=== PATIENT | female | born 1950 | race American Indian/Alaskan Native ===

== ENCOUNTER 2016-03-31 18:20 | Emergency (ER) | payer MEDICARE ==
[2016-03-31 19:00] VITALS: BP 115/76
--- NOTE | 2016-03-31 20:21 | Emergency Department Report ---
Chief Complaint: Dyspnea/Respdistress Stated Complaint: CP/VOMITING/WEAKNESS Time Seen by Provider: 03/31/16 20:16 - HPI History of Present Illness: 65-year-old female past medical history of hypertension CHF diabetes she's had stent placement DVT in the left leg. Comes in today for increased shortness of breath 1 week. Her baseline is usually shortness of breath but the last week as gotten worse. She also complains of vomiting times today. As well as chest pressure and abdominal burning. She has had no fevers. His of breath with exertion. - Exam Vital Signs: Vital Signs 03/31/16 18:45 Temperature 98.6 F Pulse Rate 74 Respiratory 26 H Rate Blood Pressure 115/76 O2 Sat by Pulse 100 Oximetry Physical Exam: Is alert and oriented 3 cardiovascular S1-S2 regular rate and rhythm no murmurs appreciated respiratory she is clear to auscultation bilateral abdomen deferred extremities there is no lower leg edema noted MSE screening note: Focused history and physical exam performed. Due to findings the following was ordered: CBC BMP BNP chest x-ray ordered. It should be evaluated in the back by the main MDs ED Disposition for MSE Condition: Stable
[2016-03-31 20:40] LABS: Hematocrit 42.5 % (30.3-42.9); Hemoglobin 14.3 gm/dl (10.1-14.3); Mean Corpuscular HGB Conc 34 % (30-34); Mean Corpuscular Hemoglobin 33 pg (28-32); Mean Corpuscular Volume 97 fl (79-97); Platelet Count 288 K/mm3 (140-440); Red Blood Count 4.38 M/mm3 (3.65-5.03); White Blood Count 9.5 K/mm3 (4.5-11.0)
[2016-03-31 21:02] LABS: Anion Gap 23 mmol/L; BUN/Creatinine Ratio 15.71; Blood Urea Nitrogen 11 mg/dL (7-17); Calcium 9.6 mg/dL (8.4-10.2); Carbon Dioxide 22 mmol/L (22-30); Glucose 113 mg/dL (65-100); Potassium 3.4 mmol/L (3.6-5.0); Sodium 141 mmol/L (137-145)
--- NOTE | 2016-04-01 10:00 | XRay Report ---
CHEST X-RAY, 2 VIEWS: HISTORY: Shortness of breath. FINDINGS: There is mild hyperinflation, correlate for history of smoking. There is minor linear scarring at the right lung base which is unchanged since 04/09/15. Otherwise, the lungs are clear. Heart size and pulmonary vascularity are within normal limits. Mild aortic calcifications. The thoracic cage is grossly intact. IMPRESSION: Mild hyperinflation. No acute cardiopulmonary process.
--- NOTE | 2016-04-02 18:25 | ED Elopement Review ---
ED Pt Elopement review - Results review Lab results: Laboratory Tests 03/31/16 03/31/16 20:30 20:34 WBC 9.5 RBC 4.38 Hgb 14.3 Hct 42.5 MCV 97 MCH 33 H MCHC 34 RDW 15.0 Plt Count 288 Sodium 141 Potassium 3.4 L Chloride 99.0 Carbon Dioxide 22 Anion Gap 23 BUN 11 Creatinine 0.7 Estimated GFR > 60 BUN/Creatinine Ratio 15.71 Glucose 113 H Calcium 9.6 NT-Pro-B Natriuret Pep 470.4 - Call Back decision Pt Call Back Decision: Call pt to return to ED JESS (tachypnea, T-wave inversions (lead 1, aVL) and chest pressure should be further evaluated)
== END 2016-03-31 21:45 | disposition left against medical advice (07) ==
LOC: ED 18:20
DX: R06.02 Shortness of breath (principal); R11.10 Vomiting, unspecified; R07.89 Other chest pain; I10 Essential (primary) hypertension; I50.9 Heart failure, unspecified; E11.9 Type 2 diabetes mellitus without complications; Z53.21 Procedure and treatment not carried out due to patient leaving prior to being seen by health care provider
CPT/HCPCS: 36415; 71020; 80048; 83880; 85027; 93005; 93010

== ENCOUNTER 2016-04-08 17:35 | Emergency (ER) | payer MEDICARE ==
[2016-04-08 19:37] LABS: Basophils % (Auto) 0.7 % (0.0-1.8); Eosinophils % (Auto) 2.9 % (0.0-4.3); Hematocrit 38.2 % (30.3-42.9); Hemoglobin 12.8 gm/dl (10.1-14.3); Mean Corpuscular HGB Conc 33 % (30-34); Mean Corpuscular Hemoglobin 33 pg (28-32); Mean Corpuscular Volume 98 fl (79-97); Platelet Count 336 K/mm3 (140-440); Red Blood Count 3.91 M/mm3 (3.65-5.03); Red Cell Distribution Width 15.6 % (13.2-15.2); White Blood Count 8.4 K/mm3 (4.5-11.0)
[2016-04-08 19:48] LABS: INR 1.03 (0.87-1.13)
[2016-04-08 19:49] LABS: Partial Thromboplastin Time 26.9 Sec. (24.2-36.6)
[2016-04-08 19:58] LABS: Blood Urea Nitrogen 12 mg/dL (7-17); Calcium 9.2 mg/dL (8.4-10.2); Carbon Dioxide 26 mmol/L (22-30); Chloride 103.8 mmol/L (98-107); Glucose 99 mg/dL (65-100); Potassium 4.1 mmol/L (3.6-5.0); Sodium 143 mmol/L (137-145)
[2016-04-08 20:07] LABS: Anion Gap 17 mmol/L
--- NOTE | 2016-04-08 20:44 | Emergency Department Report ---
ED General Adult HPI - General Chief complaint: Recheck/Abnormal Lab/Rx Stated complaint: CALL BACK Time Seen by Provider: 04/08/16 20:25 Source: patient Mode of arrival: Ambulatory Limitations: Physical Limitation - History of Present Illness Initial comments: This is a pleasant 66-year-old female who presents to the ED complaining of recheck due to C to her in the mail from our emergency department. Patient was initially here last she did have ECG done was here for some increased dyspnea some mild chest discomfort as well. She indicates that she did leave prior to complete evaluation due to the length of her stay. She indicates over the course of the weekend she's felt somewhat improved she does sleep with pillows nightly and there is this is unchanged times several years. She does report slightly increased dyspnea over the last couple of weeks ago. In general she states she feels well today at her baseline. She reports compliance with her medications. She denies any significant chest pain. She does again have occasional dyspnea. She does report a history of reflux as well but states this is been relatively well controlled as of late. -: Gradual, week(s) Location: chest Radiation: non-radiation Severity scale (0 -10): 2 Quality: dull Consistency: now resolved Improves with: rest Worsens with: movement Associated Symptoms: shortness of breath Treatments Prior to Arrival: none - Related Data Home Medications Medication Instructions Recorded Confirmed Last Taken Metoprolol [Lopressor TAB] 0 mg PO BID 04/09/15 04/09/15 03/26/15 0 MG Previous Rx's Medication Instructions Recorded Last Taken Type Aspirin EC [Aspirin Enteric Coated 325 mg PO QDAY tablet 10/04/14 03/26/15 Rx TAB] 325 MG Metoprolol [Lopressor TAB] 25 mg PO BID #60 tablet 04/09/15 Unknown Rx AtorvaSTATin [Lipitor] 20 mg PO DAILY #30 tablet 04/10/15 Unknown Rx Cilostazol [Pletal] 50 mg PO BID 30 Days 04/10/15 Unknown Rx Digoxin [Digox] 0.125 mcg PO DAILY 30 Days 04/10/15 Unknown Rx Furosemide [Lasix TAB] 40 mg PO QDAY #30 tablet 04/10/15 Unknown Rx Losartan [Cozaar] 100 mg PO QDAY #30 tablet 04/10/15 Unknown Rx [place]-3 Acid Ethyl Esters [Lovaza] 1 gm PO BID 30 Days 04/10/15 Unknown Rx PARoxetine [Paxil] 20 mg PO DAILY #30 tablet 04/10/15 Unknown Rx Ventolin HFA 2 puff INHALATION Q6H PRN #1 04/10/15 Unknown Rx amLODIPine [Norvasc] 10 mg PO DAILY #30 tablet 04/10/15 Unknown Rx cloNIDine [Catapres] 0.1 mg PO BID 30 Days 04/10/15 Unknown Rx metFORMIN [Glucophage] 500 mg PO BIDWM #60 tablet 04/10/15 Unknown Rx Acetaminophen/Codeine [Tylenol #3] 1 tab PO Q6H PRN #15 tab 05/29/15 Unknown Rx Allergies Allergy/AdvReac Type Severity Reaction Status Date / Time No Known Allergies Allergy Verified 04/08/16 18:42 ED Review of Systems ROS: Stated complaint: CALL BACK Other details as noted in HPI Constitutional: denies: chills, fever Eyes: denies: eye pain, eye discharge, vision change ENT: denies: ear pain, throat pain Respiratory: shortness of breath, other (orthopnea, nocturnal dyspnea). denies : cough, wheezing Cardiovascular: chest pain. denies: palpitations Endocrine: no symptoms reported Gastrointestinal: denies: abdominal pain, nausea, diarrhea Genitourinary: denies: urgency, dysuria, discharge Musculoskeletal: denies: back pain, joint swelling, arthralgia Skin: denies: rash, lesions Neurological: denies: headache, weakness, paresthesias Psychiatric: denies: anxiety, depression Hematological/Lymphatic: denies: easy bleeding, easy bruising ED Past Medical Hx - Past Medical History Hx Hypertension: Yes Hx Congestive Heart Failure: Yes Hx Diabetes: Yes Hx Psychiatric Treatment: Yes (ANXIETY) Additional medical history: HIGH CHOLESTEROL. 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 MILD HEART ENLARGEMENT - Surgical History Additional Surgical History: STENTS IN LEGS, BLOOD CLOTS REMOVED FROM HEAD. TUBAL LIGATION - Social History Smoking Status: Current Every Day Smoker - Medications Home Medications: Home Medications Medication Instructions Recorded Confirmed Last Taken Type Aspirin EC [Aspirin Enteric Coated 325 mg PO QDAY tablet 10/04/14 04/09/15 Rx TAB] 325 MG Metoprolol [Lopressor TAB] 0 mg PO BID 04/09/15 04/09/15 03/26/15 History 0 MG Metoprolol [Lopressor TAB] 25 mg PO BID #60 tablet 04/09/15 Unknown Rx AtorvaSTATin [Lipitor] 20 mg PO DAILY #30 tablet 04/10/15 Unknown Rx Cilostazol [Pletal] 50 mg PO BID 30 Days 04/10/15 Unknown Rx Digoxin [Digox] 0.125 mcg PO DAILY 30 Days 04/10/15 Unknown Rx Furosemide [Lasix TAB] 40 mg PO QDAY #30 tablet 04/10/15 Unknown Rx Losartan [Cozaar] 100 mg PO QDAY #30 tablet 04/10/15 Unknown Rx [place]-3 Acid Ethyl Esters [Lovaza] 1 gm PO BID 30 Days 04/10/15 Unknown Rx PARoxetine [Paxil] 20 mg PO DAILY #30 tablet 04/10/15 Unknown Rx Ventolin HFA 2 puff INHALATION Q6H PRN #1 04/10/15 Unknown Rx amLODIPine [Norvasc] 10 mg PO DAILY #30 tablet 04/10/15 Unknown Rx cloNIDine [Catapres] 0.1 mg PO BID 30 Days 04/10/15 Unknown Rx metFORMIN [Glucophage] 500 mg PO BIDWM #60 tablet 04/10/15 Unknown Rx Acetaminophen/Codeine [Tylenol #3] 1 tab PO Q6H PRN #15 tab 05/29/15 Unknown Rx ED Physical Exam - General Limitations: No Limitations, Physical Limitation General appearance: alert, in no apparent distress - Head Head exam: Present: atraumatic, normocephalic - Eye Eye exam: Present: normal appearance - ENT ENT exam: Present: normal exam, mucous membranes moist - Neck Neck exam: Present: normal inspection, other (no carotid bruit). Absent: lymphadenopathy - Respiratory Respiratory exam: Present: rales (bibasilarly. Good air movement). Absent: respiratory distress, wheezes, stridor - Cardiovascular Cardiovascular Exam: Present: regular rate, normal rhythm, systolic murmur (3/6) . Absent: diastolic murmur, rubs, gallop - GI/Abdominal GI/Abdominal exam: Present: soft, normal bowel sounds - Extremities Exam Extremities exam: Present: normal inspection, other (equal distal pedal pulses bilat. No calf tenderness). Absent: pedal edema - Back Exam Back exam: Present: normal inspection - Neurological Exam Neurological exam: Present: alert, oriented X3 - Psychiatric Psychiatric exam: Present: normal affect, normal mood - Skin Skin exam: Present: warm, dry, intact, normal color. Absent: rash ED Course Vital Signs 04/08/16 18:20 Temperature 98.1 F Pulse Rate 84 Respiratory 16 Rate Blood Pressure 224/101 O2 Sat by Pulse 99 Oximetry - Reevaluation(s) Reevaluation #1: 04/08/16 20:52 Patient is very pleasant here vital signs are noted oxygen saturation is normal heart rate is normal ECG is compared to ECG from 1 week ago. There is very minimal changes noted with this there. There are some nonspecific ST-T changes more prominent today compared to ECG from 1 week ago however still very nonspecific without any reciprocal changes noted whatsoever. I did review the labs today they will are unremarkable in general. BNP is noted to be elevated at 600 her creatinine is normal at 0.8. I did order a digoxin for her physician to follow-up with his well. My impression in general is there is no acute process at play. I feel the patient has some ongoing mild dyspnea due to her chronic congestive heart failure. She appears to be on a good drop medication regimen for this. She indicates compliance with her medications. Her vital signs again are stable at this time. I feel she is appropriate for outpatient management and continue follow-up. I did indicate to her to have a conversation with her primary physician regarding any further cardiac testing that they would recommend. I also indicated to her importance of increasing her Lasix when she having increased dyspnea as this will likely help mobilize increase fluid. She still has very good kidney function so this should be quite effective. No other concerning features at this time I feel that she is safe for home. She has family with her home. ED Medical Decision Making - Lab Data Result diagrams: 04/08/16 19:07 04/08/16 19:07 - EKG Data -: EKG Interpreted by Me EKG shows normal: sinus rhythm, axis (Left), ST-T waves (non-specific st-t changes with unchanged from ecg from 1 week ago) Rate: normal Critical care attestation.: If time is entered above; I have spent that time in minutes in the direct care of this critically ill patient, excluding procedure time. ED Disposition Clinical Impression: Dyspnea due to congestive heart failure Disposition: DISCHARGED TO HOME OR SELFCARE Is pt being admited?: No Does the pt Need Aspirin: No Condition: Stable Additional Instructions: Take an extra lasix tablet (1 in the morning and 1 at night) when you are having increased shortness of breath. Be sure to take an extra potassium tablet when you double up your lasix. You need to be seen by your doctor in the next 5 days to further address your elevated blood pressure. You can also discuss further evaluation of your shortness of breath and chest discomforts. Time of Disposition: 20:43
[2016-04-08 20:59] VITALS: BP 168/86
== END 2016-04-08 22:06 | disposition home or self-care (01) ==
LOC: ED 17:35
DX: R06.00 Dyspnea, unspecified (principal); I50.9 Heart failure, unspecified; I10 Essential (primary) hypertension; E11.9 Type 2 diabetes mellitus without complications; F41.9 Anxiety disorder, unspecified; E78.00 Pure hypercholesterolemia, unspecified; F17.200 Nicotine dependence, unspecified, uncomplicated; Z79.82 Long term (current) use of aspirin
CPT/HCPCS: 36415; 80048; 83880; 84484; 85025; 85610; 85730; 93005; 93010

== ENCOUNTER 2017-10-26 09:12 | Emergency (ER) | payer MEDICARE ==
--- NOTE | 2017-10-26 09:54 | XRay Report ---
CHEST XRAY, 2 VIEWS: History: Shortness of breath. Findings: There is mild diffuse interstitial coarsening. The lungs are hyperexpanded but clear. No infiltrate, pleural fluid or pneumothorax is detected. The cardiac silhouette and pulmonary vasculature are within normal limits for technique. The bony thorax is unremarkable. IMPRESSION: Changes consistent with COPD. No significant change since 03/31/16. No acute cardiopulmonary process.
[2017-10-26 10:36] LABS: Basophils % (Auto) 0.5 % (0.0-1.8); Eosinophils # (Auto) 0.1 K/mm3 (0.0-0.4); Eosinophils % (Auto) 0.6 % (0.0-4.3); Hematocrit 36.9 % (30.3-42.9); Lymphocytes # (Auto) 2.3 K/mm3 (1.2-5.4); Lymphocytes % (Auto) 21.7 % (13.4-35.0); Mean Corpuscular HGB Conc 35 % (30-34); Mean Corpuscular Hemoglobin 33 pg (28-32); Mean Corpuscular Volume 95 fl (79-97); Monocytes # (Auto) 0.8 K/mm3 (0.0-0.8); Monocytes % (Auto) 7.2 % (0.0-7.3); Platelet Count 339 K/mm3 (140-440); Red Blood Count 3.88 M/mm3 (3.65-5.03); Red Cell Distribution Width 13.7 % (13.2-15.2)
[2017-10-26 10:42] LABS: Calcium 10.1 mg/dL (8.4-10.2)
[2017-10-26] MEDS ORDERED: TESSALON PERLES PO ONE (13:52)
[2017-10-26] MEDS ORDERED: TYLENOL #3 PO ONE (13:52)
[2017-10-26] MEDS ORDERED: DELTASONE PO ONE (15:33)
[2017-10-26] MEDS ORDERED: DUONEB *Not for PRN Use IH ONE (15:33)
[2017-10-26] MEDS ORDERED: ZITHROMAX PO ONE (15:33)
[2017-10-26 16:45] VITALS: BP 177/96
--- NOTE | 2017-10-26 17:48 | Emergency Department Report ---
HPI - General Chief Complaint: Dyspnea/Respdistress Time Seen by Provider: 10/26/17 13:49 - HPI HPI: The patient is a 67-year-old female who presents for evaluation of cough. The patient reports that productive cough of yellow in green sputum the past one week, associated with mild generalized aching in quality pain in the chest and back, exacerbated with coughing, relieved at rest. The patient denies fever, dyspnea, syncope, hemoptysis, unilateral leg swelling,recent immobilization, history of DVT or PE, hx of recent cancer. The patient a long-standing daily tobacco use history. ED Past Medical Hx - Past Medical History Previous Medical History?: Yes Hx Hypertension: Yes Hx Congestive Heart Failure: Yes Hx Diabetes: Yes Hx Psychiatric Treatment: Yes (ANXIETY) Additional medical history: HIGH CHOLESTEROL. 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 MILD HEART ENLARGEMENT - Surgical History Past Surgical History?: Yes Additional Surgical History: STENTS IN LEGS, BLOOD CLOTS REMOVED FROM HEAD. TUBAL LIGATION - Social History Smoking Status: Current Every Day Smoker Substance Use Type: None - Medications Home Medications: Home Medications Medication Instructions Recorded Confirmed Last Taken Type Aspirin EC [Aspirin Enteric Coated 325 mg PO QDAY tablet 10/04/14 04/09/15 Rx TAB] 325 MG Metoprolol [Lopressor TAB] 0 mg PO BID 04/09/15 04/09/15 03/26/15 History 0 MG Metoprolol [Lopressor TAB] 25 mg PO BID #60 tablet 04/09/15 Unknown Rx AtorvaSTATin [Lipitor] 20 mg PO DAILY #30 tablet 04/10/15 Unknown Rx Cilostazol [Pletal] 50 mg PO BID 30 Days tablet 04/10/15 Unknown Rx Digoxin [Digox] 0.125 mcg PO DAILY 30 Days tablet 04/10/15 Unknown Rx Furosemide [Lasix TAB] 40 mg PO QDAY #30 tablet 04/10/15 Unknown Rx Losartan [Cozaar] 100 mg PO QDAY #30 tablet 04/10/15 Unknown Rx [place]-3 Acid Ethyl Esters [Lovaza] 1 gm PO BID 30 Days capsule 04/10/15 Unknown Rx PARoxetine [Paxil] 20 mg PO DAILY #30 tablet 04/10/15 Unknown Rx Ventolin HFA 2 puff INHALATION Q6H PRN #1 04/10/15 Unknown Rx amLODIPine [Norvasc] 10 mg PO DAILY #30 tablet 04/10/15 Unknown Rx cloNIDine [Catapres] 0.1 mg PO BID 30 Days tablet 04/10/15 Unknown Rx metFORMIN [Glucophage] 500 mg PO BIDWM #60 tablet 04/10/15 Unknown Rx Acetaminophen/Codeine [Tylenol #3] 1 tab PO Q6H PRN #15 tab 05/29/15 Unknown Rx ALBUTEROL Inhaler [ProAir HFA 2 puff IH QID PRN #1 inhalation 10/26/17 Unknown Rx Inhaler] Azithromycin [Zithromax Z-CHRISTOPHER] 250 mg PO QDAY #6 tablet 10/26/17 Unknown Rx Benzonatate [Tessalon Perles] 100 mg PO Q8HR #20 capsule 10/26/17 Unknown Rx amLODIPine [Norvasc] 5 mg PO DAILY #31 tab 10/26/17 Unknown Rx guaiFENesin [Mucinex] 600 mg PO BID PRN #20 tab.er.12h 10/26/17 Unknown Rx ED Review of Systems ROS: Stated complaint: POSS FLU Other details as noted in HPI Constitutional: denies: fever ENT: denies: throat or neck pain Respiratory reports cough denies: shortness of breath Cardiovascular: denies: chest pain Endocrine: denies unexplained weight loss or gain Gastrointestinal: denies: abdominal pain, nausea Genitourinary: denies: dysuria Musculoskeletal: denies: leg swelling Skin: denies: rash Neurological: denies: headache Hematological/Lymphatic: denies: easy bleeding or easy bruising Psych: denies sadness or hopelessness Physical Exam - Physical Exam Vital Signs: Vital Signs 10/26/17 10/26/17 10/26/17 09:18 15:21 15:48 Temperature 97.6 F 98.8 F Pulse Rate 74 75 Pulse Rate [ Anterior Bilateral Throughout] Respiratory 18 22 22 Rate Respiratory Rate [Anterior Bilateral Throughout] Blood Pressure 197/75 Blood Pressure 199/94 [Left] O2 Sat by Pulse 97 95 95 Oximetry 10/26/17 16:20 Temperature Pulse Rate Pulse Rate [ 74 Anterior Bilateral Throughout] Respiratory Rate Respiratory 18 Rate [Anterior Bilateral Throughout] Blood Pressure Blood Pressure [Left] O2 Sat by Pulse Oximetry Physical Exam: General: well-nourished, well-developed, no acute distress Head: Normocephalic, atraumatic Eyes: normal sclera ENT: Mucous membranes are pale and dry Neck: No neck stiffness, no cervical adenopathy Respiratory: Breath sounds equal bilaterally, no wheezing, rales, or rhonchi Cardio: S1 and S2 present, no murmurs, rubs, gallops, capillary refill is delayed Abdomen: Normoactive bowel sounds, soft abdomen, no rigidity, no guarding or rebound tenderness Chest WALL/Back: + tenderness to palpation of the bilateral chest wall, no redness, bruising, or fluctuance, crepitus to chest wall, no CVA tenderness with percussion Musc: No pitting edema Skin: No rash Neuro: no facial drooping, normal speech Psych: Normal affect ED Course Vital Signs 10/26/17 10/26/17 10/26/17 09:18 15:21 15:48 Temperature 97.6 F 98.8 F Pulse Rate 74 75 Pulse Rate [ Anterior Bilateral Throughout] Respiratory 18 22 22 Rate Respiratory Rate [Anterior Bilateral Throughout] Blood Pressure 197/75 Blood Pressure 199/94 [Left] O2 Sat by Pulse 97 95 95 Oximetry 10/26/17 16:20 Temperature Pulse Rate Pulse Rate [ 74 Anterior Bilateral Throughout] Respiratory Rate Respiratory 18 Rate [Anterior Bilateral Throughout] Blood Pressure Blood Pressure [Left] O2 Sat by Pulse Oximetry ED Medical Decision Making - Lab Data Result diagrams: 10/26/17 09:52 10/26/17 09:52 - Medical Decision Making The patient was seen and examined by myself. The patient is placed on a cardiac exercise specialist and continuous pulse ox. On initial evaluation, the patient was found to be in no distress. Evaluation orders were placed. The patient is given a breathing treatment and steroids for txt of COPD, and by mouth cough and pain medicine as well. Chest x-ray negative for focal consolidation, pleural effusions, pulmonary congestion, pneumothorax, or other acute cardio pulmonary disease process. Lab results are grossly not concerning. The patient was reevaluated and reported that their symptoms were markedly improved. On reexamination the patient is found to have normal respiratory rate and O2 sat on pulse oximetry, with no costal retractions or diminishment of breath sounds on auscultation. The patient is stable for discharge with outpatient follow- up. The patient is given follow-up and return instructions. The patient expressed understanding and agreed with the plan. The patient is discharged in stable condition. Critical care attestation.: If time is entered above; I have spent that time in minutes in the direct care of this critically ill patient, excluding procedure time. ED Disposition Clinical Impression: Acute bronchitis Qualifiers: Bronchitis organism: unspecified organism Qualified Code(s): J20.9 - Acute bronchitis, unspecified Disposition: - TO HOME OR SELFCARE Is pt being admited?: No Does the pt Need Aspirin: No Condition: Stable Instructions: Acute Bronchitis (ED), Viral Syndrome (ED), Upper Respiratory Infection (ED) Referrals: PRIMARY CARE, [Primary Care Provider] - 3-5 Days [facility] [Outside] - 3-5 Days Time of Disposition: 16:31
== END 2017-10-26 16:44 | disposition home or self-care (01) ==
LOC: ED 09:12
DX: J20.9 Acute bronchitis, unspecified (principal); I11.0 Hypertensive heart disease with heart failure; I50.9 Heart failure, unspecified; E11.9 Type 2 diabetes mellitus without complications; F41.9 Anxiety disorder, unspecified; E78.00 Pure hypercholesterolemia, unspecified; F17.200 Nicotine dependence, unspecified, uncomplicated; Z98.51 Tubal ligation status; Z79.82 Long term (current) use of aspirin
CPT/HCPCS: 36415; 71046; 80048; 84484; 85025; 87040; 93005; 93010; 94640; 99284; J7512

== ENCOUNTER 2019-01-08 23:01 | Inpatient (IN) | payer MEDICARE ==
[2019-01-08] MEDS ORDERED: FUROSEMIDE 40 MG/4 ML INJ IV ONE (23:17)
--- NOTE | 2019-01-08 23:22 | Emergency Department Report ---
ED Chest Pain HPI - General Stated Complaint: CHEST PAIN Time Seen by Provider: 01/08/19 23:17 - History of Present Illness Initial Comments: Patient is 68 years old female with history of congestive heart failure, hypertension, diabetes and coronary artery disease with recent stent. Patient presented to the ER via EMS for evaluation of sudden onset of left-sided chest pain, heaviness associated with her shortness of breath. The patient denied any fever, chills or cough. She received aspirin and nitroglycerin by EMS with improvement in the symptoms. MD Complaint: chest pain Onset: during rest Pain Radiation: none Severity: moderate Quality: heaviness - Related Data Home Medications Medication Instructions Recorded Confirmed Last Taken Metoprolol [Lopressor TAB] 0 mg PO BID 04/09/15 04/09/15 03/26/15 0 MG Previous Rx's Medication Instructions Recorded Last Taken Type Aspirin EC 325 mg PO QDAY tablet 10/04/14 03/26/15 Rx 325 MG Metoprolol [Lopressor TAB] 25 mg PO BID #60 tablet 04/09/15 Unknown Rx AtorvaSTATin [Lipitor] 20 mg PO DAILY #30 tablet 04/10/15 Unknown Rx Cilostazol [Pletal] 50 mg PO BID 30 Days tablet 04/10/15 Unknown Rx Digoxin [Digox] 0.125 mcg PO DAILY 30 Days tablet 04/10/15 Unknown Rx Furosemide [Lasix TAB] 40 mg PO QDAY #30 tablet 04/10/15 Unknown Rx Losartan [Cozaar] 100 mg PO QDAY #30 tablet 04/10/15 Unknown Rx Pollok-3 Acid Ethyl Esters [Lovaza] 1 gm PO BID 30 Days capsule 04/10/15 Unknown Rx PARoxetine [Paxil] 20 mg PO DAILY #30 tablet 04/10/15 Unknown Rx Ventolin HFA 2 puff INHALATION Q6H PRN #1 04/10/15 Unknown Rx amLODIPine 10 mg PO DAILY #30 tablet 04/10/15 Unknown Rx cloNIDine [Catapres] 0.1 mg PO BID 30 Days tablet 04/10/15 Unknown Rx metFORMIN [Glucophage] 500 mg PO BIDWM #60 tablet 04/10/15 Unknown Rx Acetaminophen/Codeine [Tylenol #3] 1 tab PO Q6H PRN #15 tab 05/29/15 Unknown Rx ALBUTEROL Inhaler (OR & NICU) 2 puff IH QID PRN #1 inhalation 10/26/17 Unknown Rx [ProAir HFA Inhaler] Azithromycin [Zithromax Z-CHRISTOPHER] 250 mg PO QDAY #6 tablet 10/26/17 Unknown Rx Benzonatate [Tessalon Perles] 100 mg PO Q8HR #20 capsule 10/26/17 Unknown Rx amLODIPine [Norvasc] 5 mg PO DAILY #31 tab 10/26/17 Unknown Rx guaiFENesin [Mucinex] 600 mg PO BID PRN #20 tab.er.12h 10/26/17 Unknown Rx Allergies Allergy/AdvReac Type Severity Reaction Status Date / Time No Known Allergies Allergy Verified 04/08/16 18:42 Heart Score - HEART Score History: Moderately suspicious EKG: Non-specific Age: > 65 Risk factors: > 3 risk factors or hx of atherosclerotic disease Troponin: < normal limit HEART Score: 6 - Critical Actions Critical Actions: 4-6 pts:12-16.6% risk of adverse cardiac event. Should be admitted ED Review of Systems ROS: Stated complaint: CHEST PAIN Other details as noted in HPI Comment: All other systems reviewed and negative Constitutional: denies: chills, fever Respiratory: orthopnea, shortness of breath, SOB with exertion, SOB at rest. denies: cough, wheezing Cardiovascular: chest pain Neurological: denies: headache, weakness ED Past Medical Hx - Past Medical History Hx Hypertension: Yes Hx Congestive Heart Failure: Yes Hx Diabetes: Yes Hx Psychiatric Treatment: Yes (ANXIETY) Additional medical history: HIGH CHOLESTEROL. 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 MILD HEART ENLARGEMENT - Surgical History Additional Surgical History: STENTS IN LEGS, BLOOD CLOTS REMOVED FROM HEAD. TUBAL LIGATION - Social History Smoking Status: Current Every Day Smoker Substance Use Type: None - Medications Home Medications: Home Medications Medication Instructions Recorded Confirmed Last Taken Type Aspirin EC 325 mg PO QDAY tablet 10/04/14 04/09/15 03/26/15 Rx 325 MG Metoprolol [Lopressor TAB] 0 mg PO BID 04/09/15 04/09/15 03/26/15 History 0 MG Metoprolol [Lopressor TAB] 25 mg PO BID #60 tablet 04/09/15 Unknown Rx AtorvaSTATin [Lipitor] 20 mg PO DAILY #30 tablet 04/10/15 Unknown Rx Cilostazol [Pletal] 50 mg PO BID 30 Days tablet 04/10/15 Unknown Rx Digoxin [Digox] 0.125 mcg PO DAILY 30 Days tablet 04/10/15 Unknown Rx Furosemide [Lasix TAB] 40 mg PO QDAY #30 tablet 04/10/15 Unknown Rx Losartan [Cozaar] 100 mg PO QDAY #30 tablet 04/10/15 Unknown Rx Pollok-3 Acid Ethyl Esters [Lovaza] 1 gm PO BID 30 Days capsule 04/10/15 Unknown Rx PARoxetine [Paxil] 20 mg PO DAILY #30 tablet 04/10/15 Unknown Rx Ventolin HFA 2 puff INHALATION Q6H PRN #1 04/10/15 Unknown Rx amLODIPine 10 mg PO DAILY #30 tablet 04/10/15 Unknown Rx cloNIDine [Catapres] 0.1 mg PO BID 30 Days tablet 04/10/15 Unknown Rx metFORMIN [Glucophage] 500 mg PO BIDWM #60 tablet 04/10/15 Unknown Rx Acetaminophen/Codeine [Tylenol #3] 1 tab PO Q6H PRN #15 tab 05/29/15 Unknown Rx ALBUTEROL Inhaler (OR & NICU) 2 puff IH QID PRN #1 inhalation 10/26/17 Unknown Rx [ProAir HFA Inhaler] Azithromycin [Zithromax Z-CHRISTOPHER] 250 mg PO QDAY #6 tablet 10/26/17 Unknown Rx Benzonatate [Tessalon Perles] 100 mg PO Q8HR #20 capsule 10/26/17 Unknown Rx amLODIPine [Norvasc] 5 mg PO DAILY #31 tab 10/26/17 Unknown Rx guaiFENesin [Mucinex] 600 mg PO BID PRN #20 tab.er.12h 10/26/17 Unknown Rx ED Physical Exam - General General appearance: alert, in no apparent distress - Head Head exam: Present: atraumatic, normocephalic, normal inspection - Eye Eye exam: Present: normal appearance - ENT ENT exam: Present: normal exam, normal orophraynx, mucous membranes moist - Neck Neck exam: Present: normal inspection, full ROM. Absent: tenderness, meningism us, lymphadenopathy, thyromegaly - Respiratory Respiratory exam: Present: respiratory distress. Absent: wheezes, rales, rhonchi, accessory muscle use, prolonged expiratory - Cardiovascular Cardiovascular Exam: Present: regular rate, normal rhythm, normal heart sounds - GI/Abdominal GI/Abdominal exam: Present: soft, normal bowel sounds. Absent: distended, tenderness, guarding, rebound, rigid - Extremities Exam Extremities exam: Present: normal inspection, full ROM, normal capillary refill. Absent: pedal edema, calf tenderness - Back Exam Back exam: Present: normal inspection, full ROM. Absent: CVA tenderness (R), CVA tenderness (L) - Neurological Exam Neurological exam: Present: alert, oriented X3, CN II-XII intact - Psychiatric Psychiatric exam: Present: normal mood - Skin Skin exam: Present: warm, intact, normal color ED Course Vital Signs 01/08/19 23:28 Temperature 98.2 F Pulse Rate 73 Respiratory 15 Rate Blood Pressure 197/78 Blood Pressure 197/78 [Left] O2 Sat by Pulse 97 Oximetry ED Medical Decision Making - Lab Data Result diagrams: 01/08/19 23:31 01/08/19 23:31 - EKG Data -: EKG Interpreted by [place] EKG shows normal: sinus rhythm Rate: normal - EKG Data Interpretation: no acute changes - Radiology Data Radiology results: report reviewed - Medical Decision Making Patient is 68 years old female with history of congestive heart failure, hypertension, diabetes and coronary artery disease with recent stent. Patient presented to the ER via EMS for evaluation of sudden onset of left-sided chest pain, heaviness associated with her shortness of breath. The patient denied any fever, chills or cough. She received aspirin and nitroglycerin by EMS with improvement in the symptoms. Patient initial blood pressure was 220/120, improved with nitroglycerin. Patient received Lasix 40 mg. Chest x-ray show pulmonary edema. Troponin is slightly elevated. I discussed the patient with Dr. Brown, he agreed to admit the patient to medical service for further management. Critical Care Time: Yes Critical care time in (mins) excluding proc time.: 30 Critical care attestation.: If time is entered above; I have spent that time in minutes in the direct care of this critically ill patient, excluding procedure time. ED Disposition Clinical Impression: Acute exacerbation of CHF (congestive heart failure), Chest pain Disposition: OP ADMIT IP TO THIS HOSP Is pt being admited?: Yes Condition: Stable Instructions: Chest Pain (ED)
--- NOTE | 2019-01-08 23:49 | XRay Report ---
CHEST 1 VIEW 01/08/2019 11:18 PM INDICATION / CLINICAL INFORMATION: Dyspnea. History of CHF and hypertension. COMPARISON: A 03/27/17 FINDINGS: SUPPORT DEVICES: None. HEART / MEDIASTINUM: Heart is enlarged with slight increase since prior study. LUNGS / PLEURA: Mild interstitial opacities incredibly B lines. No pneumothorax. ADDITIONAL FINDINGS: No significant additional findings. IMPRESSION: 1. Cardiomegaly with mild interstitial edema. Signer Name: Kuldeep Kovacs MD Signed: 01/08/2019 11:45 PM Workstation Name: [id number]
[2019-01-08 23:51] LABS: Basophils # (Auto) 0.1 K/mm3 (0.0-0.1); Basophils % (Auto) 1.4 % (0.0-1.8); Eosinophils # (Auto) 0.1 K/mm3 (0.0-0.4); Eosinophils % (Auto) 1.2 % (0.0-4.3); Hematocrit 26.5 % (30.3-42.9); Hemoglobin 8.4 gm/dl (10.1-14.3); Lymphocytes # (Auto) 1.5 K/mm3 (1.2-5.4); Lymphocytes % (Auto) 28.7 % (13.4-35.0); Mean Corpuscular HGB Conc 32 % (30-34); Mean Corpuscular Volume 85 fl (79-97); Monocytes # (Auto) 0.5 K/mm3 (0.0-0.8); Monocytes % (Auto) 10.3 % (0.0-7.3); Platelet Count 313 K/mm3 (140-440); Red Blood Count 3.11 M/mm3 (3.65-5.03); Red Cell Distribution Width 17.1 % (13.2-15.2)
[2019-01-09 00:03] LABS: INR 1.36 (0.87-1.13)
[2019-01-09 00:13] LABS: Partial Thromboplastin Time 27.8 Sec. (24.2-36.6)
[2019-01-09] MEDS ORDERED: ONDANSETRON 4 MG/2 ML INJ IV ONE (00:14)
[2019-01-09] MEDS ORDERED: ONDANSETRON 4 MG/2 ML INJ ONE (00:15)
[2019-01-09 00:17] LABS: Albumin 4.2 g/dL (3.9-5); Bilirubin,Direct 0.3 mg/dL (0-0.2)
[2019-01-09] MEDS ORDERED: NITROGLYCERIN 0.4 MG TAB SUBL SL PRN (00:51)
[2019-01-09] MEDS ORDERED: MORPHINE 2 MG/1 ML INJ IV PRN (00:51)
[2019-01-09] MEDS ORDERED: FUROSEMIDE 40 MG/4 ML INJ IV ONE (01:30)
[2019-01-09] MEDS ORDERED: hydrALAZINE 20 MG/1 ML INJ IV ONE ×2 (01:30→03:56)
[2019-01-09] MEDS ORDERED: PROMETHAZINE 12.5 MG RECT SUPP PR ONE (01:34)
[2019-01-09 01:50] LABS: Chol/HDL Ratio 2.92 %
[2019-01-09 03:46] LABS: Basophils # (Auto) 0.1 K/mm3 (0.0-0.1); Basophils % (Auto) 0.9 % (0.0-1.8); Eosinophils % (Auto) 0.1 % (0.0-4.3); Hematocrit 26.6 % (30.3-42.9); Hemoglobin 8.9 gm/dl (10.1-14.3); Lymphocytes # (Auto) 1.2 K/mm3 (1.2-5.4); Lymphocytes % (Auto) 17.8 % (13.4-35.0); Mean Corpuscular HGB Conc 34 % (30-34); Mean Corpuscular Volume 84 fl (79-97); Monocytes # (Auto) 0.6 K/mm3 (0.0-0.8); Monocytes % (Auto) 8.5 % (0.0-7.3); Platelet Count 353 K/mm3 (140-440); Red Blood Count 3.17 M/mm3 (3.65-5.03); Red Cell Distribution Width 17.1 % (13.2-15.2)
[2019-01-09] MEDS ORDERED: hydrALAZINE 20 MG/1 ML INJ ONE (03:59)
[2019-01-09] MEDS ORDERED: ACETAMINOPHEN 325 MG TAB PO PRN (04:02)
[2019-01-09] MEDS ORDERED: ONDANSETRON 4 MG/2 ML INJ IV PRN (04:02)
[2019-01-09] MEDS ORDERED: cloNIDine 0.1 MG TAB PO ONE (04:57)
--- NOTE | 2019-01-09 06:33 | History and Physical Report ---
History of Present Illness Date of examination: 01/09/19 Date of admission: 01/09/19 06:07 Chief complaint: Chest pain History of present illness: Patient is a 68-year-old female with known history of coronary artery disease congestive heart failure presented to the emergency room today with sudden onset of chest pain today. Patient denies any nausea vomiting, no fever or chills. However she had some shortness of breath. Is no no relieving or exacerbating factor for chest pain. She has not had a recent cardiac work-up. Upon arrival in the emergency room she had a an elevated blood pressure with systolic in the 200s and diastolic in the low 100. She had sublingual nitroglycerin and aspirin with improvement in her blood pressure. Her work-up was significant for slightly elevated troponin and chest x-ray revealed some pulmonary edema. She was given some IV Lasix with some improvement in the chest pain or shortness of breath. Past History Past Surgical History: Other (Stent placement in the leg and history of bilateral tubal ligation) Social history: smoking (Half a packet of cigarettes daily), alcohol abuse Family history: CAD, diabetes Medications and Allergies Allergies Allergy/AdvReac Type Severity Reaction Status Date / Time No Known Allergies Allergy Verified 04/08/16 18:42 Home Medications Medication Instructions Recorded Confirmed Last Taken Type Digoxin [Digox] 0.125 mcg PO DAILY 30 Days tablet 04/10/15 01/09/19 Unknown Rx PARoxetine [Paxil] 20 mg PO DAILY #30 tablet 04/10/15 01/09/19 Unknown Rx Ventolin HFA 2 puff INHALATION Q6H PRN #1 04/10/15 01/09/19 Unknown Rx cloNIDine [Catapres] 0.1 mg PO BID 30 Days tablet 04/10/15 01/09/19 Unknown Rx metFORMIN [Glucophage] 500 mg PO BIDWM #60 tablet 04/10/15 01/09/19 Unknown Rx Aspirin [Aspirin BABY CHEW TAB] 81 mg PO QDAY 01/09/19 01/09/19 Unknown History AtorvaSTATin [Lipitor] 40 mg PO DAILY 01/09/19 01/09/19 Unknown History Carvedilol [Coreg] 25 mg PO BID 01/09/19 01/09/19 Unknown History Clopidogrel [Plavix] 1 tab PO DAILY 01/09/19 01/09/19 Unknown History Furosemide [Lasix] 20 mg PO QDAY 01/09/19 01/09/19 Unknown History Losartan Potassium 100 mg PO DAILY 01/09/19 01/09/19 Unknown History Sacubitril/Valsartan [Entresto 24 1 each PO TID 01/09/19 01/09/19 Unknown Hist ory - 26 mg] Active Meds: Active Medications Acetaminophen (Tylenol) 650 mg PO Q4H PRN PRN Reason: Pain MILD(1-3)/Fever >100.5/GAMEZ Aspirin (Ecotrin) 325 mg PO QDAY [facility] Morphine Sulfate (Morphine) 2 mg IV Q5MIN PRN PRN Reason: Chest Pain unrelieved by NTG Nitroglycerin (Nitrostat) 0.4 mg SL Q5M PRN PRN Reason: Chest Pain Ondansetron HCl (Zofran) 4 mg IV Q8H PRN PRN Reason: Nausea And Vomiting Sodium Chloride (Sodium Chloride Flush Syringe 10 Ml) 10 ml IV PRN PRN PRN Reason: LINE FLUSH Sodium Chloride (Sodium Chloride Flush Syringe 10 Ml) 10 ml IV BID [facility] Review of Systems Cardiovascular: chest pain Respiratory: shortness of breath Exam - Constitutional Vitals: Temp Pulse Resp BP Pulse Ox 98.2 F 86 17 209/76 99 01/09/19 04:54 01/09/19 05:38 01/09/19 05:00 01/09/19 05:38 01/09/19 05:00 General appearance: Present: no acute distress, well-nourished - EENT Eyes: Present: PERRL, EOM intact ENT: hearing intact, clear oral mucosa, dentition normal - Neck Neck: Present: supple, normal ROM - Respiratory Respiratory effort: normal Respiratory: bilateral: diminished (in the bases) - Cardiovascular Rhythm: regular Heart Sounds: Present: S1 & S2 - Extremities Extremities: no ischemia, No edema Peripheral Pulses: within normal limits - Abdominal General gastrointestinal: Present: soft, non-tender, non-distended - Integumentary Integumentary: Present: clear, warm, dry - Musculoskeletal Musculoskeletal: strength equal bilaterally - Psychiatric Psychiatric: appropriate mood/affect, intact judgment & insight - Neurologic Neurologic: CNII-XII intact, moves all extremities Results - Labs CBC & Chem 7: 01/09/19 03:16 01/09/19 03:16 Labs: Abnormal lab results 01/08/19 01/08/19 01/08/19 Range/Units 23:31 23:31 23:31 RBC 3.11 L (3.65-5.03) M/mm3 Hgb 8.4 L (10.1-14.3) gm/dl Hct 26.5 L (30.3-42.9) % MCH 27 L (28-32) pg RDW 17.1 H (13.2-15.2) % [place] % (Auto) 10.3 H (0.0-7.3) % Seg Neutrophils % (40.0-70.0) % PT 16.6 H (12.2-14.9) Sec. INR 1.36 H (0.87-1.13) Potassium (3.6-5.0) mmol/L Chloride 107.2 H (98-107) mmol/L Carbon Dioxide 19 L (22-30) mmol/L BUN 18 H (7-17) mg/dL Creatinine 1.3 H (0.7-1.2) mg/dL Glucose 164 H (65-100) mg/dL Direct Bilirubin (0-0.2) mg/dL Troponin T 0.051 H (0.00-0.029) ng/mL NT-Pro-B Natriuret Pep (0-900) pg/mL 01/08/19 01/09/19 01/09/19 Range/Units 23:31 03:16 03:16 RBC 3.17 L (3.65-5.03) M/mm3 Hgb 8.9 L (10.1-14.3) gm/dl Hct 26.6 L (30.3-42.9) % MCH (28-32) pg RDW 17.1 H (13.2-15.2) % [place] % (Auto) 8.5 H (0.0-7.3) % Seg Neutrophils % 72.7 H (40.0-70.0) % PT (12.2-14.9) Sec. INR (0.87-1.13) Potassium (3.6-5.0) mmol/L Chloride (98-107) mmol/L Carbon Dioxide (22-30) mmol/L BUN (7-17) mg/dL Creatinine (0.7-1.2) mg/dL Glucose (65-100) mg/dL Direct Bilirubin 0.3 H (0-0.2) mg/dL Troponin T 0.045 H (0.00-0.029) ng/mL NT-Pro-B Natriuret Pep 04202 H (0-900) pg/mL 01/09/19 Range/Units 03:16 RBC (3.65-5.03) M/mm3 Hgb (10.1-14.3) gm/dl Hct (30.3-42.9) % MCH (28-32) pg RDW (13.2-15.2) % [place] % (Auto) (0.0-7.3) % Seg Neutrophils % (40.0-70.0) % PT (12.2-14.9) Sec. INR (0.87-1.13) Potassium 3.4 L (3.6-5.0) mmol/L Chloride 107.9 H (98-107) mmol/L Carbon Dioxide 20 L (22-30) mmol/L BUN 19 H (7-17) mg/dL Creatinine 1.3 H (0.7-1.2) mg/dL Glucose 111 H (65-100) mg/dL Direct Bilirubin (0-0.2) mg/dL Troponin T (0.00-0.029) ng/mL NT-Pro-B Natriuret Pep (0-900) pg/mL Assessment and Plan - Patient Problems (1) Acute exacerbation of CHF (congestive heart failure) Current Visit: Yes Status: Acute Plan to address problem: Patient has been admitted to the telemetry floor. Will monitor daily weights and also monitor input and output. She has been started on IV Lasix. She will be scheduled for an echocardiogram. (2) Chest pain Current Visit: Yes Status: Acute Plan to address problem: Will monitor EKG and also check serial cardiac enzymes. Patient is placed on daily aspirin and sublingual nitroglycerin and IV morphine as needed for chest pain. We will request cardiology input for further evaluation. (3) Accelerated hypertension Current Visit: No Status: Acute Plan to address problem: Blood pressure has since improved since arrival in the emergency room. We will resume routine home medications once will contact and monitor vital signs closely. (4) Tobacco use disorder Current Visit: No Status: Chronic Plan to address problem: She has been counseled on quitting tobacco use. Will offer nicotine patch as needed.
--- NOTE | 2019-01-09 12:02 | Event Note ---
Date: 01/09/19 Patient seen and examined. This is a follow-up from an admission earlier this morning. We will continue the plan as outlined in H&P.
--- NOTE | 2019-01-09 13:11 | Consultation ---
History of Present Illness Consult date: 01/09/19 Requesting physician: MARI ALEXANDER Consult reason: congestive heart failure History of present illness: The patient is a 68-year-old female with a past medical history of "congestive heart failure", "heart attack" in 08/2018 in [place] with no intervention required per pt report, "leaky heart valves", PVD s/p LLE stenting by Dr. Niranjan Moreno, HTN, DM, tobacco use. 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 She presented with c/o intermittent chest pain and SOB for the past 2-3 weeks. She also reports that her BPs have been uncontrolled. SBPs 200s in ED. In ED, she was given IV lasix, SL nitro and ASA and now states she is feeling better. Troponins are noted to be minimally elevated. Past History Past Medical History: acute MN, heart failure, hypertension, PVD Past Surgical History: Other (Stent placement in the leg and history of bilateral tubal ligation) Social history: smoking (Half a packet of cigarettes daily), alcohol abuse Family history: CAD, diabetes Medications and Allergies Allergies Allergy/AdvReac Type Severity Reaction Status Date / Time No Known Allergies Allergy Verified 04/08/16 18:42 Home Medications Medication Instructions Recorded Confirmed Last Taken Type Digoxin [Digox] 0.125 mcg PO DAILY 30 Days tablet 04/10/15 01/09/19 Unknown Rx PARoxetine [Paxil] 20 mg PO DAILY #30 tablet 04/10/15 01/09/19 Unknown Rx Ventolin HFA 2 puff INHALATION Q6H PRN #1 04/10/15 01/09/19 Unknown Rx cloNIDine [Catapres] 0.1 mg PO BID 30 Days tablet 04/10/15 01/09/19 Unknown Rx metFORMIN [Glucophage] 500 mg PO BIDWM #60 tablet 04/10/15 01/09/19 Unknown Rx Aspirin [Aspirin BABY CHEW TAB] 81 mg PO QDAY 01/09/19 01/09/19 Unknown History AtorvaSTATin [Lipitor] 40 mg PO DAILY 01/09/19 01/09/19 Unknown History Carvedilol [Coreg] 25 mg PO BID 01/09/19 01/09/19 Unknown History Clopidogrel [Plavix] 1 tab PO DAILY 01/09/19 01/09/19 Unknown History Furosemide [Lasix] 20 mg PO QDAY 01/09/19 01/09/19 Unknown History Losartan Potassium 100 mg PO DAILY 01/09/19 01/09/19 Unknown History Sacubitril/Valsartan [Entresto 24 1 each PO TID 01/09/19 01/09/19 Unknown History - 26 mg] Active Meds: Active Medications Acetaminophen (Tylenol) 650 mg PO Q4H PRN PRN Reason: Pain MILD(1-3)/Fever >100.5/GAMEZ Aspirin (Ecotrin) 325 mg PO QDAY [facility] Morphine Sulfate (Morphine) 2 mg IV Q5MIN PRN PRN Reason: Chest Pain unrelieved by NTG Nitroglycerin (Nitrostat) 0.4 mg SL Q5M PRN PRN Reason: Chest Pain Ondansetron HCl (Zofran) 4 mg IV Q8H PRN PRN Reason: Nausea And Vomiting Last Admin: 01/09/19 12:04 Dose: 4 mg Documented by: Sodium Chloride (Sodium Chloride Flush Syringe 10 Ml) 10 ml IV PRN PRN PRN Reason: LINE FLUSH Sodium Chloride (Sodium Chloride Flush Syringe 10 Ml) 10 ml IV BID [facility] Last Admin: 01/09/19 10:35 Dose: 10 ml Documented by: Review of Systems Constitutional: no weight loss, no weight gain, no fever, no chills, no sweats Ears, nose, mouth and throat: no ear pain, no nose pain, no sinus pressure, no sinus pain Cardiovascular: chest pain, shortness of breath, dyspnea on exertion, high blood pressure, no orthopnea, no palpitations, no rapid/irregular heart beat, no edema, no syncope, no lightheadedness Respiratory: shortness of breath, dyspnea on exertion, no cough, no congestion, no wheezing, no pain on inspiration Gastrointestinal: no abdominal pain, no nausea, no vomiting, no diarrhea, no constipation, no change in bowel habits Genitourinary Female: no pelvic pain, no flank pain, no dysuria, no urinary frequency, no urgency Musculoskeletal: no neck stiffness, no neck pain, no shooting arm pain, no arm numbness/tingling, no low back pain, no shooting leg pain Integumentary: no rash, no pruritis, no redness, no sores, no wounds Neurological: no head injury, no paralysis, no weakness, no parathesias, no numbness, no tingling, no seizures, no syncope Psychiatric: no anxiety Endocrine: no cold intolerance, no heat intolerance Hematologic/Lymphatic: no easy bruising, no easy bleeding Allergic/Immunologic: no urticaria, no wheezing Physical Examination Vital Signs Temp Pulse Resp BP Pulse Ox 98.3 F 73 15 197/78 97 01/08/19 23:28 01/08/19 23:28 01/08/19 23:28 01/08/19 23:28 01/08/19 23:28 General appearance: no acute distress HEENT: Positive: PERRL, Normocephaly, Mucus Membranes Moist Neck: Positive: neck supple, trachea midline Cardiac: Positive: Reg Rate and Rhythm, S1/S2 Lungs: Positive: Decreased Breath Sounds Neuro: Positive: Grossly Intact Abdomen: Negative: Tender Skin: Negative: Rash Musculoskeletal: No Pain Extremities: Absent: edema Results 01/09/19 03:16 01/09/19 03:16 Cardiac Enzymes 01/08/19 Range/Units 23:31 AST 30 (5-40) units/L Coagulation 01/08/19 Range/Units 23:31 PT 16.6 H (12.2-14.9) Sec. INR 1.36 H (0.87-1.13) APTT 27.8 (24.2-36.6) Sec. Lipids 01/08/19 Range/Units 23:31 Triglycerides 82 (2-149) mg/dL Cholesterol 120 (50-199) mg/dL HDL Cholesterol 41 (40-59) mg/dL Cholesterol/HDL Ratio 2.92 % CBC 01/08/19 01/09/19 Range/Units 23:31 03:16 WBC 5.1 6.9 (4.5-11.0) K/mm3 RBC 3.11 L 3.17 L (3.65-5.03) M/mm3 Hgb 8.4 L 8.9 L (10.1-14.3) gm/dl Hct 26.5 L 26.6 L (30.3-42.9) % Plt Count 313 353 (140-440) K/mm3 Lymph # 1.5 1.2 (1.2-5.4) K/mm3 [place] # 0.5 0.6 (0.0-0.8) K/mm3 Eos # 0.1 0.0 (0.0-0.4) K/mm3 Baso # 0.1 0.1 (0.0-0.1) K/mm3 Comprehensive Metabolic Panel 01/08/19 01/08/19 01/09/19 Range/Units 23:31 23:31 03:16 Sodium 145 145 (137-145) mmol/L Potassium 3.9 3.4 L (3.6-5.0) mmol/L Chloride 107.2 H 107.9 H (98-107) mmol/L Carbon Dioxide 19 L 20 L (22-30) mmol/L BUN 18 H 19 H (7-17) mg/dL Creatinine 1.3 H 1.3 H (0.7-1.2) mg/dL Glucose 164 H 111 H (65-100) mg/dL Calcium 9.0 9.0 (8.4-10.2) mg/dL Direct Bilirubin 0.3 H (0-0.2) mg/dL Indirect Bilirubin 0.5 mg/dL AST 30 (5-40) units/L ALT 20 (7-56) units/L Alkaline Phosphatase 102 (35-129) units/L Total Protein 6.5 (6.3-8.2) g/dL Albumin 4.2 (3.9-5) g/dL - Imaging and Cardiology Echo: pending EKG: report reviewed, image reviewed EKG interpretations - Telemetry EKG Rhythm: Sinus Rhythm - EKG Sinus rhythms and dysrhythmias: sinus rhythm Chamber hypertrophy or enlargement: left ventricular hypertro Assessment and Plan Optimize anti-hypertensive regimen. Continue gentle diuresis. Obtain echo. M inimally elevated troponins appear nonspecific at this time. Plan for lexiscan MPI stress test in AM. NPO after MN. The patient has been seen in conjunction with Dr. Castañeda who agrees with the assessment and plan of care. - Patient Problems (1) Dyspnea Current Visit: Yes Status: Acute (2) Chest pain Current Visit: Yes Status: Acute (3) History of myocardial infarction Current Visit: Yes Status: Suspected (4) Elevated troponin Current Visit: Yes Status: Acute (5) Accelerated hypertension Current Visit: Yes Status: Acute (6) Diabetes mellitus Current Visit: Yes Status: Chronic Qualifiers: Diabetes mellitus type: type 2 (7) PVD (peripheral vascular disease) Current Visit: Yes Status: Suspected (8) Tobacco use disorder Current Visit: Yes Status: Chronic
[2019-01-09] MEDS: carvediloL 25 MG TAB PO SCH (21:56)
[2019-01-10 06:04] LABS: Basophils % (Auto) 0.9 % (0.0-1.8); Eosinophils # (Auto) 0.1 K/mm3 (0.0-0.4); Eosinophils % (Auto) 1.8 % (0.0-4.3); Hematocrit 23.5 % (30.3-42.9); Hemoglobin 7.6 gm/dl (10.1-14.3); Lymphocytes # (Auto) 2.2 K/mm3 (1.2-5.4); Lymphocytes % (Auto) 41.8 % (13.4-35.0); Mean Corpuscular HGB Conc 32 % (30-34); Mean Corpuscular Volume 84 fl (79-97); Monocytes # (Auto) 0.7 K/mm3 (0.0-0.8); Platelet Count 284 K/mm3 (140-440); Red Blood Count 2.81 M/mm3 (3.65-5.03); Red Cell Distribution Width 17.7 % (13.2-15.2)
[2019-01-10 06:17] LABS: Calcium 8.4 mg/dL (8.4-10.2)
[2019-01-10] MEDS ORDERED: REGADENOSON 0.4 MG/5 ML INJ IV ONE ×2 (06:59→07:26)
[2019-01-10] MEDS ORDERED: POTASSIUM CHLORIDE ER 20 MEQ TAB PO ONE (08:24)
[2019-01-10] MEDS ORDERED: ASPIRIN EC 325 MG TAB PO SCH (10:00)
[2019-01-10] MEDS ORDERED: NON-FORMULARY EACH (Losartan Potassium [Losartan Potassium] 100 MG) PO SCH (10:00)
[2019-01-10 10:24] LABS: Iron 17 ug/dL (37-170); Total Iron Binding Capacity 331 mcg/dL (250-450)
--- NOTE | 2019-01-10 10:48 | Progress Note ---
Assessment and Plan Echo reviewed - EF 20-25%, dilated LV, mild to mod LV thickening, mild MR, TR, [place], AR, dilated LA, grade 2 diastolic dysfunction, small hemodynamically insignificant pericardial effusion. S/p lexiscan MPI stress this AM which was negative for ischemia, EF 26%. Optimize antihypertensive regimen. Cardiac defibrillator recommended in setting of CMP and NSVT. Pt is agreeable to LifeVest at this time and will plan to evaluate for AICD candidacy as OP. LifeVest ordered. The patient has been seen in conjunction with Dr. Castañeda who agrees with the assessment and plan of care. - Patient Problems (1) Acute HFrEF (heart failure with reduced ejection fraction) Current Visit: Yes Status: Acute (2) Cardiomyopathy Current Visit: Yes Status: Chronic Plan to address problem: presumably nonischemic (3) Chest pain Current Visit: Yes Status: Resolved (4) History of myocardial infarction Current Visit: Yes Status: Suspected (5) Elevated troponin Current Visit: Yes Status: Acute (6) Accelerated hypertension Current Visit: Yes Status: Acute (7) Diabetes mellitus Current Visit: Yes Status: Chronic Qualifiers: Diabetes mellitus type: type 2 (8) PVD (peripheral vascular disease) Current Visit: Yes Status: Suspected (9) Tobacco use disorder Current Visit: Yes Status: Chronic Subjective Date of service: 01/10/19 Principal diagnosis: hf Interval history: for stress test, feeling better. BPs elevated. in SR on tele with brief run NSVT overnight. Objective Last Vital Signs Temp 98.0 F 01/10/19 08:25 Pulse 76 01/10/19 03:39 Resp 18 01/10/19 08:25 BP 191/66 01/10/19 09:42 Pulse Ox 93 01/10/19 03:39 - Physical Examination General: No Apparent Distress HEENT: Positive: PERRL, Normocephaly, Mucus Membranes Moist Neck: Positive: neck supple, trachea midline Cardiac: Positive: Reg Rate and Rhythm, S1/S2 Lungs: Positive: Decreased Breath Sounds Neuro: Positive: Grossly Intact Abdomen: Negative: Tender Skin: Negative: Rash Musculoskeletal: No Pain Extremities: Absent: edema - Labs and Meds CBC 01/10/19 Range/Units 04:50 WBC 5.2 (4.5-11.0) K/mm3 RBC 2.81 L (3.65-5.03) M/mm3 Hgb 7.6 L (10.1-14.3) gm/dl Hct 23.5 L (30.3-42.9) % Plt Count 284 (140-440) K/mm3 Lymph # 2.2 (1.2-5.4) K/mm3 [place] # 0.7 (0.0-0.8) K/mm3 Eos # 0.1 (0.0-0.4) K/mm3 Baso # 0.0 (0.0-0.1) K/mm3 Comprehensive Metabolic Panel 01/10/19 Range/Units 04:50 Sodium 144 (137-145) mmol/L Potassium 3.0 L (3.6-5.0) mmol/L Chloride 106.4 (98-107) mmol/L Carbon Dioxide 25 (22-30) mmol/L BUN 16 (7-17) mg/dL Creatinine 1.3 H (0.7-1.2) mg/dL Glucose 99 (65-100) mg/dL Calcium 8.4 (8.4-10.2) mg/dL - Imaging and Cardiology EKG: report reviewed, image reviewed Echo: report reviewed - Telemetry EKG Rhythm: Sinus Rhythm - EKG Sinus rhythms and dysrhythmias: sinus rhythm Chamber hypertrophy or enlargement: left ventricular hypertro
[2019-01-10] MEDS: LOSARTAN 50 MG TAB PO SCH (11:19)
[2019-01-10] MEDS: carvediloL 25 MG TAB PO SCH ×2 (11:21→21:16)
[2019-01-10] MEDS: CLOPIDOGREL 75 MG TAB PO SCH (11:22)
[2019-01-10] MEDS: POTASSIUM CHLORIDE ER 20 MEQ TAB PO SCH ×2 (11:22→19:45)
[2019-01-10] MEDS: FUROSEMIDE 20 MG/2 ML INJ IV SCH (11:23)
--- NOTE | 2019-01-10 17:36 | Progress Note ---
Assessment and Plan Assessment and plan: (1) Acute systolic CHF (congestive heart failure) - Continue IV diuresis - Echo was done this morning and showed ejection fraction of 20-25%, patient needed as before discharge, we will start on appropriate CHF medications - Stress test was negative this morning (2) Chest pain - stress test is negative (3) Accelerated hypertension - BP is controlled (4) Tobacco use disorder Current Visit: No Status: Chronic Plan to address problem: She has been counseled on quitting tobacco use. Will offer nicotine patch as needed. Disposition; will discharge after we get lifevest. History Interval history: Patient was seen and evaluated this morning, patient didn't have any complaints. Hospitalist Physical - Physical exam Narrative exam: Not in cardiopulmonary distress. The patient appeared well nourished and normally developed. Vital signs as documented. Head exam is unremarkable. No scleral icterus . Neck is without jugular venous distension, thyromegaly, or carotid bruits. Lungs are clear to auscultation. Cardiac exam reveals regular rate and Rhythm. First and second heart sounds normal. No murmurs, rubs or gallops. Abdominal exam reveals normal bowel sounds, no masses, no organomegaly and no aortic enlargement. Extremities are nonedematous and both femoral and pedal pulses are normal. 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 No focal weakness. - Constitutional Vitals: Temp Pulse Resp BP Pulse Ox 98.0 F 68 18 191/66 93 01/10/19 08:25 01/10/19 11:21 01/10/19 08:25 01/10/19 09:42 01/10/19 03:39 General appearance: Present: no acute distress Results - Labs CBC & Chem 7: 01/10/19 04:50 01/10/19 04:50 Labs: Laboratory Last Values WBC 5.2 K/mm3 (4.5-11.0) 01/10/19 04:50 RBC 2.81 M/mm3 (3.65-5.03) L 01/10/19 04:50 Hgb 7.6 gm/dl (10.1-14.3) L 01/10/19 04:50 Hct 23.5 % (30.3-42.9) L 01/10/19 04:50 MCV 84 fl (79-97) 01/10/19 04:50 MCH 27 pg (28-32) L 01/10/19 04:50 MCHC 32 % (30-34) 01/10/19 04:50 RDW 17.7 % (13.2-15.2) H 01/10/19 04:50 Plt Count 284 K/mm3 (140-440) 01/10/19 04:50 Lymph % (Auto) 41.8 % (13.4-35.0) H 01/10/19 04:50 [place] % (Auto) 13.0 % (0.0-7.3) H 01/10/19 04:50 Eos % (Auto) 1.8 % (0.0-4.3) 01/10/19 04:50 Baso % (Auto) 0.9 % (0.0-1.8) 01/10/19 04:50 Lymph # 2.2 K/mm3 (1.2-5.4) 01/10/19 04:50 [place] # 0.7 K/mm3 (0.0-0.8) 01/10/19 04:50 Eos # 0.1 K/mm3 (0.0-0.4) 01/10/19 04:50 Baso # 0.0 K/mm3 (0.0-0.1) 01/10/19 04:50 Seg Neutrophils % 42.5 % (40.0-70.0) 01/10/19 04:50 Seg Neutrophils # 2.2 K/mm3 (1.8-7.7) 01/10/19 04:50 PT 16.6 Sec. (12.2-14.9) H 01/08/19 23:31 INR 1.36 (0.87-1.13) H 01/08/19 23:31 APTT 27.8 Sec. (24.2-36.6) 01/08/19 23:31 Sodium 144 mmol/L (137-145) 01/10/19 04:50 Potassium 3.0 mmol/L (3.6-5.0) L 01/10/19 04:50 Chloride 106.4 mmol/L (98-107) 01/10/19 04:50 Carbon Dioxide 25 mmol/L (22-30) 01/10/19 04:50 Anion Gap 16 mmol/L 01/10/19 04:50 BUN 16 mg/dL (7-17) 01/10/19 04:50 Creatinine 1.3 mg/dL (0.7-1.2) H 01/10/19 04:50 Estimated GFR 49 ml/min 01/10/19 04:50 BUN/Creatinine Ratio 12 % 01/10/19 04:50 Glucose 99 mg/dL (65-100) 01/10/19 04:50 POC Glucose 103 (70-105) 01/09/19 08:12 Calcium 8.4 mg/dL (8.4-10.2) 01/10/19 04:50 Iron 17 ug/dL (37-170) L 01/10/19 09:32 TIBC 331 mcg/dL (250-450) 01/10/19 09:32 Ferritin 24.4 ng/mL (13.0-400.0) 01/10/19 09:32 Total Bilirubin 0.80 mg/dL (0.1-1.2) 01/08/19 23:31 Direct Bilirubin 0.3 mg/dL (0-0.2) H 01/08/19 23:31 Indirect Bilirubin 0.5 mg/dL 01/08/19 23:31 AST 30 units/L (5-40) 01/08/19 23:31 ALT 20 units/L (7-56) 01/08/19 23:31 Alkaline Phosphatase 102 units/L (35-129) 01/08/19 23:31 Troponin T 0.038 ng/mL (0.00-0.029) H 01/09/19 06:00 NT-Pro-B Natriuret Pep 30297 pg/mL (0-900) H 01/08/19 23:31 Total Protein 6.5 g/dL (6.3-8.2) 01/08/19 23:31 Albumin 4.2 g/dL (3.9-5) 01/08/19 23:31 Albumin/Globulin Ratio 1.8 % 01/08/19 23:31 Triglycerides 82 mg/dL (2-149) 01/08/19 23:31 Cholesterol 120 mg/dL (50-199) 01/08/19 23:31 LDL Cholesterol Direct 70 mg/dL (50-130) 01/08/19 23:31 HDL Cholesterol 41 mg/dL (40-59) 01/08/19 23:31 Cholesterol/HDL Ratio 2.92 % 01/08/19 23:31 Vitamin B12 524.9 pg/mL (211911) 01/10/19 09:32 Active Medications - Current Medications Current Medications: Generic Name Dose Route Start Last Admin Trade Name Freq PRN Reason Stop Dose Admin Acetaminophen 650 mg 01/09/19 04:02 Tylenol PO Q4H PRN Pain MILD(1-3)/Fever >100.5/GAMEZ Atorvastatin Calcium 40 mg 01/10/19 10:00 01/10/19 11:21 Lipitor PO 40 mg DAILY MARVEL Administration Carvedilol 25 mg 01/09/19 22:00 01/10/19 11:21 Coreg PO 25 mg BID MARVEL Administration Clopidogrel Bisulfate 75 mg 01/10/19 10:00 01/10/19 11:22 Plavix PO 75 mg DAILY MARVEL Administration Furosemide 20 mg 01/10/19 10:00 01/10/19 11:23 Lasix IV 20 mg QDAY MARVEL Administration Losartan Potassium 100 mg 01/10/19 10:00 01/10/19 11:19 Cozaar PO 100 mg QDAY MARVEL Administration Morphine Sulfate 2 mg 01/09/19 00:51 Morphine IV Q5MIN PRN Chest Pain unrelieved by NTG Nitroglycerin 0.4 mg 01/09/19 00:51 Nitrostat SL Q5M PRN Chest Pain Ondansetron HCl 4 mg 01/09/19 04:02 01/09/19 12:04 Zofran IV 4 mg Q8H PRN Administration Nausea And Vomiting Sodium Chloride 10 ml 01/09/19 00:51 Sodium Chloride Flush Syringe 10 Ml IV PRN PRN LINE FLUSH Sodium Chloride 10 ml 01/09/19 10:00 01/09/19 21:56 Sodium Chloride Flush Syringe 10 Ml IV 10 ml BID MARVEL Administration Nutrition/Malnutrition Assess - Dietary Evaluation Nutrition/Malnutrition Findings: Nutrition Notes Start: 01/09/19 15:56 Freq: Status: Active Protocol: Document 01/10/19 10:49 MISTY (Rec: 01/10/19 11:21 MISTY [id number]) Co-Sign 01/10/19 10:49 MARÍA Nutrition Notes Initial or Follow up Reassessment Current Diagnosis Diabetes,Hypertension,Heart Failure Other Pertinent Diagnosis smoker; hx MO Current Diet npo Labs/Tests K 3.0 Fe 17 Pertinent Medications plavix lasix Height 5 ft 8 in Weight 53.4 kg [place] Body Weight (kg) 63.63 BMI 17.9 Subjective/Other Information FU diet advancement/PO intake Pt was not present in room d/t stress test. Per tech pt was consuming 100% ONS and diet when N/V syptoms decreased prior to NPO status. Burn Absent Trauma Absent Minimum of two criteria Yes Energy Intake (severe) < or equal to 50% Estimated Energy Requirement > or equal to 5 days Body Fat Depletion Moderate depletion (severe) Muscle Mass Moderate Depletion (severe) #1 Nutrition Diagnosis Inadequate oral intake As Evidenced by Signs and Symptoms pt is NPO Diagnosis Progress(for reassessment Continues documentation) Is patient on ventilator? No Is Patient Ambulatory and/or Out of Bed Yes REE-(Lane-St. Jeor-ambulatory/OOB) [ 1433.250 NUTR.MSJOOB] Kcal/Kg value to use for calculation 35 Approximate Energy Requirements Using 1869 kcal/Kg Calculation Used for Recommendations Kcal/kg Additional Notes PRO: 53-64g (1-1.2 g/kg) FLUID: 1 mL/kcal Nutrition Intervention Change Diet Order: Advance to cardiac diet post procedure/testing Add Supplement/Snack (indicate name/kcal ensure bid /protein ) Provides kCal: 700 Provides Protein (gm) 40 Goal #1 Monitor diet advancement/po intake Goal #2 Reorder ONS after diet advancement Anticipated Discharge Needs: To be determined Follow-Up By: 01/12/19 Additional Comments FU diet advancement/PO intake/ ONS tolerance
[2019-01-10] MEDS ORDERED: POTASSIUM CHLORIDE ER 20 MEQ TAB PO SCH (20:00)
--- NOTE | 2019-01-10 20:09 | Treadmill Report ---
NUCLEAR CARDIAC IMAGING REPORT INDICATION FOR PROCEDURE: Chest pain and shortness of breath. Informed consent was obtained. Vasodilator stress was achieved with the intravenous administration of 0.4 mg of Lexiscan per protocol. Rest and stress nuclear cardiac imaging was performed following the intravenous administration of technetium-99m Myoview per protocol. Gated SPECT imaging demonstrates a dilated diffusely hypokinetic left ventricle with a left ventricular ejection fraction of 26% and end systolic volume of 172 mL. Myocardial perfusion imaging demonstrates no significant cavity change between stress and rest. No significant stress induced reversible perfusion defects are seen. Nuclear cardiac imaging demonstrates severe post-stress left ventricular systolic dysfunction with no significant evidence of myocardial ischemia or necrosis. These findings are suggestive of nonischemic cardiomyopathy. [facility]# [id number] CINDA/SHANTE
[2019-01-11] MEDS ORDERED: hydrALAZINE 20 MG/1 ML INJ IV PRN (04:12)
[2019-01-11 07:10] LABS: Calcium 8.8 mg/dL (8.4-10.2)
[2019-01-11] MEDS: CLOPIDOGREL 75 MG TAB PO SCH (09:26)
[2019-01-11] MEDS: FUROSEMIDE 20 MG/2 ML INJ IV SCH (09:29)
[2019-01-11] MEDS: carvediloL 25 MG TAB PO SCH (09:30)
[2019-01-11] MEDS: LOSARTAN 50 MG TAB PO SCH (09:30)
--- NOTE | 2019-01-11 11:21 | Progress Note ---
Assessment and Plan Currently stable cardiac status. Optimize antihypertensive regimen - initiate norvasc. Cont coreg, losartan, PO lasix. LifeVest is in place. Nothing further to add from cardiac perspective at this time. Will sign off. Follow up in our [place] office with Dr. Castañeda on 01/17/2019 @ 10:45AM. The patient has been seen in conjunction with Dr. Castañeda who agrees with the assessment and plan of care. - Patient Problems (1) Acute HFrEF (heart failure with reduced ejection fraction) Current Visit: Yes Status: Acute (2) Cardiomyopathy Current Visit: Yes Status: Chronic Plan to address problem: presumably nonischemic - lexiscan MPI stress 01/10/2019 negative for ischemia, EF 26%. (3) Chest pain Current Visit: Yes Status: Resolved (4) History of myocardial infarction Current Visit: Yes Status: Suspected (5) Elevated troponin Current Visit: Yes Status: Acute (6) Accelerated hypertension Current Visit: Yes Status: Acute (7) Diabetes mellitus Current Visit: Yes Status: Chronic Qualifiers: Diabetes mellitus type: type 2 (8) PVD (peripheral vascular disease) Current Visit: Yes Status: Suspected (9) Tobacco use disorder Current Visit: Yes Status: Chronic Subjective Date of service: 01/11/19 Principal diagnosis: hf Interval history: for stress test, feeling better. in SR on tele with no acute events overnight. LifeVest in place. Objective Last Vital Signs Temp 98.0 F 01/11/19 03:54 Pulse 62 01/11/19 09:30 Resp 20 01/11/19 04:14 BP 165/51 01/11/19 09:30 Pulse Ox 95 01/11/19 03:54 - Physical Examination General: No Apparent Distress HEENT: Positive: PERRL, Normocephaly, Mucus Membranes Moist Neck: Positive: neck supple, trachea midline Cardiac: Positive: Reg Rate and Rhythm, S1/S2 Lungs: Positive: Decreased Breath Sounds Neuro: Positive: Grossly Intact Abdomen: Negative: Tender Skin: Negative: Rash Musculoskeletal: No Pain Extremities: Absent: edema - Labs and Meds Comprehensive Metabolic Panel 01/11/19 Range/Units 05:33 Sodium 143 (137-145) mmol/L Potassium 3.7 D (3.6-5.0) mmol/L Chloride 106.6 (98-107) mmol/L Carbon Dioxide 22 (22-30) mmol/L BUN 14 (7-17) mg/dL Creatinine 1.2 (0.7-1.2) mg/dL Glucose 97 (65-100) mg/dL Calcium 8.8 (8.4-10.2) mg/dL - Imaging and Cardiology EKG: report reviewed, image reviewed Echo: report reviewed ( EF 20-25%, dilated LV, mild to mod LV thickening, mild MR, TR, [place], [place], dilated LA, grade 2 diastolic dysfunction, small hemodynamically insignificant pericardial effusion. ) - Telemetry EKG Rhythm: Sinus Rhythm - EKG Sinus rhythms and dysrhythmias: sinus rhythm Chamber hypertrophy or enlargement: left ventricular hypertro
[2019-01-11] MEDS ORDERED: PNEUMOCOCCAL 23 Valent 0.5 ML VIAL IM ONE (12:00)
--- NOTE | 2019-01-11 12:55 | Discharge Summary ---
Providers - Providers Date of Admission: 01/09/19 06:07 Date of discharge: 01/11/19 Attending physician: MARK PEREZ MD 01/09/19 Consult to Cardiac Rehabilitation [CONS] Routine Reason For Exam: Phase I 01/09/19 00:52 Consult to Cardiology [CONS] Routine Consulting Provider: SAMUEL STEIN Reason For Exam: chest pain, chf exacerbation [facility] Reason for admission: acute systolic CHF, hypertensive emergency Condition: Stable Pertinent studies: Stress test Echo Hospital course: Patient is admitted for the management of acute systolic CHF, hypertensive emergency. Patient had a stress test which was negative for acute ischemia. Echo was done which shows ejection fraction of 20-25%. Cardiology was consulted and patient was appropriately diuresed and put on appropriate CHF medications. Patient was doing well. Patient was given life vest and was given appointment at [facility] for evaluation of AICD placement and discharged home. HTN was controlled. Disposition: - TO HOME OR SELFCARE Time spent for discharge: 34 minutes - Discharge Diagnoses (1) Accelerated hypertension Status: Acute (2) Acute HFrEF (heart failure with reduced ejection fraction) Status: Acute (3) Cardiomyopathy Status: Chronic (4) Diabetes mellitus Status: Chronic Qualifiers: Diabetes mellitus type: type 2 (5) Malnutrition of moderate degree Status: Chronic Core Measure Documentation - Palliative Care Palliative Care/ Comfort Measures: Not Applicable - Core Measures Any of the following diagnoses?: heart failure - Heart Failure Discharge Requirements HUMAIRA/ARB for LVSD if EF <40%: Yes Beta anisa at discharge: Yes Exam - Physical Exam Narrative exam: Not in cardiopulmonary distress. The patient appeared well nourished and normally developed. Vital signs as documented. Head exam is unremarkable. No scleral icterus . Neck is without jugular venous distension, thyromegaly, or carotid bruits. Lungs are clear to auscultation. Cardiac exam reveals regular rate and Rhythm. First and second heart sounds normal. No murmurs, rubs or gallops. Abdominal exam reveals normal bowel sounds, no masses, no organomegaly and no aortic enlargement. Extremities are nonedematous and both femoral and pedal pulses are normal. 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 No focal weakness. - Constitutional Vitals: Temp Pulse Resp BP Pulse Ox 98.0 F 62 20 165/51 95 01/11/19 03:54 01/11/19 09:30 01/11/19 04:14 01/11/19 09:30 01/11/19 03:54 Plan Activity: no restrictions Weight Bearing Status: Full Weight Bearing Diet: low salt, diabetic Follow up with: JULI COYSHUMWAY MD HARI [Primary Care Provider] - 7 Days YEIMI HODGES MD [Staff Physician] - 01/17/19 Prescriptions: Carvedilol [Coreg] 25 mg PO BID #60 Furosemide [Lasix TAB] 20 mg PO QDAY #30 tablet AtorvaSTATin [Lipitor] 40 mg PO DAILY #60 Clopidogrel [Plavix] 1 tab PO DAILY #30
[2019-01-11 13:34] VITALS: BP 167/58
[2019-01-11] MEDS ORDERED: amLODIPine 5 MG TAB PO SCH (14:00)
[2019-01-12] MEDS ORDERED: FUROSEMIDE 20 MG TAB PO SCH (10:00)
== END 2019-01-11 13:05 | disposition home or self-care (01) | DRG 292 ==
LOC: ED 23:01 → 4A 01-09 06:07
PROVIDERS: ADMIT Internal Medicine Geriatric Medicine; ATTEND Internal Medicine
PROC: 3E0234Z Introduction of Serum, Toxoid and Vaccine into Muscle, Percutaneous Approach (ICD-10-PCS; principal; 2019-01-11)
DX: I11.0 Hypertensive heart disease with heart failure (principal); E44.0 Moderate protein-calorie malnutrition; Z68.1 Body mass index [BMI] 19.9 or less, adult; I42.9 Cardiomyopathy, unspecified; E11.51 Type 2 diabetes mellitus with diabetic peripheral angiopathy without gangrene; F10.10 Alcohol abuse, uncomplicated; F17.210 Nicotine dependence, cigarettes, uncomplicated; F41.9 Anxiety disorder, unspecified; I25.10 Atherosclerotic heart disease of native coronary artery without angina pectoris; I50.23 Acute on chronic systolic (congestive) heart failure; Z23 Encounter for immunization; I25.2 Old myocardial infarction; Z71.6 Tobacco abuse counseling; Z82.49 Family history of ischemic heart disease and other diseases of the circulatory system; Z83.3 Family history of diabetes mellitus; Z79.899 Other long term (current) drug therapy; Z79.82 Long term (current) use of aspirin; Z98.51 Tubal ligation status; Z95.5 Presence of coronary angioplasty implant and graft
CPT/HCPCS: 36415; 71045; 78452; 80048; 80061; 80076; 82607; 82728; 82747; 82962; 83550; 83880; 84484; 85025; 85610; 85730; 90471; 90732; 93005; 93010; 93017; 93306; 96360; G0378; A9270-GY; A9502; G0008; G0009; J0360; J1940; J2405; J2785

== ENCOUNTER 2019-02-05 11:31 | Inpatient (IN) | payer MEDICARE ==
[2019-02-05] MEDS ORDERED: ALBUTEROL 2.5 MG/3 ML NEBU IH ONE (11:41)
[2019-02-05] MEDS ORDERED: methylPREDNISolone Sod Succinate 125 MG/2 ML INJ IV ONE (11:41)
[2019-02-05] MEDS ORDERED: IPRATROPIUM 0.02% NEBU 2.5 ML IH ONE (11:41)
[2019-02-05] MEDS ORDERED: ACETAMINOPHEN 325 MG TAB PO ONE (11:42)
[2019-02-05] MEDS ORDERED: FAMOTIDINE 20 MG/2 ML INJ IV ONE (11:42)
[2019-02-05] MEDS ORDERED: carvediloL 25 MG TAB PO STA (11:43)
[2019-02-05] MEDS ORDERED: cloNIDine 0.1 MG TAB PO STA (11:43)
[2019-02-05] MEDS ORDERED: NITROGLYCERIN 0.4 MG TAB SUBL SL PRN (11:44)
[2019-02-05] MEDS ORDERED: ONDANSETRON 2 MG/2.5 ML ORAL LIQD PO ONE (11:44)
[2019-02-05] MEDS ORDERED: LOSARTAN 50 MG TAB PO STA (11:47)
[2019-02-05] MEDS ORDERED: LOSARTAN 50 MG TAB PO SCH (12:00)
--- NOTE | 2019-02-05 12:07 | XRay Report ---
CHEST 1 VIEW INDICATION: Dyspnea. COMPARISON: 01/08/2019 FINDINGS: Support devices: None. Heart: Stable mild cardiomegaly with right hilar prominence. Lungs/Pleura: No acute air space or interstitial disease. Additional findings: None. IMPRESSION: 1. Largely unchanged exam. Please note that multiple skin leads obscure complete evaluation of the ch est, especially the lung bases. Signer Name: Yeison Owens MD Signed: 02/05/2019 12:03 PM Workstation Name: [id number]
--- NOTE | 2019-02-05 12:42 | Emergency Department Report ---
ED General Adult HPI - General Chief complaint: Dyspnea/Respdistress Stated complaint: MARGO Time Seen by Provider: 02/05/19 11:39 Source: patient, EMS (verbal report received from emergency medical services. EMS records not available at the time of chart dictation.), RN notes reviewed, old records reviewed Mode of arrival: Stretcher Limitations: No Limitations - History of Present Illness Initial comments: This is a 68-year-old female. The patient typically follows with the [facility]. The patient was admitted to this hospital earlier on last January. Admitting diagnosis included hypertensive urgency, and congestive heart failure. She was found to have ejection fraction of 20-25%, recommended outpatient ICD placement, had a life vest provided, also has a history of COPD, hypertension, tobacco use, and heart disease, as well as diabetes Today, the patient is brought to the hospital by emergency medical services with a complaint of shortness of breath. Patient started on CPAP in the field. Upon arrival to the emergency room, CPAP was discontinued. Patient complained of nausea, vomiting, inability to tolerate liquid feeds, chronic shortness of breath and chronic chest pain. She denied abdominal pain. She denied urinary symptoms. There is no complaint of headache, neck pain, and she was unable to describe exacerbating or relieving factors. In the emergency room, patient given albuterol, Atrovent, nausea medicine, and her blood pressure medicine. Patient noted to be tolerating her medications orally in the department without difficulty. No active vomiting noted in the department. Work of breathing not significant in the department. Saturating at 97-100% on room air. During her recent cardiology evaluation, at the time of discharge, no further risk stratification was recommended. Apparently, the patient continues to consume tobacco. -: Gradual, week(s) Location: chest Severity scale (0 -10): 8 Consistency: intermittent Improves with: none Worsens with: none - Related Data Home Medications Medication Instructions Recorded Confirmed Last Taken RX: Aspirin [Aspirin BABY CHEW TAB] 81 mg PO QDAY 01/09/19 01/09/19 Unknown RX: Losartan Potassium 100 mg PO DAILY 01/09/19 01/09/19 Unknown RX: Sacubitril/Valsartan [Entresto 1 each PO TID 01/09/19 01/09/19 Unknown 24 - 26 mg] Previous Rx's Medication Instructions Recorded Last Taken Type RX: Digoxin [Digox] 0.125 mcg PO DAILY 30 Days tablet 04/10/15 Unknown Rx RX: PARoxetine [Paxil] 20 mg PO DAILY #30 tablet 04/10/15 Unknown Rx RX: cloNIDine [Catapres] 0.1 mg PO BID 30 Days tablet 04/10/15 Unknown Rx RX: metFORMIN [Glucophage] 500 mg PO BIDWM #60 tablet 04/10/15 Unknown Rx Ventolin HFA 2 puff INHALATION Q6H PRN #1 04/10/15 Unknown Rx RX: AtorvaSTATin [Lipitor] 40 mg PO DAILY #60 01/11/19 Unknown Rx RX: Clopidogrel [Plavix] 1 tab PO DAILY #30 01/11/19 Unknown Rx RX: Furosemide [Lasix TAB] 20 mg PO QDAY #30 tablet 01/11/19 Unknown Rx RX: carvediloL [Coreg] 25 mg PO BID #60 01/11/19 Unknown Rx Allergies Allergy/AdvReac Type Severity Reaction Status Date / Time No Known Allergies Allergy Verified 04/08/16 18:42 ED Review of Systems ROS: Stated complaint: MARGO Other details as noted in HPI Constitutional: malaise, weakness ENT: congestion Respiratory: shortness of breath Cardiovascular: chest pain Gastrointestinal: nausea, vomiting Genitourinary: denies: dysuria Musculoskeletal: denies: myalgia Skin: denies: lesions Neurological: weakness Hematological/Lymphatic: denies: easy bleeding ED Past Medical Hx - Past Medical History Hx Hypertension: Yes Hx Heart Attack/AMI: Yes Hx Congestive Heart Failure: Yes Hx Diabetes: Yes Hx Psychiatric Treatment: Yes (ANXIETY) Additional medical history: HIGH CHOLESTEROL. 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 MILD HEART ENLARGEMENT - Surgical History Hx Coronary Stent: (STENT PLACEMENT IN LEG) Additional Surgical History: STENTS IN LEGS, BLOOD CLOTS REMOVED FROM HEAD. TUBAL LIGATION - Social History Smoking Status: Current Every Day Smoker - Medications Home Medications: Home Medications Medication Instructions Recorded Confirmed Last Taken Type RX: Digoxin [Digox] 0.125 mcg PO DAILY 30 Days tablet 04/10/15 01/09/19 Unknown Rx RX: PARoxetine [Paxil] 20 mg PO DAILY #30 tablet 04/10/15 01/09/19 Unknown Rx RX: cloNIDine [Catapres] 0.1 mg PO BID 30 Days tablet 04/10/15 01/09/19 Unknown Rx RX: metFORMIN [Glucophage] 500 mg PO BIDWM #60 tablet 04/10/15 01/09/19 Unknown Rx Ventolin HFA 2 puff INHALATION Q6H PRN #1 04/10/15 01/09/19 Unknown Rx RX: Aspirin [Aspirin BABY CHEW TAB] 81 mg PO QDAY 01/09/19 01/09/19 Unknown History RX: Losartan Potassium 100 mg PO DAILY 01/09/19 01/09/19 Unknown History RX: Sacubitril/Valsartan [Entresto 1 each PO TID 01/09/19 01/09/19 Unknown History 24 - 26 mg] RX: AtorvaSTATin [Lipitor] 40 mg PO DAILY #60 01/11/19 Unknown Rx RX: Clopidogrel [Plavix] 1 tab PO DAILY #30 01/11/19 Unknown Rx RX: Furosemide [Lasix TAB] 20 mg PO QDAY #30 tablet 01/11/19 Unknown Rx RX: carvediloL [Coreg] 25 mg PO BID #60 01/11/19 Unknown Rx ED Physical Exam - General Limitations: No Limitations General appearance: alert, anxious - Head Head exam: Present: atraumatic, normocephalic - Eye Eye exam: Present: normal appearance, EOMI. Absent: nystagmus - ENT ENT exam: Present: normal exam, normal orophraynx, mucous membranes moist, normal external ear exam - Neck Neck exam: Present: normal inspection, full ROM. Absent: tenderness, meningismus - Respiratory Respiratory exam: Present: decreased breath sounds. Absent: wheezes, rales, rhonchi, stridor - Cardiovascular Cardiovascular Exam: Present: regular rate, normal rhythm, normal heart sounds, JVD. Absent: bradycardia, tachycardia, irregular rhythm, systolic murmur, diastolic murmur, rubs, gallop - GI/Abdominal GI/Abdominal exam: Present: soft. Absent: distended, tenderness, guarding, rebound, rigid, pulsatile mass - Extremities Exam Extremities exam: Present: normal inspection, full ROM, other (2+ pulses noted in the bilateral upper and lower extremities. Muscular compartments are soft. The pelvis is stable. There is no long bony tenderness.). Absent: pedal edema, calf tenderness - Back Exam Back exam: Present: normal inspection. Absent: tenderness, CVA tenderness (R), CVA tenderness (L), paraspinal tenderness, vertebral tenderness - Neurological Exam Neurological exam: Present: alert, other (there is no facial droop. The tongue is midline. Extraocular movements are intact bilaterally. There is 5/5 strength bilateral upper and lower extremities. Sensation is intact to light touch bilateral upper and lower extremities.) - Psychiatric Psychiatric exam: Present: anxious - Skin Skin exam: Present: warm, dry, intact, normal color. Absent: rash ED Course Vital Signs 02/05/19 02/05/19 02/05/19 11:44 11:45 12:00 Temperature 98.6 F Pulse Rate 76 74 74 Respiratory 16 14 13 Rate Blood Pressure 190/84 190/84 204/87 O2 Sat by Pulse 100 95 95 Oximetry 02/05/19 02/05/19 02/05/19 12:15 12:20 12:21 Temperature Pulse Rate 72 76 73 Respiratory 23 Rate Blood Pressure 204/87 204/87 204/87 O2 Sat by Pulse 94 Oximetry 02/05/19 02/05/19 02/05/19 12:22 12:30 12:45 Temperature Pulse Rate 73 79 71 Respiratory 19 19 Rate Blood Pressure 204/87 225/94 225/94 O2 Sat by Pulse 93 94 Oximetry 02/05/19 02/05/19 12:57 13:00 Temperature Pulse Rate 77 71 Respiratory 27 H Rate Blood Pressure 225/94 209/83 O2 Sat by Pulse 94 Oximetry - Reevaluation(s) Reevaluation #1: 02/05/19 12:43 Differential diagnosis, including not limited to: Hypertensive urgency, medication noncompliance, left stone noncompliance, chronic COPD, chronic congestive heart failure, pneumonia, urinary tract infection, pulmonary embolism, acute coronary syndrome Assessment and plan: 68-year-old female with complaint of painless nausea and vomiting, chronic chest pain, chronic shortness of breath. She is afebrile with reassuring vital signs with the exception of chronic hypertension. The patient is currently not tachycardic or hypoxic. There is no lower eczema T asymmetry. I think pulmonary embolism is unlikely and I find her to be low risk by well's criteria. Nevertheless, given her recent hospitalization articulated complaint, d-dimer sent to risk stratify patient for pulmonary embolism. Her EKG today is abnormal, and unchanged from prior. She is tolerating liquid feeds. She does not complain of abdominal pain. Laboratory studies, urinalysis pending. Advanced age and medical risk factors/vascular risk factors are reviewed and appreciated, however, she was recently seen by cardiology and had a nuclear stress test within the past 6 weeks. Findings were negative for ischemia. X-ray the chest is reviewed and appreciated, repeat x-rays ordered, nursing team to temporarily remove life vest when repeat x-rays obtained. Reevaluation #2: 02/05/19 13:13 Arterial blood gas shows borderline hypoxemic respiratory failure, PaO2 66, CO2 26, bicarbonate 17, suggestive of partially compensated respiratory alkalosis, with metabolic compensation. Reevaluation #3: 02/05/19 13:21 Laboratory studies show renal insufficiency, on chronic, mild. Appears to be at baseline when compared to prior. Elevated troponin chronic, likely type II troponin leak. BNP chronically elevated, at this point in time, patient does not have crackles, rales, or significant lower extremity edema, suspect elevated BNP secondary to her multiple chronic comorbidities. Repeat x-ray unremarkable. Medicine studies pending. The patient will be admitted to the medical service for hypertensive urgency, hypoxemic respiratory failure 02/05/19 14:03 xr chest--> rllm pneumonia Dr Anna to admit ED Medical Decision Making - Lab Data Result diagrams: 02/05/19 12:21 02/05/19 12:21 Vital Signs 02/05/19 02/05/19 02/05/19 11:44 11:45 12:00 Temperature 98.6 F Pulse Rate 76 74 74 Respiratory 16 14 13 Rate Blood Pressure 190/84 190/84 204/87 O2 Sat by Pulse 100 95 95 Oximetry 02/05/19 02/05/19 02/05/19 12:20 12:21 12:22 Temperature Pulse Rate 76 73 73 Respiratory Rate Blood Pressure 204/87 204/87 204/87 O2 Sat by Pulse Oximetry - EKG Data -: EKG Interpreted by [facility] EKG shows normal: sinus rhythm Rate: normal - EKG Data 02/05/19 12:46 The EKG today is unchanged from prior EKG. The EKG shows a sinus rhythm, left axis deviation, borderline left anterior fascicular block, borderline left bundle branch block, QTC within normal limits, KS interval prolonged, the EKG is abnormal, the EKG is not consistent with ST elevation myocardial infarction. - Radiology Data Radiology results: report reviewed, image reviewed Print Report Referring Physician: KANNAN CRUZ Patient Name: DIANA FLANNERY Date of : 1950 Sex: Female Report Date: 2019-02-05 Report Status: Finalized Findings [address] [address] XRay Report Signed Patient: DIANA FLANNERY MR#: [id number] : 1950 Acct:[id number] Age/Sex: 68 / F ADM Date: 02/05/19 Loc: ED Attending Dr: Ordering Physician: KANNAN CRUZ MD Date of Service: 02/05/19 Procedure(s): XR chest 1V ap Accession Number(s): [id number] cc: KANNAN CRUZ MD Fluoro Time In Minutes: CHEST 1 VIEW INDICATION: Dyspnea. COMPARISON: 01/08/2019 FINDINGS: Support devices: None. Heart: Stable mild cardiomegaly with right hilar prominence. Lungs/Pleura: No acute air space or interstitial disease. Additional findings: None. IMPRESSION: 1. Largely unchanged exam. Please note that multiple skin leads obscure complete evaluation of the chest, especially the lung bases. Signer Name: Yeison Owens MD Signed: 02/05/2019 12:03 PM Workstation Name: [id number] Transcribed By: JW Dictated By: Yeison Owens MD Electronically Authenticated By: Yeison Owens MD Signed Date/Time: 02/05/19 1203 DD/ 1202 Print Report Referring Physician: KANNAN CRUZ Patient Name: DIANA FLANNERY Date of : 1950 Sex: Female Report Date: 2019-02-05 Report Status: Finalized Findings [address] [address] XRay Report Signed Patient: DIANA FLANNERY MR#: [id number] : 1950 Acct:[id number] Age/Sex: 68 / F ADM Date: 02/05/19 Loc: ED Attending Dr: Ordering Physician: KANNAN CRUZ MD Date of Service: 02/05/19 Procedure(s): XR chest 1V ap Accession Number(s): [id number] cc: KANNAN CRUZ MD Fluoro Time In Minutes: CHEST 1 VIEW INDICATION: sob repeat for prior technically inadequate study. COMPARISON: Earlier today FINDINGS: Support devices: None. Heart: Stable cardiomegaly and right hilar prominence. Lungs/Pleura: Mild patchy right basilar airspace disease is better seen now that the overlying leads have been removed. Left lung is clear. Additional findings: None. IMPRESSION: 1. Mild patchy right basilar airspace disease. Signer Name: Yeison Owens MD Signed: 02/05/2019 1:22 PM Workstation Name: [id number] Transcribed By: WILLIE Dictated By: Yeison Owens MD Electronically Authenticated By: Yeison Owens MD Signed Date/Time: 02/05/19 1322 Critical care attestation.: If time is entered above; I have spent that time in minutes in the direct care of this critically ill patient, excluding procedure time. ED Disposition Clinical Impression: Acute on chronic respiratory failure with hypoxemia, Hypertensive urgency, malignant, Renal insufficiency Disposition: DC-[id number] OP ADMIT IP TO THIS HOSP Is pt being admited?: Yes Does the pt Need Aspirin: Yes Condition: Serious
[2019-02-05] MEDS ORDERED: hydrALAZINE 20 MG/1 ML INJ IV ONE (12:45)
[2019-02-05 12:46] LABS: Basophils # (Auto) 0.1 K/mm3 (0.0-0.1); Basophils % (Auto) 1.3 % (0.0-1.8); Eosinophils # (Auto) 0.1 K/mm3 (0.0-0.4); Eosinophils % (Auto) 1.2 % (0.0-4.3); Hematocrit 24.2 % (30.3-42.9); Hemoglobin 7.4 gm/dl (10.1-14.3); Lymphocytes # (Auto) 1.3 K/mm3 (1.2-5.4); Lymphocytes % (Auto) 23.3 % (13.4-35.0); Mean Corpuscular HGB Conc 31 % (30-34); Mean Corpuscular Volume 83 fl (79-97); Monocytes # (Auto) 0.5 K/mm3 (0.0-0.8); Monocytes % (Auto) 9.3 % (0.0-7.3); Platelet Count 311 K/mm3 (140-440); Red Blood Count 2.93 M/mm3 (3.65-5.03); Red Cell Distribution Width 18.7 % (13.2-15.2)
[2019-02-05 12:56] LABS: INR 1.24 (0.87-1.13)
[2019-02-05 12:57] LABS: Partial Thromboplastin Time 26.6 Sec. (24.2-36.6)
[2019-02-05] MEDS ORDERED: SODIUM CHLORIDE 0.9% 250ML 250 ML IV ONE ×2 (13:01→14:43)
[2019-02-05 13:13] LABS: Calcium 8.8 mg/dL (8.4-10.2)
[2019-02-05] MEDS ORDERED: ASPIRIN 81 MG TAB CHEW PO ONE (13:23)
--- NOTE | 2019-02-05 13:26 | XRay Report ---
CHEST 1 VIEW INDICATION: sob repeat for prior technically inadequate study. COMPARISON: Earlier today FINDINGS: Support devices: None. Heart: Stable cardiomegaly and right hilar prominence. Lungs/Pleura: Mild patchy right basilar airspace disease is better seen now that the overlying leads have been removed. Left lung is clear. Additional findings: None. IMPRESSION: 1. Mild patchy right basilar airspace disease. Signer Name: Yeison Owens MD Signed: 02/05/2019 1:22 PM Workstation Name: [id number]
[2019-02-05 13:33] LABS: Chol/HDL Ratio 2.67 %
[2019-02-05 13:38] LABS: Bilirubin,Urine NEG (Negative); Blood,Urine NEG (Negative); Color,Urine Yellow (Yellow); Mucus,Urine FEW /HPF
--- NOTE | 2019-02-05 19:36 | History and Physical Report ---
History of Present Illness Chief complaint: Im short of breath History of present illness: 68 YO Female with Systolic CHF(EF 20%), PVD, Nicotine Dependence, CAD, HTN, [place], DM, Anxiety, Severe Malnutrition presents to ED for evaluation. Pt states that she has experienced shortness of breath over the past 3 days with worsening symptoms over the past 1 day. Pt acknowledges generalized edema, dypsnea on exertion, dypsnea at rest, Orthopnea/PND, Decreased exercise tolerance and shortness of breath. EMS notified, and upon arrival the patient was found to be in distress and transported to [facility]. Pt seen and evaluated in ED and found to have Pneumonia complicated by Acute Hypoxemic Respiratory Failure, Acidosis, Acute Kidney Injury, as well as CHF Decompenstaion. Pt admitted to [facility] and placed on telemetry. Prior admission on 01/09/19 reviewed. All medication listed at time of admission has been reconciled. Cardiology consulted in ED. Pt denies fever, chills, CP, palpitations, Trauma, BRBPR, skin rash, syncope, or recent ill contacts. Past History Past Medical History: other (See HPI) Past Surgical History: Other (Stant placement, Tubal ligation) Social history: single, smoking. denies: alcohol abuse, prescription drug abuse Family history: diabetes, hypertension Medications and Allergies Allergies Allergy/AdvReac Type Severity Reaction Status Date / Time No Known Allergies Allergy Verified 04/08/16 18:42 Home Medications Medication Instructions Recorded Confirmed Last Taken Type Digoxin [Digox] 0.125 mcg PO DAILY 30 Days tablet 04/10/15 01/09/19 Unknown Rx cloNIDine [Catapres] 0.1 mg PO BID 30 Days tablet 04/10/15 01/09/19 Unknown Rx metFORMIN [Glucophage] 500 mg PO BIDWM #60 tablet 04/10/15 01/09/19 Unknown Rx Aspirin [Aspirin BABY CHEW TAB] 81 mg PO QDAY 01/09/19 01/09/19 Unknown History Losartan Potassium 100 mg PO DAILY 01/09/19 01/09/19 Unknown History AtorvaSTATin [Lipitor] 40 mg PO DAILY #60 01/11/19 Unknown Rx Clopidogrel [Plavix] 1 tab PO DAILY #30 01/11/19 Unknown Rx Furosemide [Lasix TAB] 20 mg PO QDAY #30 tablet 01/11/19 Unknown Rx carvediloL [Coreg] 25 mg PO BID #60 01/11/19 Unknown Rx Cyproheptadine [Periactin] 4 mg PO TID 02/05/19 02/05/19 02/04/19 History Sacubitril/Valsartan [Entresto 24 1 each PO BID 02/05/19 02/05/19 02/04/19 History - 26 mg] Active Meds: Active Medications Nitroglycerin (Nitrostat) 0.4 mg SL .Q5MIN PRN PRN Reason: Chest Pain Review of Systems Constitutional: no weight loss, no weight gain, no fever, no chills, no sweats Ears, nose, mouth and throat: no ear pain, no ear discharge, no decreased hearing, no nose pain, no nasal discharge Breasts: no change in shape, no swelling, no mass Cardiovascular: orthopnea, edema, shortness of breath, dyspnea on exertion, paroxysmal nocturnal dyspnea, leg edema, decreased exercise tolerance, no palpitations, no syncope Respiratory: no cough, no hemoptysis, no wheezing Gastrointestinal: no nausea, no vomiting, no diarrhea, no constipation, no change in bowel habits Genitourinary Female: no pelvic pain, no flank pain, no menorrhagia, no dysuria, no urinary frequency, no urgency Rectal: no pain, no incontinence, no bleeding Musculoskeletal: no neck stiffness, no neck pain, no shooting arm pain, no arm numbness/tingling, no low back pain, no shooting leg pain Integumentary: no rash, no pruritis, no redness, no sores, no wounds Neurological: no head injury, no transient paralysis, no paralysis, no weakness, no parathesias, no numbness, no tingling, no seizures, no syncope Psychiatric: no anxiety, no memory loss, no change in sleep habits, no sleep disturbances, no insomnia, no hypersomnia, no change in appetite, no change in libido, no suicidal ideation Endocrine: no cold intolerance, no heat intolerance, no polyphagia, no polydipsia, no polyuria, no excessive sweating Hematologic/Lymphatic: no easy bruising, no easy bleeding, no lymphadenopathy, no lymphedema Allergic/Immunologic: no urticaria, no allergic rhinitis, no wheezing, no persistent infections, no anaphylaxis, no angioedema Exam - Constitutional Vitals: Temp Pulse Resp BP Pulse Ox 98.6 F 71 14 173/59 100 02/05/19 11:44 02/05/19 17:00 02/05/19 17:00 02/05/19 17:00 02/05/19 17:00 General appearance: Present: mild distress, cachectic - EENT Eyes: Present: PERRL ENT: hearing intact, clear oral mucosa - Neck Neck: Present: supple, normal ROM - Respiratory Respiratory effort: labored, pursed lips, accessory muscle use, stridor Respiratory: bilateral: diminished, rhonchi - Cardiovascular Heart Sounds: Present: S1 & S2. Absent: rub, click - Extremities Extremities: pulses symmetrical, No edema Peripheral Pulses: within normal limits - Abdominal General gastrointestinal: Present: soft, non-tender, non-distended, normal bowel sounds Female genitourinary: Present: normal - Integumentary Integumentary: Present: clear, warm, dry - Musculoskeletal Musculoskeletal: generalized weakness - Psychiatric Psychiatric: appropriate mood/affect, intact judgment & insight - Neurologic Neurologic: CNII-XII intact, moves all extremities Results - Labs CBC & Chem 7: 02/05/19 12:21 02/05/19 12:21 Labs: Abnormal lab results 02/05/19 02/05/19 02/05/19 Range/Units 12:21 12:21 12:21 RBC 2.93 L (3.65-5.03) M/mm3 Hgb 7.4 L (10.1-14.3) gm/dl Hct 24.2 L (30.3-42.9) % MCH 25 L (28-32) pg RDW 18.7 H (13.2-15.2) % [place] % (Auto) 9.3 H (0.0-7.3) % PT 15.5 H (12.2-14.9) Sec. INR 1.24 H (0.87-1.13) D-Dimer 1416.19 H (0-234) ng/mlDDU POC ABG pCO2 (35-45) POC ABG pO2 (80-105) Chloride 110.6 H (98-107) mmol/L Carbon Dioxide 18 L (22-30) mmol/L Creatinine 1.3 H (0.7-1.2) mg/dL Glucose 137 H (65-100) mg/dL Lactic Acid (0.7-2.0) mmol/L Troponin T 0.068 H (0.00-0.029) ng/mL NT-Pro-B Natriuret Pep (0-900) pg/mL 02/05/19 02/05/19 02/05/19 Range/Units 12:21 13:11 13:57 RBC (3.65-5.03) M/mm3 Hgb (10.1-14.3) gm/dl Hct (30.3-42.9) % MCH (28-32) pg RDW (13.2-15.2) % [place] % (Auto) (0.0-7.3) % PT (12.2-14.9) Sec. INR (0.87-1.13) D-Dimer (0-234) ng/mlDDU POC ABG pCO2 26.2 L (35-45) POC ABG pO2 66 L (80-105) Chloride (98-107) mmol/L Carbon Dioxide (22-30) mmol/L Creatinine (0.7-1.2) mg/dL Glucose (65-100) mg/dL Lactic Acid 3.10 H* (0.7-2.0) mmol/L Troponin T (0.00-0.029) ng/mL NT-Pro-B Natriuret Pep 92464 H (0-900) pg/mL Assessment and Plan - Patient Problems (1) Acute exacerbation of CHF (congestive heart failure) Current Visit: No Status: Acute Qualifiers: Heart failure type: systolic Qualified Code(s): I50.23 - Acute on chronic systolic (congestive) heart failure Plan to address problem: Admit to telemetry: Cardiology consulted, strict I/O, daily weight, BNP, thyroid panel, magnesium level, chest x ray, supplemental oxygen. (2) Acute on chronic respiratory failure with hypoxemia Current Visit: Yes Status: Acute Plan to address problem: Supplemental oxygen, nebulizer therapy, treat pneumonia, pulse oximetry, NIPPV as clinically indicated, ABG (3) Pneumonia Current Visit: Yes Status: Acute Plan to address problem: IV antibiotic therapy, supplemental oxygen, nebulizer therapy, chest x ray, pu lse oximetry, blood cultures, CBC, CMP. (4) Acidosis Current Visit: Yes Status: Acute Plan to address problem: IV Fluid resuscitation therapy, repeat bmp. (5) HTN (hypertension) Current Visit: Yes Status: Acute Qualifiers: Hypertension type: essential hypertension Qualified Code(s): I10 - Essential (primary) hypertension Plan to address problem: Monitor BP q shift, supportive care (6) Severe malnutrition Current Visit: Yes Status: Acute Plan to address problem: Increased protein intake, dietary supplementation (7) Anxiety Current Visit: Yes Status: Acute Plan to address problem: Xanax prn, supportive care. (8) DELISA (acute kidney injury) Current Visit: Yes Status: Acute Plan to address problem: IVF resuscitation therapy, monitor uop q shift, (9) Nicotine dependence Current Visit: Yes Status: Acute Qualifiers: Substance use status: in withdrawal Plan to address problem: smoking cessation, +15min, supportive care. (10) DVT prophylaxis Current Visit: No Status: Acute Plan to address problem: SCD to BLE while in bed, Prophylactic heparin
[2019-02-05] MEDS ORDERED: ACETAMINOPHEN 325 MG TAB PO PRN (19:37)
[2019-02-05] MEDS ORDERED: ALBUTEROL 2.5 MG/3 ML NEBU IH PRN (19:37)
[2019-02-05] MEDS ORDERED: ONDANSETRON 4 MG/2 ML INJ IV PRN (19:37)
[2019-02-05] MEDS ORDERED: ALPRAZolam 0.5 MG TAB PO PRN (19:54)
[2019-02-05] MEDS ORDERED: DEXTROSE 50% IN WATER (25GM) 50 ML SYRINGE IV PRN (19:57)
[2019-02-05] MEDS ORDERED: cefTRIAXone/NS 2 GM/100 ML 2 GM/100 ML BAG IV ONE (20:17)
[2019-02-05] MEDS: cefTRIAXone/NS 2 GM/100 ML 2 GM/100 ML BAG IV SCH (20:23)
[2019-02-05] MEDS: AZITHROMYCIN 500 MG in SODIUM CHLORIDE 0.9% 250ML 250 ML IV SCH (21:51)
[2019-02-05] MEDS: HEPARIN 5,000 UNIT/1 ML VIAL SUB-Q SCH (21:52)
[2019-02-05 22:43] LABS: Free T4 (Free Thyroxine) 1.35 ng/dL (0.76-1.46)
[2019-02-06] MEDS: INSULIN LISPRO 100 UNIT/ML SUB-Q SCH ×4 (02:10→18:45)
[2019-02-06] MEDS: SACUBITRIL/VALSARTAN 24-26 MG TAB PO SCH ×4 (02:10→23:35)
[2019-02-06] MEDS: FUROSEMIDE 20 MG/2 ML INJ IV SCH (05:45)
[2019-02-06 08:19] LABS: Basophils % (Auto) 0.4 % (0.0-1.8); Hematocrit 21.6 % (30.3-42.9); Hemoglobin 6.6 gm/dl (10.1-14.3); Lymphocytes # (Auto) 0.7 K/mm3 (1.2-5.4); Lymphocytes % (Auto) 19.3 % (13.4-35.0); Mean Corpuscular HGB Conc 31 % (30-34); Mean Corpuscular Volume 82 fl (79-97); Monocytes # (Auto) 0.2 K/mm3 (0.0-0.8); Monocytes % (Auto) 6.3 % (0.0-7.3); Platelet Count 249 K/mm3 (140-440); Red Blood Count 2.64 M/mm3 (3.65-5.03); Red Cell Distribution Width 18.1 % (13.2-15.2)
[2019-02-06 08:45] LABS: Albumin 3.7 g/dL (3.9-5); Calcium 8.5 mg/dL (8.4-10.2)
[2019-02-06] MEDS: PARoxetine 20 MG TAB PO SCH (09:42)
[2019-02-06] MEDS: ASPIRIN 81 MG TAB CHEW PO SCH (09:42)
[2019-02-06] MEDS: CLOPIDOGREL 75 MG TAB PO SCH (09:42)
[2019-02-06] MEDS: HEPARIN 5,000 UNIT/1 ML VIAL SUB-Q SCH ×2 (09:43→23:35)
[2019-02-06] MEDS ORDERED: DIGOXIN 0.125 MG TAB PO SCH (10:00)
--- NOTE | 2019-02-06 13:31 | Consultation ---
History of Present Illness Consult date: 02/06/19 Requesting physician: PHYLLIS ZUNIGA Consult reason: congestive heart failure History of present illness: The patient is a 68-year-old female with a past medical history of HFrEF, presumably NICMP, LifeVest in place, "heart attack" in 08/2018 in [place] with no intervention required per pt report, PVD s/p LLE stenting by Dr. Niranjan Moreno, HTN, DM, anemia, ongoing tobacco use. She was seen by our practice for the first time here at [facility] on 01/09/2019, was discharged on 01/11 following eval/management of HFrEF and chest pain, LifeVes was placed at that time. She presented with c/o progressively worsening SOB, orthopnea and PND since . She admits to dietary indiscretion over the holiday. She reports that she has been compliant with her medications. However, she has not yet followed up in our office. She is still smoking but has weaned down the amount. She denies any chest pain, palpitations, n/v, diaphoresis, dizziness or syncope. Echo done 01/2019 showed EF 20-25%, dilated LV, mild to mod LV thickening, mild MR, TR, NC, AR, dilated LA, grade 2 diastolic dysfunction, small hemodynamically insignificant pericardial effusion. Lexiscan MPI stress done 01/10/2019 negative for ischemia, EF 26%. Past History Past Medical History: other (See HPI) Past Surgical History: Other (Stant placement, Tubal ligation) Social history: single, smoking. denies: alcohol abuse, prescription drug abuse Family history: diabetes, hypertension Medications and Allergies Allergies Allergy/AdvReac Type Severity Reaction Status Date / Time No Known Allergies Allergy Verified 04/08/16 18:42 Home Medications Medication Instructions Recorded Confirmed Last Taken Type Digoxin [Digox] 0.125 mcg PO DAILY 30 Days tablet 04/10/15 02/05/19 02/04/19 Rx cloNIDine [Catapres] 0.1 mg PO BID 30 Days tablet 04/10/15 02/05/19 02/04/19 Rx metFORMIN [Glucophage] 500 mg PO BIDWM #60 tablet 04/10/15 02/05/19 02/04/19 Rx Aspirin [Aspirin BABY CHEW TAB] 81 mg PO QDAY 01/09/19 02/05/19 02/04/19 History Losartan Potassium 100 mg PO DAILY 01/09/19 02/05/19 02/04/19 History AtorvaSTATin [Lipitor] 40 mg PO DAILY #60 01/11/19 02/05/19 02/04/19 Rx Clopidogrel [Plavix] 1 tab PO DAILY #30 01/11/19 02/05/19 02/04/19 Rx Furosemide [Lasix TAB] 20 mg PO QDAY #30 tablet 01/11/19 02/05/19 02/04/19 Rx carvediloL [Coreg] 25 mg PO BID #60 01/11/19 02/05/19 02/04/19 Rx Cyproheptadine [Periactin] 4 mg PO TID 02/05/19 02/05/19 02/04/19 History Sacubitril/Valsartan [Entresto 24 1 each PO BID 02/05/19 02/05/19 02/04/19 History - 26 mg] PARoxetine [Paxil] 20 mg PO DAILY 02/06/19 02/06/19 02/04/19 History Active Meds: Active Medications Acetaminophen (Tylenol) 650 mg PO Q4H PRN PRN Reason: Pain MILD(1-3)/Fever >100.5/GAMEZ Albuterol (Proventil) 2.5 mg IH Q4H PRN PRN Reason: Shortness Of Breath Alprazolam (Xanax) 0.5 mg PO Q8H PRN PRN Reason: Anxiety Aspirin (Baby Aspirin) 81 mg PO QDAY [facility] Last Admin: 02/06/19 09:42 Dose: 81 mg Documented by: Atorvastatin Calcium (Lipitor) 40 mg PO QDAY [facility] Last Admin: 02/06/19 09:42 Dose: 40 mg Documented by: Clopidogrel Bisulfate (Plavix) 75 mg PO DAILY [facility] Last Admin: 02/06/19 09:42 Dose: 75 mg Documented by: Dextrose (D50w (25gm) Syringe) 50 ml IV Q30MIN PRN; Protocol PRN Reason: Hypoglycemia Digoxin (Lanoxin) 0.125 mg PO DAILY [facility] Last Admin: 02/06/19 09:44 Dose: 0.125 mg Documented by: Furosemide (Lasix) 20 mg IV 0600,1800 [facility] Last Admin: 02/06/19 05:45 Dose: 20 mg Documented by: Heparin Sodium (Porcine) (Heparin) 5,000 unit SUB-Q Q12HR [facility] Last Admin: 02/06/19 09:43 Dose: 5,000 unit Documented by: Ceftriaxone Sodium (Rocephin/Ns 2 Gm/100 Ml) 2 gm in 100 mls @ 200 mls/hr IV Q24H [facility]; Protocol Last Admin: 02/05/19 20:23 Dose: 200 mls/hr Documented by: Azithromycin 500 mg/ Sodium (Chloride) 250 mls @ 250 mls/hr IV Q24H [facility]; Protocol Last Admin: 02/05/19 21:51 Dose: 250 mls/hr Documented by: Insulin Human Lispro (Humalog) 0 unit SUB-Q Q6HR [facility]; Protocol Last Admin: 02/06/19 05:45 Dose: 1 unit Documented by: Nitroglycerin (Nitrostat) 0.4 mg SL .Q5MIN PRN PRN Reason: Chest Pain Ondansetron HCl (Zofran) 4 mg IV Q8H PRN PRN Reason: Nausea And Vomiting Paroxetine HCl (Paxil) 20 mg PO DAILY [facility] Last Admin: 02/06/19 09:42 Dose: 20 mg Documented by: Sodium Chloride (Sodium Chloride Flush Syringe 10 Ml) 10 ml IV BID [facility] Last Admin: 02/06/19 09:43 Dose: 10 ml Documented by: Sodium Chloride (Sodium Chloride Flush Syringe 10 Ml) 10 ml IV PRN PRN PRN Reason: LINE FLUSH Review of Systems Constitutional: no weight loss, no weight gain, no fever, no chills, no sweats Ears, nose, mouth and throat: no ear pain, no nose pain, no sinus pressure, no sinus pain Cardiovascular: shortness of breath, dyspnea on exertion, paroxysmal nocturnal dyspnea, decreased exercise tolerance, no chest pain, no orthopnea, no palpitations, no rapid/irregular heart beat, no edema, no syncope, no lightheadedness, no high blood pressure, no leg edema Respiratory: shortness of breath, dyspnea on exertion, no cough, no congestion, no wheezing, no pain on inspiration Gastrointestinal: no abdominal pain, no nausea, no vomiting, no diarrhea, no constipation, no change in bowel habits Genitourinary Female: no pelvic pain, no flank pain, no dysuria, no urinary frequency, no urgency Musculoskeletal: no neck stiffness, no neck pain, no shooting arm pain, no arm numbness/tingling, no low back pain, no shooting leg pain Integumentary: no rash, no pruritis, no redness, no sores, no wounds Neurological: no head injury, no paralysis, no weakness, no parathesias, no numbness, no tingling, no seizures, no syncope Psychiatric: no anxiety Endocrine: no cold intolerance, no heat intolerance Hematologic/Lymphatic: no easy bruising, no easy bleeding Allergic/Immunologic: no urticaria, no wheezing Physical Examination Vital Signs Temp Pulse Resp BP Pulse Ox 98.6 F 76 16 190/84 100 02/05/19 11:44 02/05/19 11:44 02/05/19 11:44 02/05/19 11:44 02/05/19 11:44 General appearance: no acute distress HEENT: Positive: PERRL, Normocephaly, Mucus Membranes Moist Neck: Positive: neck supple, trachea midline Cardiac: Positive: Reg Rate and Rhythm, S1/S2 Lungs: Positive: Decreased Breath Sounds Neuro: Positive: Grossly Intact Abdomen: Negative: Tender Skin: Negative: Rash Musculoskeletal: No Pain Extremities: Absent: edema Results 02/06/19 06:40 02/06/19 06:40 Cardiac Enzymes 02/06/19 Range/Units 06:40 AST 15 (5-40) units/L Lipids 02/05/19 Range/Units 12:21 Triglycerides 84 (2-149) mg/dL Cholesterol 131 (50-199) mg/dL HDL Cholesterol 49 (40-59) mg/dL Cholesterol/HDL Ratio 2.67 % CBC 02/06/19 Range/Units 06:40 WBC 3.8 L (4.5-11.0) K/mm3 RBC 2.64 L (3.65-5.03) M/mm3 Hgb 6.6 L (10.1-14.3) gm/dl Hct 21.6 L (30.3-42.9) % Plt Count 249 (140-440) K/mm3 Lymph # 0.7 L (1.2-5.4) K/mm3 [place] # 0.2 (0.0-0.8) K/mm3 Eos # 0.0 (0.0-0.4) K/mm3 Baso # 0.0 (0.0-0.1) K/mm3 Comprehensive Metabolic Panel 02/06/19 Range/Units 06:40 Sodium 146 H (137-145) mmol/L Potassium 3.9 (3.6-5.0) mmol/L Chloride 108.2 H (98-107) mmol/L Carbon Dioxide 19 L (22-30) mmol/L BUN 17 (7-17) mg/dL Creatinine 1.4 H (0.7-1.2) mg/dL Glucose 143 H (65-100) mg/dL Calcium 8.5 (8.4-10.2) mg/dL AST 15 (5-40) units/L ALT 12 (7-56) units/L Alkaline Phosphatase 74 (35-129) units/L Total Protein 5.9 L (6.3-8.2) g/dL Albumin 3.7 L (3.9-5) g/dL - Imaging and Cardiology Echo: report reviewed (01/2019 showed EF 20-25%, dilated LV, mild to mod LV thickening, mild MR, TR, NC, AR, dilated LA, grade 2 diastolic dysfunction, small hemodynamically insignificant pericardial effusion.) EKG: report reviewed, image reviewed EKG interpretations - Telemetry EKG Rhythm: Sinus Rhythm - EKG Sinus rhythms and dysrhythmias: sinus rhythm Chamber hypertrophy or enlargement: left ventricular hypertro Assessment and Plan Optimize antihypertensive regimen - resume home coreg, losartan, norvasc. Cont IV lasix BID. Monitor renal indices. LifeVest is in place. Pt noted to have significant anemia although this appears chronic, she reports h/o anemia. Consider further w/u per primary. The patient has been seen in conjunction with Dr. Celestina Pop who agrees with the assessment and plan of care. - Patient Problems (1) Acute HFrEF (heart failure with reduced ejection fraction) Current Visit: Yes Status: Acute (2) Cardiomyopathy Current Visit: Yes Status: Chronic Plan to address problem: presumably nonischemic - lexiscan MPI stress 01/10/2019 negative for ischemia, EF 26%. (3) History of myocardial infarction Current Visit: Yes Status: Suspected (4) Elevated troponin Current Visit: Yes Status: Acute (5) Accelerated hypertension Current Visit: Yes Status: Acute (6) Diabetes mellitus Current Visit: Yes Status: Chronic Qualifiers: Diabetes mellitus type: type 2 (7) PVD (peripheral vascular disease) Current Visit: Yes Status: Suspected (8) Tobacco use disorder Current Visit: Yes Status: Chronic (9) Anemia Current Visit: Yes Status: Chronic (10) NSVT Current Visit: Yes Status: Chronic
--- NOTE | 2019-02-06 13:54 | Progress Note ---
Assessment and Plan Assessment and plan: Acute HFrEF (heart failure with reduced ejection fraction) Cont IV lasix BID. Monitor renal indices. Cardiomyopathy Cardiology reports as nonischemic - lexiscan MPI stress 01/10/2019 negative for ischemia, EF 26%. LifeVest is in place. Hx myocardial infarction Elevated troponin likely chronically elevated Accelerated hypertension Optimize antihypertensive regimen - resume home coreg, losartan, norvasc. Diabetes mellitus SSRI and accuchecks PVD (peripheral vascular disease) Tobacco use disorder Anemia Transfuse 2 units. Check hemoccult History Interval history: No new issuees overnight Hospitalist Physical - Constitutional Vitals: Temp Pulse Resp BP Pulse Ox 97.8 F 74 18 160/62 99 02/06/19 07:34 02/06/19 09:44 02/06/19 09:10 02/06/19 09:44 02/06/19 09:10 General appearance: Present: no acute distress - EENT Eyes: Present: PERRL, EOM intact ENT: hearing intact, clear oral mucosa, dentition normal - Neck Neck: Present: supple, normal ROM - Respiratory Respiratory effort: normal Respiratory: bilateral: CTA - Cardiovascular Rhythm: regular Heart Sounds: Present: S1 & S2. Absent: gallop, rub - Extremities Extremities: no ischemia, No edema, Full ROM - Abdominal General gastrointestinal: soft, non-tender, non-distended, normal bowel sounds - Integumentary Integumentary: Present: clear, warm, dry - Neurologic Neurologic: CNII-XII intact, moves all extremities Results - Labs CBC & Chem 7: 02/06/19 06:40 02/06/19 06:40 Labs: Laboratory Last Values WBC 3.8 K/mm3 (4.5-11.0) L 02/06/19 06:40 RBC 2.64 M/mm3 (3.65-5.03) L 02/06/19 06:40 Hgb 6.6 gm/dl (10.1-14.3) L 02/06/19 06:40 Hct 21.6 % (30.3-42.9) L 02/06/19 06:40 MCV 82 fl (79-97) 02/06/19 06:40 MCH 25 pg (28-32) L 02/06/19 06:40 MCHC 31 % (30-34) 02/06/19 06:40 RDW 18.1 % (13.2-15.2) H 02/06/19 06:40 Plt Count 249 K/mm3 (140-440) 02/06/19 06:40 Lymph % (Auto) 19.3 % (13.4-35.0) 02/06/19 06:40 [place] % (Auto) 6.3 % (0.0-7.3) 02/06/19 06:40 Eos % (Auto) 0.0 % (0.0-4.3) 02/06/19 06:40 Baso % (Auto) 0.4 % (0.0-1.8) 02/06/19 06:40 Lymph # 0.7 K/mm3 (1.2-5.4) L 02/06/19 06:40 [place] # 0.2 K/mm3 (0.0-0.8) 02/06/19 06:40 Eos # 0.0 K/mm3 (0.0-0.4) 02/06/19 06:40 Baso # 0.0 K/mm3 (0.0-0.1) 02/06/19 06:40 Seg Neutrophils % 74.0 % (40.0-70.0) H 02/06/19 06:40 Seg Neutrophils # 2.8 K/mm3 (1.8-7.7) 02/06/19 06:40 PT 15.5 Sec. (12.2-14.9) H 02/05/19 12:21 INR 1.24 (0.87-1.13) H 02/05/19 12:21 APTT 26.6 Sec. (24.2-36.6) 02/05/19 12:21 D-Dimer 1416.19 ng/mlDDU (0-234) H 02/05/19 12:21 POC ABG pH 7.441 (7.35-7.45) 02/05/19 13:11 POC ABG pCO2 26.2 (35-45) L 02/05/19 13:11 POC ABG pO2 66 (80-105) L 02/05/19 13:11 POC ABG HCO3 17.8 (22-26 mml/L) 02/05/19 13:11 POC ABG Total CO2 19 (23-27mmol/L) 02/05/19 13:11 POC ABG O2 Sat 94 02/05/19 13:11 POC ABG Base Excess -6 ((-2) - (+3)mmol/L) 02/05/19 13:11 FiO2 21 % 02/05/19 13:11 Sodium 146 mmol/L (137-145) H 02/06/19 06:40 Potassium 3.9 mmol/L (3.6-5.0) 02/06/19 06:40 Chloride 108.2 mmol/L (98-107) H 02/06/19 06:40 Carbon Dioxide 19 mmol/L (22-30) L 02/06/19 06:40 Anion Gap 23 mmol/L 02/06/19 06:40 BUN 17 mg/dL (7-17) 02/06/19 06:40 Creatinine 1.4 mg/dL (0.7-1.2) H 02/06/19 06:40 Estimated GFR 45 ml/min 02/06/19 06:40 BUN/Creatinine Ratio 12 % 02/06/19 06:40 Glucose 143 mg/dL (65-100) H 02/06/19 06:40 POC Glucose 145 (70-105) H 02/06/19 12:28 Lactic Acid 1.90 mmol/L (0.7-2.0) 02/05/19 14:54 Calcium 8.5 mg/dL (8.4-10.2) 02/06/19 06:40 Magnesium 1.70 mg/dL (1.7-2.3) 02/05/19 12:21 Total Bilirubin 0.40 mg/dL (0.1-1.2) 02/06/19 06:40 AST 15 units/L (5-40) 02/06/19 06:40 ALT 12 units/L (7-56) 02/06/19 06:40 Alkaline Phosphatase 74 units/L (35-129) 02/06/19 06:40 Total Creatine Kinase 112 units/L (30-135) 02/05/19 12:21 Troponin T 0.068 ng/mL (0.00-0.029) H 02/05/19 12:21 NT-Pro-B Natriuret Pep 45666 pg/mL (0-900) H 02/05/19 12:21 Total Protein 5.9 g/dL (6.3-8.2) L 02/06/19 06:40 Albumin 3.7 g/dL (3.9-5) L 02/06/19 06:40 Albumin/Globulin Ratio 1.7 % 02/06/19 06:40 Triglycerides 84 mg/dL (2-149) 02/05/19 12:21 Cholesterol 131 mg/dL (50-199) 02/05/19 12:21 LDL Cholesterol Direct 80 mg/dL (50-130) 02/05/19 12:21 HDL Cholesterol 49 mg/dL (40-59) 02/05/19 12:21 Cholesterol/HDL Ratio 2.67 % 02/05/19 12:21 TSH 0.153 mlU/mL (0.270-4.200) L 02/05/19 21:26 Free T4 1.35 ng/dL (0.76-1.46) 02/05/19 21:26 Urine Color Yellow (Yellow) 02/05/19 13:23 Urine Turbidity Slightly-cloudy (Clear) 02/05/19 13:23 Urine pH 6.0 (5.0-7.0) 02/05/19 13:23 Ur Specific [place] 1.014 (1.003-1.030) 02/05/19 13:23 Urine Protein 100 mg/dl mg/dL (Negative) 02/05/19 13:23 Urine Glucose (UA) Neg mg/dL (Negative) 02/05/19 13:23 Urine Ketones Neg mg/dL (Negative) 02/05/19 13:23 Urine Blood Neg (Negative) 02/05/19 13:23 Urine Nitrite Neg (Negative) 02/05/19 13:23 Urine Bilirubin Neg (Negative) 02/05/19 13:23 Urine Urobilinogen 2.0 mg/dL (<2.0) 02/05/19 13:23 Ur Leukocyte Esterase Neg (Negative) 02/05/19 13:23 Urine WBC (Auto) 6.0 /HPF (0.0-6.0) 02/05/19 13:23 Urine RBC (Auto) 5.0 /HPF (0.0-6.0) 02/05/19 13:23 U Epithel Cells (Auto) 5.0 /HPF (0-13.0) 02/05/19 13:23 Urine Mucus Few /HPF 02/05/19 13:23 Digoxin 1.6 ng/mL (0.9-2.0) 02/05/19 12:21 Active Medications - Current Medications Current Medications: Generic Name Dose Route Start Last Admin Trade Name Freq PRN Reason Stop Dose Admin Acetaminophen 650 mg 02/05/19 19:37 Tylenol PO Q4H PRN Pain MILD(1-3)/Fever >100.5/GAMEZ Albuterol 2.5 mg 02/05/19 19:37 Proventil IH Q4H PRN Shortness Of Breath Alprazolam 0.5 mg 02/05/19 19:54 Xanax PO Q8H PRN Anxiety Amlodipine Besylate 5 mg 02/06/19 14:00 Amlodipine PO QDAY [facility] Aspirin 81 mg 02/06/19 10:00 02/06/19 09:42 Baby Aspirin PO 81 mg QDAY [facility] Administration Atorvastatin Calcium 40 mg 02/06/19 10:00 02/06/19 09:42 Lipitor PO 40 mg QDAY [facility] Administration Carvedilol 25 mg 02/06/19 22:00 Coreg PO BID [facility] Clopidogrel Bisulfate 75 mg 02/06/19 10:00 02/06/19 09:42 Plavix PO 75 mg DAILY [facility] Administration Dextrose 50 ml 02/05/19 19:57 D50w (25gm) Syringe IV Q30MIN PRN Hypoglycemia Protocol Furosemide 20 mg 02/06/19 06:00 02/06/19 05:45 Lasix IV 20 mg 0600,1800 [facility] Administration Heparin Sodium (Porcine) 5,000 unit 02/05/19 22:00 02/06/19 09:43 Heparin SUB-Q 5,000 unit Q12HR [facility] Administration Ceftriaxone Sodium 2 gm in 100 mls @ 200 mls/hr 02/05/19 20:00 02/05/19 20:23 Rocephin/Ns 2 Gm/100 Ml IV 200 mls/hr Q24H [facility] Administration Protocol Azithromycin 500 mg/ Sodium 250 mls @ 250 mls/hr 02/05/19 20:00 02/05/19 21:51 Chloride IV 250 mls/hr Q24H [facility] Administration Protocol Sodium Chloride 500 mls @ 0 mls/hr 02/06/19 13:46 Nacl 0.9% 500 Ml IV 02/06/19 13:47 ONCE ONE As Directed Insulin Human Lispro 0 unit 02/06/19 00:00 02/06/19 05:45 Humalog SUB-Q 1 unit Q6HR [facility] Administration Protocol Losartan Potassium 100 mg 02/06/19 14:00 Cozaar PO QDAY [facility] Nitroglycerin 0.4 mg 02/05/19 11:44 Nitrostat SL .Q5MIN PRN Chest Pain Ondansetron HCl 4 mg 02/05/19 19:37 Zofran IV Q8H PRN Nausea And Vomiting Paroxetine HCl 20 mg 02/06/19 10:00 02/06/19 09:42 Paxil PO 20 mg DAILY [facility] Administration Sodium Chloride 10 ml 02/05/19 22:00 02/06/19 09:43 Sodium Chloride Flush Syringe 10 Ml IV 10 ml BID [facility] Administration Sodium Chloride 10 ml 02/05/19 19:37 Sodium Chloride Flush Syringe 10 Ml IV PRN PRN LINE FLUSH
[2019-02-06] MEDS: LOSARTAN 50 MG TAB PO SCH (14:10)
[2019-02-06] MEDS ORDERED: SODIUM CHLORIDE 0.9% 500 ML 500 ML IV ONE (14:46)
[2019-02-06] MEDS: amLODIPine 5 MG TAB PO SCH (15:33)
[2019-02-06] MEDS ORDERED: SODIUM CHLORIDE 0.9% 500 ML 500 ML ONE (17:13)
[2019-02-06] MEDS: carvediloL 25 MG TAB PO SCH (23:35)
[2019-02-06] MEDS: cefTRIAXone/NS 2 GM/100 ML 2 GM/100 ML BAG IV SCH (23:36)
[2019-02-06] MEDS: AZITHROMYCIN 500 MG in SODIUM CHLORIDE 0.9% 250ML 250 ML IV SCH (23:36)
[2019-02-07] MEDS: INSULIN LISPRO 100 UNIT/ML SUB-Q SCH ×3 (00:47→12:00)
[2019-02-07] MEDS: FUROSEMIDE 20 MG/2 ML INJ IV SCH ×2 (01:27→05:19)
[2019-02-07 05:39] LABS: Basophils % (Auto) 0.5 % (0.0-1.8); Eosinophils % (Auto) 0.1 % (0.0-4.3); Hematocrit 27.4 % (30.3-42.9); Lymphocytes # (Auto) 2.3 K/mm3 (1.2-5.4); Mean Corpuscular HGB Conc 33 % (30-34); Mean Corpuscular Volume 80 fl (79-97); Monocytes # (Auto) 0.7 K/mm3 (0.0-0.8); Monocytes % (Auto) 6.4 % (0.0-7.3); Platelet Count 248 K/mm3 (140-440); Red Blood Count 3.41 M/mm3 (3.65-5.03); Red Cell Distribution Width 17.1 % (13.2-15.2)
[2019-02-07 05:58] LABS: Calcium 7.8 mg/dL (8.4-10.2)
[2019-02-07] MEDS: HEPARIN 5,000 UNIT/1 ML VIAL SUB-Q SCH (10:33)
[2019-02-07] MEDS: LOSARTAN 50 MG TAB PO SCH (10:33)
[2019-02-07] MEDS: amLODIPine 5 MG TAB PO SCH (10:33)
[2019-02-07] MEDS: carvediloL 25 MG TAB PO SCH (10:34)
[2019-02-07] MEDS: ASPIRIN 81 MG TAB CHEW PO SCH (10:34)
[2019-02-07] MEDS: SACUBITRIL/VALSARTAN 24-26 MG TAB PO SCH (10:34)
[2019-02-07] MEDS: PARoxetine 20 MG TAB PO SCH (10:34)
[2019-02-07] MEDS: CLOPIDOGREL 75 MG TAB PO SCH (10:34)
--- NOTE | 2019-02-07 10:34 | Discharge Summary ---
Providers - Providers Date of Admission: 02/05/19 19:37 Date of discharge: 02/07/19 Attending physician: ADIEL DUVALL 02/05/19 19:58 Consult to Physician [CONS] Routine Comment: Consulting Provider: ZENAIDA BREWER Physician Instructions: Reason For Exam: CHF [facility] Reason for admission: dvt Condition: Serious Hospital course: This is a 26-year-old female presented through the emergency department with complaints of left lower extremity pain. Patient was admitted with diagnosis of DVT. Patient was previously on oral contraceptives and actively smoked. Patient was counseled with cessation for both. Patient was seen by vascular surgery and underwent IVC filter placement. Patient also underwent lysis with thrombectomy. Patient tolerated procedure well and stabilized. The patient received therapeutic anticoagulation with heparin drip and hypercoagulable workup was started. The patient also was found to have sepsis secondary to Klebsiella UTI. Urine cultures revealed Klebsiella sensitive to ceftriaxone. Blood cultures were found to be negative. The patient should have further follow-up with vascular surgery as an outpatient. Vascular surgery Discussed anticoagulation with case management. They Explained concern that patient is without insurance. CM will attempt to get patient Eliquis for 1 month. Vascular surgery told patient to obtain Eliquis through [employer] assistance program as soon as possible and if she is getting close to running out of Eliquis, go to the emergency room at any hospital and do not allow yourself to lapse on anticoagulation. Also, vascular surgery Discussed with patient she will need IVC filter removed by Dr. Armendariz in the next few months. Patient understands. Proper use of medicine discussed with patient. Dedicated discharge time 32 minutes. Disposition: - TO HOME OR SELFCARE Time spent for discharge: 32 - Discharge Diagnoses (1) DVT (deep venous thrombosis) Status: Acute (2) Sepsis Status: Acute (3) UTI due to Klebsiella species Status: Acute (4) UTI (urinary tract infection) Status: Acute (5) DELISA (acute kidney injury) Status: Acute (6) Acute on chronic respiratory failure with hypoxemia Status: Acute (7) HTN (hypertension) Status: Acute Qualifiers: Hypertension type: essential hypertension Qualified Code(s): I10 - Essential (primary) hypertension (8) Hypertensive urgency, malignant Status: Acute (9) Cardiomyopathy Status: Chronic (10) Diabetes mellitus Status: Chronic Qualifiers: Diabetes mellitus type: type 2 (11) PVD (peripheral vascular disease) Status: Suspected Core Measure Documentation - Palliative Care Palliative Care/ Comfort Measures: Not Applicable - Core Measures Any of the following diagnoses?: none Exam - Constitutional Vitals: Temp Pulse Resp BP Pulse Ox 97.4 F L 73 18 206/84 99 02/07/19 07:42 02/07/19 07:42 02/07/19 07:42 02/07/19 07:42 02/07/19 07:42 General appearance: Present: no acute distress, well-nourished - EENT Eyes: Present: PERRL ENT: hearing intact, clear oral mucosa - Neck Neck: Present: supple, normal ROM - Respiratory Respiratory effort: normal Respiratory: bilateral: CTA - Cardiovascular Heart Sounds: Present: S1 & S2. Absent: rub, click - Extremities Extremities: pulses symmetrical, No edema Peripheral Pulses: within normal limits - Abdominal General gastrointestinal: Present: soft, non-tender, non-distended, normal bowel sounds Female genitourinary: Present: normal - Integumentary Integumentary: Present: clear, warm, dry - Musculoskeletal Musculoskeletal: gait normal, strength equal bilaterally - Psychiatric Psychiatric: appropriate mood/affect, intact judgment & insight - Neurologic Neurologic: CNII-XII intact, moves all extremities Plan Activity: advance as tolerated Weight Bearing Status: Weight Bear as Tolerated Diet: regular Follow up with: DORIAN MONDRAGON MD [Primary Care Provider] - 7 Days ALYX MOORE MD [Staff Physician] - 7 Days ALYX ARMENDARIZ MD [Staff Physician] - 7 Days Prescriptions: amLODIPine 5 mg PO QDAY #30 tablet Aspirin [Aspirin BABY CHEW TAB] 81 mg PO QDAY #30 cloNIDine [Catapres] 0.1 mg PO BID 30 Days tablet carvediloL [Coreg] 25 mg PO BID #60 Apixaban [Eliquis] 5 mg PO BID #360 tablet Apixaban [Eliquis] 10 mg PO BID 7 Days #14 tablet Sacubitril/Valsartan [Entresto 24 - 26 mg] 1 each PO BID #60 metFORMIN [Glucophage] 500 mg PO BIDWM #60 tablet Furosemide [Lasix TAB] 20 mg PO QDAY #30 tablet AtorvaSTATin [Lipitor] 40 mg PO DAILY #60 PARoxetine [Paxil] 20 mg PO DAILY #30 Clopidogrel [Plavix] 1 tab PO DAILY #30
--- NOTE | 2019-02-07 11:35 | Progress Note ---
Assessment and Plan Optimize antihypertensive regimen - increase norvasc and initiate hydralazine, cont coreg and losartan. Pt appears to be nearing/at euvolemia. Convert IV lasix to PO lasix 40mg daily. Anemia improved s/p PRBC tx. FOBT pending per primary. LifeVest is in place. Pt states that her LifeVest is too tight. I have contacted [employer] and a healthcare sales representative will come to adjust the size. The patient has been seen in conjunction with Dr. Celestina Pop who agrees with the assessment and plan of care. - Patient Problems (1) Acute HFrEF (heart failure with reduced ejection fraction) Current Visit: Yes Status: Acute (2) Cardiomyopathy Current Visit: Yes Status: Chronic Plan to address problem: presumably nonischemic - lexiscan MPI stress 01/10/2019 negative for ischemia, EF 26%. (3) History of myocardial infarction Current Visit: Yes Status: Suspected (4) Elevated troponin Current Visit: Yes Status: Acute (5) Accelerated hypertension Current Visit: Yes Status: Acute (6) Diabetes mellitus Current Visit: Yes Status: Chronic Qualifiers: Diabetes mellitus type: type 2 (7) PVD (peripheral vascular disease) Current Visit: Yes Status: Suspected (8) Tobacco use disorder Current Visit: Yes Status: Chronic (9) Anemia Current Visit: Yes Status: Chronic (10) NSVT Current Visit: Yes Status: Chronic Subjective Date of service: 02/07/19 Principal diagnosis: HF Interval history: Pt sitting up at bedside, no current cardiac complaints. she states that her LifeVest is too tight. s/p PRBC tx yesterday. Objective Last Vital Signs Temp 97.4 F L 02/07/19 07:42 Pulse 73 02/07/19 10:34 Resp 18 02/07/19 07:42 BP 206/84 02/07/19 10:34 Pulse Ox 99 02/07/19 07:42 - Physical Examination General: No Apparent Distress HEENT: Positive: PERRL, Normocephaly, Mucus Membranes Moist Neck: Positive: neck supple, trachea midline Cardiac: Positive: Reg Rate and Rhythm, S1/S2 Lungs: Positive: Decreased Breath Sounds Neuro: Positive: Grossly Intact Abdomen: Negative: Tender Skin: Negative: Rash Musculoskeletal: No Pain Extremities: Absent: edema - Labs and Meds CBC 02/07/19 Range/Units 04:35 WBC 10.3 (4.5-11.0) K/mm3 RBC 3.41 L (3.65-5.03) M/mm3 Hgb 9.0 L (10.1-14.3) gm/dl Hct 27.4 L (30.3-42.9) % Plt Count 248 (140-440) K/mm3 Lymph # 2.3 (1.2-5.4) K/mm3 [place] # 0.7 (0.0-0.8) K/mm3 Eos # 0.0 (0.0-0.4) K/mm3 Baso # 0.0 (0.0-0.1) K/mm3 Comprehensive Metabolic Panel 02/07/19 Range/Units 04:35 Sodium 142 (137-145) mmol/L Potassium 3.4 L (3.6-5.0) mmol/L Chloride 111.0 H (98-107) mmol/L Carbon Dioxide 19 L (22-30) mmol/L BUN 19 H (7-17) mg/dL Creatinine 1.2 (0.7-1.2) mg/dL Glucose 97 (65-100) mg/dL Calcium 7.8 L (8.4-10.2) mg/dL - Imaging and Cardiology EKG: report reviewed, image reviewed Echo: report reviewed (01/2019 showed EF 20-25%, dilated LV, mild to mod LV thickening, mild MR, TR, ND, AR, dilated LA, grade 2 diastolic dysfunction, small hemodynamically insignificant pericardial effusion.) - EKG Sinus rhythms and dysrhythmias: sinus rhythm Chamber hypertrophy or enlargement: left ventricular hypertro
[2019-02-07] MEDS ORDERED: amLODIPine 5 MG TAB PO SCH (12:42)
[2019-02-07] MEDS ORDERED: POTASSIUM CHLORIDE ER 20 MEQ TAB PO ONE (13:50)
[2019-02-07] MEDS ORDERED: hydrALAZINE 25 MG TAB PO SCH (14:00)
[2019-02-07 14:37] VITALS: BP 193/87
--- NOTE | 2019-02-07 15:23 | Progress Note ---
Assessment and Plan Assessment and plan: Acute HFrEF (heart failure with reduced ejection fraction) Cont IV lasix BID. Monitor renal indices. Cardiomyopathy Cardiology reports as nonischemic - lexiscan MPI stress 01/10/2019 negative for ischemia, EF 26%. LifeVest is in place. Hx myocardial infarction Elevated troponin likely chronically elevated Accelerated hypertension Optimize antihypertensive regimen - Cont. coreg, losartan, and norvasc increased. Also, hydralazine started Diabetes mellitus SSRI and accuchecks PVD (peripheral vascular disease) Tobacco use disorder Anemia Transfuse 2 units. Check hemoccult - Patient Problems (1) DVT (deep venous thrombosis) Current Visit: Yes Status: Acute (2) Sepsis Current Visit: Yes Status: Acute (3) UTI due to Klebsiella species Current Visit: Yes Status: Acute (4) UTI (urinary tract infection) Current Visit: Yes Status: Acute (5) DELISA (acute kidney injury) Current Visit: Yes Status: Acute (6) Acute on chronic respiratory failure with hypoxemia Current Visit: Yes Status: Acute (7) HTN (hypertension) Current Visit: Yes Status: Acute Qualifiers: Hypertension type: essential hypertension Qualified Code(s): I10 - Essential (primary) hypertension (8) Hypertensive urgency, malignant Current Visit: Yes Status: Acute (9) Cardiomyopathy Current Visit: No Status: Chronic (10) Diabetes mellitus Current Visit: No Status: Chronic Qualifiers: Diabetes mellitus type: type 2 (11) PVD (peripheral vascular disease) Current Visit: No Status: Suspected History Interval history: No new issuees overnight Hospitalist Physical - Constitutional Vitals: Temp Pulse Resp BP Pulse Ox 98.1 F 71 18 193/87 97 02/07/19 11:30 02/07/19 11:30 02/07/19 11:30 02/07/19 11:30 02/07/19 11:30 General appearance: Present: no acute distress, well-nourished - EENT Eyes: Present: PERRL, EOM intact ENT: hearing intact, clear oral mucosa, dentition normal - Neck Neck: Present: supple, normal ROM - Respiratory Respiratory effort: normal Respiratory: bilateral: CTA - Cardiovascular Rhythm: regular Heart Sounds: Present: S1 & S2. Absent: gallop, rub - Extremities Extremities: no ischemia, No edema, Full ROM - Abdominal General gastrointestinal: soft, non-tender, non-distended, normal bowel sounds - Integumentary Integumentary: Present: clear, warm, dry - Neurologic Neurologic: CNII-XII intact, moves all extremities Results - Labs CBC & Chem 7: 02/07/19 04:35 02/07/19 04:35 Labs: Laboratory Last Values WBC 10.3 K/mm3 (4.5-11.0) 02/07/19 04:35 RBC 3.41 M/mm3 (3.65-5.03) L 02/07/19 04:35 Hgb 9.0 gm/dl (10.1-14.3) L 02/07/19 04:35 Hct 27.4 % (30.3-42.9) L 02/07/19 04:35 MCV 80 fl (79-97) 02/07/19 04:35 MCH 26 pg (28-32) L 02/07/19 04:35 MCHC 33 % (30-34) 02/07/19 04:35 RDW 17.1 % (13.2-15.2) H 02/07/19 04:35 Plt Count 248 K/mm3 (140-440) 02/07/19 04:35 Lymph % (Auto) 22.0 % (13.4-35.0) 02/07/19 04:35 [place] % (Auto) 6.4 % (0.0-7.3) 02/07/19 04:35 Eos % (Auto) 0.1 % (0.0-4.3) 02/07/19 04:35 Baso % (Auto) 0.5 % (0.0-1.8) 02/07/19 04:35 Lymph # 2.3 K/mm3 (1.2-5.4) 02/07/19 04:35 [place] # 0.7 K/mm3 (0.0-0.8) 02/07/19 04:35 Eos # 0.0 K/mm3 (0.0-0.4) 02/07/19 04:35 Baso # 0.0 K/mm3 (0.0-0.1) 02/07/19 04:35 Seg Neutrophils % 71.0 % (40.0-70.0) H 02/07/19 04:35 Seg Neutrophils # 7.3 K/mm3 (1.8-7.7) 02/07/19 04:35 PT 15.5 Sec. (12.2-14.9) H 02/05/19 12:21 INR 1.24 (0.87-1.13) H 02/05/19 12:21 APTT 26.6 Sec. (24.2-36.6) 02/05/19 12:21 D-Dimer 1416.19 ng/mlDDU (0-234) H 02/05/19 12:21 POC ABG pH 7.441 (7.35-7.45) 02/05/19 13:11 POC ABG pCO2 26.2 (35-45) L 02/05/19 13:11 POC ABG pO2 66 (80-105) L 02/05/19 13:11 POC ABG HCO3 17.8 (22-26 mml/L) 02/05/19 13:11 POC ABG Total CO2 19 (23-27mmol/L) 02/05/19 13:11 POC ABG O2 Sat 94 02/05/19 13:11 POC ABG Base Excess -6 ((-2) - (+3)mmol/L) 02/05/19 13:11 FiO2 21 % 02/05/19 13:11 Sodium 142 mmol/L (137-145) 02/07/19 04:35 Potassium 3.4 mmol/L (3.6-5.0) L 02/07/19 04:35 Chloride 111.0 mmol/L (98-107) H 02/07/19 04:35 Carbon Dioxide 19 mmol/L (22-30) L 02/07/19 04:35 Anion Gap 15 mmol/L 02/07/19 04:35 BUN 19 mg/dL (7-17) H 02/07/19 04:35 Creatinine 1.2 mg/dL (0.7-1.2) 02/07/19 04:35 Estimated GFR 54 ml/min 02/07/19 04:35 BUN/Creatinine Ratio 16 % 02/07/19 04:35 Glucose 97 mg/dL (65-100) 02/07/19 04:35 POC Glucose 124 (70-105) H 02/07/19 11:45 Lactic Acid 1.90 mmol/L (0.7-2.0) 02/05/19 14:54 Calcium 7.8 mg/dL (8.4-10.2) L 02/07/19 04:35 Magnesium 1.70 mg/dL (1.7-2.3) 02/05/19 12:21 Total Bilirubin 0.40 mg/dL (0.1-1.2) 02/06/19 06:40 AST 15 units/L (5-40) 02/06/19 06:40 ALT 12 units/L (7-56) 02/06/19 06:40 Alkaline Phosphatase 74 units/L (35-129) 02/06/19 06:40 Total Creatine Kinase 112 units/L (30-135) 02/05/19 12:21 Troponin T 0.068 ng/mL (0.00-0.029) H 02/05/19 12:21 NT-Pro-B Natriuret Pep 72324 pg/mL (0-900) H 02/05/19 12:21 Total Protein 5.9 g/dL (6.3-8.2) L 02/06/19 06:40 Albumin 3.7 g/dL (3.9-5) L 02/06/19 06:40 Albumin/Globulin Ratio 1.7 % 02/06/19 06:40 Triglycerides 84 mg/dL (2-149) 02/05/19 12:21 Cholesterol 131 mg/dL (50-199) 02/05/19 12:21 LDL Cholesterol Direct 80 mg/dL (50-130) 02/05/19 12:21 HDL Cholesterol 49 mg/dL (40-59) 02/05/19 12:21 Cholesterol/HDL Ratio 2.67 % 02/05/19 12:21 TSH 0.153 mlU/mL (0.270-4.200) L 02/05/19 21:26 Free T4 1.35 ng/dL (0.76-1.46) 02/05/19 21:26 Urine Color Yellow (Yellow) 02/05/19 13:23 Urine Turbidity Slightly-cloudy (Clear) 02/05/19 13:23 Urine pH 6.0 (5.0-7.0) 02/05/19 13:23 Ur Specific [place] 1.014 (1.003-1.030) 02/05/19 13:23 Urine Protein 100 mg/dl mg/dL (Negative) 02/05/19 13:23 Urine Glucose (UA) Neg mg/dL (Negative) 02/05/19 13:23 Urine Ketones Neg mg/dL (Negative) 02/05/19 13:23 Urine Blood Neg (Negative) 02/05/19 13:23 Urine Nitrite Neg (Negative) 02/05/19 13:23 Urine Bilirubin Neg (Negative) 02/05/19 13:23 Urine Urobilinogen 2.0 mg/dL (<2.0) 02/05/19 13:23 Ur Leukocyte Esterase Neg (Negative) 02/05/19 13:23 Urine WBC (Auto) 6.0 /HPF (0.0-6.0) 02/05/19 13:23 Urine RBC (Auto) 5.0 /HPF (0.0-6.0) 02/05/19 13:23 U Epithel Cells (Auto) 5.0 /HPF (0-13.0) 02/05/19 13:23 Urine Mucus Few /HPF 02/05/19 13:23 Digoxin 1.6 ng/mL (0.9-2.0) 02/05/19 12:21 Blood Type B POSITIVE 02/06/19 14:17 Antibody Screen Negative 02/06/19 14:17 Crossmatch See Detail 02/06/19 14:17 Active Medications - Current Medications Current Medications: Generic Name Dose Route Start Last Admin Trade Name Freq PRN Reason Stop Dose Admin Acetaminophen 650 mg 02/05/19 19:37 02/07/19 10:42 Tylenol PO 650 mg Q4H PRN Administration Pain MILD(1-3)/Fever >100.5/GAMEZ Albuterol 2.5 mg 02/05/19 19:37 Proventil IH Q4H PRN Shortness Of Breath Alprazolam 0.5 mg 02/05/19 19:54 Xanax PO Q8H PRN Anxiety Amlodipine Besylate 10 mg 02/07/19 12:42 Amlodipine PO QDAY [facility] Aspirin 81 mg 02/06/19 10:00 02/07/19 10:34 Baby Aspirin PO 81 mg QDAY [facility]EL Administration Atorvastatin Calcium 40 mg 02/06/19 10:00 02/07/19 10:34 Lipitor PO 40 mg QDAY MARVEL Administration Carvedilol 25 mg 02/06/19 22:00 02/07/19 10:34 Coreg PO 25 mg BID MARVEL Administration Clopidogrel Bisulfate 75 mg 02/06/19 10:00 02/07/19 10:34 Plavix PO 75 mg DAILY [facility] Administration Dextrose 50 ml 02/05/19 19:57 D50w (25gm) Syringe IV Q30MIN PRN Hypoglycemia Protocol Furosemide 40 mg 02/08/19 10:00 Lasix PO QDAY [facility] Heparin Sodium (Porcine) 5,000 unit 02/05/19 22:00 02/07/19 10:33 Heparin SUB-Q 5,000 unit Q12HR [facility]EL Administration Hydralazine HCl 50 mg 02/07/19 14:00 02/07/19 14:40 Apresoline PO 50 mg Q8HR [facility]EL Administration Ceftriaxone Sodium 2 gm in 100 mls @ 200 mls/hr 02/05/19 20:00 02/06/19 23:36 Rocephin/Ns 2 Gm/100 Ml IV 200 mls/hr Q24H [facility] Administration Protocol Azithromycin 500 mg/ Sodium 250 mls @ 250 mls/hr 02/05/19 20:00 02/06/19 23:36 Chloride IV 250 mls/hr Q24H [facility] Administration Protocol Insulin Human Lispro 0 unit 02/06/19 00:00 02/07/19 12:00 Humalog SUB-Q Not Given Q6HR [facility] Protocol Losartan Potassium 100 mg 02/06/19 14:00 02/07/19 10:33 Cozaar PO 100 mg QDAY MARVEL Administration Nitroglycerin 0.4 mg 02/05/19 11:44 Nitrostat SL .Q5MIN PRN Chest Pain Ondansetron HCl 4 mg 02/05/19 19:37 Zofran IV Q8H PRN Nausea And Vomiting Paroxetine HCl 20 mg 02/06/19 10:00 02/07/19 10:34 Paxil PO 20 mg DAILY [facility]EL Administration Sodium Chloride 10 ml 02/05/19 22:00 02/07/19 10:35 Sodium Chloride Flush Syringe 10 Ml IV 10 ml BID [facility]EL Administration Sodium Chloride 10 ml 02/05/19 19:37 Sodium Chloride Flush Syringe 10 Ml IV PRN PRN LINE FLUSH
[2019-02-07] MEDS ORDERED: cloNIDine 0.1 MG TAB PO SCH (22:00)
[2019-02-08] MEDS ORDERED: FUROSEMIDE 40 MG TAB PO SCH (10:00)
== END 2019-02-07 17:16 | disposition home or self-care (01) | DRG 871 ==
LOC: ED 11:31 → 2B-ACE 19:37 → 4A 20:16
PROVIDERS: ADMIT Internal Medicine; ATTEND Hospitalist
PROC: 4A033R1 Measurement of Arterial Saturation, Peripheral, Percutaneous Approach (ICD-10-PCS; 2019-02-05)
PROC: 30233N1 Transfusion of Nonautologous Red Blood Cells into Peripheral Vein, Percutaneous Approach (ICD-10-PCS; principal; 2019-02-06)
DX: A41.59 Other Gram-negative sepsis (principal); I50.23 Acute on chronic systolic (congestive) heart failure; J18.9 Pneumonia, unspecified organism; E43 Unspecified severe protein-calorie malnutrition; J96.21 Acute and chronic respiratory failure with hypoxia; Z68.1 Body mass index [BMI] 19.9 or less, adult; N17.9 Acute kidney failure, unspecified; I42.9 Cardiomyopathy, unspecified; N39.0 Urinary tract infection, site not specified; I82.409 Acute embolism and thrombosis of unspecified deep veins of unspecified lower extremity; F17.203 Nicotine dependence unspecified, with withdrawal; I47.1 Supraventricular tachycardia; J44.0 Chronic obstructive pulmonary disease with (acute) lower respiratory infection; I11.0 Hypertensive heart disease with heart failure; E11.51 Type 2 diabetes mellitus with diabetic peripheral angiopathy without gangrene; I16.0 Hypertensive urgency; D64.9 Anemia, unspecified; B96.1 Klebsiella pneumoniae [K. pneumoniae] as the cause of diseases classified elsewhere; I25.10 Atherosclerotic heart disease of native coronary artery without angina pectoris; F41.9 Anxiety disorder, unspecified; Z95.820 Peripheral vascular angioplasty status with implants and grafts; Z82.49 Family history of ischemic heart disease and other diseases of the circulatory system; Z83.3 Family history of diabetes mellitus; Z98.51 Tubal ligation status; Z79.899 Other long term (current) drug therapy; Z79.82 Long term (current) use of aspirin; I25.2 Old myocardial infarction; Z71.6 Tobacco abuse counseling; Z95.5 Presence of coronary angioplasty implant and graft
CPT/HCPCS: 36415; 36430; 71045; 80048; 80053; 80061; 80162; 81001; 82140; 82550; 82803; 82962; 83735; 83880; 84439; 84443; 84484; 85025; 85379; 85610; 85730; 86850; 86900; 86901; 86920; 87040; 93005; 93010; 94760; 99406; G0378; A9270-GY; J0360; J0456; J0696; J1644; J1815; J1940; J1956; J2930; J7040; J7050; P9016; Q0162

== ENCOUNTER 2019-04-21 21:52 | Inpatient (IN) | payer MEDICARE ==
[2019-04-21] MEDS ORDERED: ASPIRIN 325 MG TAB PO ONE (23:05)
[2019-04-21 23:31] LABS: Mean Corpuscular HGB Conc 32 % (30-34); Platelet Count 392 K/mm3 (140-440); Red Blood Count 1.59 M/mm3 (3.65-5.03)
--- NOTE | 2019-04-21 23:32 | XRay Report ---
CHEST 2 VIEWS INDICATION / CLINICAL INFORMATION: Chest Pain. COMPARISON: 02/05/2019 FINDINGS: SUPPORT DEVICES: None. HEART / MEDIASTINUM: Cardiac silhouette size is normal. This represents significant decrease in size of the cardiac silhouette is compared with the most recent chest radiograph of 02/05/2019. LUNGS / PLEURA: No significant pulmonary or pleural abnormality. No pneumothorax. ADDITIONAL FINDINGS: No significant additional findings. IMPRESSION: 1. No acute findings. 2. Compared with the prior chest radiograph, cardiac silhouette size has now returned to normal. Signer Name: Anya Villegas MD Signed: 04/21/2019 11:27 PM Workstation Name: [id number]
[2019-04-21 23:35] LABS: Mean Corpuscular Volume 113 fl (79-97); Red Cell Distribution Width 25.4 % (13.2-15.2)
[2019-04-21 23:36] LABS: Hemoglobin 5.8 gm/dl (10.1-14.3)
[2019-04-22] MEDS ORDERED: SODIUM CHLORIDE 0.9% 500 ML 500 ML IV ONE (00:23)
[2019-04-22 00:31] LABS: Band Neutrophils # (Manual) 0.1 K/mm3; Basophils % (Manual) 0 % (0.0-1.8); Total Cells Counted 100
--- NOTE | 2019-04-22 00:33 | Emergency Department Report ---
HPI - General Chief Complaint: Weakness Time Seen by Provider: 04/22/19 00:11 - HPI HPI: Room 5 The patient is a 69-year-old female present with a chief complaint of symptomatic anemia. The patient states she has had dyspnea on exertion and fatigue for the past 3 to 4 days. The patient states she had a routine follow- up appointment with her director of student affairs today and had labs performed. The patient received a call from her director of student affairs at 21:30 advising her to come to the emergency department because her hemoglobin was very low. Patient admits to dark stools but states it began last month when she began taking iron supplements ED Past Medical Hx - Past Medical History Previous Medical History?: Yes Hx Hypertension: Yes Hx Heart Attack/AMI: Yes Hx Congestive Heart Failure: Yes Hx Diabetes: Yes Hx Psychiatric Treatment: Yes (ANXIETY) Additional medical history: HIGH CHOLESTEROL. 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 MILD HEART ENLARGEMENT - Surgical History Past Surgical History?: Yes Hx Coronary Stent: (STENT PLACEMENT IN LEG) Additional Surgical History: STENTS IN LEGS, BLOOD CLOTS REMOVED FROM HEAD. TUBAL LIGATION - Family History Family history: no significant - Social History Smoking Status: Former Smoker (None since January 2019) Substance Use Type: None - Medications Home Medications: Home Medications Medication Instructions Recorded Confirmed Last Taken Type Digoxin [Digox] 0.125 mcg PO DAILY 30 Days tablet 04/10/15 02/05/19 02/04/19 Rx Losartan Potassium 100 mg PO DAILY 01/09/19 02/05/19 02/04/19 History Cyproheptadine [Periactin] 4 mg PO TID 02/05/19 02/05/19 02/04/19 History Apixaban [Eliquis] 5 mg PO BID #360 tablet 02/07/19 Unknown Rx Apixaban [Eliquis] 10 mg PO BID 7 Days #14 tablet 02/07/19 Unknown Rx Aspirin [Aspirin BABY CHEW TAB] 81 mg PO QDAY #30 02/07/19 Unknown Rx AtorvaSTATin [Lipitor] 40 mg PO DAILY #60 02/07/19 Unknown Rx Clopidogrel [Plavix] 1 tab PO DAILY #30 02/07/19 Unknown Rx Furosemide [Lasix TAB] 20 mg PO QDAY #30 tablet 02/07/19 Unknown Rx Losartan [Cozaar] 100 mg PO QDAY tablet 02/07/19 Unknown Rx PARoxetine [Paxil] 20 mg PO DAILY tablet 02/07/19 Unknown Rx PARoxetine [Paxil] 20 mg PO DAILY #30 02/07/19 Unknown Rx Sacubitril/Valsartan [Entresto 24 1 each PO BID #60 02/07/19 Unknown Rx - 26 mg] Sacubitril/Valsartan [Entresto 24 1 each PO TID tablet 02/07/19 Unknown Rx - 26 mg] amLODIPine 5 mg PO QDAY #30 tablet 02/07/19 Unknown Rx carvediloL [Coreg] 25 mg PO BID tablet 02/07/19 Unknown Rx carvediloL [Coreg] 25 mg PO BID #60 02/07/19 Unknown Rx cloNIDine [Catapres] 0.1 mg PO BID 30 Days tablet 02/07/19 Unknown Rx metFORMIN [Glucophage] 500 mg PO BIDWM #60 tablet 02/07/19 Unknown Rx ED Review of Systems ROS: Stated complaint: CONGESTIVE HEART FAULIRE/LOW HEART RATE Other details as noted in HPI Constitutional: malaise Eyes: denies: eye pain ENT: denies: throat pain Respiratory: shortness of breath, SOB with exertion Cardiovascular: denies: chest pain Endocrine: no symptoms reported Gastrointestinal: abdominal pain, melena (?, Black stool with iron supplements) Musculoskeletal: denies: back pain Neurological: headache Physical Exam - Physical Exam Vital Signs: Vital Signs 04/21/19 22:25 Temperature 98.2 F Pulse Rate 95 H Respiratory 16 Rate Blood Pressure 184/63 O2 Sat by Pulse 100 Oximetry Physical Exam: GEN: WD WN [] lying on stretcher in NAD HEENT: NCAT, EOMI NECK: trachea midline PULM: CTA bilat. No resp distress noted CV: rrr no m/r/g ABD: s/nd trace left lower quadrant discomfort to palpation. No rebound or guarding SKIN: no diaphoresis NEURO: GCS 15 MUSCULOSKELETAL: No evidence of acute injury RECTAL: Guaiac positive dark stool ED Course Vital Signs 04/21/19 22:25 Temperature 98.2 F Pulse Rate 95 H Respiratory 16 Rate Blood Pressure 184/63 O2 Sat by Pulse 100 Oximetry - Consultations Consultation #1: 04/22/19 00:47 GI paged 04/22/19 00:[address] Hall ED Medical Decision Making - Lab Data Result diagrams: 04/21/19 23:07 04/21/19 23:07 Laboratory Tests 04/21/19 04/21/19 23:07 23:07 WBC 6.3 RBC 1.59 L Hgb 5.8 L* Hct 18.0 L* MCV 113 H MCH 37 H MCHC 32 RDW 25.4 H Plt Count 392 Sodium 146 H Potassium 5.3 H Chloride 109.1 H Carbon Dioxide 22 Anion Gap 20 BUN 28 H Creatinine 1.6 H Estimated GFR 38 BUN/Creatinine Ratio 18 Glucose 102 H Calcium 9.0 Troponin T 0.011 - EKG Data -: EKG Interpreted by Me EKG shows normal: sinus rhythm Rate: normal - EKG Data When compared to previous EKG there are: previous EKG unavailable Interpretation: nonspecific ST-T wave nyla (T wave inversions in leads 2, aVF, V4, V5, V6) - Radiology Data Radiology results: report reviewed (Chest x-ray), image reviewed (Chest x-ray) interpreted by me: Chest x-ray-no focal infiltrates, no pneumothorax Findings [address] [address] XRay Report Signed Patient: DIANA FLANNERY MR#: [id number] : 1950 Acct:[id number] Age/Sex: 69 / F ADM Date: 04/21/19 Loc: ED Attending Dr: Ordering Physician: ROB GONZÁLES MD Date of Service: 04/21/19 Procedure(s): XR chest routine 2V Accession Number(s): [id number] cc: ED MD ELIECER Fluoro Time In Minutes: CHEST 2 VIEWS INDICATION / CLINICAL INFORMATION: Chest Pain. COMPARISON: 02/06/20 19 FINDINGS: SUPPORT DEVICES: None. HEART / MEDIASTINUM: Cardiac silhouette size is normal. This represents significant decrease in size of the cardiac silhouette is compared with the most recent chest radiograph of 02/05/2019. LUNGS / PLEURA: No significant pulmonary or pleural abnormality. No pneumothorax. ADDITIONAL FINDINGS: No significant additional findings. IMPRESSION: 1. No acute findings. 2. Compared with the prior chest radiograph, cardiac silhouette size has now returned to normal. Signer Name: Anya Villegas MD Signed: 04/21/2019 11:27 PM Workstation Name: [id number] Transcribed By: Dictated By: Anya Villegas MD Electronically Authenticated By: Anya Villegas MD Signed Date/Time: 04/21/192326 DD/ 25 TD/TT: - Differential Diagnosis Symptomatic anemia, GI bleed Critical care attestation.: If time is entered above; I have spent that time in minutes in the direct care of this critically ill patient, excluding procedure time. ED Disposition Clinical Impression: Symptomatic anemia, GI bleed Disposition: OP ADMIT IP TO THIS HOSP Is pt being admited?: Yes Does the pt Need Aspirin: No Condition: Fair [facility] - 3-5 Days Time of Disposition: 00:51 (Hospitalist paged (Dr. Leslie))
[2019-04-22 00:34] LABS: Anisocytosis 2+; Macrocytosis 1+
[2019-04-22] MEDS ORDERED: PANTOPRAZOLE 40 MG INJ IV ONE (00:50)
[2019-04-22 00:53] LABS: Platelet Estimate Consistent w Auto
[2019-04-22 01:12] LABS: INR 1.19 (0.87-1.13)
[2019-04-22 01:13] LABS: Partial Thromboplastin Time 28.2 Sec. (24.2-36.6)
[2019-04-22] MEDS ORDERED: ONDANSETRON 4 MG/2 ML INJ IV PRN (01:48)
[2019-04-22] MEDS ORDERED: ACETAMINOPHEN 325 MG TAB PO PRN (01:48)
[2019-04-22] MEDS ORDERED: INSULIN LISPRO 100 UNIT/ML SUB-Q ONE (01:52)
[2019-04-22] MEDS ORDERED: hydrALAZINE 20 MG/1 ML INJ IV PRN ×3 (01:56→10:00)
[2019-04-22] MEDS ORDERED: SODIUM CHLORIDE 0.9% 1000 ML 1,000 ML IV SCH (02:00)
--- NOTE | 2019-04-22 02:42 | History and Physical Report ---
History of Present Illness Date of examination: 04/22/19 Chief complaint: Generalized weakness dizziness and shortness of breath for 2 days History of present illness: Zulema Kellogg is a 69-year-old female presents to the ED with a chief complaint of symptomatic anemia. The patient states she has had dyspnea on exertion and fatigue for the past 2 to 3 days. The patient states she had a routine follow-up appointment with her rural carrier associate Dr. Rodriguez today and had labs performed. The patient received a call from her rural carrier associate at 21:30 advising her to go to the emergency department because her hemoglobin was very low. Patient admits to dark stools but states it began last month when she began taking iron supplements. Patient is being admitted for symptomatic anemia Past History Past Medical History: anemia, CAD, diabetes, heart failure, hypertension, PVD Social history: no significant social history Family history: diabetes, hypertension Medications and Allergies Allergies Allergy/AdvReac Type Severity Reaction Status Date / Time No Known Allergies Allergy Verified 04/08/16 18:42 Home Medications Medication Instructions Recorded Confirmed Last Taken Type Digoxin [Digox] 0.125 mcg PO DAILY 30 Days tablet 04/10/15 02/05/19 02/04/19 Rx Losartan Potassium 100 mg PO DAILY 01/09/19 02/05/19 02/04/19 History Cyproheptadine [Periactin] 4 mg PO TID 02/05/19 02/05/19 02/04/19 History Apixaban [Eliquis] 5 mg PO BID #360 tablet 02/07/19 Unknown Rx Apixaban [Eliquis] 10 mg PO BID 7 Days #14 tablet 02/07/19 Unknown Rx Aspirin [Aspirin BABY CHEW TAB] 81 mg PO QDAY #30 02/07/19 Unknown Rx AtorvaSTATin [Lipitor] 40 mg PO DAILY #60 02/07/19 Unknown Rx Clopidogrel [Plavix] 1 tab PO DAILY #30 02/07/19 Unknown Rx Furosemide [Lasix TAB] 20 mg PO QDAY #30 tablet 02/07/19 Unknown Rx Losartan [Cozaar] 100 mg PO QDAY tablet 02/07/19 Unknown Rx PARoxetine [Paxil] 20 mg PO DAILY tablet 02/07/19 Unknown Rx PARoxetine [Paxil] 20 mg PO DAILY #30 02/07/19 Unknown Rx Sacubitril/Valsartan [Entresto 24 1 each PO BID #60 02/07/19 Unknown Rx - 26 mg] Sacubitril/Valsartan [Entresto 24 1 each PO TID tablet 02/07/19 Unknown Rx - 26 mg] amLODIPine 5 mg PO QDAY #30 tablet 02/07/19 Unknown Rx carvediloL [Coreg] 25 mg PO BID tablet 02/07/19 Unknown Rx carvediloL [Coreg] 25 mg PO BID #60 02/07/19 Unknown Rx cloNIDine [Catapres] 0.1 mg PO BID 30 Days tablet 02/07/19 Unknown Rx metFORMIN [Glucophage] 500 mg PO BIDWM #60 tablet 02/07/19 Unknown Rx Active Meds: Active Medications Acetaminophen (Tylenol) 650 mg PO Q4H PRN PRN Reason: Pain MILD(1-3)/Fever >100.5/GAMEZ Amlodipine Besylate (Amlodipine) 5 mg PO QDAY [facility] Atorvastatin Calcium (Lipitor) 40 mg PO DAILY [facility] Carvedilol (Coreg) 25 mg PO BID [facility] Digoxin (Lanoxin) 0.0001 mg PO DAILY [facility] Hydralazine HCl (Apresoline) 10 mg IV Q6H PRN PRN Reason: Hypertension Sodium Chloride (Nacl 0.9% 1000 Ml) 1,000 mls @ 42 mls/hr IV DIRECT [facility] Ondansetron HCl (Zofran) 4 mg IV Q8H PRN PRN Reason: Nausea And Vomiting Pantoprazole Sodium (Protonix) 40 mg IV DAILY [facility] Sodium Chloride (Sodium Chloride Flush Syringe 10 Ml) 10 ml IV BID [facility] Sodium Chloride (Sodium Chloride Flush Syringe 10 Ml) 10 ml IV PRN PRN PRN Reason: LINE FLUSH Review of Systems Constitutional: fatigue, weakness, no weight loss, no fever, no chills Ears, nose, mouth and throat: no nasal congestion, no sore throat Breasts: deferred Cardiovascular: lightheadedness, shortness of breath (With exertion), high blood pressure, no chest pain, no orthopnea, no syncope Respiratory: shortness of breath, no cough, no wheezing Gastrointestinal: melena, no abdominal pain, no nausea, no vomiting, no diarrhea Exam - Constitutional Vitals: Temp Pulse Resp BP Pulse Ox 98.2 F 95 H 16 201/77 99 04/21/19 22:25 04/21/19 22:25 04/21/19 22:25 04/22/19 02:06 04/22/19 02:06 General appearance: Present: no acute distress, well-nourished - EENT Eyes: Present: PERRL, EOM intact ENT: hearing intact, clear oral mucosa, no thrush - Neck Neck: Present: supple, normal ROM. Absent: masses or JVD - Respiratory Respiratory effort: normal Respiratory: bilateral: CTA - Cardiovascular Rhythm: regular Heart Sounds: Present: S1 & S2 - Extremities Extremities: No edema - Abdominal General gastrointestinal: Present: soft, non-tender. Absent: hepatomegaly, splenomegaly Female genitourinary: Present: deferred - Rectal Rectal Exam: deferred - Integumentary Integumentary: Present: clear - Musculoskeletal Musculoskeletal: strength equal bilaterally - Psychiatric Psychiatric: appropriate mood/affect - Neurologic Neurologic: CNII-XII intact, no focal deficits Results - Labs CBC & Chem 7: 04/21/19 23:07 04/21/19 23:07 Labs: Abnormal lab results 04/21/19 04/21/19 04/22/19 Range/Units 23:07 23:07 00:41 RBC 1.59 L (3.65-5.03) M/mm3 Hgb 5.8 L* (10.1-14.3) gm/dl Hct 18.0 L* (30.3-42.9) % MCV 113 H (79-97) fl MCH 37 H (28-32) pg RDW 25.4 H (13.2-15.2) % Monocytes % (Manual) 11.0 H (0.0-7.3) % PT 15.3 H (12.2-14.9) Sec. INR 1.19 H (0.87-1.13) Sodium 146 H (137-145) mmol/L Potassium 5.3 H (3.6-5.0) mmol/L Chloride 109.1 H (98-107) mmol/L BUN 28 H (7-17) mg/dL Creatinine 1.6 H (0.7-1.2) mg/dL Glucose 102 H (65-100) mg/dL POC Glucose (70-105) 04/22/19 Range/Units 02:22 RBC (3.65-5.03) M/mm3 Hgb (10.1-14.3) gm/dl Hct (30.3-42.9) % MCV (79-97) fl MCH (28-32) pg RDW (13.2-15.2) % Monocytes % (Manual) (0.0-7.3) % PT (12.2-14.9) Sec. INR (0.87-1.13) Sodium (137-145) mmol/L Potassium (3.6-5.0) mmol/L Chloride (98-107) mmol/L BUN (7-17) mg/dL Creatinine (0.7-1.2) mg/dL Glucose (65-100) mg/dL POC Glucose 110 H (70-105) Assessment and Plan - Patient Problems (1) Symptomatic anemia Current Visit: Yes Status: Acute Plan to address problem: Rule out upper versus lower GI bleed Keep patient n.p.o. IV Protonix Patient has been typed and crossmatched for 2 units of PRBC transfusion GI consulted (2) History of ischemic cardiomyopathy Current Visit: Yes Status: Chronic Plan to address problem: Patient denies any chest pain at this time Troponin in the normal range Cardiology consult Hold aspirin and Plavix secondary to severe anemia and guaiac positive stools Continue beta-anisa (3) Macrocytic anemia Current Visit: Yes Status: Chronic Plan to address problem: Check B12 and folate levels Monitor H&H (4) GI bleed Current Visit: Yes Status: Acute Qualifiers: GI bleed type/associated pathology: melena Qualified Code(s): K92.1 - Melena Plan to address problem: GI consulted Keep patient n.p.o. for possible EGD in a.m. IV Protonix (5) DELISA (acute kidney injury) Current Visit: No Status: Acute Plan to address problem: No baseline lab results available Monitor renal function Avoid nephrotoxins Consider consulting nephrology and renal ultrasound ultrasound if renal function is not improving (6) Accelerated hypertension Current Visit: No Status: Acute Plan to address problem: IV hydralazine as needed for now Continue beta-anisa and amlodipine (7) Diabetes mellitus Current Visit: No Status: Chronic Qualifiers: Diabetes mellitus type: type 2 Diabetes mellitus mcc insulin use: without mcc use Plan to address problem: Initiate insulin sliding scale coverage for now (8) PVD (peripheral vascular disease) Current Visit: No Status: Suspected Plan to address problem: Hold clopidogrel and aspirin for now secondary to anemia and melena
[2019-04-22] MEDS ORDERED: hydrALAZINE 20 MG/1 ML INJ ONE (03:51)
[2019-04-22] MEDS ORDERED: hydrALAZINE 20 MG/1 ML INJ IV ONE (08:58)
--- NOTE | 2019-04-22 11:00 | Event Note ---
Date: 04/22/19 Cardiology note dictated 1. Coronary artery disease status post bypass surgery, status post PTCA. 2. Uncontrolled hypertension 3. Severe anemia secondary to gastrointestinal bleeding. Patient received 1 unit of blood and evaluation is in progress. 4.. Diabetes 5.. Hyperlipidemia 6.. Congestive heart failure 7. Peripheral vascular disease Currently cardiac status is satisfactory except for presence of uncontrolled hypertension. Patient will be monitored and followed closely with you. Thank you for me to participate in the care of this pleasant lady. Dr. NENO Pop
[2019-04-22] MEDS: DIGOXIN 0.125 MG TAB PO SCH (11:35)
[2019-04-22] MEDS: amLODIPine 5 MG TAB PO SCH (11:36)
[2019-04-22] MEDS: carvediloL 25 MG TAB PO SCH ×2 (11:36→21:36)
[2019-04-22] MEDS: PANTOPRAZOLE 40 MG INJ IV SCH (11:36)
--- NOTE | 2019-04-22 12:03 | Progress Note ---
Assessment and Plan Assessment and plan: Acute GI bleeding acute blood loss anemia//2 units PRBC transfusion GI evaluated, scheduled EGD for tomorrow Closely monitor if EGD is negative and patient is stable May be discharged home tomorrow .follow-up with outpatient --Acute GI bleed Current Visit: Yes Status: Acute Plan to address problem: With severe anemia requiring blood transfusion GI evaluated IV fluids, IV Protonix, EGD tomorrow --Acute blood loss anemia -- Symptomatic anemia Current Visit: Yes Status: Acute Plan to address problem: Secondary to GI bleeding, GI evaluation, IV Protonix Received 2 units of PRBC, hemoglobin 5.8 -7.9 monitor H&H and additional PRBC if needed --Hypertensive urgency; blood pressures more than 180 systolic Optimize antihypertensives, PRN medications --DVT; on Eliquis at home Eliquis held due to severe GI bleeding and anemia --DELISA (acute kidney injury) Current Visit: No Status: Acute . Plan to address problem: Vasomotor nephropathy, avoid nephrotoxins Resolved --History of ischemic cardiomyopathy EF 20 -25% Current Visit: Yes Status: Chronic Plan to address problem: Patient denies any chest pain at this time Troponin in the normal range, Cardiology consult Hold aspirin and Plavix, severe anemia, guaiac+ stools Continue beta-anisa --Macrocytic anemia Current Visit: Yes Status: Chronic Plan to address problem: Check B12 and folate levels, Monitor H&H --Type II diabetes mellitus Current Visit: No Status: Chronic Plan to address problem: Initiate insulin sliding scale coverage ADA diet when able to eat --PVD (peripheral vascular disease) Current Visit: No Status: Suspected Plan to address problem: Hold clopidogrel, aspirin ,severe anemia and GI bleed --DVT prophylaxis SCDs, no pharmacologic anticoagulation In view of severe anemia and GI bleeding. --CODE STATUS Full CODE STATUS Monitor closely and adjust the management as needed Follow GI evaluation and recommendations Advanced/extended care 35 minutes Plan of care reviewed with the patient and her nurse History Interval history: 69-year-old female patient was admitted with symptomatic anemia with worsening shortness of breath dyspnea on exertion and severe fatigue of 2 to 3 days duration, hemoglobin 5.8/hematocrit 18 Stool for occult blood is positive Patient received 2 units of PRBC Patient seen and examined at bedside this morning Complains of generalized weakness and lightheadedness Alert and awake, mild distress Vital signs noted Hospitalist Physical - Constitutional Vitals: Temp Pulse Resp BP Pulse Ox 98 F 100 H 20 182/70 99 04/22/19 11:29 04/22/19 11:29 04/22/19 11:29 04/22/19 11:29 04/22/19 11:29 General appearance: Present: mild distress, well-nourished - EENT Eyes: Present: PERRL, EOM intact - Neck Neck: Present: supple, normal ROM - Respiratory Respiratory effort: normal Respiratory: bilateral: diminished, negative: rales, rhonchi, wheezing - Cardiovascular Rhythm: regular Heart Sounds: Present: S1 & S2 - Extremities Extremities: no ischemia, No edema - Abdominal General gastrointestinal: soft, non-tender, non-distended, normal bowel sounds - Integumentary Integumentary: Present: clear, warm - Psychiatric Psychiatric: appropriate mood/affect, other (Anxious) - Neurologic Neurologic: moves all extremities Results - Labs CBC & Chem 7: 04/23/19 06:08 04/23/19 06:08 Labs: Laboratory Last Values WBC 6.3 K/mm3 (4.5-11.0) 04/21/19 23:07 RBC 1.59 M/mm3 (3.65-5.03) L 04/21/19 23:07 Hgb 5.8 gm/dl (10.1-14.3) L* 04/21/19 23:07 Hct 18.0 % (30.3-42.9) L* 04/21/19 23:07 MCV 113 fl (79-97) H 04/21/19 23:07 MCH 37 pg (28-32) H 04/21/19 23:07 MCHC 32 % (30-34) 04/21/19 23:07 RDW 25.4 % (13.2-15.2) H 04/21/19 23:07 Plt Count 392 K/mm3 (140-440) 04/21/19 23:07 Add Manual Diff Complete 04/21/19 23:07 Total Counted 100 04/21/19 23:07 Seg Neuts % (Manual) 55.0 % (40.0-70.0) 04/21/19 23:07 Band Neutrophils % 1.0 % 04/21/19 23:07 Lymphocytes % (Manual) 32.0 % (13.4-35.0) 04/21/19 23:07 Reactive Lymphs % (Man) 0 % 04/21/19 23:07 Monocytes % (Manual) 11.0 % (0.0-7.3) H 04/21/19 23:07 Eosinophils % (Manual) 1.0 % (0.0-4.3) 04/21/19 23:07 Basophils % (Manual) 0 % (0.0-1.8) 04/21/19 23:07 Metamyelocytes % 0 % 04/21/19 23:07 Myelocytes % 0 % 04/21/19 23:07 Promyelocytes % 0 % 04/21/19 23:07 Blast Cells % 0 % 04/21/19 23:07 Nucleated RBC % Not Reportable 04/21/19 23:07 Seg Neutrophils # Man 3.5 K/mm3 (1.8-7.7) 04/21/19 23:07 Band Neutrophils # 0.1 K/mm3 04/21/19 23:07 Lymphocytes # (Manual) 2.0 K/mm3 (1.2-5.4) 04/21/19 23:07 Abs React Lymphs (Man) 0.0 K/mm3 04/21/19 23:07 Monocytes # (Manual) 0.7 K/mm3 (0.0-0.8) 04/21/19 23:07 Eosinophils # (Manual) 0.1 K/mm3 (0.0-0.4) 04/21/19 23:07 Basophils # (Manual) 0.0 K/mm3 (0.0-0.1) 04/21/19 23:07 Metamyelocytes # 0.0 K/mm3 04/21/19 23:07 Myelocytes # 0.0 K/mm3 04/21/19 23:07 Promyelocytes # 0.0 K/mm3 04/21/19 23:07 Blast Cells # 0.0 K/mm3 04/21/19 23:07 WBC Morphology Not Reportable 04/21/19 23:07 Hypersegmented Neuts Not Reportable 04/21/19 23:07 Hyposegmented Neuts Not Reportable 04/21/19 23:07 Hypogranular Neuts Not Reportable 04/21/19 23:07 Smudge Cells Not Reportable 04/21/19 23:07 Toxic Granulation Not Reportable 04/21/19 23:07 Toxic Vacuolation Not Reportable 04/21/19 23:07 Dohle Bodies Not Reportable 04/21/19 23:07 Pelger-Huet Anomaly Not Reportable 04/21/19 23:07 Danyell Rods Not Reportable 04/21/19 23:07 Platelet Estimate Consistent w auto 04/21/19 23:07 Clumped Platelets Not Reportable 04/21/19 23:07 Plt Clumps, EDTA Not Reportable 04/21/19 23:07 Large Platelets Not Reportable 04/21/19 23:07 Giant Platelets Not Reportable 04/21/19 23:07 Platelet Satelliting Not Reportable 04/21/19 23:07 Plt Morphology Comment Not Reportable 04/21/19 23:07 RBC Morphology Not Reportable 04/21/19 23:07 Dimorphic RBCs Not Reportable 04/21/19 23:07 Polychromasia Not Reportable 04/21/19 23:07 Hypochromasia Not Reportable 04/21/19 23:07 Poikilocytosis Not Reportable 04/21/19 23:07 Anisocytosis 2+ 04/21/19 23:07 Microcytosis Not Reportable 04/21/19 23:07 Macrocytosis 1+ 04/21/19 23:07 Spherocytes Not Reportable 04/21/19 23:07 Pappenheimer Bodies Not Reportable 04/21/19 23:07 Sickle Cells Not Reportable 04/21/19 23:07 Target Cells Not Reportable 04/21/19 23:07 Tear Drop Cells Not Reportable 04/21/19 23:07 Ovalocytes Not Reportable 04/21/19 23:07 Helmet Cells Not Reportable 04/21/19 23:07 [place] Bodies Not Reportable 04/21/19 23:07 [place] Rings Not Reportable 04/21/19 23:07 [place] Cells Not Reportable 04/21/19 23:07 Bite Cells Not Reportable 04/21/19 23:07 Crenated Cell Not Reportable 04/21/19 23:07 Elliptocytes Not Reportable 04/21/19 23:07 Acanthocytes (Spur) Not Reportable 04/21/19 23:07 Rouleaux Not Reportable 04/21/19 23:07 Hemoglobin C Crystals Not Reportable 04/21/19 23:07 Schistocytes Not Reportable 04/21/19 23:07 Malaria parasites Not Reportable 04/21/19 23:07 Surinder Bodies Not Reportable 04/21/19 23:07 Hem Pathologist Commnt No 04/21/19 23:07 PT 15.3 Sec. (12.2-14.9) H 04/22/19 00:41 INR 1.19 (0.87-1.13) H 04/22/19 00:41 APTT 28.2 Sec. (24.2-36.6) 04/22/19 00:41 Sodium 146 mmol/L (137-145) H 04/21/19 23:07 Potassium 5.3 mmol/L (3.6-5.0) H 04/21/19 23:07 Chloride 109.1 mmol/L (98-107) H 04/21/19 23:07 Carbon Dioxide 22 mmol/L (22-30) 04/21/19 23:07 Anion Gap 20 mmol/L 04/21/19 23:07 BUN 28 mg/dL (7-17) H 04/21/19 23:07 Creatinine 1.6 mg/dL (0.7-1.2) H 04/21/19 23:07 Estimated GFR 38 ml/min 04/21/19 23:07 BUN/Creatinine Ratio 18 % 04/21/19 23:07 Glucose 102 mg/dL (65-100) H 04/21/19 23:07 POC Glucose 107 (70-105) H 04/22/19 06:31 Calcium 9.0 mg/dL (8.4-10.2) 04/21/19 23:07 Troponin T 0.016 ng/mL (0.00-0.029) 04/22/19 05:39 Vitamin B12 449.7 pg/mL (211-911) 04/22/19 02:59 Folate 9.15 ng/mL (7.3-26.0) 04/22/19 02:59 Digoxin 1.1 ng/mL (0.9-2.0) 04/22/19 00:41 Blood Type B POSITIVE 04/22/19 00:44 Antibody Screen Negative 04/22/19 00:44 Crossmatch See Detail 04/22/19 00:44 Active Medications - Current Medications Current Medications: Generic Name Dose Route Start Last Admin Trade Name Freq PRN Reason Stop Dose Admin Acetaminophen 650 mg 04/22/19 01:48 Tylenol PO Q4H PRN Pain MILD(1-3)/Fever >100.5/GAMEZ Amlodipine Besylate 5 mg 04/22/19 10:00 04/22/19 11:36 Amlodipine PO 5 mg QDAY [facility] Administration Atorvastatin Calcium 40 mg 04/22/19 10:00 04/22/19 11:36 Lipitor PO 40 mg DAILY [facility] Administration Carvedilol 25 mg 04/22/19 10:00 04/22/19 11:36 Coreg PO 25 mg BID [facility] Administration Digoxin 0.0001 mg 04/22/19 10:00 04/22/19 11:35 Lanoxin PO 0.0001 mg DAILY [facility] Administration Hydralazine HCl 10 mg 04/22/19 10:00 Apresoline IV Q4H PRN Hypertension Ondansetron HCl 4 mg 04/22/19 01:48 Zofran IV Q8H PRN Nausea And Vomiting Pantoprazole Sodium 40 mg 04/22/19 10:00 04/22/19 11:36 Protonix IV 40 mg DAILY [facility] Administration Sodium Chloride 10 ml 04/22/19 10:00 04/22/19 11:37 Sodium Chloride Flush Syringe 10 Ml IV 10 ml BID [facility] Administration Sodium Chloride 10 ml 04/22/19 01:48 Sodium Chloride Flush Syringe 10 Ml IV PRN PRN LINE FLUSH
--- NOTE | 2019-04-22 13:06 | Consultation ---
CARDIOLOGY EVALUATION AGE: 69 HISTORY OF PRESENT ILLNESS: The patient is a 69-year-old female who has been having difficulty in breathing, general weakness and dizziness. The patient was seen by Dr. Rodriguez yesterday and labs were drawn. During the night, it was found out that her blood counts were markedly abnormal and hence, the patient was directed to the hospital and the patient came to the Emergency Room and the hemoglobin was noted to be 5.8. The patient received 1 unit of blood transfusion already. At present, the patient is comfortable with no significant chest pain or difficulty in breathing. The patient is known to us with a longstanding history of hypertension, diabetes, and hyperlipidemia. The patient was also diagnosed to have congestive heart failure, almost 15-20 years ago. The patient had a LifeVest in the past, but the patient did not want to have a defibrillator, according to the patient. She also had a history of peripheral vascular disease, for which she had a stent placement on the left leg. The patient thinks that she may have had a heart attack before the diagnosis of congestive heart failure about 15-20 years ago. The patient smoked about half pack a day and she has stopped recently. Does not consume significant alcohol. No known drug allergies. SYSTEMS REVIEW: HEAD, EYES, EARS, NOSE, THROAT: No symptoms. ENDOCRINE: Known to have diabetes. GASTROINTESTINAL: The patient has been having black stools, currently admitted with GI bleeding and has severe anemia, evaluation is in progress. GENITOURINARY: No symptoms. CENTRAL NERVOUS SYSTEM: No history of cerebrovascular accident or convulsive disorder. LOCOMOTOR: No symptoms. PHYSICAL EXAMINATION: GENERAL: Adult female, well built, well nourished, in no distress, appears to be comfortable. VITAL SIGNS: Blood pressure 200/71, pulse 98, respirations 18, afebrile. HEAD, EYES, EARS, NOSE AND THROAT: Unremarkable. NECK: Supple. No thyromegaly. Both carotids are palpable and equal. Neck veins are flat. CHEST: Symmetrical. LUNGS: Clear. HEART: S1 and S2 are heard well. Grade 2-3/6 pansystolic murmur is noted at the apex. ABDOMEN: Soft, nontender, no hepatosplenomegaly. EXTREMITIES: No edema or calf tenderness. LABORATORY DATA: Hemoglobin 5.8, hematocrit 18. Sodium 146, potassium 5.3, BUN 28, creatinine 1.6. Troponin x 3 negative. Digoxin level is 1.1. EKG, sinus rhythm, intraventricular conduction delay, nonspecific ST changes. Poor R-wave progression in the precordial leads. IMPRESSION: 1. Gastrointestinal bleeding. 2. Uncontrolled hypertension. 3. Diabetes. 4. Hyperlipidemia. 5. Coronary artery disease, status post aortocoronary bypass surgery and stent placement. 6. Peripheral vascular disease, status post stent placement in the left leg. The patient is seen for cardiac evaluation. Clinically, cardiac status is stable except for the presence of uncontrolled hypertension. Discussed with Dr. Liao and we will be addressing this issue actively. We will review the office records also, but currently cardiac rhythm is stable and cardiac status is satisfactory. The patient will be monitored and followed closely with you. Thank you, Dr. Liao for allowing me to participate in the care of this pleasant lady. JOB# [id number] KB/NTS
[2019-04-22 23:43] LABS: Hematocrit 23.3 % (30.3-42.9); Hemoglobin 7.7 gm/dl (10.1-14.3)
[2019-04-23 06:19] LABS: Hematocrit 23.5 % (30.3-42.9); Hemoglobin 7.9 gm/dl (10.1-14.3); Mean Corpuscular HGB Conc 34 % (30-34); Mean Corpuscular Volume 101 fl (79-97); Platelet Count 299 K/mm3 (140-440); Red Blood Count 2.33 M/mm3 (3.65-5.03)
[2019-04-23 06:20] LABS: Red Cell Distribution Width 25.6 % (13.2-15.2)
[2019-04-23 06:35] LABS: Albumin 3.4 g/dL (3.9-5); Calcium 8.4 mg/dL (8.4-10.2)
--- NOTE | 2019-04-23 08:29 | Consultation ---
REFERRING PHYSICIAN: Lise Liao MD INDICATIONS: 1. Anemia. 2. Gastrointestinal bleed. HISTORY OF PRESENT ILLNESS: The patient is a 69-year-old female, presents with symptomatic anemia. The patient reports in the last 2 to 3 days, she has been having general fatigue and weakness. The patient reports that she had been noted to be anemic recently and was started on iron replacement. She reports with that she has noted black stools over the last couple of days. She reports no bright red hematemesis and denies any lower GI symptoms. The patient subsequently came to the Emergency Room after she was told to do so by mental health therapist and noted to be anemic, admitted and GI consulted. PAST MEDICAL HISTORY: 1. Coronary artery disease. 2. Diabetes. 3. Hypertension. 4. Heart failure. MEDICATIONS: Reviewed and updated in chart. ALLERGIES: No known drug allergies. SOCIAL HISTORY: Denies alcohol, tobacco or drug abuse. FAMILY HISTORY: Negative for colon cancer, IBD, or liver disease. REVIEW OF SYSTEMS: GENERAL: Reports mild weakness. HEENT: No visual complaints or tinnitus. PULMONARY: No shortness of breath. No cough. No chest pain. GASTROINTESTINAL: Reports dark stools. All points of 13-point review of systems otherwise negative. PHYSICAL EXAMINATION: VITAL SIGNS: Temperature of 98.4, pulse 96, respirations 20, blood pressure 157/60 GENERAL: Fairly nourished female in no acute distress. HEENT: Pupils equal, round and reactive. PULMONARY: Clear to auscultation bilaterally. CARDIOVASCULAR: Regular rate and rhythm. Normal S1, S2. ABDOMEN: Positive bowel sounds, soft. SKIN: No obvious rashes. LABORATORY DATA: Pertinent for white count of 6.3, hemoglobin and hematocrit of 5.8 and 18, platelet count of 392. Chem-7, sodium of 143, potassium 5.3, chloride 109, CO2 of 22, BUN and creatinine of 28 and 1.6. Coags within normal limits. ASSESSMENT: A 69-year-old male with past medical history noted above, now with melena and with anemia. Possible upper gastrointestinal bleed. PLAN: 1. Follow hematocrit and transfuse to hemoglobin over 7. 2. PPI IV b.i.d. 3. Soft diet for now. 4. We will plan for EGD over the next 1-2 days. 5. We will follow. JOB# [id number] CINTHIA/SHANTE
[2019-04-23 08:32] LABS: Anisocytosis 2+; Band Neutrophils # (Manual) 0.1 K/mm3; Large Platelets Rare; Macrocytosis 1+; Platelet Estimate Consistent w Auto; Total Cells Counted 100
[2019-04-23] MEDS: PANTOPRAZOLE 40 MG INJ IV SCH (10:55)
[2019-04-23] MEDS: carvediloL 25 MG TAB PO SCH ×2 (10:55→22:37)
[2019-04-23] MEDS: amLODIPine 5 MG TAB PO SCH (10:55)
[2019-04-23] MEDS: DIGOXIN 0.125 MG TAB PO SCH (10:55)
--- NOTE | 2019-04-23 11:51 | Progress Note ---
Assessment and Plan Patient is improving. Hemoglobin and hematocrit are stable. GI work-up is in progress. Cardiac status is satisfactory continue current management. - Patient Problems (1) GI bleed Current Visit: Yes Status: Acute Qualifiers: GI bleed type/associated pathology: melena Qualified Code(s): K92.1 - Melena (2) Symptomatic anemia Current Visit: Yes Status: Acute (3) Accelerated hypertension Current Visit: No Status: Acute (4) Acute HFrEF (heart failure with reduced ejection fraction) Current Visit: No Status: Acute Subjective Date of service: 04/23/19 Interval history: Patient is comfortable and feels better today. Denies chest pain difficulty breathing palpitations or other cardiac symptoms. Objective Vital Signs Temp Pulse Resp BP Pulse Ox 04/23/19 05:11 98.2 F 73 18 182/65 100 04/23/19 00:52 98.5 F 78 18 168/64 99 04/22/19 21:36 79 162/62 04/22/19 21:30 99 04/22/19 20:33 98.4 F 79 18 162/62 98 04/22/19 20:00 76 04/22/19 16:31 98.4 F 85 20 157/64 98 04/22/19 14:47 86 138/57 98 04/22/19 14:05 92 H 143/59 99 04/22/19 13:59 98.4 F 96 H 20 138/62 100 04/22/19 13:30 94 H 100 04/22/19 13:29 98.5 F 91 H 20 143/60 100 04/22/19 12:59 98.2 F 95 H 20 151/62 100 04/22/19 12:44 98.3 F 96 H 20 178/73 100 04/22/19 12:37 182/73 04/22/19 12:07 174/82 - Physical Examination General: Appears Well HEENT: Positive: PERRL Neck: Positive: neck supple Cardiac: Positive: Regular Rhythm, Systolic Murmur (Grade 2/6 to 3/6 pansystolic murmur at the apex.) Lungs: Positive: clear to auscultation Neuro: Positive: Grossly Intact Abdomen: Positive: Soft Extremities: Present: normal - Labs and Meds Cardiac Enzymes 04/23/19 Range/Units 06:08 AST 16 (5-40) units/L CBC 04/22/19 04/23/19 Range/Units 23:05 06:08 WBC 5.1 (4.5-11.0) K/mm3 RBC 2.33 L (3.65-5.03) M/mm3 Hgb 7.7 L 7.9 L (10.1-14.3) gm/dl Hct 23.3 L 23.5 L (30.3-42.9) % Plt Count 299 (140-440) K/mm3 Comprehensive Metabolic Panel 04/23/19 Range/Units 06:08 Sodium 142 (137-145) mmol/L Potassium 4.1 D (3.6-5.0) mmol/L Chloride 109.7 H (98-107) mmol/L Carbon Dioxide 22 (22-30) mmol/L BUN 13 (7-17) mg/dL Creatinine 1.2 (0.7-1.2) mg/dL Glucose 94 (65-100) mg/dL Calcium 8.4 (8.4-10.2) mg/dL AST 16 (5-40) units/L ALT 6 L (7-56) units/L Alkaline Phosphatase 46 (35-129) units/L Total Protein 5.1 L (6.3-8.2) g/dL Albumin 3.4 L (3.9-5) g/dL
--- NOTE | 2019-04-23 12:07 | Progress Note ---
Assessment and Plan Assessment and plan: --Hypertensive urgency; blood pressures more than 180 systolic Optimize antihypertensives, PRN medications -- GI bleed Current Visit: Yes Status: Acute Plan to address problem: With severe anemia requiring blood transfusion GI consulted GI recommend soft diet , IV fluids, IV Protonix Possible EGD next 1 or 2 days per GI -- Symptomatic anemia Current Visit: Yes Status: Acute Plan to address problem: Secondary to GI bleeding, GI evaluation, IV Protonix Received 2 units of PRBC, Monitor H&H and additional PRBC if needed Transfer the patient to ICU if unstable --DVT; on Eliquis at home Eliquis held due to severe GI bleeding and anemia --DELISA (acute kidney injury) Current Visit: No Status: Acute . Plan to address problem: Vasomotor nephropathy Monitor renal function, Avoid nephrotoxins nephrology and renal ultrasound if needed --History of ischemic cardiomyopathy EF 20 -25% Current Visit: Yes Status: Chronic Plan to address problem: Patient denies any chest pain at this time Troponin in the normal range, Cardiology consult Hold aspirin and Plavix, severe anemia, guaiac+ stools Continue beta-anisa --Macrocytic anemia Current Visit: Yes Status: Chronic Plan to address problem: Check B12 and folate levels, Monitor H&H --Type II diabetes mellitus Current Visit: No Status: Chronic Plan to address problem: Initiate insulin sliding scale coverage ADA diet when able to eat --PVD (peripheral vascular disease) Current Visit: No Status: Suspected Plan to address problem: Hold clopidogrel and aspirin for now secondary to anemia and melena. --DVT prophylaxis SCDs, no pharmacologic anticoagulation In view of severe anemia and GI bleeding. --CODE STATUS Full CODE STATUS Monitor closely and adjust the management as needed Follow GI evaluation and recommendations Advanced/extended care 35 minutes Plan of care reviewed with the patient and her nurse History Interval history: Patient seen and examined at the bedside Patient received 2 units of PRBC, Hb improved to 7.9 No new episodes of bleeding,no nausea vomiting abdominal pain GI evaluated the patient scheduled for EGD tomorrow Vital signs reviewed Hospitalist Physical - Constitutional Vitals: Temp Pulse Resp BP Pulse Ox 98.2 F 73 18 182/65 100 04/23/19 05:11 04/23/19 05:11 04/23/19 05:11 04/23/19 05:11 04/23/19 05:11 General appearance: Present: mild distress, well-nourished - EENT Eyes: Present: PERRL, EOM intact. Absent: scleral icterus - Neck Neck: Present: supple, normal ROM - Respiratory Respiratory effort: normal Respiratory: bilateral: diminished, rales, negative: rhonchi, wheezing - Cardiovascular Rhythm: regular Heart Sounds: Present: S1 & S2 - Extremities Extremities: no ischemia, No edema - Abdominal General gastrointestinal: soft, non-tender, non-distended, normal bowel sounds - Integumentary Integumentary: Present: clear, warm - Psychiatric Psychiatric: appropriate mood/affect, cooperative - Neurologic Neurologic: CNII-XII intact, moves all extremities Results - Labs CBC & Chem 7: 04/23/19 06:08 04/23/19 06:08 Labs: Laboratory Last Values WBC 5.1 K/mm3 (4.5-11.0) 04/23/19 06:08 RBC 2.33 M/mm3 (3.65-5.03) L 04/23/19 06:08 Hgb 7.9 gm/dl (10.1-14.3) L 04/23/19 06:08 Hct 23.5 % (30.3-42.9) L 04/23/19 06:08 MCV 101 fl (79-97) H 04/23/19 06:08 MCH 34 pg (28-32) H 04/23/19 06:08 MCHC 34 % (30-34) 04/23/19 06:08 RDW 25.6 % (13.2-15.2) H 04/23/19 06:08 Plt Count 299 K/mm3 (140-440) 04/23/19 06:08 Add Manual Diff Complete 04/23/19 06:08 Total Counted 100 04/23/19 06:08 Seg Neuts % (Manual) 56.0 % (40.0-70.0) 04/23/19 06:08 Band Neutrophils % 2.0 % 04/23/19 06:08 Lymphocytes % (Manual) 35.0 % (13.4-35.0) 04/23/19 06:08 Reactive Lymphs % (Man) 0 % 04/23/19 06:08 Monocytes % (Manual) 5.0 % (0.0-7.3) 04/23/19 06:08 Eosinophils % (Manual) 1.0 % (0.0-4.3) 04/23/19 06:08 Basophils % (Manual) 1.0 % (0.0-1.8) 04/23/19 06:08 Metamyelocytes % 0 % 04/23/19 06:08 Myelocytes % 0 % 04/23/19 06:08 Promyelocytes % 0 % 04/23/19 06:08 Blast Cells % 0 % 04/23/19 06:08 Nucleated RBC % Not Reportable 04/23/19 06:08 Seg Neutrophils # Man 2.9 K/mm3 (1.8-7.7) 04/23/19 06:08 Band Neutrophils # 0.1 K/mm3 04/23/19 06:08 Lymphocytes # (Manual) 1.8 K/mm3 (1.2-5.4) 04/23/19 06:08 Abs React Lymphs (Man) 0.0 K/mm3 04/23/19 06:08 Monocytes # (Manual) 0.3 K/mm3 (0.0-0.8) 04/23/19 06:08 Eosinophils # (Manual) 0.1 K/mm3 (0.0-0.4) 04/23/19 06:08 Basophils # (Manual) 0.1 K/mm3 (0.0-0.1) 04/23/19 06:08 Metamyelocytes # 0.0 K/mm3 04/23/19 06:08 Myelocytes # 0.0 K/mm3 04/23/19 06:08 Promyelocytes # 0.0 K/mm3 04/23/19 06:08 Blast Cells # 0.0 K/mm3 04/23/19 06:08 WBC Morphology Not Reportable 04/23/19 06:08 Hypersegmented Neuts Not Reportable 04/23/19 06:08 Hyposegmented Neuts Not Reportable 04/23/19 06:08 Hypogranular Neuts Not Reportable 04/23/19 06:08 Smudge Cells Not Reportable 04/23/19 06:08 Toxic Granulation Not Reportable 04/23/19 06:08 Toxic Vacuolation Not Reportable 04/23/19 06:08 Dohle Bodies Not Reportable 04/23/19 06:08 Pelger-Huet Anomaly Not Reportable 04/23/19 06:08 Danyell Rods Not Reportable 04/23/19 06:08 Platelet Estimate Consistent w auto 04/23/19 06:08 Clumped Platelets Not Reportable 04/23/19 06:08 Plt Clumps, EDTA Not Reportable 04/23/19 06:08 Large Platelets Rare 04/23/19 06:08 Giant Platelets Not Reportable 04/23/19 06:08 Platelet Satelliting Not Reportable 04/23/19 06:08 Plt Morphology Comment Not Reportable 04/23/19 06:08 RBC Morphology Not Reportable 04/23/19 06:08 Dimorphic RBCs Not Reportable 04/23/19 06:08 Polychromasia Not Reportable 04/23/19 06:08 Hypochromasia Not Reportable 04/23/19 06:08 Poikilocytosis Not Reportable 04/23/19 06:08 Anisocytosis 2+ 04/23/19 06:08 Microcytosis Not Reportable 04/23/19 06:08 Macrocytosis 1+ 04/23/19 06:08 Spherocytes Not Reportable 04/23/19 06:08 Pappenheimer Bodies Not Reportable 04/23/19 06:08 Sickle Cells Not Reportable 04/23/19 06:08 Target Cells Not Reportable 04/23/19 06:08 Tear Drop Cells Not Reportable 04/23/19 06:08 Ovalocytes Not Reportable 04/23/19 06:08 Helmet Cells Not Reportable 04/23/19 06:08 [place]izu-[place] Bodies Not Reportable 04/23/19 06:08 [place] Rings Not Reportable 04/23/19 06:08 Kimberly Cells Not Reportable 04/23/19 06:08 Bite Cells Not Reportable 04/23/19 06:08 Crenated Cell Not Reportable 04/23/19 06:08 Elliptocytes Not Reportable 04/23/19 06:08 Acanthocytes (Spur) Not Reportable 04/23/19 06:08 Rouleaux Not Reportable 04/23/19 06:08 Hemoglobin C Crystals Not Reportable 04/23/19 06:08 Schistocytes Not Reportable 04/23/19 06:08 Malaria parasites Not Reportable 04/23/19 06:08 Surinder Bodies Not Reportable 04/23/19 06:08 Hem Pathologist Commnt No 04/23/19 06:08 PT 15.3 Sec. (12.2-14.9) H 04/22/19 00:41 INR 1.19 (0.87-1.13) H 04/22/19 00:41 APTT 28.2 Sec. (24.2-36.6) 04/22/19 00:41 Sodium 142 mmol/L (137-145) 04/23/19 06:08 Potassium 4.1 mmol/L (3.6-5.0) D 04/23/19 06:08 Chloride 109.7 mmol/L (98-107) H 04/23/19 06:08 Carbon Dioxide 22 mmol/L (22-30) 04/23/19 06:08 Anion Gap 14 mmol/L 04/23/19 06:08 BUN 13 mg/dL (7-17) 04/23/19 06:08 Creatinine 1.2 mg/dL (0.7-1.2) 04/23/19 06:08 Estimated GFR 54 ml/min 04/23/19 06:08 BUN/Creatinine Ratio 11 % 04/23/19 06:08 Glucose 94 mg/dL (65-100) 04/23/19 06:08 POC Glucose 93 (70-105) 04/23/19 11:45 Calcium 8.4 mg/dL (8.4-10.2) 04/23/19 06:08 Total Bilirubin 0.70 mg/dL (0.1-1.2) 04/23/19 06:08 AST 16 units/L (5-40) 04/23/19 06:08 ALT 6 units/L (7-56) L 04/23/19 06:08 Alkaline Phosphatase 46 units/L (35-129) 04/23/19 06:08 Troponin T 0.016 ng/mL (0.00-0.029) 04/22/19 05:39 Total Protein 5.1 g/dL (6.3-8.2) L 04/23/19 06:08 Albumin 3.4 g/dL (3.9-5) L 04/23/19 06:08 Albumin/Globulin Ratio 2.0 % 04/23/19 06:08 Vitamin B12 449.7 pg/mL (211-911) 04/22/19 02:59 Folate 9.15 ng/mL (7.3-26.0) 04/22/19 02:59 Digoxin 1.1 ng/mL (0.9-2.0) 04/22/19 00:41 Blood Type B POSITIVE 04/22/19 00:44 Antibody Screen Negative 04/22/19 00:44 Crossmatch See Detail 04/22/19 00:44 Active Medications - Current Medications Current Medications: Generic Name Dose Route Start Last Admin Trade Name Freq PRN Reason Stop Dose Admin Acetaminophen 650 mg 04/22/19 01:48 Tylenol PO Q4H PRN Pain MILD(1-3)/Fever >100.5/GAMEZ Amlodipine Besylate 5 mg 04/22/19 10:00 04/23/19 10:55 Amlodipine PO 5 mg QDAY MARVEL Administration Atorvastatin Calcium 40 mg 04/22/19 10:00 04/23/19 10:55 Lipitor PO 40 mg DAILY MARVEL Administration Carvedilol 25 mg 04/22/19 10:00 04/23/19 10:55 Coreg PO 25 mg BID MARVEL Administration Clonidine HCl 0.2 mg 04/23/19 22:00 Catapres PO BID MARVEL Clonidine HCl 0.2 mg 04/23/19 12:53 Catapres PO 04/23/19 12:54 ONCE ONE Digoxin 0.0001 mg 04/22/19 10:00 04/23/19 10:55 Lanoxin PO 0.0001 mg DAILY MARVEL Administration Ferrous Sulfate 325 mg 04/23/19 22:00 Feosol PO BID MARVEL Furosemide 20 mg 04/24/19 10:00 Lasix PO QDAY MARVEL Hydralazine HCl 10 mg 04/22/19 10:00 Apresoline IV Q4H PRN Hypertension Ondansetron HCl 4 mg 04/22/19 01:48 Zofran IV Q8H PRN Nausea And Vomiting Pantoprazole Sodium 40 mg 04/22/19 10:00 04/23/19 10:55 Protonix IV 40 mg DAILY MARVEL Administration Paroxetine HCl 20 mg 04/24/19 10:00 Paxil PO DAILY MARVEL Sodium Chloride 10 ml 04/22/19 10:00 04/22/19 21:31 Sodium Chloride Flush Syringe 10 Ml IV 10 ml BID MARVEL Administration Sodium Chloride 10 ml 04/22/19 01:48 Sodium Chloride Flush Syringe 10 Ml IV PRN PRN LINE FLUSH
[2019-04-23] MEDS ORDERED: cloNIDine 0.2 MG TAB PO ONE ×2 (12:53→19:30)
--- NOTE | 2019-04-23 15:42 | Gastroenterology Progress Note ---
Assessment and Plan GI: pt presented w/ melena and signs UGI bleed - h/h stable - PPI bid - EGD in am - will follow Subjective Date of service: 04/23/19 Interval history: - no signs bleeding overnight Objective - Constitutional Vitals: Temp Pulse Resp BP Pulse Ox 98.2 F 73 18 182/65 100 04/23/19 05:11 04/23/19 05:11 04/23/19 05:11 04/23/19 05:11 04/23/19 05:11 General appearance: no acute distress - EENT Eyes: PERRL - Respiratory Respiratory: bilateral: CTA - Cardiovascular Rhythm: regular Heart Sounds: Present: S1 & S2 - Gastrointestinal General gastrointestinal: Present: soft, non-tender, non-distended - Labs CBC & Chem 7: 04/23/19 06:08 04/23/19 06:08 Labs: Laboratory Results - last 24 hr 04/22/19 04/23/19 04/23/19 23:05 00:45 05:54 WBC RBC Hgb 7.7 L Hct 23.3 L MCV MCH MCHC RDW Plt Count Add Manual Diff Total Counted Seg Neuts % (Manual) Band Neutrophils % Lymphocytes % (Manual) Reactive Lymphs % (Man) Monocytes % (Manual) Eosinophils % (Manual) Basophils % (Manual) Metamyelocytes % Myelocytes % Promyelocytes % Blast Cells % Nucleated RBC % Seg Neutrophils # Man Band Neutrophils # Lymphocytes # (Manual) Abs React Lymphs (Man) Monocytes # (Manual) Eosinophils # (Manual) Basophils # (Manual) Metamyelocytes # Myelocytes # Promyelocytes # Blast Cells # WBC Morphology Hypersegmented Neuts Hyposegmented Neuts Hypogranular Neuts Smudge Cells Toxic Granulation Toxic Vacuolation Dohle Bodies Pelger-Huet Anomaly Danyell Rods Platelet Estimate Clumped Platelets Plt Clumps, EDTA Large Platelets Giant Platelets Platelet Satelliting Plt Morphology Comment RBC Morphology Dimorphic RBCs Polychromasia Hypochromasia Poikilocytosis Anisocytosis Microcytosis Macrocytosis Spherocytes Pappenheimer Bodies Sickle Cells Target Cells Tear Drop Cells Ovalocytes Helmet Cells Arvizu-Bliss Bodies [place] Rings Mcfarlan Cells Bite Cells Crenated Cell Elliptocytes Acanthocytes (Spur) Rouleaux Hemoglobin C Crystals Schistocytes Malaria parasites Surinder Bodies Hem Pathologist Commnt Sodium Potassium Chloride Carbon Dioxide Anion Gap BUN Creatinine Estimated GFR BUN/Creatinine Ratio Glucose POC Glucose 132 H 97 Calcium Total Bilirubin AST ALT Alkaline Phosphatase Total Protein Albumin Albumin/Globulin Ratio 04/23/19 04/23/19 04/23/19 06:08 06:08 11:45 WBC 5.1 RBC 2.33 L Hgb 7.9 L Hct 23.5 L MCV 101 H MCH 34 H MCHC 34 RDW 25.6 H Plt Count 299 Add Manual Diff Complete Total Counted 100 Seg Neuts % (Manual) 56.0 Band Neutrophils % 2.0 Lymphocytes % (Manual) 35.0 Reactive Lymphs % (Man) 0 Monocytes % (Manual) 5.0 Eosinophils % (Manual) 1.0 Basophils % (Manual) 1.0 Metamyelocytes % 0 Myelocytes % 0 Promyelocytes % 0 Blast Cells % 0 Nucleated RBC % Not Reportable Seg Neutrophils # Man 2.9 Band Neutrophils # 0.1 Lymphocytes # (Manual) 1.8 Abs React Lymphs (Man) 0.0 Monocytes # (Manual) 0.3 Eosinophils # (Manual) 0.1 Basophils # (Manual) 0.1 Metamyelocytes # 0.0 Myelocytes # 0.0 Promyelocytes # 0.0 Blast Cells # 0.0 WBC Morphology Not Reportable Hypersegmented Neuts Not Reportable Hyposegmented Neuts Not Reportable Hypogranular Neuts Not Reportable Smudge Cells Not Reportable Toxic Granulation Not Reportable Toxic Vacuolation Not Reportable Dohle Bodies Not Reportable Pelger-Huet Anomaly Not Reportable Danyell Rods Not Reportable Platelet Estimate Consistent w auto Clumped Platelets Not Reportable Plt Clumps, EDTA Not Reportable Large Platelets Rare Giant Platelets Not Reportable Platelet Satelliting Not Reportable Plt Morphology Comment Not Reportable RBC Morphology Not Reportable Dimorphic RBCs Not Reportable Polychromasia Not Reportable Hypochromasia Not Reportable Poikilocytosis Not Reportable Anisocytosis 2+ Microcytosis Not Reportable Macrocytosis 1+ Spherocytes Not Reportable Pappenheimer Bodies Not Reportable Sickle Cells Not Reportable Target Cells Not Reportable Tear Drop Cells Not Reportable Ovalocytes Not Reportable Helmet Cells Not Reportable Arvizu-Bliss Bodies Not Reportable [place] Rings Not Reportable Mcfarlan Cells Not Reportable Bite Cells Not Reportable Crenated Cell Not Reportable Elliptocytes Not Reportable Acanthocytes (Spur) Not Reportable Rouleaux Not Reportable Hemoglobin C Crystals Not Reportable Schistocytes Not Reportable Malaria parasites Not Reportable Surinder Bodies Not Reportable Hem Pathologist Commnt No Sodium 142 Potassium 4.1 D Chloride 109.7 H Carbon Dioxide 22 Anion Gap 14 BUN 13 Creatinine 1.2 Estimated GFR 54 BUN/Creatinine Ratio 11 Glucose 94 POC Glucose 93 Calcium 8.4 Total Bilirubin 0.70 AST 16 ALT 6 L Alkaline Phosphatase 46 Total Protein 5.1 L Albumin 3.4 L Albumin/Globulin Ratio 2.0
[2019-04-23] MEDS: cloNIDine 0.2 MG TAB PO SCH (22:37)
[2019-04-23] MEDS: FERROUS SULFATE 325 MG TAB PO SCH (22:37)
[2019-04-24] MEDS: PANTOPRAZOLE 40 MG INJ IV SCH (09:49)
[2019-04-24] MEDS: SODIUM CHLORIDE 0.9% 1000 ML 1,000 ML IV SCH ×2 (09:49→15:26)
--- NOTE | 2019-04-24 12:12 | Progress Note ---
Assessment and Plan Currently stable cardiac status. Cont home coreg, madai benavidez. Pt for endoscopy today. Of note, pt's home medication list includes Eliquis although pt she is not sure why she is on this medication. Her home medication regimen also includes digoxin, which she claims she has been on for several years which was started by her previous specimen collector before she moved to [place]. Digoxin level 1.1 on admission. Of note, pt was given LifeVest on recent hospitalization. However, she returned the LifeVest because it was too tight. Will plan to evaluate for AICD candidacy as OP. The patient has been seen in conjunction with Dr. Castañeda who agrees with the assessment and plan of care. - Patient Problems (1) Anemia Current Visit: Yes Status: Chronic (2) GI bleed Current Visit: Yes Status: Suspected (3) Cardiomyopathy Current Visit: Yes Status: Chronic Plan to address problem: presumably nonischemic - lexiscan MPI stress 01/10/2019 negative for ischemia, EF 26%. (4) History of myocardial infarction Current Visit: Yes Status: Suspected (5) Elevated troponin Current Visit: Yes Status: Acute (6) Hypertension Current Visit: Yes Status: Acute (7) Diabetes mellitus Current Visit: Yes Status: Chronic Qualifiers: Diabetes mellitus type: type 2 (8) PVD (peripheral vascular disease) Current Visit: Yes Status: Suspected (9) Tobacco use disorder Current Visit: Yes Status: Chronic (10) NSVT Current Visit: Yes Status: Chronic Subjective Date of service: 04/24/19 Principal diagnosis: anemia Interval history: pt resting comfortably in bed, no current cardiac complaints. for endoscopy today. in SR on tele HR 60s. family member at bedside. Objective Last Vital Signs Temp 98.1 F 04/24/19 04:46 Pulse 63 04/24/19 04:46 Resp 18 04/24/19 04:46 BP 124/58 04/24/19 04:46 Pulse Ox 100 04/24/19 04:46 - Physical Examination General: Appears Well HEENT: Positive: PERRL Neck: Positive: neck supple Cardiac: Positive: Reg Rate and Rhythm, S1/S2 Lungs: Positive: Decreased Breath Sounds Neuro: Positive: Grossly Intact Abdomen: Positive: Soft Extremities: Present: normal
[2019-04-24 12:41] LABS: Basophils % (Auto) 1.2 % (0.0-1.8); Eosinophils # (Auto) 0.1 K/mm3 (0.0-0.4); Eosinophils % (Auto) 2.8 % (0.0-4.3); Hematocrit 24.1 % (30.3-42.9); Hemoglobin 7.9 gm/dl (10.1-14.3); Lymphocytes # (Auto) 1.4 K/mm3 (1.2-5.4); Lymphocytes % (Auto) 34.7 % (13.4-35.0); Mean Corpuscular HGB Conc 33 % (30-34); Mean Corpuscular Volume 102 fl (79-97); Monocytes # (Auto) 0.4 K/mm3 (0.0-0.8); Monocytes % (Auto) 10.8 % (0.0-7.3); Platelet Count 267 K/mm3 (140-440); Red Blood Count 2.36 M/mm3 (3.65-5.03)
[2019-04-24 12:42] LABS: Red Cell Distribution Width 23.8 % (13.2-15.2)
[2019-04-24 13:00] LABS: Calcium 8.5 mg/dL (8.4-10.2)
[2019-04-24] MEDS ORDERED: propofoL 200 MG/20 ML VIAL IV ONE (15:38)
--- NOTE | 2019-04-24 15:54 | Anesthesia Consultation ---
Anesthesia Consult and Med Hx Date of service: 04/24/19 - Airway Anesthetic Teeth Evaluation: Poor ROM Head & Neck: Adequate Mental/Hyoid Distance: Adequate Mallampati Class: Class III Intubation Access Assessment: Possibly Difficult - Pulmonary Exam CTA: Yes - Cardiac Exam Cardiac Exam: RRR - Pre-Operative Health Status ASA Pre-Surgery Classification: ASA4 Proposed Anesthetic Plan: MAC - Pulmonary Hx Smoking: Yes (quit 01/2019) Hx Asthma: Yes Hx Respiratory Symptoms: No - Cardiovascular System Hx Hypertension: Yes Hx Coronary Artery Disease: No (nonischemic cardiomyopathy EF 20-25%) Hx Percutaneous Transluminal Coronary Angioplasty (PTCA): No Hx Cardia Arrhythmia: No Hx Internal Defibrillator: No (previously d/c'd with life vest but not using; outpatient AICD eval pending) - Central Nervous System CVA: No - Gastrointestinal Hx Gastroesophageal Reflux Disease: No - Endocrine Hx Renal Disease: No Hx Liver Disease: No Hx Non-Insulin Dependent Diabetes: Yes Hx Thyroid Disease: No - Hematic Hx Anemia: Yes (2/2 GI bleed) - Other Systems Hx Obesity: No
--- NOTE | 2019-04-24 15:55 | Anesthesia Day of Surgery ---
Anesthesia Day of Surgery - Day of Surgery Patient Examined: Yes Patient H&P Reviewed: Yes Patient is NPO: Yes Beta Blockers: Yes
[2019-04-24] MEDS ORDERED: LIDOCAINE MPF (2%) 20 MG/1 ML VIAL 5 ML ONE (16:00)
--- NOTE | 2019-04-24 16:26 | Post Operative Note ---
Pre-op diagnosis: gi bleed Post-op diagnosis: same Findings: EGD: hiatal hernia - mild gastritis - negative other Procedure: egd Anesthesia: MAC Surgeon: LIZ ESCOBAR Estimated blood loss: none Pathology: list Specimen disposition: to lab Condition: stable Disposition: floor
[2019-04-24] MEDS: FUROSEMIDE 20 MG TAB PO SCH (17:11)
[2019-04-24] MEDS: FERROUS SULFATE 325 MG TAB PO SCH ×2 (17:11→21:15)
[2019-04-24] MEDS: PARoxetine 20 MG TAB PO SCH (17:44)
[2019-04-24] MEDS: DIGOXIN 0.125 MG TAB PO SCH (17:44)
[2019-04-24] MEDS: carvediloL 25 MG TAB PO SCH ×2 (17:46→21:15)
[2019-04-24] MEDS: cloNIDine 0.2 MG TAB PO SCH ×2 (17:47→21:15)
--- NOTE | 2019-04-24 17:53 | Operative Report ---
PROCEDURE: EGD. INDICATIONS: 1. Anemia. 2. Gastrointestinal bleed. MEDICATIONS: Propofol per DIRECTOR APPAREL. COMPLICATIONS: None. DESCRIPTION OF PROCEDURE: The patient brought to the procedure suite. The patient had the procedure discussed with her at length. All risks, complications, and benefits discussed after which the patient signed for the procedure performed. The patient was placed in left lateral decubitus position. Mouth block was placed in the patient's oral cavity. After adequate sedation medication as above, endoscope placed in the mouth and brought to level of the second portion of duodenum. Retroflexion view performed in the stomach. The patient's vital signs remained stable throughout the procedure. FINDINGS: There was noted to be a small to medium hiatal hernia at GE junction at 37 cm from the gums. Esophagus otherwise appeared to be normal. Mild scattered gastritis noted in the distal one-third of the stomach without bleeding stigmata. The stomach otherwise appeared to be normal. The duodenum appeared to be normal. Retroflexion view performed in the stomach showed no other pathology other than noted above. The patient tolerated the procedure well. No complications during the procedure. IMPRESSION: 1. Hiatal hernia. 2. Mild gastritis. 3. Otherwise, benign esophagogastroduodenoscopy. RECOMMENDATIONS: 1. Follow hematocrit and transfuse as needed. 2. Clear liquid diet, n.p.o. after midnight. 3. Plan colonoscopy in a.m. JOB# [id number] CAB/NTS
[2019-04-24] MEDS ORDERED: POLYETHYLENE GLYCOL/ELECT SOLN 4000 ML PO ONE (18:00)
--- NOTE | 2019-04-24 19:03 | Post Anesthesia Evaluation ---
- Post Anesthesia Evaluation Patient Participated: Yes Airway Patent: Yes Stable Respiratory Function: Yes Nausea/Vomiting: No Temp > 96.8F: Yes Pain Manageable: Yes Adequeate Hydration: Yes Anesthesia Complications: No
--- NOTE | 2019-04-24 20:51 | Progress Note ---
Assessment and Plan Assessment and plan: -- GI bleed; no new episodes Current Visit: Yes Status: Acute Plan to address problem: With severe anemia requiring blood transfusion GI following Status post EGD; Hiatal hernia, mild gastritis Colonoscopy tomorrow -- Severe anemia due to GI bleed Current Visit: Yes Status: Acute Plan to address problem: requiring blood transfusion GI consulted GI following IV Protonix Status post EGD -- Symptomatic anemia. Current Visit: Yes Status: Acute Plan to address problem: Secondary to GI bleeding, Received 2 units of PRBC, Monitor H&H and additional PRBC if needed --Hypertensive urgency; blood pressures more than 180 systolic Optimize antihypertensives, PRN medications --DVT; on Eliquis at home Eliquis held due to severe GI bleeding and anemia --DELISA (acute kidney injury) Current Visit: No Status: Acute . Plan to address problem: Vasomotor nephropathy Monitor renal function, Avoid nephrotoxins nephrology and renal ultrasound if needed --History of ischemic cardiomyopathy EF 20 -25% Current Visit: Yes Status: Chronic Plan to address problem: Patient denies any chest pain at this time Troponin in the normal range, Cardiology consult Hold aspirin and Plavix, severe anemia, guaiac+ stools Continue beta-anisa --Macrocytic anemia Current Visit: Yes Status: Chronic Plan to address problem: Check B12 and folate levels, Monitor H&H --Type II diabetes mellitus Current Visit: No Status: Chronic Plan to address problem: Initiate insulin sliding scale coverage ADA diet when able to eat --PVD (peripheral vascular disease) Current Visit: No Status: Suspected Plan to address problem: Hold clopidogrel and aspirin for now secondary to anemia and melena. --DVT prophylaxis SCDs, no pharmacologic anticoagulation In view of severe anemia and GI bleeding. --CODE STATUS Full CODE STATUS Monitor closely and adjust the management as needed Follow GI evaluation and recommendations Disposition; colonoscopy tomorrow Follow clinically if stable may be discharged home in 1 to 2 days History Interval history: Patient seen and examined medical records reviewed Scheduled for EGD today Patient is n.p.o. status no new complaints Hospitalist Physical - Constitutional Vitals: Temp Pulse Resp BP Pulse Ox 98.2 F 100 H 18 167/59 99 04/24/19 16:39 04/24/19 17:46 04/24/19 16:54 04/24/19 17:46 04/24/19 16:54 General appearance: Present: mild distress, well-nourished - EENT Eyes: Present: PERRL, EOM intact - Neck Neck: Present: supple, normal ROM - Respiratory Respiratory: bilateral: diminished, negative: rales, rhonchi, wheezing - Cardiovascular Rhythm: regular Heart Sounds: Present: S1 & S2 - Extremities Extremities: no ischemia, No edema - Abdominal General gastrointestinal: soft, non-tender, non-distended, normal bowel sounds - Integumentary Integumentary: Present: clear, warm - Psychiatric Psychiatric: appropriate mood/affect, cooperative - Neurologic Neurologic: CNII-XII intact, moves all extremities Results - Labs CBC & Chem 7: 04/24/19 12:05 04/24/19 12:05 Labs: Laboratory Last Values WBC 4.1 K/mm3 (4.5-11.0) L 04/24/19 12:05 RBC 2.36 M/mm3 (3.65-5.03) L 04/24/19 12:05 Hgb 7.9 gm/dl (10.1-14.3) L 04/24/19 12:05 Hct 24.1 % (30.3-42.9) L 04/24/19 12:05 MCV 102 fl (79-97) H 04/24/19 12:05 MCH 34 pg (28-32) H 04/24/19 12:05 MCHC 33 % (30-34) 04/24/19 12:05 RDW 23.8 % (13.2-15.2) H 04/24/19 12:05 Plt Count 267 K/mm3 (140-440) 04/24/19 12:05 Lymph % (Auto) 34.7 % (13.4-35.0) 04/24/19 12:05 [place] % (Auto) 10.8 % (0.0-7.3) H 04/24/19 12:05 Eos % (Auto) 2.8 % (0.0-4.3) 04/24/19 12:05 Baso % (Auto) 1.2 % (0.0-1.8) 04/24/19 12:05 Lymph # 1.4 K/mm3 (1.2-5.4) 04/24/19 12:05 [place] # 0.4 K/mm3 (0.0-0.8) 04/24/19 12:05 Eos # 0.1 K/mm3 (0.0-0.4) 04/24/19 12:05 Baso # 0.0 K/mm3 (0.0-0.1) 04/24/19 12:05 Add Manual Diff Complete 04/23/19 06:08 Total Counted 100 04/23/19 06:08 Seg Neutrophils % 50.5 % (40.0-70.0) 04/24/19 12:05 Seg Neuts % (Manual) 56.0 % (40.0-70.0) 04/23/19 06:08 Band Neutrophils % 2.0 % 04/23/19 06:08 Lymphocytes % (Manual) 35.0 % (13.4-35.0) 04/23/19 06:08 Reactive Lymphs % (Man) 0 % 04/23/19 06:08 Monocytes % (Manual) 5.0 % (0.0-7.3) 04/23/19 06:08 Eosinophils % (Manual) 1.0 % (0.0-4.3) 04/23/19 06:08 Basophils % (Manual) 1.0 % (0.0-1.8) 04/23/19 06:08 Metamyelocytes % 0 % 04/23/19 06:08 Myelocytes % 0 % 04/23/19 06:08 Promyelocytes % 0 % 04/23/19 06:08 Blast Cells % 0 % 04/23/19 06:08 Nucleated RBC % Not Reportable 04/23/19 06:08 Seg Neutrophils # 2.1 K/mm3 (1.8-7.7) 04/24/19 12:05 Seg Neutrophils # Man 2.9 K/mm3 (1.8-7.7) 04/23/19 06:08 Band Neutrophils # 0.1 K/mm3 04/23/19 06:08 Lymphocytes # (Manual) 1.8 K/mm3 (1.2-5.4) 04/23/19 06:08 Abs React Lymphs (Man) 0.0 K/mm3 04/23/19 06:08 Monocytes # (Manual) 0.3 K/mm3 (0.0-0.8) 04/23/19 06:08 Eosinophils # (Manual) 0.1 K/mm3 (0.0-0.4) 04/23/19 06:08 Basophils # (Manual) 0.1 K/mm3 (0.0-0.1) 04/23/19 06:08 Metamyelocytes # 0.0 K/mm3 04/23/19 06:08 Myelocytes # 0.0 K/mm3 04/23/19 06:08 Promyelocytes # 0.0 K/mm3 04/23/19 06:08 Blast Cells # 0.0 K/mm3 04/23/19 06:08 WBC Morphology Not Reportable 04/23/19 06:08 Hypersegmented Neuts Not Reportable 04/23/19 06:08 Hyposegmented Neuts Not Reportable 04/23/19 06:08 Hypogranular Neuts Not Reportable 04/23/19 06:08 Smudge Cells Not Reportable 04/23/19 06:08 Toxic Granulation Not Reportable 04/23/19 06:08 Toxic Vacuolation Not Reportable 04/23/19 06:08 Dohle Bodies Not Reportable 04/23/19 06:08 Pelger-Huet Anomaly Not Reportable 04/23/19 06:08 Danyell Rods Not Reportable 04/23/19 06:08 Platelet Estimate Consistent w auto 04/23/19 06:08 Clumped Platelets Not Reportable 04/23/19 06:08 Plt Clumps, EDTA Not Reportable 04/23/19 06:08 Large Platelets Rare 04/23/19 06:08 Giant Platelets Not Reportable 04/23/19 06:08 Platelet Satelliting Not Reportable 04/23/19 06:08 Plt Morphology Comment Not Reportable 04/23/19 06:08 RBC Morphology Not Reportable 04/23/19 06:08 Dimorphic RBCs Not Reportable 04/23/19 06:08 Polychromasia Not Reportable 04/23/19 06:08 Hypochromasia Not Reportable 04/23/19 06:08 Poikilocytosis Not Reportable 04/23/19 06:08 Anisocytosis 2+ 04/23/19 06:08 Microcytosis Not Reportable 04/23/19 06:08 Macrocytosis 1+ 04/23/19 06:08 Spherocytes Not Reportable 04/23/19 06:08 Pappenheimer Bodies Not Reportable 04/23/19 06:08 Sickle Cells Not Reportable 04/23/19 06:08 Target Cells Not Reportable 04/23/19 06:08 Tear Drop Cells Not Reportable 04/23/19 06:08 Ovalocytes Not Reportable 04/23/19 06:08 Helmet Cells Not Reportable 04/23/19 06:08 [place] Bodies Not Reportable 04/23/19 06:08 [place] Rings Not Reportable 04/23/19 06:08 Kimberly Cells Not Reportable 04/23/19 06:08 Bite Cells Not Reportable 04/23/19 06:08 Crenated Cell Not Reportable 04/23/19 06:08 Elliptocytes Not Reportable 04/23/19 06:08 Acanthocytes (Spur) Not Reportable 04/23/19 06:08 Rouleaux Not Reportable 04/23/19 06:08 Hemoglobin C Crystals Not Reportable 04/23/19 06:08 Schistocytes Not Reportable 04/23/19 06:08 Malaria parasites Not Reportable 04/23/19 06:08 Surinder Bodies Not Reportable 04/23/19 06:08 Hem Pathologist Commnt No 04/23/19 06:08 PT 15.3 Sec. (12.2-14.9) H 04/22/19 00:41 INR 1.19 (0.87-1.13) H 04/22/19 00:41 APTT 28.2 Sec. (24.2-36.6) 04/22/19 00:41 Sodium 141 mmol/L (137-145) 04/24/19 12:05 Potassium 4.6 mmol/L (3.6-5.0) 04/24/19 12:05 Chloride 108.5 mmol/L (98-107) H 04/24/19 12:05 Carbon Dioxide 20 mmol/L (22-30) L 04/24/19 12:05 Anion Gap 17 mmol/L 04/24/19 12:05 BUN 11 mg/dL (7-17) 04/24/19 12:05 Creatinine 1.1 mg/dL (0.7-1.2) 04/24/19 12:05 Estimated GFR 59 ml/min 04/24/19 12:05 BUN/Creatinine Ratio 10 % 04/24/19 12:05 Glucose 88 mg/dL (65-100) 04/24/19 12:05 POC Glucose 96 (70-105) 04/24/19 12:07 Calcium 8.5 mg/dL (8.4-10.2) 04/24/19 12:05 Total Bilirubin 0.70 mg/dL (0.1-1.2) 04/23/19 06:08 AST 16 units/L (5-40) 04/23/19 06:08 ALT 6 units/L (7-56) L 04/23/19 06:08 Alkaline Phosphatase 46 units/L (35-129) 04/23/19 06:08 Troponin T 0.016 ng/mL (0.00-0.029) 04/22/19 05:39 Total Protein 5.1 g/dL (6.3-8.2) L 04/23/19 06:08 Albumin 3.4 g/dL (3.9-5) L 04/23/19 06:08 Albumin/Globulin Ratio 2.0 % 04/23/19 06:08 Vitamin B12 449.7 pg/mL (211-911) 04/22/19 02:59 Folate 9.15 ng/mL (7.3-26.0) 04/22/19 02:59 Digoxin 1.1 ng/mL (0.9-2.0) 04/22/19 00:41 Blood Type B POSITIVE 04/22/19 00:44 Antibody Screen Negative 04/22/19 00:44 Crossmatch See Detail 04/22/19 00:44 Active Medications - Current Medications Current Medications: Generic Name Dose Route Start Last Admin Trade Name Prince PRN Reason Stop Dose Admin Acetaminophen 650 mg 04/22/19 01:48 Tylenol PO Q4H PRN Pain MILD(1-3)/Fever >100.5/GAMEZ Atorvastatin Calcium 40 mg 04/22/19 10:00 04/24/19 17:12 Lipitor PO Not Given DAILY MARVEL Carvedilol 25 mg 04/22/19 10:00 04/24/19 17:46 Coreg PO 25 mg BID MARVEL Administration Clonidine HCl 0.2 mg 04/23/19 22:00 04/24/19 17:47 Catapres PO Not Given BID MARVEL Ferrous Sulfate 325 mg 04/23/19 22:00 04/24/19 17:11 Feosol PO Not Given BID MARVEL Furosemide 20 mg 02/17/20 10:00 04/24/19 17:11 Lasix PO Not Given QDAY MARVEL Hydralazine HCl 10 mg 04/22/19 10:00 Apresoline IV Q4H PRN Hypertension Sodium Chloride 1,000 mls @ 50 mls/hr 04/24/19 07:45 04/24/19 15:26 Nacl 0.9% 1000 Ml IV 50 mls/hr DIRECT MARVEL Administration Ondansetron HCl 4 mg 04/22/19 01:48 Zofran IV Q8H PRN Nausea And Vomiting Pantoprazole Sodium 40 mg 04/22/19 10:00 04/24/19 09:49 Protonix IV 40 mg DAILY MARVEL Administration Paroxetine HCl 20 mg 04/24/19 10:00 04/24/19 17:44 Paxil PO 20 mg DAILY MARVEL Administration Sodium Chloride 10 ml 04/22/19 10:00 04/24/19 17:11 Sodium Chloride Flush Syringe 10 Ml IV Not Given BID MARVEL Sodium Chloride 10 ml 04/22/19 01:48 Sodium Chloride Flush Syringe 10 Ml IV PRN PRN LINE FLUSH Nutrition/Malnutrition Assess - Dietary Evaluation Nutrition/Malnutrition Findings: Nutrition Notes Start: 04/24/19 10:51 Freq: Status: Active Protocol: Document 04/24/19 10:51 LP (Rec: 04/24/19 10:59 LP [id number]) Nutrition Notes Need for Assessment generated from: Low BMI Initial or Follow up Assessment Current Diagnosis Acute Kidney Injury,Diabetes, Hypertension,Heart Failure Other Pertinent Diagnosis Anemia, GIB Current Diet NPO Labs/Tests Reviewed Pertinent Medications NS at 50ml/hr Lasix Height 5 ft 8 in Weight 51.8 kg Usual Body Weight 54.5 kg [place] Body Weight (kg) 63.63 BMI 17.3 Weight change and time frame 5% in a few weeks Subjective/Other Information Screen for low BMI. Pt states not eating well for a few weeks and states UBW of 120lbs . Pt has significant wt loss in a few weeks and agrees to ONS once diet advanced. Burn Absent Trauma Absent Current % PO Negligible Minimum of two criteria Yes Energy Intake (severe) < or equal to 50% Estimated Energy Requirement > or equal to 5 days Interpretation of Weight Loss (severe) >2% in 1 week Body Fat Depletion Mild depletion (non-severe) Muscle Mass Mild Depletion (non-severe) #1 Nutrition Diagnosis Malnutrition Etiology advanced age and GIB As Evidenced by Signs and Symptoms Pt states wt loss of 5% in a few weeks, poor appetite, muscle and fat wasting observed Is patient on ventilator? No Is Patient Ambulatory and/or Out of Bed Yes REE-(Churchill-St. Jeor-ambulatory/OOB) [ 1405.950 NUTR.[id number]] Kcal/Kg value to use for calculation 32 Approximate Energy Requirements Using 1658 kcal/Kg Calculation Used for Recommendations Kcal/kg Additional Notes Protein needs are 62-78g (1.2- 1.5g/kg) Fluid needs are 1ml/kcal Nutrition Intervention Change Diet Order: Advance diet to cardiac/ consistent once feasible Add Supplement/Snack (indicate name/kcal Chocolate Glucerna BID once /protein ) diet advances Provides kCal: 440 Provides Protein (gm) 20 Goal #1 Advance diet as feasible Anticipated Discharge Needs: Cardiac/consistent CHO with ONS BID Follow-Up By: 04/26/19 Additional Comments Follow for diet advancement/ intakes, add ONS
[2019-04-24] MEDS: SACUBITRIL/VALSARTAN 24-26 MG TAB PO SCH (21:15)
[2019-04-25] MEDS: SODIUM CHLORIDE 0.9% 1000 ML 1,000 ML IV SCH ×2 (08:45→13:59)
[2019-04-25] MEDS: PARoxetine 20 MG TAB PO SCH (11:12)
[2019-04-25] MEDS: FUROSEMIDE 20 MG TAB PO SCH (11:12)
[2019-04-25] MEDS: cloNIDine 0.2 MG TAB PO SCH (11:12)
[2019-04-25] MEDS: FERROUS SULFATE 325 MG TAB PO SCH (11:12)
[2019-04-25] MEDS: carvediloL 25 MG TAB PO SCH (11:13)
[2019-04-25] MEDS: SACUBITRIL/VALSARTAN 24-26 MG TAB PO SCH (11:13)
[2019-04-25] MEDS: PANTOPRAZOLE 40 MG INJ IV SCH (11:14)
--- NOTE | 2019-04-25 12:51 | Progress Note ---
Assessment and Plan Currently stable cardiac status. Cont home coreg, madai benavidez. Pt for endoscopy today. Of note, pt's home medication list includes Eliquis although pt she is not sure why she is on this medication. Her home medication regimen also includes digoxin, which she claims she has been on for several years which was started by her previous learning coordinator before she moved to [place]. Digoxin level 1.1 on admission. Of note, pt was given LifeVest on recent hospitalization. However, she returned the LifeVest because it was too tight. Will plan to evaluate for AICD candidacy as OP. The patient has been seen in conjunction with Dr. Castañeda who agrees with the assessment and plan of care. - Patient Problems (1) Anemia Current Visit: Yes Status: Chronic (2) GI bleed Current Visit: Yes Status: Suspected (3) Cardiomyopathy Current Visit: Yes Status: Chronic Plan to address problem: presumably nonischemic - lexiscan MPI stress 01/10/2019 negative for ischemia, EF 26%. (4) History of myocardial infarction Current Visit: Yes Status: Suspected (5) Elevated troponin Current Visit: Yes Status: Acute (6) Hypertension Current Visit: Yes Status: Acute (7) Diabetes mellitus Current Visit: Yes Status: Chronic Qualifiers: Diabetes mellitus type: type 2 (8) PVD (peripheral vascular disease) Current Visit: Yes Status: Suspected (9) Tobacco use disorder Current Visit: Yes Status: Chronic (10) NSVT Current Visit: Yes Status: Chronic Subjective Date of service: 04/25/19 Principal diagnosis: anemia Interval history: pt resting comfortably in bed, no current cardiac complaints. for endoscopy today. in SR on tele HR 60s. family member at bedside. Objective Last Vital Signs Temp 98.1 F 04/25/19 11:38 Pulse 61 04/25/19 11:38 Resp 16 04/25/19 11:38 BP 176/66 04/25/19 11:38 Pulse Ox 99 04/25/19 11:38 - Physical Examination General: Appears Well HEENT: Positive: PERRL Neck: Positive: neck supple Cardiac: Positive: Reg Rate and Rhythm, S1/S2 Lungs: Positive: Decreased Breath Sounds Neuro: Positive: Grossly Intact Abdomen: Positive: Soft Extremities: Present: normal - Labs and Meds Comprehensive Metabolic Panel 04/24/19 Range/Units 12:05 Sodium 141 (137-145) mmol/L Potassium 4.6 (3.6-5.0) mmol/L Chloride 108.5 H (98-107) mmol/L Carbon Dioxide 20 L (22-30) mmol/L BUN 11 (7-17) mg/dL Creatinine 1.1 (0.7-1.2) mg/dL Glucose 88 (65-100) mg/dL Calcium 8.5 (8.4-10.2) mg/dL
[2019-04-25] MEDS ORDERED: LIDOCAINE MPF (2%) 20 MG/1 ML VIAL 5 ML ONE (14:00)
--- NOTE | 2019-04-25 14:22 | Anesthesia Day of Surgery ---
Anesthesia Day of Surgery - Day of Surgery Patient Examined: Yes Patient H&P Reviewed: Yes Patient is NPO: Yes Beta Blockers: Yes Cardiac Clearance: Yes
--- NOTE | 2019-04-25 14:26 | Anesthesia Consultation ---
Anesthesia Consult and Med Hx Date of service: 04/25/19 - Airway Anesthetic Teeth Evaluation: Poor ROM Head & Neck: Adequate Mental/Hyoid Distance: Adequate Mallampati Class: Class II Intubation Access Assessment: Probably Good - Pre-Operative Health Status ASA Pre-Surgery Classification: ASA4 Proposed Anesthetic Plan: MAC - Pulmonary Hx Smoking: Yes (quit 01/2019) Hx Asthma: Yes Hx Respiratory Symptoms: No SOB: Yes COPD: Yes Home Oxygen Therapy: No Hx Pneumonia: No Hx Sleep Apnea: Yes - Cardiovascular System Hx Hypertension: Yes Hx Coronary Artery Disease: Yes (nonischemic cardiomyopathy EF 20-25%, CHF) Hx Heart Attack/AMI: Yes Hx Angina: No Hx Percutaneous Transluminal Coronary Angioplasty (PTCA): No Hx Cardia Arrhythmia: Yes Hx Pacemaker: No Hx Internal Defibrillator: No (previously d/c'd with life vest but not using; outpatient AICD eval pending) Hx Valvular Heart Disease: Yes (states "she has 2 leaky valves") Hx Heart Murmur: No Hx Peripheral Vascular Disease: Yes - Central Nervous System Hx Neuromuscular Disorder: No Hx Seizures: No CVA: No Hx Back Pain: No Hx Psychiatric Problems: Yes (anexity) - Gastrointestinal Hx Ulcer: No Hx Gastroesophageal Reflux Disease: Yes - Endocrine Hx Renal Disease: No Hx End Stage Renal Disease: No Hx Cirrhosis: No Hx Liver Disease: No Hx Insulin Dependent Diabetes: No Hx Non-Insulin Dependent Diabetes: Yes Hx Thyroid Disease: No Hx Hypothyroidism: No Hx Hyperthyroidism: No - Hematic Hx Anemia: Yes (2/2 GI bleed) Hx Sickle Cell Disease: No - Other Systems Hx Alcohol Use: No Hx Substance Use: No Hx Cancer: No Hx Obesity: No
[2019-04-25] MEDS ORDERED: WATER FOR IRRIG STERILE 250 ML BOTTLE IR ONE (14:37)
[2019-04-25] MEDS ORDERED: fentaNYL 100 MCG/2 ML INJ ONE (15:06)
[2019-04-25] MEDS ORDERED: MIDAZOLAM 2 MG/2 ML INJ ONE (15:06)
--- NOTE | 2019-04-25 15:42 | Post Operative Note ---
Pre-op diagnosis: anemia Post-op diagnosis: same Findings: Colon: poor prep, completed - polyp x 6 (8-14 mm), hot snare polypectomy - hemorrhoids Procedure: colonoscopy Anesthesia: MAC Surgeon: LIZ ESCOBAR Estimated blood loss: none Pathology: list Specimen disposition: to lab Condition: stable Disposition: floor
--- NOTE | 2019-04-25 15:54 | Operative Report ---
PROCEDURE: Colonoscopy with hot snare polypectomy. INDICATIONS: 1. Anemia. 2. Gastrointestinal bleed. MEDICATIONS: Propofol per WEIGHT TRAINER. COMPLICATIONS: None. DESCRIPTION OF PROCEDURE: The patient brought to procedure suite. The patient had the procedure discussed with her at length. All risks, complications, and benefits discussed after which the patient signed for the procedure to be performed. The patient was placed in left lateral decubitus position. Rectal exam performed prior to insertion of the scope. After adequate sedation medication as above, scope was introduced into the rectum and brought to level of cecum. Ileocecal valve, appendiceal orifice, cecal strap were visualized. Colonoscope was then removed and mucosa of colon visualized. Prep quality was poor, but procedure was completed. The patient's vital signs remained stable throughout the procedure. FINDINGS: There were 6 polyps noted during this procedure. They were ranging in size from 8-14 mm. Three were in the ascending colon, one in the descending colon and two in the sigmoid and distal sigmoid area. Hot snare polypectomy technique was applied with removal and retrieval of these polyps and sent to pathology. There are no other mass lesions or polyps noted. No diverticula were noted. Retroflexion view performed in the rectum showed small to medium internal hemorrhoids. The patient tolerated the procedure well. No complications during the procedure. IMPRESSION: 1. Polyp x 6, status post hot snare polypectomy. 2. Internal hemorrhoids. 3. Fair to poor prep, but procedure completed. RECOMMENDATIONS: 1. Follow up biopsy results. 2. Avoid NSAIDs and aspirin for 7 days. 3. Follow hematocrit and transfuse as needed. 4. Advance diet. 5. Okay to discharge from GI standpoint with PillCam as an outpatient. 6. Repeat colonoscopy in 1 year. JOB# [id number] CAB/NTS
[2019-04-25 16:54] VITALS: BP 168/61
--- NOTE | 2019-04-25 17:09 | Discharge Summary ---
Providers - Providers Date of Admission: 04/23/19 07:32 Date of discharge: 04/25/19 Attending physician: STEFFEN ESPOSITO 04/22/19 00:49 Consult to Physician [CONS] Urgent Comment: Consulting Provider: LIZ ESCOBAR Physician Instructions: Reason For Exam: GI bleed 04/22/19 01:47 Consult to Physician [CONS] Routine Comment: Consulting Provider: ZENAIDA BREWER Physician Instructions: Reason For Exam: CAD [facility] Hospital[facility] Condition: Fair Hospital course: Discharge diagnosis: -- GI bleed; With severe anemia requiring blood transfusion Status post EGD; Hiatal hernia, mild gastritis Colonoscopy showed polyp s/p biopsy plan for outpt f/u -- Severe anemia due to GI bleed required blood transfusion GI consulted cont PPI for now with outpt f/u -- Symptomatic anemia. Secondary to GI bleeding, Received 2 units of PRBC, Monitor H&H and additional PRBC if needed --Hypertensive urgency; blood pressures more than 180 systolic Optimize antihypertensives, PRN medications --DVT; on Eliquis at home Eliquis held due to severe GI bleeding and anemia was told to stop by her clinical staff educator as she had the DVT 5-6 years ago --DELISA (acute kidney injury) - Cr 1,6 on admission Vasomotor nephropathy, resolved Monitor renal function, Avoid nephrotoxins nephrology and renal ultrasound if needed --History of ischemic cardiomyopathy EF 20 -25% Current Visit: Yes Status: Chronic Plan to address problem: Patient denies any chest pain at this time Troponin in the normal range, Cardiology consulted Held aspirin and Plavix for severe anemia, guaiac+ stools Continue beta-anisa, resumed aspirin plavix on discharge --Macrocytic anemia Current Visit: Yes Status: Chronic Plan to address problem: normal B12 and folate levels, Monitor H&H --Type II diabetes mellitus Initiate insulin sliding scale coverage ADA diet when able to eat --PVD (peripheral vascular disease) cont clopidogrel and aspirin --DVT prophylaxis SCDs, no pharmacologic anticoagulation In view of severe anemia and GI bleeding. --CODE STATUS Full CODE STATUS Disposition; home with self care Hospitalist Physical General appearance: Present: mild distress, well-nourished - EENT Eyes: Present: PERRL, EOM intact - Neck Neck: Present: supple, normal ROM - Respiratory Respiratory: bilateral: diminished, negative: rales, rhonchi, wheezing - Cardiovascular Rhythm: regular Heart Sounds: Present: S1 & S2 - Extremities Extremities: no ischemia, No edema - Abdominal General gastrointestinal: soft, non-tender, non-distended, normal bowel sounds - Integumentary Integumentary: Present: clear, warm - Psychiatric Psychiatric: appropriate mood/affect, cooperative - Neurologic Neurologic: CNII-XII intact, moves all extremities Disposition: DC-30 STILL A PATIENT Time spent for discharge: 34 minutes Core Measure Documentation - Palliative Care Palliative Care/ Comfort Measures: Not Applicable - Core Measures Any of the following diagnoses?: none Exam - Constitutional Vitals: Temp Pulse Resp BP Pulse Ox 97.6 F 97 H 8 L 168/61 99 04/25/19 15:41 04/25/19 16:54 04/25/19 15:56 04/25/19 16:54 04/25/19 16:54 Plan Activity: advance as tolerated Weight Bearing Status: Weight Bear as Tolerated Diet: low fat, low salt Additional Instructions: Repeat CBC in onbe week Follow up with: DORIAN MONDRAGON MD [Primary Care Provider] - 3-5 Days
== END 2019-04-25 18:12 | disposition home or self-care (01) | DRG 377 ==
LOC: ED 21:52 → 4A 04-22 01:48 → OBSVTOIN 04-23 07:32
PROVIDERS: ADMIT Internal Medicine; ATTEND Internal Medicine
PROC: 30233N1 Transfusion of Nonautologous Red Blood Cells into Peripheral Vein, Percutaneous Approach (ICD-10-PCS; 2019-04-22)
PROC: 0DJ08ZZ Inspection of Upper Intestinal Tract, Via Natural or Artificial Opening Endoscopic (ICD-10-PCS; principal; 2019-04-24)
PROC: 0DBK8ZX Excision of Ascending Colon, Via Natural or Artificial Opening Endoscopic, Diagnostic (ICD-10-PCS; 2019-04-25)
PROC: 0DBN8ZX Excision of Sigmoid Colon, Via Natural or Artificial Opening Endoscopic, Diagnostic (ICD-10-PCS; 2019-04-25)
PROC: 0DBM8ZX Excision of Descending Colon, Via Natural or Artificial Opening Endoscopic, Diagnostic (ICD-10-PCS; 2019-04-25)
DX: K29.71 Gastritis, unspecified, with bleeding (principal); N17.0 Acute kidney failure with tubular necrosis; I50.21 Acute systolic (congestive) heart failure; D62 Acute posthemorrhagic anemia; I47.1 Supraventricular tachycardia; I16.0 Hypertensive urgency; K44.9 Diaphragmatic hernia without obstruction or gangrene; I11.0 Hypertensive heart disease with heart failure; K64.8 Other hemorrhoids; E78.5 Hyperlipidemia, unspecified; I25.10 Atherosclerotic heart disease of native coronary artery without angina pectoris; I25.5 Ischemic cardiomyopathy; E11.51 Type 2 diabetes mellitus with diabetic peripheral angiopathy without gangrene; J44.9 Chronic obstructive pulmonary disease, unspecified; G47.30 Sleep apnea, unspecified; F41.9 Anxiety disorder, unspecified; Z95.820 Peripheral vascular angioplasty status with implants and grafts; Z95.1 Presence of aortocoronary bypass graft; Z95.5 Presence of coronary angioplasty implant and graft; Z87.891 Personal history of nicotine dependence; Z86.718 Personal history of other venous thrombosis and embolism; I25.2 Old myocardial infarction; Z83.3 Family history of diabetes mellitus; Z82.49 Family history of ischemic heart disease and other diseases of the circulatory system; Z79.899 Other long term (current) drug therapy; Z79.82 Long term (current) use of aspirin; Z98.51 Tubal ligation status
CPT/HCPCS: 36415; 71046; 80048; 80053; 80162; 82271; 82607; 82747; 82962; 84484; 85007; 85014; 85018; 85025; 85610; 85730; 86850; 86900; 86901; 86920; 88305; 93005; 93010; 96374; 96375; 96376; 99406; G0378; A9270-GY; C9113; J0360; J2250; J2704; J3010; J7030; J7040; P9016

== ENCOUNTER 2019-05-02 05:36 | Emergency (ER) | payer MEDICARE ==
[2019-05-02] MEDS ORDERED: SODIUM CHLORIDE 0.9% 500 ML 500 ML IV ONE (05:45)
[2019-05-02] MEDS ORDERED: ONDANSETRON 4 MG/2 ML INJ IV ONE (05:45)
[2019-05-02] MEDS ORDERED: PANTOPRAZOLE 40 MG INJ IV ONE (05:46)
--- NOTE | 2019-05-02 05:47 | Event Note ---
Date: 05/02/19 Medical screening note: 69-year-old female, just admitted to this hospital for evaluation of GI bleed, had colonoscopy, upper GI/EGD, diagnosed with polyps, and mild gastritis. Brought to the hospital by EMS with complaints of coffee- ground emesis and brown stool with red blood. Positive nausea and generalized weakness. Patient protecting airway and speaking in full sentences. Check labs, EKG, rectal exam, place patient on marketing executive, treat symptoms Medical records are printed out and attached to her chart from previous visit.
--- NOTE | 2019-05-02 06:19 | XRay Report ---
CHEST 1 VIEW INDICATION: GI Bleed. COMPARISON: 04/21/2019 FINDINGS: Support devices: None. Heart: Mildly enlarged Lungs/Pleura: Lungs are hyperexpanded but clear. No effusion or pneumothorax. IMPRESSION: 1. No acute findings. Signer Name: Denis Oh MD Signed: 05/02/2019 6:15 AM Workstation Name: [email or web address]
[2019-05-02 06:31] LABS: Basophils # (Auto) 0.1 K/mm3 (0.0-0.1); Basophils % (Auto) 0.7 % (0.0-1.8); Eosinophils # (Auto) 0.1 K/mm3 (0.0-0.4); Eosinophils % (Auto) 1.6 % (0.0-4.3); Hematocrit 24.4 % (30.3-42.9); Hemoglobin 7.8 gm/dl (10.1-14.3); Lymphocytes # (Auto) 1.9 K/mm3 (1.2-5.4); Lymphocytes % (Auto) 22.4 % (13.4-35.0); Mean Corpuscular HGB Conc 32 % (30-34); Mean Corpuscular Volume 104 fl (79-97); Monocytes # (Auto) 0.5 K/mm3 (0.0-0.8); Monocytes % (Auto) 5.9 % (0.0-7.3); Platelet Count 343 K/mm3 (140-440); Red Blood Count 2.35 M/mm3 (3.65-5.03); Red Cell Distribution Width 19.6 % (13.2-15.2)
[2019-05-02 06:38] LABS: INR 1.17 (0.87-1.13)
[2019-05-02 06:41] LABS: Calcium 8.6 mg/dL (8.4-10.2)
--- NOTE | 2019-05-02 06:41 | Emergency Department Report ---
HPI - General Chief Complaint: Dyspnea/Respdistress Time Seen by Provider: 05/02/19 06:02 - HPI HPI: 69-year-old -[place]og[place] female presents to the emergency department from home with a complaint of vomiting with some coffee-ground emesis, diarrhea with dark stool, as well as some shortness of breath and chest discomfort that has been going on since last night. The patient was recently admitted to this hospital on 04/22 for about 3 or 4 nights secondary to similar issues. At that time she required a transfusion from a hemoglobin of about 5.8. Her last hemoglobin was 7.9 on 04/24/2019. The patient had endoscopy done by gastroenterology that did not show any source of the bleeding. She also complains of some mild generalized abdominal pain. Patient has a past medical history of asthma, CHF, diabetes, coronary artery disease with previous MN, hypertension, high cholesterol, "leaky valves" and anxiety. She goes to [facility] for her primary care needs. ED Past Medical Hx - Past Medical History Hx Hypertension: Yes Hx Heart Attack/AMI: Yes Hx Congestive Heart Failure: Yes Hx Diabetes: Yes Hx Liver Disease: No Hx Renal Disease: No Hx Sickle Cell Disease: No Hx Seizures: No Hx Psychiatric Treatment: Yes (ANXIETY) Hx Asthma: Yes Hx COPD: Yes Additional medical history: HIGH CHOLESTEROL. 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 MILD HEART ENLARGEMENT - Surgical History Hx Coronary Stent: (STENT PLACEMENT IN LEG) Hx Pacemaker: No Hx Internal Defibrillator: No (previously d/c'd with life vest but not using; outpatient AICD eval pending) Additional Surgical History: STENTS IN LEGS, BLOOD CLOTS REMOVED FROM HEAD. TUBAL LIGATION - Social History Smoking Status: Former Smoker Substance Use Type: None - Medications Home Medications: Home Medications Medication Instructions Recorded Confirmed Last Taken Type Apixaban [Eliquis] 5 mg PO BID 04/22/19 04/22/19 04/21/19 History Aspirin [Aspirin BABY CHEW TAB] 81 mg PO QDAY 04/22/19 04/22/19 04/21/19 History Atorvastatin [Lipitor] 40 mg PO QHS 04/22/19 04/22/19 04/21/19 History Clopidogrel [Plavix] 75 mg PO QDAY 04/22/19 04/22/19 04/21/19 History Digoxin 125 mcg PO DAILY 0204/22/19 04/21/19 History Ferrous Sulfate [Feosol 325 MG tab] 325 mg PO BID 04/22/19 04/22/19 04/21/19 History Furosemide [Lasix TAB] 20 mg PO QDAY 04/22/19 04/22/19 04/21/19 History PARoxetine [Paxil] 20 mg PO DAILY 04/22/19 04/22/19 04/21/19 History carvediloL [Coreg] 25 mg PO BID 04/22/19 04/22/19 04/21/19 History cloNIDine [Catapres] 0.2 mg PO BID 04/22/19 04/22/19 04/21/19 History metFORMIN [Glucophage] 500 mg PO DAILY 04/22/19 04/22/19 04/21/19 History Ondansetron [Zofran Odt] 4 mg PO Q8HR PRN #15 tab.rapdis 05/02/19 Unknown Rx ED Review of Systems ROS: Stated complaint: GI BLEED/EMESIS Other details as noted in HPI Comment: All other systems reviewed and negative Constitutional: denies: chills, fever Eyes: denies: eye pain, vision change ENT: denies: ear pain, throat pain Respiratory: shortness of breath. denies: cough Cardiovascular: chest pain. denies: palpitations Gastrointestinal: abdominal pain, hematemesis, melena Genitourinary: denies: dysuria, discharge Musculoskeletal: denies: back pain, arthralgia Skin: denies: rash, lesions Neurological: denies: headache, weakness Physical Exam - Physical Exam Vital Signs: Vital Signs 05/02/19 05/02/19 05/02/19 05:42 05:45 05:48 Temperature Pulse Rate 57 L 58 L Respiratory 28 H 18 Rate Blood Pressure 97/53 O2 Sat by Pulse 98 94 Oximetry 05/02/19 06:21 Temperature 97.1 F L Pulse Rate Respiratory Rate Blood Pressure O2 Sat by Pulse Oximetry Physical Exam: GENERAL: The patient is well-developed well-nourished. HENT: Normocephalic. Atraumatic. Patient has moist mucous membranes. EYES: Extraocular motions are intact. Pupils equal reactive to light bilaterally. Pale conjunctiva. NECK: Supple. Trachea is midline. CHEST/LUNGS: Clear to auscultation. There is no respiratory distress noted. HEART/CARDIOVASCULAR: Regular. There is no tachycardia. There is no murmur. ABDOMEN: Abdomen is soft. Mild generalized abdominal tenderness to palpation. Patient has normal bowel sounds. There is no abdominal distention. SKIN: Skin is warm and dry. NEURO: The patient is awake, alert, and oriented. The patient is cooperative. The patient has no focal neurologic deficits. Normal speech. MUSCULOSKELETAL: There is no tenderness or deformity. There is no limitation range of motion. There is no evidence of acute injury. RECTAL: No gross blood seen. There is a nonthrombosed appearing external hemorrhoid at the 6 o'clock position. There is a mild amount of positive stool on guaiac testing. ED Course Vital Signs 05/02/19 05/02/19 05/02/19 05:42 05:45 05:48 Temperature Pulse Rate 57 L 58 L Respiratory 28 H 18 Rate Blood Pressure 97/53 O2 Sat by Pulse 98 94 Oximetry 05/02/19 06:21 Temperature 97.1 F L Pulse Rate Respiratory Rate Blood Pressure O2 Sat by Pulse Oximetry - Consultations Consultation #1: 05/02/19 09:[address] Glez, case manager on-call for [facility]. He was made aware of the patient's previous visits, previous labs, and her current ED course including any labs and imaging. He feels that the patient is safe, from a GI standpoint, for outpatient follow-up regarding her GI bleeding. ED Medical Decision Making - Lab Data Result diagrams: 05/02/19 05:56 05/02/19 05:56 - EKG Data -: EKG Interpreted by Me EKG shows normal: sinus rhythm, axis, intervals, QRS complexes (LVH, IVCD), ST-T waves Rate: bradycardia (58 bpm) - EKG Data When compared to previous EKG there are: no significant change Interpretation: unchanged when compared t (04/22/19) - Radiology Data Radiology results: report reviewed, image reviewed interpreted by me: Chest x-ray does not show any acute process. There are no pleural effusions, obvious pneumonia and there is no pneumothorax. Abdominal x-ray shows nonspecific nonobstructive bowel gas - Medical Decision Making This patient presents to the emergency department with the complaint of some hematemesis and diarrhea with melena. There has been none of this since being in the emergency department. A rectal examination was done that showed a nonthrombosed external hemorrhoid and a small amount of positive stool on guaiac testing. Patient's hemoglobin is 7.8 which is consistent with her last hemoglobin checked, about 1 week ago, when the patient was last here. At that time she had endoscopy and colonoscopy that did not show any source of bleeding and she was discharged with instructions for outpatient pill endoscopy. The rest the patient's labs are mostly unremarkable as well including metabolic panel, coags, except for some mild renal insufficiency. Vital signs have been stable throughout her ED course. The patient was reevaluated multiple times over multiple hours and says she is feeling improved. I spoke with [facility] who agrees with the plan for discharge home and outpatient follow-up. The patient is also been instructed to follow-up with a PCP and has been given a referral for nephrology regarding her mild renal insufficiency. She will return to the emergency department, however, with any worsening of her symptoms or with any acute distress. - Differential Diagnosis Hemorrhoid, diverticulosis, malignancy Critical Care Time: No Critical care attestation.: If time is entered above; I have spent that time in minutes in the direct care of this critically ill patient, excluding procedure time. ED Disposition Clinical Impression: Renal insufficiency GI bleed Qualifiers: GI bleed type/associated pathology: unspecified gastrointestinal hemorrhage type Qualified Code(s): K92.2 - Gastrointestinal hemorrhage, unspecified Anemia Qualifiers: Anemia type: unspecified type Qualified Code(s): D64.9 - Anemia, unspecified Disposition: DC-01 TO HOME OR SELFCARE Is pt being admited?: No Condition: Stable Instructions: Rectal Bleeding (ED), Anemia (ED), Impaired Kidney Function (ED) Additional Instructions: Please follow-up with your primary care physician in the next few days. Please return to the emergency department immediately with any worsening of your symptoms or with any acute distress. Please follow-up with Dr. Hall or 1 of the case manager at [facility] in the next few days. I have also given you a referral for a local [employer] architect, Dr. Castañeda, to follow-up regarding your impaired kidney function. Please avoid any NSAIDs such as Aleve, Advil, ibuprofen, naproxen, secondary to your GI bleeding and your kidney function. Prescriptions: Ondansetron [Zofran Odt] 4 mg PO Q8HR PRN #15 tab.rapdis PRN Reason: Nausea Referrals: LIZ HALL MD [Staff Physician] - 2-3 Days [facility] [Outside] - 2-3 Days JONO CASTAÑEDA MD [Staff Physician] - 2-3 Days Time of Disposition: 09:17
--- NOTE | 2019-05-02 07:12 | XRay Report ---
ABDOMEN 3 VIEW(S) INDICATION / CLINICAL INFORMATION: Abd pain. COMPARISON: None available. FINDINGS: TUBES / LINES: None. BOWEL GAS PATTERN: No significant abnormality. FREE AIR / EXTRALUMINAL GAS: None seen. ADDITIONAL FINDINGS: Left iliac stent is noted. IMPRESSION: 1. No significant abnormality. Signer Name: Denis Oh MD Signed: 05/02/2019 7:07 AM Workstation Name: [id number]
[2019-05-02 10:13] VITALS: BP 126/52
== END 2019-05-02 10:12 | disposition home or self-care (01) ==
LOC: ED 05:36
DX: N28.9 Disorder of kidney and ureter, unspecified (principal); K92.2 Gastrointestinal hemorrhage, unspecified; D64.9 Anemia, unspecified; I25.2 Old myocardial infarction; E11.9 Type 2 diabetes mellitus without complications; I11.0 Hypertensive heart disease with heart failure; I50.9 Heart failure, unspecified; F41.9 Anxiety disorder, unspecified; J44.9 Chronic obstructive pulmonary disease, unspecified; E78.00 Pure hypercholesterolemia, unspecified; Z87.891 Personal history of nicotine dependence; Z98.890 Other specified postprocedural states; Z98.51 Tubal ligation status; Z79.82 Long term (current) use of aspirin; Z79.01 Long term (current) use of anticoagulants; Z79.84 Long term (current) use of oral hypoglycemic drugs; Z79.899 Other long term (current) drug therapy
CPT/HCPCS: 36415; 71045; 74019; 80053; 82550; 83735; 84484; 85025; 85610; 86850; 86900; 86901; 93005; 93010; 96374; 96375; 99284; C9113; J2405

== ENCOUNTER 2019-08-31 10:10 | Observation (INO) | payer MEDICARE ==
[2019-08-31 10:54] LABS: Hematocrit 32.2 % (30.3-42.9); Hemoglobin 11.1 gm/dl (10.1-14.3); Mean Corpuscular HGB Conc 35 % (30-34); Mean Corpuscular Volume 92 fl (79-97); Platelet Count 423 K/mm3 (140-440); Red Blood Count 3.51 M/mm3 (3.65-5.03); Red Cell Distribution Width 15.2 % (13.2-15.2)
[2019-08-31 11:12] LABS: INR 1.09 (0.87-1.13)
[2019-08-31 11:16] LABS: Partial Thromboplastin Time 25.1 Sec. (24.2-36.6)
[2019-08-31 11:21] LABS: Alanine Aminotransferase 7 units/L (7-56); Albumin 3.9 g/dL (3.9-5); BUN/Creatinine Ratio 14; Blood Urea Nitrogen 17 mg/dL (7-17); Calcium 9.9 mg/dL (8.4-10.2); Hemolysis Index 0
[2019-08-31] MEDS ORDERED: IPRATROPIUM/ALBUTEROL SULFATE 3 ML AMPUL.NEB IH ONE ×2 (11:24→13:35)
--- NOTE | 2019-08-31 11:28 | Emergency Department Report ---
ED Chest Pain HPI - General Chief Complaint: Chest Pain Stated Complaint: SOB Time Seen by Provider: 08/31/19 10:30 Source: patient, family, old records reviewed (negative stress test 01/10/19) Mode of arrival: Wheelchair Limitations: No Limitations - History of Present Illness Initial Comments: 69-year-old female the past medical history of CHF, non ischemic cardiomyopathy with EF of 20 to 25%, previous history of DVT with recently discontinued Eliquis in April secondary to GI bleed, COPD, asthma, hypertension, anxiety, elevated cholesterol, and PAD presents to the hospital complaining of worsening shortness of breath for last several days. Patient having intermittent substernal burning chest pain with tightness. Shortness of breath with exertion. Dry cough reported without fever. No leg edema. Patient compliant with her medications p atient complains of dark stool. Severity scale (0 -10): 0 - Related Data Home Medications Medication Instructions Recorded Confirmed Last Taken Apixaban [Eliquis] 5 mg PO BID 04/22/19 04/22/19 04/21/19 Aspirin [Aspirin BABY CHEW TAB] 81 mg PO QDAY 04/22/19 04/22/19 04/21/19 Atorvastatin [Lipitor] 40 mg PO QHS 04/22/19 04/22/19 04/21/19 Clopidogrel [Plavix] 75 mg PO QDAY 04/22/19 04/22/19 04/21/19 Digoxin 125 mcg PO DAILY 04/22/19 04/22/19 04/21/19 Ferrous Sulfate [Feosol 325 MG tab] 325 mg PO BID 04/22/19 04/22/19 04/21/19 Furosemide [Lasix TAB] 20 mg PO QDAY 04/22/19 04/22/19 04/21/19 PARoxetine [Paxil] 20 mg PO DAILY 04/22/19 04/22/19 04/21/19 carvediloL [Coreg] 25 mg PO BID 04/22/19 04/22/19 04/21/19 cloNIDine [Catapres] 0.2 mg PO BID 04/22/19 04/22/19 04/21/19 metFORMIN [Glucophage] 500 mg PO DAILY 04/22/19 04/22/19 04/21/19 Previous Rx's Medication Instructions Recorded Last Taken Type Ondansetron [Zofran Odt] 4 mg PO Q8HR PRN #15 tab.rapdis 05/02/19 Unknown Rx Allergies Allergy/AdvReac Type Severity Reaction Status Date / Time No Known Allergies Allergy Verified 04/08/16 18:42 Heart Score - HEART Score History: Slightly suspicious EKG: Non-specific Age: > 65 Risk factors: > 3 risk factors or hx of atherosclerotic disease Troponin: < normal limit HEART Score: 5 ED Review of Systems ROS: Stated complaint: SOB Other details as noted in HPI Comment: All other systems reviewed and negative ED Past Medical Hx - Past Medical History Previous Medical History?: Yes Hx Hypertension: Yes Hx Heart Attack/AMI: Yes Hx Congestive Heart Failure: Yes Hx Diabetes: Yes Hx Liver Disease: No Hx Renal Disease: No Hx Sickle Cell Disease: No Hx Seizures: No Hx Psychiatric Treatment: Yes (ANXIETY) Hx Asthma: Yes Hx COPD: Yes Additional medical history: HIGH CHOLESTEROL. 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 MILD HEART ENLARGEMENT - Surgical History Past Surgical History?: Yes Hx Coronary Stent: (STENT PLACEMENT IN LEG) Hx Pacemaker: No Hx Internal Defibrillator: No (previously d/c'd with life vest but not using; outpatient AICD eval pending) Additional Surgical History: STENTS IN LEGS, BLOOD CLOTS REMOVED FROM HEAD. TUBAL LIGATION - Social History Smoking Status: Former Smoker Substance Use Type: None - Medications Home Medications: Home Medications Medication Instructions Recorded Confirmed Last Taken Type Apixaban [Eliquis] 5 mg PO BID 04/22/19 04/22/19 04/21/19 History Aspirin [Aspirin BABY CHEW TAB] 81 mg PO QDAY 04/22/19 04/22/19 04/21/19 History Atorvastatin [Lipitor] 40 mg PO QHS 04/22/19 04/22/19 04/21/19 History Clopidogrel [Plavix] 75 mg PO QDAY 04/22/19 04/22/19 04/21/19 History Digoxin 125 mcg PO DAILY 04/22/19 04/22/19 04/21/19 History Ferrous Sulfate [Feosol 325 MG tab] 325 mg PO BID 04/22/19 04/22/19 04/21/19 History Furosemide [Lasix TAB] 20 mg PO QDAY 04/22/19 04/22/19 04/21/19 History PARoxetine [Paxil] 20 mg PO DAILY 04/22/19 04/22/1904/21/20 History carvediloL [Coreg] 25 mg PO BID 04/22/19 04/22/19 04/21/19 History cloNIDine [Catapres] 0.2 mg PO BID 04/22/19 04/22/19 04/21/19 History metFORMIN [Glucophage] 500 mg PO DAILY 04/22/19 04/22/19 04/21/19 History Ondansetron [Zofran Odt] 4 mg PO Q8HR PRN #15 tab.rapdis 05/02/19 Unknown Rx ED Physical Exam - General Limitations: No Limitations - Other Other exam information: General: No acute distress Head: Atraumatic Eyes: normal appearance ENT: Moist mucous membranes Neck: Normal appearance, no midline tenderness Chest: diminished breath sounds bilaterally without wheezes, rales, or crackles. Dyspnea with movement noted CV: Regular rate and rhythm Abdomen: Soft, normal bowel sounds, nontender, nondistended, no rebound or gua rding Back: Normal inspection Extremity: Normal inspection, full range of motion, no leg edema or calf Neuro: Alert O x 3, no facial asymmetry, speech clear, no gross motor sensory deficit Psych: Appropriate behavior Skin: No rash ED Course Vital Signs 08/31/19 08/31/19 08/31/19 10:22 10:59 11:01 Temperature 97.3 F L Pulse Rate 70 60 Pulse Rate [ Bilateral] Respiratory 16 20 20 Rate Respiratory Rate [Bilateral ] Blood Pressure 195/86 Blood Pressure 162/67 [Left] O2 Sat by Pulse 97 99 97 Oximetry 08/31/19 08/31/19 12:02 12:48 Temperature Pulse Rate 73 Pulse Rate [ 66 Bilateral] Respiratory 23 Rate Respiratory 18 Rate [Bilateral ] Blood Pressure Blood Pressure 153/74 [Left] O2 Sat by Pulse 94 Oximetry - Reevaluation(s) Reevaluation #1: 08/31/19 13:40 pt's symptoms improving after 1 darryl neb. . solumedrol and additional duo neb ordered pt c/o burning substernal chest pain. . . maalox, viscous lidocaine, Tylenol ordered YOKO score - Yoko Score Age > 65: (0) No Aspirin use within the Past 7 Days: (1) Yes 3 or more CAD Risk Factors: (1) Yes 2 or more Angina events in past 24 hrs: (1) Yes Known CAD with more than 50% Stenosis: (1) Yes Elevated Cardiac Markers: (0) No ST Deviation Greater than 0.5mm: (0) No YOKO Score: 4 ED Medical Decision Making - Lab Data Result diagrams: 08/31/19 10:40 08/31/19 10:40 Lab Results 08/31/19 08/31/19 08/31/19 Range/Units 10:40 10:40 10:40 WBC 6.8 (4.5-11.0) K/mm3 RBC 3.51 L (3.65-5.03) M/mm3 Hgb 11.1 (10.1-14.3) gm/dl Hct 32.2 (30.3-42.9) % MCV 92 (79-97) fl MCH 32 (28-32) pg MCHC 35 H (30-34) % RDW 15.2 (13.2-15.2) % Plt Count 423 (140-440) K/mm3 [place] % (Auto) Steam Finisher PT 14.2 (12.2-14.9) Sec. INR 1.09 (0.87-1.13) APTT 25.1 (24.2-36.6) Sec. D-Dimer (0-234) ng/mlDDU Sodium 138 (137-145) mmol/L Potassium 5.4 H (3.6-5.0) mmol/L Chloride 99.2 (98-107) mmol/L Carbon Dioxide 25 (22-30) mmol/L Anion Gap 19 mmol/L BUN 17 (7-17) mg/dL Creatinine 1.2 (0.7-1.2) mg/dL Estimated GFR 54 ml/min BUN/Creatinine Ratio 14 % Glucose 115 H (65-100) mg/dL Calcium 9.9 (8.4-10.2) mg/dL Total Bilirubin 0.60 (0.1-1.2) mg/dL AST 17 (5-40) units/L ALT 7 (7-56) units/L Alkaline Phosphatase 119 (35-129) units/L Troponin T < 0.010 (0.00-0.029) ng/mL NT-Pro-B Natriuret Pep 533.0 (0-900) pg/mL Total Protein 7.7 (6.3-8.2) g/dL Albumin 3.9 (3.9-5) g/dL Albumin/Globulin Ratio 1.0 % Blood Type Antibody Screen 08/31/19 08/31/19 Range/Units 10:40 Unknown WBC (4.5-11.0) K/mm3 RBC (3.65-5.03) M/mm3 Hgb (10.1-14.3) gm/dl Hct (30.3-42.9) % MCV (79-97) fl MCH (28-32) pg MCHC (30-34) % RDW (13.2-15.2) % Plt Count (140-440) K/mm3 [place] % (Auto) PT (12.2-14.9) Sec. INR (0.87-1.13) APTT (24.2-36.6) Sec. D-Dimer 1044 H (0-234) ng/mlDDU Sodium (137-145) mmol/L Potassium (3.6-5.0) mmol/L Chloride (98-107) mmol/L Carbon Dioxide (22-30) mmol/L Anion Gap mmol/L BUN (7-17) mg/dL Creatinine (0.7-1.2) mg/dL Estimated GFR ml/min BUN/Creatinine Ratio % Glucose (65-100) mg/dL Calcium (8.4-10.2) mg/dL Total Bilirubin (0.1-1.2) mg/dL AST (5-40) units/L ALT (7-56) units/L Alkaline Phosphatase (35-129) units/L Troponin T (0.00-0.029) ng/mL NT-Pro-B Natriuret Pep (0-900) pg/mL Total Protein (6.3-8.2) g/dL Albumin (3.9-5) g/dL Albumin/Globulin Ratio % Blood Type B POSITIVE Antibody Screen Negative - EKG Data -: EKG Interpreted by Mt EKG shows normal: sinus rhythm, ST-T waves (No STEMI, LVH with re-pole) - EKG Data When compared to previous EKG there are: no significant change - Radiology Data Radiology results: report reviewed CHEST 1 VIEW INDICATION: Chest Pain. COMPARISON: 05/02/2019 FINDINGS: Support devices: None. Heart: Stable. Lungs/Pleura: No acute pulmonary or pleural findings. IMPRESSION: 1. No acute findings. CTA CHEST WITH IV CONTRAST INDICATION / CLINICAL INFORMATION: MAIN. Shortness of breath, elevated d-dimer TECHNIQUE: Axial CT images were obtained through the chest after injection of 100 mL Omnipaque 350 IV contrast. 3 plane MIP and/or 3D reconstructions were produced. All CT scans at this location are performed using CT dose reduction for ALARA by means of automated exposure control. COMPARISON: CTA chest 10/03/2014 FINDINGS: PULMONARY ARTERIES: No pulmonary emboli. THORACIC AORTA: Moderate aortic atherosclerosis. HEART: Moderate cardi omegaly with left ventricular hypertrophy. CORONARY ARTERIES: Small to moderate coronary artery calcification. PLEURA: Trace bilateral effusions. No pneumothorax. LYMPH NODES: No significant adenopathy. LUNGS: A polypoid filling defect in the upper trachea likely reflects mucous/debris. A 5 mm nodule in the right middle lobe is not significantly changed from prior examination in 2014, suggesting a benign etiology. Mild to moderate emphysematous change. No focal pulmonary consolidation. ADDITIONAL FINDINGS: None. UPPER ABDOMEN: Moderate calcified and noncalcified plaque of the visualized upper to mid abdominal aorta. Right renal cyst. There is a partially visualized 3.7 cm hyperattenuating lesion arising from the posterior left lower pole, with average Hounsfield unit approximately 60. SKELETAL STRUCTURES: No significant osseous abnormality. IMPRESSION: 1. No CT evidence for pulmonary embolism. 2. No acute findings. 3. Mild to moderate emphysematous change. 4. Cardiomegaly. 5. A polypoid filling defect in the upper trachea likely reflects mucous/debris. 6. A partially visualized 3.7 cm left hyperattenuating renal lesion is indeterminate and may reflect a hemorrhagic/proteinaceous cyst versus solid renal mass. A renal ultrasound is recommended for further evaluation. 7. Aortic atherosclerosis. - Medical Decision Making Patient shortness of breath improvement with nebulizer treatment. Solu-Medrol also ordered. CT angiogram negative for pulmonary embolism or infiltrate. No findings of CHF. Shortness of breath likely secondary to COPD. Emphysematous changes on CT noted. Symptoms are improving with COPD treatment and additional meds have been ordered for burning complaint of chest pain. Initial troponin negative, EKG unchanged, negative stress test January 2019. Patient be admitted to the hospital for further treatment Critical Care Time: No Critical care attestation.: If time is entered above; I have spent that time in minutes in the direct care of this critically ill patient, excluding procedure time. ED Disposition Clinical Impression: COPD exacerbation, Chest pain Disposition: OP ADMIT IP TO THIS HOSP Is pt being admited?: Yes Condition: Stable Time of Disposition: 13:42 (Dr Anna/hosp)
--- NOTE | 2019-08-31 12:37 | XRay Report ---
CHEST 1 VIEW INDICATION: Chest Pain. COMPARISON: 05/02/2019 FINDINGS: Support devices: None. Heart: Stable. Lungs/Pleura: No acute pulmonary or pleural findings. IMPRESSION: 1. No acute findings. Signer Name: Denis Oh MD Signed: 08/31/2019 12:33 PM Workstation Name: [id number]
--- NOTE | 2019-08-31 13:21 | Cat Scan Report ---
CTA CHEST WITH IV CONTRAST INDICATION / CLINICAL INFORMATION: MAIN. Shortness of breath, elevated d-dimer TECHNIQUE: Axial CT images were obtained through the chest after injection of 100 mL Omnipaque 350 IV contrast. 3 plane MIP and/or 3D reconstructions were produced. All CT scans at this location are performed usin g CT dose reduction for ALARA by means of automated exposure control. COMPARISON: CTA chest 10/03/2014 FINDINGS: PULMONARY ARTERIES: No pulmonary emboli. THORACIC AORTA: Moderate aortic atherosclerosis. HEART: Moderate cardiomegaly with left ventricular hypertrophy. CORONARY ARTERIES: Small to moderate coronary artery calcification. PLEURA: Trace bilateral effusions. No pneumothorax. LYMPH NODES: No significant adenopathy. LUNGS: A polypoid filling defect in the upper trachea likely reflects mucous/debris. A 5 mm nodule in the right middle lobe is not significantly changed from prior examination in 2014, suggesting a scott gn etiology. Mild to moderate emphysematous change. No focal pulmonary consolidation. ADDITIONAL FINDINGS: None. UPPER ABDOMEN: Moderate calcified and noncalcified plaque of the visualized upper to mid abdominal ao rta. Right renal cyst. There is a partially visualized 3.7 cm hyperattenuating lesion arising from th e posterior left lower pole, with average Hounsfield unit approximately 60. SKELETAL STRUCTURES: No significant osseous abnormality. IMPRESSION: 1. No CT evidence for pulmonary embolism. 2. No acute findings. 3. Mild to moderate emphysematous change. 4. Cardiomegaly. 5. A polypoid filling defect in the upper trachea likely reflects mucous/debris. 6. A partially visualized 3.7 cm left hyperattenuating renal lesion is indeterminate and may reflect a hemorrhagic/proteinaceous cyst versus solid renal mass. A renal ultrasound is recommended for [facility] evaluation. 7. Aortic atherosclerosis. Signer Name: Erna German MD Signed: 08/31/2019 1:16 PM Workstation Name: [id number]
[2019-08-31] MEDS ORDERED: methylPREDNISolone Sod Succinate 125 MG/2 ML INJ IV ONE (13:29)
[2019-08-31] MEDS ORDERED: ALUM-MAG HYDROXIDE-SIMETHICONE 200-200-20MG/5ML ORAL LIQD 30 ML PO ONE (13:35)
[2019-08-31] MEDS ORDERED: LIDOCAINE VISCOUS 2% 15 ML ORAL LIQD PO ONE (13:35)
[2019-08-31] MEDS ORDERED: ACETAMINOPHEN 325 MG TAB PO ONE (13:36)
--- NOTE | 2019-08-31 13:44 | History and Physical Report ---
History of Present Illness Chief complaint: I am short of breath History of present illness: 69 YO Female with Systolic CHF(EF 20%), PVD, Nicotine Dependence, CAD S/P Stent Placement, HTN, SD, DM, Anxiety, DVT not currently on therapeutic anticoagulation, severe Malnutrition presents to ED for evaluation. Patient sta collin that she had experienced difficulty breathing over the past 4 days with persistent symptoms over the same timeframe. Patient acknowledges increased productive cough with clear sputum, increased frequency of nebulizer use without relief. Patient transported to [facility] via private vehicle for further evaluation and care of the aforementioned symptoms. Patient seen and evaluated in the emergency department. Lab and imaging studies reviewed. Patient found to have chronic obstructive pulmonary disease with acute exacerbation. Patient placed in observation status and admitted to medical floor. Patient treated with IV steroid therapy and submental oxygen as well as well as supportive care. Patient denies fever, chills, chest pain, palpitation, skin rash, recent ill contacts, unilateral leg swelling, calf pain, prolonged travel/immobility, known exposure to COVID-19. Advanced care planning conducted in ED. Prior admission on 04/23/2019 reviewed. All medication listed at time of admission has been r Past History Past Medical History: acute SD, COPD, diabetes, DVT, hypertension, other (See HPI) Past Surgical History: Other (STENTS IN LEGS, BLOOD CLOTS REMOVED FROM HEAD. TUBAL LIGATION) Social history: single. denies: smoking, alcohol abuse, prescription drug abuse Family history: diabetes, hypertension Medications and Allergies Allergies Allergy/AdvReac Type Severity Reaction Status Date / Time No Known Allergies Allergy Verified 04/08/16 18:42 Home Medications Medication Instructions Recorded Confirmed Last Taken Type Apixaban [Eliquis] 5 mg PO BID 04/22/19 04/22/19 04/21/19 History Aspirin [Aspirin BABY CHEW TAB] 81 mg PO QDAY 04/22/19 04/22/19 04/21/19 History Atorvastatin [Lipitor] 40 mg PO QHS 04/22/19 04/22/19 04/21/19 History Clopidogrel [Plavix] 75 mg PO QDAY 04/22/19 04/22/19 04/21/19 History Digoxin 125 mcg PO DAILY 04/22/19 04/22/19 04/21/19 History Ferrous Sulfate [Feosol 325 MG tab] 325 mg PO BID 04/22/19 04/22/19 04/21/19 History Furosemide [Lasix TAB] 20 mg PO QDAY 04/22/19 04/22/19 04/21/19 History PARoxetine [Paxil] 20 mg PO DAILY 04/22/19 04/22/19 04/21/19 History carvediloL [Coreg] 25 mg PO BID 04/22/19 04/22/19 04/21/19 History cloNIDine [Catapres] 0.2 mg PO BID 04/22/19 04/22/19 04/21/19 History metFORMIN [Glucophage] 500 mg PO DAILY 04/22/19 04/22/19 04/21/19 History Ondansetron [Zofran Odt] 4 mg PO Q8HR PRN #15 tab.rapdis 05/02/19 Unknown Rx Review of Systems Constitutional: no weight loss, no weight gain, no fever, no chills Ears, nose, mouth and throat: no ear pain, no ear discharge, no decreased hearing, no nose pain Breasts: no change in shape, no swelling, no mass Cardiovascular: shortness of breath, no chest pain, no orthopnea, no palpitations Respiratory: cough, cough with sputum, shortness of breath, no hemoptysis Gastrointestinal: no abdominal pain, no nausea, no vomiting, no diarrhea Genitourinary Female: no pelvic pain, no flank pain, no menorrhagia, no dysuria Rectal: no pain, no incontinence, no bleeding Musculoskeletal: no neck stiffness, no neck pain, no shooting arm pain, no low back pain, no shooting leg pain Integumentary: no rash, no pruritis, no redness, no sores, no wounds Neurological: no head injury, no transient paralysis, no weakness, no parathesias, no numbness, no seizures, no syncope Psychiatric: no change in sleep habits, no sleep disturbances, no insomnia, no hypersomnia, no change in libido Endocrine: no cold intolerance, no heat intolerance, no excessive thirst, no polyuria, no nocturia Hematologic/Lymphatic: no easy bruising, no lymphadenopathy Allergic/Immunologic: no urticaria, no allergic rhinitis, no persistent infections, no angioedema Exam - Constitutional Vitals: Temp Pulse Resp BP Pulse Ox 97.3 F L 73 23 153/74 94 08/31/19 10:22 08/31/19 12:48 08/31/19 12:48 08/31/19 12:48 08/31/19 12:48 General appearance: Present: mild distress, cachectic - EENT Eyes: Present: PERRL ENT: hearing intact, clear oral mucosa - Neck Neck: Present: supple, normal ROM - Respiratory Respiratory effort: labored, accessory muscle use, stridor Respiratory: bilateral: diminished, rhonchi - Cardiovascular Heart Sounds: Present: S1 & S2. Absent: rub, click - Extremities Extremities: pulses symmetrical, No edema Peripheral Pulses: within normal limits - Abdominal General gastrointestinal: Present: soft, non-tender, non-distended, normal bowel sounds Female genitourinary: Present: normal - Integumentary Integumentary: Present: clear, warm, dry - Musculoskeletal Musculoskeletal: gait normal, strength equal bilaterally - Psychiatric Psychiatric: appropriate mood/affect, intact judgment & insight - Neurologic Neurologic: CNII-XII intact, moves all extremities HEART Score - HEART Score EKG: Non-specific Age: > 65 Risk factors: > 3 risk factors or hx of atherosclerotic disease Troponin: Troponin T < 0.010 ng/mL (0.00-0.029) 08/31/19 10:40 Troponin: < normal limit Results - Labs CBC & Chem 7: 08/31/19 10:40 08/31/19 10:40 Labs: Abnormal lab results 08/31/19 08/31/19 08/31/19 Range/Units 10:40 10:40 Unknown RBC 3.51 L (3.65-5.03) M/mm3 MCHC 35 H (30-34) % D-Dimer 1044 H (0-234) ng/mlDDU Potassium 5.4 H (3.6-5.0) mmol/L Glucose 115 H (65-100) mg/dL Assessment and Plan - Patient Problems (1) COPD exacerbation Current Visit: Yes Status: Acute Plan to address problem: Supplemental oxygen, pulse oximetry, nebulizer therapy, IV steroid therapy, chest x-ray, supportive care. (2) Hypertension Current Visit: Yes Status: Acute Qualifiers: Hypertension type: essential hypertension Qualified Code(s): I10 - Essential (primary) hypertension Plan to address problem: Monitor blood pressure every shift, continue medical management. (3) Diabetes Current Visit: Yes Status: Acute Plan to address problem: Sliding scale insulin therapy, Accu-Chek, consistent carbohydrate diet, hypoglycemia protocol. (4) Severe malnutrition Current Visit: Yes Status: Acute Plan to address problem: Increase protein intake, dietary supplementation, (5) DVT prophylaxis Current Visit: Yes Status: Acute Plan to address problem: SCD to bilateral lower extremities while in bed, patient is ambulatory. (6) Advance care planning Current Visit: Yes Status: Acute Plan to address problem: Disease education conducted, patient is full code, disease prognosis discussed, patient knowledges understanding and agreement with care plan, +30 minutes.
[2019-08-31] MEDS ORDERED: ACETAMINOPHEN 325 MG TAB PO PRN (13:45)
[2019-08-31] MEDS ORDERED: ONDANSETRON 4 MG/2 ML INJ IV PRN (13:45)
[2019-08-31] MEDS ORDERED: ALBUTEROL 2.5 MG/3 ML NEBU IH PRN (13:45)
[2019-08-31 13:46] LABS: Band Neutrophils # (Manual) 0.1 K/mm3; Basophils % (Manual) 0 % (0.0-1.8); Total Cells Counted 100
[2019-08-31 13:47] LABS: Anisocytosis Few; Platelet Estimate Consistent w Auto
[2019-08-31] MEDS: methylPREDNISolone Sod Succinate 40 MG/1 ML INJ IV SCH (21:04)
[2019-09-01 05:09] LABS: Calcium 9.6 mg/dL (8.4-10.2)
[2019-09-01] MEDS: methylPREDNISolone Sod Succinate 40 MG/1 ML INJ IV SCH ×2 (09:59→21:35)
--- NOTE | 2019-09-01 17:15 | Progress Note ---
Assessment and Plan Day # 2 Improvement present Still wheezing (1) COPD exacerbation Current Visit: Yes Status: Acute Plan to address problem: Supplemental oxygen, pulse oximetry, nebulizer therapy, IV steroid therapy, chest x-ray, supportive care. (2) Hypertension Current Visit: Yes Status: Acute Qualifiers: Hypertension type: essential hypertension Qualified Code(s): I10 - Essential (primary) hypertension Plan to address problem: Monitor blood pressure every shift, continue medical management. (3) Diabetes Current Visit: Yes Status: Acute Plan to address problem: Sliding scale insulin therapy, Accu-Chek, consistent carbohydrate diet, hypoglycemia protocol. (4) Severe malnutrition Current Visit: Yes Status: Acute Plan to address problem: Increase protein intake, dietary supplementation, (5) DVT prophylaxis Current Visit: Yes Status: Acute Plan to address problem: SCD to bilateral lower extremities while in bed, patient is ambulatory. (6) Advance care planning Current Visit: Yes Status: Acute Plan to address problem: Disease education conducted, patient is full code, disease prognosis discussed, patient knowledges understanding and agreement with care plan, +30 minutes. Subjective Date of service: 09/01/19 Principal diagnosis: Copd exacerbation Interval history: 69 YO Female with Systolic CHF(EF 20%), PVD, Nicotine Dependence, CAD S/P Stent Placement, HTN, MO, DM, Anxiety, DVT not currently on therapeutic anti coagulation, severe Malnutrition presents to ED for evaluation. Patient states that she had experienced difficulty breathing over the past 4 days with persistent symptoms over the same timeframe. Patient acknowledges increased productive cough with clear sputum, increased frequency of nebulizer use without relief. Patient transported to [facility] via private vehicle for further evaluation and care of the aforementioned symptoms. Patient seen and evaluated in the emergency department. Lab and imaging studies reviewed. Patient found to have chronic obstructive pulmonary disease with acute exacerbation. Patient placed in observation status and admitted to medical floor. Patient treated with IV steroid therapy and submental oxygen as well as well as supportive care. Patient denies fever, chills, chest pain, palpitation, skin rash, recent ill contacts, unilateral leg swelling, calf pain, prolonged travel/immobility, known exposure to COVID-19. Advanced care planning conducted in ED. Prior admission on 04/23/2019 reviewed. Some improvement Objective - Constitutional Vitals: Vital Signs - 12hr 09/01/19 09/01/19 06:53 11:55 Temperature 97.4 F L 97.4 F L Pulse Rate 67 85 Respiratory 18 17 Rate Blood Pressure 154/62 161/68 O2 Sat by Pulse 93 96 Oximetry General appearance: Present: no acute distress, well-nourished - EENT Eyes: PERRL, EOM intact ENT: hearing intact, clear oral mucosa Ears: bilateral: normal - Neck Neck: supple, normal ROM - Respiratory Respiratory effort: normal Respiratory: bilateral: CTA - Breasts Breasts: normal - Cardiovascular Rhythm: regular Heart Sounds: Present: S1 & S2. Absent: gallop, rub Extremities: pulses intact, No edema, normal color, Full ROM - Gastrointestinal General gastrointestinal: Present: soft, non-tender, non-distended, normal bowel sounds - Genitourinary Female genitourinary: normal - Integumentary Integumentary: clear, warm, dry - Musculoskeletal Musculoskeletal: 1, strength equal bilaterally - Neurologic Neurologic: moves all extremities - Psychiatric Psychiatric: memory intact, appropriate mood/affect, intact judgment & insight - Labs CBC & Chem 7: 09/02/19 05:22 09/02/19 05:22 Labs: Abnormal lab results 09/01/19 Range/Units 04:18 Sodium 136 L (137-145) mmol/L BUN 23 H (7-17) mg/dL Glucose 208 H (65-100) mg/dL HEART Score - HEART Score EKG: Non-specific Age: > 65 Risk factors: > 3 risk factors or hx of atherosclerotic disease Troponin: Troponin T < 0.010 ng/mL (0.00-0.029) 08/31/19 15:35 Troponin: < normal limit
[2019-09-01] MEDS: INSULIN LISPRO 100 UNIT/ML SUB-Q SCH ×2 (17:40→21:40)
[2019-09-02 05:58] LABS: Hematocrit 35.5 % (30.3-42.9); Hemoglobin 11.5 gm/dl (10.1-14.3); Mean Corpuscular HGB Conc 33 % (30-34); Mean Corpuscular Volume 92 fl (79-97); Platelet Count 529 K/mm3 (140-440); Red Blood Count 3.86 M/mm3 (3.65-5.03); Red Cell Distribution Width 14.8 % (13.2-15.2)
[2019-09-02 06:33] LABS: Basophils % (Manual) 0 % (0.0-1.8); Eosinophils % (Manual) 0 % (0.0-4.3); Total Cells Counted 100
[2019-09-02 06:34] LABS: Burr Cells Few; Ovalocytes Few
[2019-09-02 06:35] LABS: Anisocytosis Few; Platelet Estimate Consistent w Auto
[2019-09-02] MEDS: INSULIN LISPRO 100 UNIT/ML SUB-Q SCH ×3 (09:05→17:57)
[2019-09-02] MEDS: methylPREDNISolone Sod Succinate 40 MG/1 ML INJ IV SCH (09:06)
[2019-09-02 17:41] VITALS: BP 138/80
--- NOTE | 2019-09-02 19:24 | Discharge Summary ---
Providers - Providers Date of Admission: 08/31/19 13:45 Date of discharge: 09/02/19 Attending physician: KATINA KIM [facility] Hospitalization Condition: Stable Hospital course: Patient admitted for Copd exacerbation and Resp failure (1) COPD exacerbation with resp failure Current Visit: Yes Status: Acute Plan to address problem: Improved Not tachypneic Discharged on Neb qid and Prednisone dose pack and Levaquin po (2) Hypertension Current Visit: Yes Status: Acute Qualifiers: Hypertension type: essential hypertension Qualified Code(s): I10 - Essential (primary) hypertension Plan to address problem: Monitor blood pressure every shift, continue medical management. (3) Diabetes Current Visit: Yes Status: Acute Plan to address problem: Sliding scale insulin therapy, Accu-Chek, consistent carbohydrate diet, hypoglycemia protocol. (4) Severe malnutrition Current Visit: Yes Status: Acute Plan to address problem: Increase protein intake, dietary supplementation, (5) Advance care planning Current Visit: Yes Status: Acute Plan to address problem: Disease education conducted, patient is full code, disease prognosis discussed, patient knowledges understanding and agreement with care plan, +30 minutes. Disposition: - TO HOME OR SELFCARE - Discharge Diagnoses (1) Respiratory failure with hypoxia Status: Acute Qualifiers: Chronicity: acute on chronic Qualified Code(s): J96.21 - Acute and chronic respiratory failure with hypoxia (2) COPD exacerbation Status: Acute (3) Severe malnutrition Status: Acute Core Measure Documentation - Palliative Care Palliative Care/ Comfort Measures: Not Applicable - Core Measures Any of the following diagnoses?: none Exam - Constitutional Vitals: Temp Pulse Resp BP Pulse Ox 98.2 F 88 18 138/80 91 09/02/19 16:23 09/02/19 16:23 09/02/19 16:23 09/02/19 16:23 09/02/19 16:23 General appearance: Present: no acute distress, well-nourished - EENT Eyes: Present: PERRL ENT: hearing intact, clear oral mucosa - Neck Neck: Present: supple, normal ROM - Respiratory Respiratory effort: normal Respiratory: bilateral: CTA - Cardiovascular Heart rate: 78 Rhythm: regular Heart Sounds: Present: S1 & S2. Absent: rub, click - Extremities Extremities: no ischemia, pulses intact, pulses symmetrical, No edema Peripheral Pulses: within normal limits - Abdominal General gastrointestinal: Present: soft, non-tender, non-distended, normal bowel sounds Female genitourinary: Present: normal - Integumentary Integumentary: Present: clear, warm, dry - Musculoskeletal Musculoskeletal: gait normal, strength equal bilaterally - Psychiatric Psychiatric: appropriate mood/affect, intact judgment & insight - Neurologic Neurologic: CNII-XII intact, moves all extremities - Allied Health Allied health notes reviewed: nursing, case management Plan Activity: no restrictions Diet: regular Follow up with: DORIAN MONDRAGON MD [Primary Care Provider] - 3-5 Days
== END 2019-09-02 20:10 | disposition home or self-care (01) ==
LOC: ED 10:10 → 3B-SURG 13:45 → 3A 09-01 15:25
PROVIDERS: ADMIT Internal Medicine; ATTEND Internal Medicine
DX: J44.0 Chronic obstructive pulmonary disease with (acute) lower respiratory infection (principal); J96.21 Acute and chronic respiratory failure with hypoxia; J44.1 Chronic obstructive pulmonary disease with (acute) exacerbation; I11.0 Hypertensive heart disease with heart failure; I50.20 Unspecified systolic (congestive) heart failure; E43 Unspecified severe protein-calorie malnutrition; E11.51 Type 2 diabetes mellitus with diabetic peripheral angiopathy without gangrene; I25.10 Atherosclerotic heart disease of native coronary artery without angina pectoris; I25.2 Old myocardial infarction; F41.9 Anxiety disorder, unspecified; E78.00 Pure hypercholesterolemia, unspecified; Z87.891 Personal history of nicotine dependence; Z86.718 Personal history of other venous thrombosis and embolism; Z95.5 Presence of coronary angioplasty implant and graft; Z98.51 Tubal ligation status; Z79.82 Long term (current) use of aspirin; Z79.84 Long term (current) use of oral hypoglycemic drugs; Z79.01 Long term (current) use of anticoagulants; Z79.899 Other long term (current) drug therapy
CPT/HCPCS: 36415; 71045; 71275; 80048; 80053; 82271; 82962; 83880; 84484; 85007; 85025; 85379; 85610; 85730; 86850; 86900; 86901; 93005; 94644; 96374; 96375; 96376; 99285; G0378; J2405; J2920; J2930; Q9967; J1815

== ENCOUNTER 2020-09-03 01:56 | Inpatient (IN) | payer MEDICARE ==
[2020-09-03 02:49] LABS: Basophils % (Auto) 0.6 % (0.0-1.8); Eosinophils # (Auto) 0.1 K/mm3 (0.0-0.4); Eosinophils % (Auto) 1.9 % (0.0-4.3); Hematocrit 36.8 % (30.3-42.9); Hemoglobin 12.6 gm/dl (10.1-14.3); Lymphocytes # (Auto) 2.3 K/mm3 (1.2-5.4); Lymphocytes % (Auto) 38.7 % (13.4-35.0); Mean Corpuscular HGB Conc 34 % (30-34); Mean Corpuscular Volume 100 fl (79-97); Monocytes # (Auto) 0.6 K/mm3 (0.0-0.8); Monocytes % (Auto) 9.7 % (0.0-7.3); Platelet Count 278 K/mm3 (140-440); Red Blood Count 3.68 M/mm3 (3.65-5.03); Red Cell Distribution Width 17.4 % (13.2-15.2)
--- NOTE | 2020-09-03 03:04 | XRay Report ---
Chest single view INDICATION: Dyspnea IMPRESSION: Cardiomegaly with patchy airspace disease throughout much of the mid and lower aspect of the right lung. Emphysematous changes noted. Signer Name: Heriberto Kinney MD Signed: 09/03/2020 3:00 AM Workstation Name: [id number]
[2020-09-03 03:13] LABS: Albumin 3.9 g/dL (3.9-5); Calcium 9.1 mg/dL (8.4-10.2)
[2020-09-03] MEDS ORDERED: FUROSEMIDE 40 MG/4 ML INJ IV ONE ×2 (03:30→04:58)
[2020-09-03] MEDS ORDERED: hydrALAZINE 20 MG/1 ML INJ IV ONE ×2 (03:30→04:27)
--- NOTE | 2020-09-03 03:34 | Emergency Department Report ---
ED Shortness of Breath HPI - General Chief Complaint: Dyspnea/Respdistress Stated Complaint: MARGO Time Seen by Provider: 09/03/20 03:29 Source: patient Mode of arrival: Ambulatory Limitations: No Limitations - History of Present Illness Initial Comments: Patient is 70 years old female with history of congestive heart failure, COPD, coronary artery disease, hypertension and diabetes. Patient presented to the ER complaining of shortness of breath for the last few days. Patient stated that she is having significant orthopnea. She stated that she get out of breath even if she walks for a short distance. Patient denied any fever or chills. No nausea or vomiting. MD Complaint: shortness of breath -: days(s) Severity: moderate Known History Of: COPD, congestive heart failure - Related Data Home Medications Medication Instructions Recorded Confirmed Last Taken Apixaban [Eliquis] 5 mg PO BID 04/22/19 08/31/19 08/27/19 Aspirin [Aspirin BABY CHEW TAB] 81 mg PO QDAY 04/22/19 08/31/19 08/29/19 Previous Rx's Medication Instructions Recorded Last Taken Type ALBUTEROL NEB's [Proventil 0.083% 2.5 mg IH Q4HRT PRN #50 nebu 09/02/19 Unknown Rx NEBS] Ferrous Sulfate [Feosol 325 MG tab] 325 mg PO BID #60 09/02/19 Unknown Rx Furosemide [Lasix TAB] 20 mg PO QDAY #30 09/02/19 Unknown Rx Ondansetron [Zofran ODT TAB] 4 mg PO Q8HR PRN #10 tab.rapdis 09/02/19 Unknown Rx PARoxetine [Paxil] 20 mg PO DAILY #30 09/02/19 Unknown Rx metFORMIN [Glucophage] 500 mg PO DAILY #60 09/02/19 Unknown Rx AtorvaSTATin [Lipitor] 40 mg PO QHS #30 tablet 03/28/20 Unknown Rx Clopidogrel [Plavix] 75 mg PO QDAY #30 03/28/20 Unknown Rx Digoxin 125 mcg PO DAILY #30 03/28/20 Unknown Rx Sacubitril/Valsartan [Entresto 1 each PO BID #60 tablet 03/28/20 Unknown Rx 49-51 mg] amLODIPine 10 mg PO QDAY #30 tablet 03/28/20 Unknown Rx carvediloL [Coreg] 25 mg PO BID #60 03/28/20 Unknown Rx cloNIDine [Catapres] 0.2 mg PO BID #60 03/28/20 Unknown Rx hydrALAZINE [Apresoline TAB] 50 mg PO BID #60 tablet 03/28/20 Unknown Rx Allergies Allergy/AdvReac Type Severity Reaction Status Date / Time No Known Allergies Allergy Verified 04/08/16 18:42 ED Review of Systems ROS: Stated complaint: MARGO Other details as noted in HPI Comment: All other systems reviewed and negative Constitutional: denies: chills, fever Respiratory: orthopnea, shortness of breath, SOB with exertion, SOB at rest. denies: cough, wheezing Cardiovascular: chest pain. denies: palpitations Gastrointestinal: denies: abdominal pain, nausea, vomiting, diarrhea, constipation, hematemesis ED Past Medical Hx - Past Medical History Hx Hypertension: Yes Hx Heart Attack/AMI: Yes Hx Congestive Heart Failure: Yes Hx Diabetes: Yes Hx Deep Vein Thrombosis: Yes (stents in legs) Hx Liver Disease: No Hx Renal Disease: No Hx Sickle Cell Disease: No Hx Seizures: No Hx Psychiatric Treatment: Yes (ANXIETY) Hx Asthma: Yes Hx COPD: Yes Hx HIV: No Additional medical history: HIGH CHOLESTEROL. 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 MILD HEART ENLARGEMENT - Surgical History Past Surgical History?: No Hx Coronary Stent: (STENT PLACEMENT IN LEG) Hx Pacemaker: No Hx Internal Defibrillator: (has a life vest but does not use it pending evaluattion for AICD as an outp) Additional Surgical History: STENTS IN LEGS, BLOOD CLOTS REMOVED FROM HEAD. TUBAL LIGATION - Social History Smoking Status: Never Smoker - Medications Home Medications: Home Medications Medication Instructions Recorded Confirmed Last Taken Type Apixaban [Eliquis] 5 mg PO BID 04/22/19 08/31/19 08/27/19 History Aspirin [Aspirin BABY CHEW TAB] 81 mg PO QDAY 04/22/19 08/31/19 08/29/19 History ALBUTEROL NEB's [Proventil 0.083% 2.5 mg IH Q4HRT PRN #50 nebu 09/02/19 Unknown Rx NEBS] Ferrous Sulfate [Feosol 325 MG tab] 325 mg PO BID #60 09/02/19 Unknown Rx Furosemide [Lasix TAB] 20 mg PO QDAY #30 09/02/19 Unknown Rx Ondansetron [Zofran ODT TAB] 4 mg PO Q8HR PRN #10 tab.rapdis 09/02/19 Unknown Rx PARoxetine [Paxil] 20 mg PO DAILY #30 09/02/19 Unknown Rx metFORMIN [Glucophage] 500 mg PO DAILY #60 09/02/19 Unknown Rx AtorvaSTATin [Lipitor] 40 mg PO QHS #30 tablet 03/28/20 Unknown Rx Clopidogrel [Plavix] 75 mg PO QDAY #30 03/28/20 Unknown Rx Digoxin 125 mcg PO DAILY #30 03/28/20 Unknown Rx Sacubitril/Valsartan [Entresto 1 each PO BID #60 tablet 03/28/20 Unknown Rx 49-51 mg] amLODIPine 10 mg PO QDAY #30 tablet 03/28/20 Unknown Rx carvediloL [Coreg] 25 mg PO BID #60 03/28/20 Unknown Rx cloNIDine [Catapres] 0.2 mg PO BID #60 03/28/20 Unknown Rx hydrALAZINE [Apresoline TAB] 50 mg PO BID #60 tablet 03/28/20 Unknown Rx ED Physical Exam - General Limitations: No Limitations General appearance: alert, in distress - Head Head exam: Present: atraumatic, normocephalic, normal inspection - Eye Eye exam: Present: normal appearance - ENT ENT exam: Present: normal exam, normal orophraynx, mucous membranes moist - Neck Neck exam: Present: normal inspection, full ROM. Absent: tenderness, meningismus - Respiratory Respiratory exam: Present: respiratory distress, rales, decreased breath sounds. Absent: wheezes, rhonchi, accessory muscle use, prolonged expiratory - Cardiovascular Cardiovascular Exam: Present: regular rate, normal rhythm, normal heart sounds - GI/Abdominal GI/Abdominal exam: Present: soft, normal bowel sounds. Absent: distended, tenderness, guarding, rebound, rigid, organomegaly, mass, bruit, pulsatile mass, hernia - Extremities Exam Extremities exam: Present: normal inspection, full ROM, normal capillary refill. Absent: pedal edema, calf tenderness - Back Exam Back exam: Present: normal inspection, full ROM. Absent: CVA tenderness (R), CVA tenderness (L) - Neurological Exam Neurological exam: Present: alert, oriented X3, CN II-XII intact - Psychiatric Psychiatric exam: Present: normal mood - Skin Skin exam: Present: warm, intact, normal color ED Course Vital Signs 09/03/20 09/03/20 09/03/20 02:22 03:27 03:30 Temperature 98.4 F Pulse Rate 78 94 H 77 Respiratory 16 16 28 H Rate Blood Pressure 220/90 Blood Pressure 199/76 220/90 [Right] O2 Sat by Pulse 97 92 Oximetry 09/03/20 09/03/20 09/03/20 03:46 03:49 04:00 Temperature Pulse Rate 74 80 70 Respiratory 29 H 29 H Rate Blood Pressure 219/78 219/78 209/72 Blood Pressure [Right] O2 Sat by Pulse 93 94 Oximetry 09/03/20 09/03/20 09/03/20 04:16 04:23 04:30 Temperature 98.6 F Pulse Rate 84 76 Respiratory 18 25 H Rate Blood Pressure 219/78 216/78 Blood Pressure [Right] O2 Sat by Pulse 94 98 Oximetry ED Medical Decision Making - Lab Data Result diagrams: 09/03/20 02:27 09/03/20 02:27 - EKG Data -: EKG Interpreted by Ar EKG shows normal: sinus rhythm - EKG Data Interpretation: no acute changes - Radiology Data Radiology results: report reviewed - Medical Decision Making Patient is 70 years old female with history of congestive heart failure, COPD, coronary artery disease, hypertension and diabetes. Patient presented to the ER complaining of shortness of breath for the last few days. Patient stated that she is having significant orthopnea. She stated that she get out of breath even if she walks for a short distance. Patient denied any fever or chills. No nausea or vomiting. Patient received Lasix and hydralazine. Chest x-ray showed pulmonary edema. Labs reviewed and showed significantly elevated BNP of more than 18,000. I discussed the patient with Dr. Reynolds, he agreed to admit the patient to medical service for further management. Critical care attestation.: If time is entered above; I have spent that time in minutes in the direct care of this critically ill patient, excluding procedure time. ED Disposition Clinical Impression: Acute exacerbation of CHF (congestive heart failure), Respiratory failure with hypoxia Disposition: OP ADMIT IP TO THIS HOSP Is pt being admited?: Yes Condition: Stable
[2020-09-03 05:14] LABS: Partial Thromboplastin Time 31.1 Sec. (24.2-36.6)
[2020-09-03] MEDS ORDERED: ONDANSETRON 4 MG/2 ML INJ IV ONE (05:16)
[2020-09-03] MEDS ORDERED: NITROGLYCERIN 0.4 MG TAB SUBL SL ONE (05:16)
[2020-09-03] MEDS ORDERED: SENNOSIDES 8.6 MG TAB PO PRN (05:24)
[2020-09-03] MEDS ORDERED: NITROGLYCERIN 0.4 MG TAB SUBL SL PRN (05:24)
[2020-09-03] MEDS ORDERED: ACETAMINOPHEN 325 MG TAB PO PRN (05:24)
[2020-09-03] MEDS ORDERED: MAGNESIUM HYDROXIDE (MOM) ORAL LIQD UDC PO PRN (05:24)
[2020-09-03] MEDS ORDERED: ONDANSETRON 4 MG/2 ML INJ IV PRN (05:24)
[2020-09-03] MEDS ORDERED: ALUM-MAG HYDROXIDE-SIMETHICONE 200-200-20MG/5ML ORAL LIQD 30 ML PO PRN (05:24)
[2020-09-03] MEDS ORDERED: METOCLOPRAMIDE 10 MG/2 ML INJ IV PRN (05:24)
--- NOTE | 2020-09-03 05:35 | History and Physical Report ---
History of Present Illness Date of examination: 09/03/20 Date of admission: 09/03/20 Chief complaint: shortness of breath History of present illness: Patient is 70 years old female with history of congestive heart failure, COPD, coronary artery disease, hypertension and diabetes. Patient presented to the ER complaining of shortness of breath for the last few days. Patient stated that she is having significant orthopnea. She stated that she get out of breath even if she walks for a short distance. Patient denied any fever or chills. No nausea or vomiting. ED work-up shows chest x-ray cardiomegaly with patchy airspace disease throughout much of the midline and the lower aspect of the right lung emphysematous changes noted. Lab values WBC 6.0, hemoglobin 12.6, platelets 278, creatinine 1.5, glucose 110, BNP 18,124, total protein 6.2. Patient seen in the ED at bedside. Blood pressure very elevated 212/72, patient is on BiPAP shortness of breath. I reviewed medical record vital signs and blood work report. Behavioral Health Care Manager is consulted for acute CHF. We will consult centrex radio operator for hypoxia and COPD extubation. Past History Past Medical History: CAD, COPD, diabetes, heart failure, hypertension, hyperlipidemia Past Surgical History: No surgical history Social history: no significant social history Family history: no significant family history Medications and Allergies Allergies Allergy/AdvReac Type Severity Reaction Status Date / Time No Known Allergies Allergy Verified 04/08/16 18:42 Home Medications Medication Instructions Recorded Confirmed Last Taken Type Amlodipine Besylate [Norvasc] 5 mg PO QDAY 09/03/20 09/03/20 Unknown History Aspirin 325 mg PO QDAY PRN 09/03/20 09/03/20 Unknown History Clonidine HCl [Kapvay] 0.2 mg PO QHS 09/03/20 09/03/20 Unknown History Digoxin 125 mcg PO QDAY 09/03/20 09/03/20 Unknown History Ferrous Sulfate [Iron 325 MG] 325 mg PO Q12HR 09/03/20 09/03/20 Unknown History Furosemide [Lasix] 20 mg PO QDAY 09/03/20 09/03/20 Unknown History Metformin HCl [metFORMIN] 1,000 mg PO BID 09/03/20 09/03/20 Unknown History PARoxetine HCl [Paxil] 20 mg PO QDAY 09/03/20 09/03/20 Unknown History Sacubitril/Valsartan [Entresto 1 each PO BID 09/03/20 09/03/20 Unknown History 49-51 mg] carvediloL [Coreg] 25 mg PO BID 09/03/20 09/03/20 Unknown History hydrALAZINE [Apresoline] 50 mg PO BID 09/03/20 09/03/20 Unknown History Active Meds: Active Medications Acetaminophen (Acetaminophen 325 Mg Tab) 650 mg PO Q4H PRN PRN Reason: Pain MILD(1-3)/Fever >100.5/GAMEZ Al Hydrox/Mg Hydrox/Simethicone (Alum-Mag Hydroxide-Simethicone [phone]/5ml Oral Liqd 30 Ml) 30 ml PO Q4H PRN PRN Reason: Indigestion Furosemide (Furosemide 40 Mg/4 Ml Inj) 40 mg IV 0600,1800 [place] Magnesium Hydroxide (Magnesium Hydroxide (Mom) Oral Liqd Udc) 30 ml PO Q4H PRN PRN Reason: Constipation Metoclopramide HCl (Metoclopramide 10 Mg/2 Ml Inj) 10 mg IV Q6H PRN PRN Reason: Nausea And Vomiting Nitroglycerin (Nitroglycerin 0.4 Mg Tab Subl) 0.4 mg SL .Q5MIN PRN PRN Reason: Chest Pain Ondansetron HCl (Ondansetron 4 Mg/2 Ml Inj) 4 mg IV Q8H PRN PRN Reason: Nausea And Vomiting Potassium Chloride (Potassium Chloride Er 20 Meq Tab) 20 meq PO QDAY [facility] Senna (Sennosides 8.6 Mg Tab) 8.6 mg PO Q12HR PRN PRN Reason: Constipation Sodium Chloride (Sodium Chloride 0.9% 10 Ml Flush Syringe) 10 ml IV BID [facility] Sodium Chloride (Sodium Chloride 0.9% 10 Ml Flush Syringe) 10 ml IV PRN PRN PRN Reason: LINE FLUSH Review of Systems Constitutional: fatigue, weakness Ears, nose, mouth and throat: no epistaxis, no bleeding gums Cardiovascular: orthopnea, shortness of breath, high blood pressure Respiratory: no wheezing Gastrointestinal: no melena Rectal: no itching, no hemorrhoids Psychiatric: anxiety Hematologic/Lymphatic: no easy bruising, no easy bleeding Allergic/Immunologic: no urticaria Exam - Constitutional Vitals: Temp Pulse Resp BP Pulse Ox 98.6 F 86 33 H 212/72 98 09/03/20 04:23 09/03/20 05:20 09/03/20 05:19 09/03/20 05:20 09/03/20 05:19 General appearance: Present: mild distress, cachectic, other (frail appearing patient on bipap) - EENT Eyes: Present: PERRL ENT: hearing intact, clear oral mucosa - Neck Neck: Present: supple, normal ROM - Respiratory Respiratory effort: normal Respiratory: bilateral: CTA - Cardiovascular Heart Sounds: Present: S1 & S2. Absent: rub, click - Extremities Extremities: pulses symmetrical, No edema Peripheral Pulses: within normal limits - Abdominal General gastrointestinal: Present: soft, non-tender, non-distended, normal bowel sounds Female genitourinary: Present: normal - Integumentary Integumentary: Present: clear, warm, dry - Musculoskeletal Musculoskeletal: gait normal, strength equal bilaterally - Psychiatric Psychiatric: appropriate mood/affect, intact judgment & insight - Neurologic Neurologic: CNII-XII intact, moves all extremities - Allied Health Allied health notes reviewed: nursing Results - Labs CBC & Chem 7: 09/03/20 02:27 09/03/20 02:27 Labs: Abnormal lab results 09/03/20 09/03/20 09/03/20 Range/Units 02:27 02:27 03:42 MCV 100 H (79-97) fl MCH 34 H (28-32) pg RDW 17.4 H (13.2-15.2) % Lymph % (Auto) 38.7 H (13.4-35.0) % [place] % (Auto) 9.7 H (0.0-7.3) % BUN 28 H (7-17) mg/dL Creatinine 1.5 H (0.6-1.2) mg/dL Glucose 110 H (65-100) mg/dL NT-Pro-B Natriuret Pep 90420 H (0-900) pg/mL Total Protein 6.2 L (6.3-8.2) g/dL Assessment and Plan - Patient Problems (1) Acute exacerbation of CHF (congestive heart failure) Current Visit: Yes Status: Acute Qualifiers: Plan to address problem: cardiomegaly with patchy airspace disease throughout much of the midline and the lower aspect of the right lung Cardioprotective measuresaspirin, statin, BB, oxygen supplementation Behavioral Health Care Manager consulted. Sublingual nitro as needed. Echo ordered follow-up with results (2) Respiratory failure with hypoxia Current Visit: Yes Status: Acute Qualifiers: Plan to address problem: Continue BiPAP, serial ABG Bronchodilator and oxygen supplement. In Tube Conversion Technician: Consulted X-ray showed cardiomegaly. Empiric antibiotic with Levaquin. (3) Hypertensive urgency Current Visit: Yes Status: Acute Plan to address problem: Monitor blood pressure Resume home antihypertensive (4) DELISA (acute kidney injury) Current Visit: No Status: Acute Plan to address problem: Monitor kidney function Advised to avoid nephrotoxic drugs including nonsteroidal anti-inflammatory agents (5) Diabetes Current Visit: Yes Status: Acute Plan to address problem: Monitor blood sugar with SSI Check hemoglobin A1c (6) DVT prophylaxis Current Visit: Yes Status: Acute Plan to address problem: Subcutaneous heparin (7) Full code status Current Visit: Yes Status: Acute Plan to address problem: Patient is full code
[2020-09-03] MEDS ORDERED: FUROSEMIDE 40 MG/4 ML INJ IV SCH (06:00)
[2020-09-03] MEDS ORDERED: cloNIDine 0.2 MG TAB PO ONE (06:06)
[2020-09-03] MEDS: hydrALAZINE 20 MG/1 ML INJ IV PRN ×2 (06:27→12:58)
[2020-09-03] MEDS: INSULIN LISPRO 100 UNIT/ML SUB-Q SCH ×3 (07:18→16:43)
[2020-09-03] MEDS: POTASSIUM CHLORIDE ER 20 MEQ TAB PO SCH (09:43)
[2020-09-03] MEDS: HEPARIN 5,000 UNIT/1 ML VIAL SUB-Q SCH ×2 (09:43→21:25)
[2020-09-03] MEDS: FERROUS SULFATE 325 MG TAB PO SCH (09:43)
[2020-09-03] MEDS: ASPIRIN EC 81 MG TAB PO SCH (09:43)
[2020-09-03] MEDS: amLODIPine 5 MG TAB PO SCH (09:43)
--- NOTE | 2020-09-03 11:19 | Electrocardiograph Report ---
[facility] Test Date: 2020-09-03 Test Time: 02:23:41 Pat Name: DIANA FLANNERY Department: Room: A472 1 Gender: F Adult And Pediatric Neurologist: : 1950 Requested By: ROMAN JAQUEZ Order Number: [id number] Reading MD: Inderjit Leonardo Measurements Intervals [place] Rate: 75 P: 74 IN: 192 QRS: -19 QRSD: 115 T: 176 QT: 411 QTc: 458 Interpretive Statements Sinus rhythm LVH with IVCD and secondary repol abnrm nonspecfic st-t No previous ECG available for comparison Electronically Signed On 09-03-2020 11:18:54 EDT by Inderjit Leonardo
[2020-09-03] MEDS ORDERED: SACUBITRIL/VALSARTAN 49-51 MG TAB PO SCH ×2 (12:00→22:00)
[2020-09-03] MEDS: PARoxetine 20 MG TAB PO SCH (12:58)
--- NOTE | 2020-09-03 13:41 | Event Note ---
Date: 09/03/20 Patient seen and examined This Is the second visit after midnight 70-year-old female presented with difficulty breathing Admitted for hypertensive emergency, CHF exacerbation Vitals noted, BP still elevated S1-S2 positive, abdomen benign, diminished breath sounds bilaterally with few crackles and wheezing ED work-up shows chest x-ray cardiomegaly with patchy airspace disease throughout much of the midline and the lower aspect of the right lung emphysematous changes noted. Continue current management and plan as dictated in the H&P Resume home meds, adjust BP medications to keep SBP at least less than 160 Sliding scale insulin, cardiac and consistent carb diet Follow BMP, a.m. labs -It took me about 28 minutes to reevaluate and reasses this patient, discussed with RN/CM, review medical documents, lab results, imaging, medication list and placing order.
--- NOTE | 2020-09-03 14:30 | Consultation ---
History of Present Illness Consult date: 09/03/20 Requesting physician: ANNETTA RANDOLPH Consult reason: congestive heart failure History of present illness: he patient is a 69-year-old female with a past medical history of HFrEF, NICMP, prior LifeVest use (discontinued because it was "too tight), AMI, COPD, PVD s/p LLE stenting, HTN, DM, anemia, ongoing tobacco use. She is followed in our office by Dr. Rodriguez. She presented with c/o progressively worsening SOB for 3 days prior to arrival with exertional dyspnea with 6-10 steps. Patient has completed Covid vaccination series. Patient has reportedly been drinking "lots of water". Cardiology is consulted for acute on chronic heart failure. At time of interview patient is resting comfortably. She does endorse orthopnea and exhibits mild JVD. She describes significant decrease of ADLs at baseline (NYHA III). Breath sounds are decreased bilaterally and mild JVD is noted. Patient denies any weakness, dizziness, chest pain, abdominal pain, N/V/D, recent illness or known exposures. D-dimer and BNP is noted to be elevated at time of admission. Echocardiogram reviewed (03/27/2020): LVEF is 20 to 25%. LV is moderately dilated. LV SF is severely decreased. LV diastolic filling pattern is co nsistent with pseudonormalization. Mild to moderate AR. RVSP 53 mmHg. MPI stress test (2019): Negative for reversible ischemia. Past History Past Medical History: CAD, COPD, diabetes, heart failure, hypertension, hyperlipidemia, other (See HPI) Past Surgical History: No surgical history Social history: no significant social history Family history: no significant family history Medications and Allergies Allergies Allergy/AdvReac Type Severity Reaction Status Date / Time No Known Allergies Allergy Verified 04/08/16 18:42 Home Medications Medication Instructions Recorded Confirmed Last Taken Type Amlodipine Besylate [Norvasc] 5 mg PO QDAY 09/03/20 09/03/20 Unknown History Aspirin 325 mg PO QDAY PRN 09/03/20 09/03/20 Unknown History Clonidine HCl [Kapvay] 0.2 mg PO QHS 09/03/20 09/03/20 Unknown History Digoxin 125 mcg PO QDAY 09/03/20 09/03/20 Unknown History Ferrous Sulfate [Iron 325 MG] 325 mg PO Q12HR 09/03/20 09/03/20 Unknown History Furosemide [Lasix] 20 mg PO QDAY 09/03/20 09/03/20 Unknown History Metformin HCl [metFORMIN] 1,000 mg PO BID 09/03/20 09/03/20 Unknown History PARoxetine HCl [Paxil] 20 mg PO QDAY 09/03/20 09/03/20 Unknown History Sacubitril/Valsartan [Entresto 1 each PO BID 09/03/20 09/03/20 Unknown History 49-51 mg] carvediloL [Coreg] 25 mg PO BID 09/03/20 09/03/20 Unknown History hydrALAZINE [Apresoline] 50 mg PO BID 09/03/20 09/03/20 Unknown History Active Meds: Active Medications Acetaminophen (Acetaminophen 325 Mg Tab) 650 mg PO Q4H PRN PRN Reason: Pain MILD(1-3)/Fever >100.5/GAMEZ Al Hydrox/Mg Hydrox/Simethicone (Alum-Mag Hydroxide-Simethicone [phone]/5ml Oral Liqd 30 Ml) 30 ml PO Q4H PRN PRN Reason: Indigestion Amlodipine Besylate (Amlodipine 5 Mg Tab) 5 mg PO QDAY [facility] Last Admin: 09/03/20 09:43 Dose: 5 mg Documented by: Aspirin (Aspirin Ec 81 Mg Tab) 81 mg PO QDAY [facility] Last Admin: 09/03/20 09:43 Dose: 81 mg Documented by: Atorvastatin Calcium (Atorvastatin 40 Mg Tab) 40 mg PO QHS [facility] Carvedilol (Carvedilol 25 Mg Tab) 25 mg PO BID [facility] Clonidine HCl (Clonidine 0.1 Mg Tab) 0.1 mg PO BID [facility] Digoxin (Digoxin 0.125 Mg Tab) 0.125 mg PO DAILY@1700 [facility] Ferrous Sulfate (Ferrous Sulfate 325 Mg Tab) 325 mg PO QDAY [facility] Last Admin: 09/03/20 09:43 Dose: 325 mg Documented by: Furosemide (Furosemide 40 Mg/4 Ml Inj) 40 mg IV 0600,1800 [facility] Last Admin: 09/03/20 05:59 Dose: Not Given Documented by: Heparin Sodium (Porcine) (Heparin 5,000 Unit/1 Ml Vial) 5,000 unit SUB-Q Q12HR [facility] Last Admin: 09/03/20 09:43 Dose: 5,000 unit Documented by: Hydralazine HCl (Hydralazine 20 Mg/1 Ml Inj) 10 mg IV Q6HR PRN PRN Reason: hypertension Last Admin: 09/03/20 12:58 Dose: 10 mg Documented by: Hydralazine HCl (Hydralazine 25 Mg Tab) 50 mg PO BID [facility] Insulin Human Lispro (Insulin Lispro 100 Unit/Ml) 0 unit SUB-Q AC [facility]; Protocol Last Admin: 09/03/20 11:32 Dose: Not Given Documented by: Levofloxacin (Levofloxacin 750 Mg Tab) 750 mg PO Q48H [facility]; Protocol Stop: 09/10/20 10:01 Magnesium Hydroxide (Magnesium Hydroxide (Mom) Oral Liqd Udc) 30 ml PO Q4H PRN PRN Reason: Constipation Metoclopramide HCl (Metoclopramide 10 Mg/2 Ml Inj) 10 mg IV Q6H PRN PRN Reason: Nausea And Vomiting Nitroglycerin (Nitroglycerin 0.4 Mg Tab Subl) 0.4 mg SL .Q5MIN PRN PRN Reason: Chest Pain Ondansetron HCl (Ondansetron 4 Mg/2 Ml Inj) 4 mg IV Q8H PRN PRN Reason: Nausea And Vomiting Paroxetine HCl (Paroxetine 20 Mg Tab) 20 mg PO DAILY [facility] Last Admin: 09/03/20 12:58 Dose: 20 mg Documented by: Potassium Chloride (Potassium Chloride Er 20 Meq Tab) 20 meq PO QDAY [facility] Last Admin: 09/03/20 09:43 Dose: 20 meq Documented by: Senna (Sennosides 8.6 Mg Tab) 8.6 mg PO Q12HR PRN PRN Reason: Constipation Sodium Chloride (Sodium Chloride 0.9% 10 Ml Flush Syringe) 10 ml IV BID [facility] Last Admin: 09/03/20 09:44 Dose: 10 ml Documented by: Sodium Chloride (Sodium Chloride 0.9% 10 Ml Flush Syringe) 10 ml IV PRN PRN PRN Reason: LINE FLUSH Review of Systems Constitutional: fatigue, no weight loss, no weight gain, no fever, no chills, no sweats, no night sweats Ears, nose, mouth and throat: no ear pain, no ear discharge, no nose pain, no nasal congestion, no nasal discharge Cardiovascular: orthopnea, shortness of breath, dyspnea on exertion, decreased exercise tolerance, no chest pain, no palpitations, no rapid/irregular heart beat, no edema, no syncope, no lightheadedness, no paroxysmal nocturnal dyspnea, no claudication, no phlebitis, no high blood pressure, no leg edema Respiratory: shortness of breath, dyspnea on exertion, no cough, no cough with sputum, no hemoptysis Gastrointestinal: no abdominal pain, no nausea, no vomiting, no diarrhea Genitourinary Female: no flank pain Musculoskeletal: no neck stiffness, no neck pain, no shooting arm pain, no arm numbness/tingling, no low back pain, no shooting leg pain Integumentary: no rash, no pruritis, no redness, no sores, no wounds, no jaundice Neurological: no head injury, no paralysis, no weakness, no parathesias, no numbness, no tingling, no seizures, no syncope Psychiatric: no anxiety Endocrine: no cold intolerance, no heat intolerance Hematologic/Lymphatic: no easy bruising, no easy bleeding Allergic/Immunologic: no urticaria Physical Examination Last Vital Signs Temp 98.3 F 09/03/20 08:24 Pulse 82 09/03/20 12:58 Resp 16 09/03/20 11:44 BP 172/91 09/03/20 12:58 Pulse Ox 100 09/03/20 14:40 General appearance: no acute distress HEENT: Positive: PERRL, Normocephaly, Mucus Membranes Moist Neck: Positive: neck supple, trachea midline Cardiac: Positive: Reg Rate and Rhythm, S1/S2 Lungs: Positive: Decreased Breath Sounds Neuro: Positive: Grossly Intact Abdomen: Positive: Unremarkable, Soft Skin: Negative: Rash, Wound Musculoskeletal: No Pain Extremities: Present: upper extr. pulses, lower extr. pulses. Absent: edema Results 09/04/20 05:53 09/04/20 05:53 Cardiac Enzymes 09/03/20 Range/Units 02:27 AST 23 (5-40) units/L Coagulation 09/03/20 Range/Units 03:42 PT 13.8 (12.2-14.9) Sec. INR 1.00 (0.87-1.13) APTT 31.1 (24.2-36.6) Sec. CBC 09/03/20 Range/Units 02:27 WBC 6.0 (4.5-11.0) K/mm3 RBC 3.68 (3.65-5.03) M/mm3 Hgb 12.6 (10.1-14.3) gm/dl Hct 36.8 (30.3-42.9) % Plt Count 278 (140-440) K/mm3 Lymph # (Auto) 2.3 (1.2-5.4) K/mm3 [place] # (Auto) 0.6 (0.0-0.8) K/mm3 Eos # (Auto) 0.1 (0.0-0.4) K/mm3 Baso # (Auto) 0.0 (0.0-0.1) K/mm3 Comprehensive Metabolic Panel 09/03/20 Range/Units 02:27 Sodium 143 (137-145) mmol/L Potassium 3.7 (3.6-5.0) mmol/L Chloride 105.9 (98-107) mmol/L Carbon Dioxide 22 (22-30) mmol/L BUN 28 H (7-17) mg/dL Creatinine 1.5 H (0.6-1.2) mg/dL Glucose 110 H (65-100) mg/dL Calcium 9.1 (8.4-10.2) mg/dL AST 23 (5-40) units/L ALT 12 (7-56) units/L Alkaline Phosphatase 83 (35-129) units/L Total Protein 6.2 L (6.3-8.2) g/dL Albumin 3.9 (3.9-5) g/dL - Imaging and Cardiology Echo: pending, report reviewed (Echocardiogram reviewed (03/27/2020): LVEF is 20 to 25%. LV is moderately dilated. LV SF is severely decreased. LV diastolic filling pattern is consistent with pseudonormalization. Mild to moderate AR. RVSP 53 mmHg.) EKG: report reviewed, image reviewed EKG interpretations - Telemetry EKG Rhythm: Sinus Rhythm - EKG Sinus rhythms and dysrhythmias: sinus rhythm Assessment and Plan Acute on chronic heart failure reduced ejection fraction in setting of severe nonischemic dilated cardiomyopathy * Echocardiogram reviewed (03/27/2020): LVEF is 20 to 25%. LV is moderately dilated. LV SF is severely decreased. LV diastolic filling pattern is consistent with pseudonormalization. Mild to moderate AR. RVSP 53 mmHg. * Lexiscan (2019): Negative for reversible ischemia * Patient is currently chest pain-free. Troponins are negative x1. Continue to trend CE's. * Patient has been previously prescribed LifeVest for severe cardiomyopathy but was noncompliant stating vest was too tight. * GDMT: ASA 81, atorvastatin 40, Coreg 25. Entresto * Strict I/O's. Optimize volume control: Lasix 40 mg IV daily. Repeat BMP in a.m. * Repeat echo is pending read. Acute respiratory distress in setting of COPD * Pulmonology is following Elevated D-dimer * Management per primary team. Bilateral lower extremity duplex ultrasound is negative for DVT. Hypertensive urgency * Optimize antihypertensive regimen: Initiate clonidine 0.1 mg twice daily, continue Coreg, continue amlodipine. DVT prophylaxis * Heparin SQ Echocardiogram is pending. Continue diuresis. Will follow This patient was seen in conjunction with Dr Leonardo who agrees with assessment and plan of care. - Patient Problems (1) COPD exacerbation Current Visit: Yes Status: Acute (2) Acute on chronic HFrEF (heart failure with reduced ejection fraction) Current Visit: Yes Status: Acute (3) Dilated cardiomyopathy Current Visit: Yes Status: Chronic (4) DVT prophylaxis Current Visit: Yes Status: Acute (5) Diabetes Current Visit: Yes Status: Chronic (6) CAD (coronary artery disease) Current Visit: Yes Status: Chronic (7) History of myocardial infarction Current Visit: Yes Status: Suspected (8) Hypertensive urgency Current Visit: Yes Status: Acute (9) PVD (peripheral vascular disease) Current Visit: No Status: Chronic
[2020-09-03] MEDS ORDERED: ALBUTEROL 2.5 MG/3 ML NEBU IH PRN (14:43)
[2020-09-03] MEDS: DIGOXIN 0.125 MG TAB PO SCH (17:44)
[2020-09-03] MEDS: hydrALAZINE 25 MG TAB PO SCH (21:24)
[2020-09-03] MEDS: carvediloL 25 MG TAB PO SCH (21:25)
[2020-09-03] MEDS: cloNIDine 0.1 MG TAB PO SCH (21:25)
[2020-09-03] MEDS ORDERED: cloNIDine 0.2 MG TAB PO SCH ×2 (22:00)
[2020-09-04 06:29] LABS: Basophils % (Auto) 0.8 % (0.0-1.8); Eosinophils # (Auto) 0.1 K/mm3 (0.0-0.4); Eosinophils % (Auto) 1.6 % (0.0-4.3); Hematocrit 34.8 % (30.3-42.9); Hemoglobin 11.5 gm/dl (10.1-14.3); Mean Corpuscular HGB Conc 33 % (30-34); Mean Corpuscular Volume 100 fl (79-97); Monocytes # (Auto) 0.6 K/mm3 (0.0-0.8); Platelet Count 263 K/mm3 (140-440)
[2020-09-04 06:47] LABS: Albumin 3.5 g/dL (3.9-5); Calcium 8.1 mg/dL (8.4-10.2)
[2020-09-04] MEDS: INSULIN LISPRO 100 UNIT/ML SUB-Q SCH ×3 (07:51→17:25)
[2020-09-04] MEDS: hydrALAZINE 25 MG TAB PO SCH ×2 (09:17→21:41)
[2020-09-04] MEDS: FERROUS SULFATE 325 MG TAB PO SCH (09:17)
[2020-09-04] MEDS: cloNIDine 0.1 MG TAB PO SCH ×2 (09:17→21:41)
[2020-09-04] MEDS: FUROSEMIDE 40 MG/4 ML INJ IV SCH (09:18)
[2020-09-04] MEDS: POTASSIUM CHLORIDE ER 20 MEQ TAB PO SCH (09:18)
[2020-09-04] MEDS: carvediloL 25 MG TAB PO SCH ×2 (09:18→21:40)
[2020-09-04] MEDS: PARoxetine 20 MG TAB PO SCH (09:18)
[2020-09-04] MEDS: HEPARIN 5,000 UNIT/1 ML VIAL SUB-Q SCH ×2 (09:18→21:40)
[2020-09-04] MEDS: ASPIRIN EC 81 MG TAB PO SCH (09:18)
[2020-09-04] MEDS: amLODIPine 5 MG TAB PO SCH (09:18)
[2020-09-04] MEDS ORDERED: NON-FORMULARY EACH (Paroxetine Hcl [Paxil] 30 MG Tablet) PO SCH (10:00)
[2020-09-04] MEDS ORDERED: SACUBITRIL/VALSARTAN 49-51 MG TAB PO SCH (10:00)
[2020-09-04] MEDS ORDERED: levoFLOXacin 750 MG TAB PO SCH (10:00)
--- NOTE | 2020-09-04 10:38 | Progress Note ---
Assessment and Plan Acute on chronic heart failure reduced ejection fraction in setting of severe nonischemic dilated cardiomyopathy * Echocardiogram reviewed (09/03/2020): LVEF is 25 to 30%. LV is mildly dilated. LV SF is moderate to severely decreased. Mild LVH. Hypokinesis in the inferior wall. Mild diastolic dysfunction. RV SF is normal. Moderate AR. Mild MR. RVSP is 49 mmHg. * Lexiscan (2019): Negative for reversible ischemia * Patient is currently chest pain-free. Troponins are negative x2. AMI ruled out. * Patient has been previously prescribed LifeVest for severe cardiomyopathy but was noncompliant stating vest was too uncomfortable. * GDMT: ASA 81, atorvastatin 40, Coreg 25. Entresto * Strict I/O's. Optimize volume control: Lasix 40 mg IV daily. Repeat BMP in a.m. Acute respiratory distress in setting of COPD * Pulmonology is following Hypertensive urgency * Continue current antihypertensive regimen: Amlodipine, Coreg, clonidine, h ydralazine. DVT prophylaxis * Heparin SQ Patient appears to be nearing euvolemia and is in stable cardiac status. Anticipate discharge tomorrow from cardiology standpoint. Will follow This patient was seen in conjunction with Dr Leonardo who agrees with assessment and plan of care. - Patient Problems (1) COPD exacerbation Current Visit: Yes Status: Acute (2) Acute on chronic HFrEF (heart failure with reduced ejection fraction) Current Visit: Yes Status: Acute (3) Dilated cardiomyopathy Current Visit: Yes Status: Chronic (4) DVT prophylaxis Current Visit: Yes Status: Acute (5) Diabetes Current Visit: Yes Status: Chronic (6) CAD (coronary artery disease) Current Visit: Yes Status: Chronic (7) History of myocardial infarction Current Visit: Yes Status: Suspected (8) Hypertensive urgency Current Visit: Yes Status: Acute (9) PVD (peripheral vascular disease) Current Visit: No Status: Chronic Subjective Date of service: 09/04/20 Principal diagnosis: a/c HFrEF Interval history: Patient resting comfortably in bed. She reports no shortness of breath or chest pain overnight Telemetry reviewed: Sinus rhythm 70. Episode of 3 beat V. tach noted overnight Objective Last Vital Signs Temp 98.0 F 09/04/20 07:42 Pulse 65 09/04/20 07:42 Resp 18 09/04/20 07:42 BP 182/57 09/04/20 07:42 Pulse Ox 98 09/04/20 08:59 - Physical Examination General: No Apparent Distress HEENT: Positive: PERRL, Normocephaly, Mucus Membranes Moist Neck: Positive: neck supple, trachea midline Cardiac: Positive: Reg Rate and Rhythm, S1/S2 Lungs: Positive: clear to auscultation (Breath sounds are significantly improved from previous exam) Neuro: Positive: Grossly Intact Abdomen: Positive: Unremarkable, Soft Skin: Negative: Rash, Wound Musculoskeletal: No Pain Extremities: Present: upper extr. pulses, lower extr. pulses, +1 Edema - Labs and Meds Cardiac Enzymes 09/04/20 Range/Units 05:53 AST 14 (5-40) units/L CBC 09/04/20 Range/Units 05:53 WBC 5.7 (4.5-11.0) K/mm3 RBC 3.50 L (3.65-5.03) M/mm3 Hgb 11.5 (10.1-14.3) gm/dl Hct 34.8 (30.3-42.9) % Plt Count 263 (140-440) K/mm3 Lymph # (Auto) 2.0 (1.2-5.4) K/mm3 [place] # (Auto) 0.6 (0.0-0.8) K/mm3 Eos # (Auto) 0.1 (0.0-0.4) K/mm3 Baso # (Auto) 0.0 (0.0-0.1) K/mm3 Comprehensive Metabolic Panel 09/04/20 Range/Units 05:53 Sodium 140 (137-145) mmol/L Potassium 3.5 L (3.6-5.0) mmol/L Chloride 105.1 (98-107) mmol/L Carbon Dioxide 26 (22-30) mmol/L BUN 22 H (7-17) mg/dL Creatinine 1.4 H (0.6-1.2) mg/dL Glucose 105 H (65-100) mg/dL Calcium 8.1 L (8.4-10.2) mg/dL AST 14 (5-40) units/L ALT 10 (7-56) units/L Alkaline Phosphatase 72 (35-129) units/L Total Protein 5.9 L (6.3-8.2) g/dL Albumin 3.5 L (3.9-5) g/dL - Imaging and Cardiology EKG: report reviewed, image reviewed Echo: report reviewed (Echocardiogram reviewed (09/03/2020): LVEF is 25 to 30%. LV is mildly dilated. LV SF is moderate to severely decreased. Mild LVH. Hypokinesis in the inferior wall. Mild diastolic dysfunction. RV SF is normal. Moderate AR. Mild MR. RVSP is 49 mmHg.) - Telemetry EKG Rhythm: Sinus Rhythm - EKG Sinus rhythms and dysrhythmias: sinus rhythm
[2020-09-04] MEDS ORDERED: MAGNESIUM SULFATE 2 GM/50 ML BAG IV ONE (11:00)
[2020-09-04] MEDS: SACUBITRIL/VALSARTAN 49-51 MG TAB PO SCH ×2 (11:51→21:42)
--- NOTE | 2020-09-04 15:43 | Progress Note ---
Assessment and Plan (1) Acute exacerbation of CHF (congestive heart failure) Current Visit: Yes Status: Acute Qualifiers: Plan to address problem: cardiomegaly with patchy airspace disease throughout much of the midline and the lower aspect of the right lung Cardioprotective measuresaspirin, statin, BB, oxygen supplementation Office Machines Sales Representative consulted. Sublingual nitro as needed. Echo ordered follow-up with results (2) Respiratory failure with hypoxia Current Visit: Yes Status: Acute Qualifiers: Plan to address problem: Continue BiPAP, serial ABG Bronchodilator and oxygen supplement. Building Official: Consulted X-ray showed cardiomegaly. Empiric antibiotic with Levaquin. (3) Hypertensive urgency Current Visit: Yes Status: Acute Plan to address problem: Monitor blood pressure Resume home antihypertensive (4) DELISA (acute kidney injury) Current Visit: No Status: Acute Plan to address problem: Monitor kidney function Advised to avoid nephrotoxic drugs including nonsteroidal anti-inflammatory agents (5) Diabetes Current Visit: Yes Status: Acute Plan to address problem: Monitor blood sugar with SSI Check hemoglobin A1c (6) DVT prophylaxis Current Visit: Yes Status: Acute Plan to address problem: Subcutaneous heparin (7) Full code status Current Visit: Yes Status: Acute Plan to address problem: Patient is full code Daily clinical course: 09/04/20: 2D echo showed EF 25 to 30%. Continue diuresis, monitor ins and O's and daily weight. Wean off O2 as tolerated, assess for home O2 requirement. If Clinically stable plan for discharge tomorrow. COVID-19 test is negative. Subjective Date of service: 09/04/20 Principal diagnosis: a/c HFrEF Interval history: Patient seen and examined. Medical records and medication list reviewed. No acute event overnight noted by the RN. Patient c/o difficulty breathing. Patient is tolerating diet. Discussed plan of care at bedside with patient. Objective - Exam Narrative Exam: General appearance: Present: no acute distress - EENT Eyes: PERRL, EOM intact ENT: hearing intact - Neck Neck: supple, normal ROM - Respiratory Respiratory effort: normal Respiratory: bilateral: few crackles - Cardiovascular Rhythm: regular Heart Sounds: Present: S1 & S2 Extremities: No edema - Gastrointestinal General gastrointestinal: Present: soft, non-tender Rectal Exam: deferred - Genitourinary Female genitourinary: deferred - Integumentary Integumentary: clear - Musculoskeletal Musculoskeletal: strength equal bilaterally - Neurologic Neurologic: no focal deficits - Psychiatric Psychiatric: appropriate mood/affect - Constitutional Vitals: Vital Signs - 12hr 09/04/20 09/04/20 09/04/20 05:17 07:42 08:59 Temperature 98.0 F 98.0 F Pulse Rate 69 65 Respiratory 18 18 Rate Blood Pressure 160/58 182/57 O2 Sat by Pulse 100 97 98 Oximetry 09/04/20 09/04/20 09/04/20 10:00 11:51 14:00 Temperature 97.7 F Pulse Rate 64 67 Respiratory 18 18 Rate Blood Pressure 156/54 O2 Sat by Pulse 98 98 Oximetry - Labs CBC & Chem 7: 09/04/20 05:53 09/06/20 04:29 Labs: Abnormal lab results 09/03/20 09/04/20 09/04/20 Range/Units 16:11 05:53 05:53 RBC 3.50 L (3.65-5.03) M/mm3 MCV 100 H (79-97) fl MCH 33 H (28-32) pg RDW 17.0 H (13.2-15.2) % Lymph % (Auto) 36.0 H (13.4-35.0) % [place] % (Auto) 11.0 H (0.0-7.3) % Potassium 3.5 L (3.6-5.0) mmol/L BUN 22 H (7-17) mg/dL Creatinine 1.4 H (0.6-1.2) mg/dL Glucose 105 H (65-100) mg/dL POC Glucose 129 H (70-105) mg/dL Calcium 8.1 L (8.4-10.2) mg/dL Magnesium 1.60 L (1.7-2.3) mg/dL Total Protein 5.9 L (6.3-8.2) g/dL Albumin 3.5 L (3.9-5) g/dL 09/04/20 Range/Units 12:02 RBC (3.65-5.03) M/mm3 MCV (79-97) fl MCH (28-32) pg RDW (13.2-15.2) % Lymph % (Auto) (13.4-35.0) % [place] % (Auto) (0.0-7.3) % Potassium (3.6-5.0) mmol/L BUN (7-17) mg/dL Creatinine (0.6-1.2) mg/dL Glucose (65-100) mg/dL POC Glucose 125 H (70-105) mg/dL Calcium (8.4-10.2) mg/dL Magnesium (1.7-2.3) mg/dL Total Protein (6.3-8.2) g/dL Albumin (3.9-5) g/dL HEART Score - HEART Score Troponin: Troponin T 0.023 ng/mL (0.00-0.029) 09/04/20 05:53
[2020-09-04] MEDS: DIGOXIN 0.125 MG TAB PO SCH (17:26)
[2020-09-05 06:33] LABS: Calcium 8.4 mg/dL (8.4-10.2)
[2020-09-05] MEDS: INSULIN LISPRO 100 UNIT/ML SUB-Q SCH ×3 (07:30→18:51)
[2020-09-05] MEDS ORDERED: amLODIPine 5 MG TAB PO SCH (08:04)
[2020-09-05] MEDS ORDERED: cloNIDine 0.1 MG TAB PO SCH (09:31)
[2020-09-05] MEDS ORDERED: hydrALAZINE 25 MG TAB PO SCH (09:32)
[2020-09-05] MEDS: FUROSEMIDE 40 MG/4 ML INJ IV SCH (12:00)
[2020-09-05] MEDS: cloNIDine 0.2 MG TAB PO SCH ×2 (12:04→22:10)
[2020-09-05] MEDS: ASPIRIN EC 81 MG TAB PO SCH (12:05)
[2020-09-05] MEDS: FERROUS SULFATE 325 MG TAB PO SCH (12:05)
[2020-09-05] MEDS: carvediloL 25 MG TAB PO SCH ×2 (12:05→22:10)
[2020-09-05] MEDS: POTASSIUM CHLORIDE ER 20 MEQ TAB PO SCH (12:06)
[2020-09-05] MEDS: hydrALAZINE 100 MG TAB PO SCH ×2 (12:06→22:10)
[2020-09-05] MEDS: amLODIPine 10 MG TAB PO SCH (12:07)
[2020-09-05] MEDS: PARoxetine 20 MG TAB PO SCH (12:07)
[2020-09-05] MEDS: HEPARIN 5,000 UNIT/1 ML VIAL SUB-Q SCH ×2 (12:08→22:11)
--- NOTE | 2020-09-05 13:16 | Progress Note ---
Assessment and Plan Will continue to optimize antihypertensive regimen. Anticipate discharge later this evening or tomorrow AM when BP is stable. Follow-up with Dr. Rodriguez on 09/24/2020 @ 2pm ([phone]). Will revisit ICD implantation as an outpatient. Pt seen in conjunction with Dr. Leonardo, who agrees with the assessment and plan of care. - Patient Problems (1) Acute on chronic HFrEF (heart failure with reduced ejection fraction) Current Visit: Yes Status: Acute (2) Nonischemic cardiomyopathy Current Visit: Yes Status: Chronic (3) Accelerated hypertension Current Visit: Yes Status: Acute (4) CKD (chronic kidney disease) Current Visit: Yes Status: Chronic (5) HLD (hyperlipidemia) Current Visit: Yes Status: Chronic Qualifiers: Hyperlipidemia type: mixed hyperlipidemia Qualified Code(s): E78.2 - Mixed hyperlipidemia (6) DM2 (diabetes mellitus, type 2) Current Visit: Yes Status: Chronic (7) PVD (peripheral vascular disease) Current Visit: Yes Status: Chronic (8) History of DVT (deep vein thrombosis) Current Visit: Yes Status: Chronic Subjective Date of service: 09/05/20 Principal diagnosis: A/C HFrEF Interval history: Resting comfortably in bed with no complaints. BP elevated this AM. Tele reviewed - SR 60s w/PVCs, 4-bt run of NSVT overnight (pt previously noted to be non-compliant with LifeVest). Objective Last Vital Signs Temp 98.4 F 09/05/20 08:46 Pulse 57 L 09/05/20 14:14 Resp 16 09/05/20 14:14 BP 161/50 09/05/20 14:14 Pulse Ox 96 09/05/20 14:14 - Physical Examination General: No Apparent Distress HEENT: Positive: EOMI, Normocephaly, Mucus Membranes Moist Neck: Positive: neck supple, trachea midline. Negative: JVD/HJR Cardiac: Positive: Reg Rate and Rhythm, S1/S2 Lungs: Positive: clear to auscultation Neuro: Positive: Grossly Intact Abdomen: Positive: Soft. Negative: Tender Skin: Negative: Rash Musculoskeletal: No Pain Extremities: Present: upper extr. pulses, lower extr. pulses, edema (trace BLE) - Labs and Meds Comprehensive Metabolic Panel 09/05/20 Range/Units 05:38 Sodium 143 (137-145) mmol/L Potassium 3.9 (3.6-5.0) mmol/L Chloride 108.3 H (98-107) mmol/L Carbon Dioxide 25 (22-30) mmol/L BUN 20 H (7-17) mg/dL Creatinine 1.3 H (0.6-1.2) mg/dL Glucose 101 H (65-100) mg/dL Calcium 8.4 (8.4-10.2) mg/dL - Imaging and Cardiology EKG: report reviewed, image reviewed Pharmacologic stress test: report reviewed (01/2019 - no evidence of ischemia) Echo: report reviewed (09/03/2020 - EF 25-30%, LV mildly dilated, mild LVH, mild diastolic dysfunction, moderate AR, mild MR, RVSP 49 mmHg) - Telemetry EKG Rhythm: Sinus Rhythm - EKG Sinus rhythms and dysrhythmias: sinus rhythm
[2020-09-05] MEDS: SACUBITRIL/VALSARTAN 49-51 MG TAB PO SCH ×2 (13:58→22:11)
--- NOTE | 2020-09-05 13:58 | Progress Note ---
Subjective Date of service: 09/05/20 Principal diagnosis: a/c HFrEF Interval history: History of present illness Patient is 70 years old female with history of congestive heart failure, COPD, coronary artery disease, hypertension and diabetes. Patient presented to the ER complaining of shortness of breath for the last few days. Patient stated that she is having significant orthopnea. She stated that she get out of breath even if she walks for a short distance. Patient denied any fever or chills. No nausea or vomiting. ED work-up shows chest x-ray cardiomegaly with patchy airspace disease throughout much of the midline and the lower aspect of the right lung emphysematous changes noted. Lab values WBC 6.0, hemoglobin 12.6, platelets 278, creatinine 1.5, glucose 110, BNP 18,124, total protein 6.2. Patient seen in the ED at bedside. Blood pressure very elevated 212/72, patient is on BiPAP shortness of breath. I reviewed medical record vital signs and blood work report. Merchandising Execution Manager is consulted for acute CHF. We will consult cooker sulfate for hypoxia and COPD extubation. Assessment and plan Acute CHF exacerbation cardiomegaly with patchy airspace disease throughout much of the midline and the lower aspect of the right lung Cardioprotective measuresaspirin, statin, BB, oxygen supplementation Cardiology note reviewed Echo results reviewed EF 25 to 30% Continue Lasix IV Monitor electrolytes Possible discharge tomorrow Acute hypoxic respiratory failure Patient is on 3 L via nasal cannula Bronchodilator and oxygen supplement. Safety Equipment Testing Specialist: Consulted/note reviewed X-ray chest reviewed Empiric antibiotic with Levaquin. 6-minute walk on room air in a.m. Hypertensive urgency Poorly controlled Medications adjusted Possible discharge tomorrow if BP is better controlled Acute kidney injury-mild Baseline renal function is not known Monitor kidney function Advised to avoid nephrotoxic drugs including nonsteroidal anti-inflammatory ag ents Hyperglycemia A1c 5.8 Hypomagnesemia Magnesium supplemented DVT prophylaxis Subcutaneous heparin CODE STATUS Patient is full code Daily clinical course: 09/04/20: 2D echo showed EF 25 to 30%. Continue diuresis, monitor ins and O's and daily weight. Wean off O2 as tolerated, assess for home O2 requirement. Clinically stable plan for discharge tomorrow. COVID-19 test is negative. 09/05 patient is alert and oriented, she is on 3 L oxygen via nasal cannula, she o ffers no specific complaints states that breathing is, good now. Denies chest pain or shortness of breath. Cardiology and pulmonary notes reviewed. Lab results reviewed. Possible discharge in a.m. as BP is still poorly controlled. Objective - Constitutional Vitals: Vital Signs - 12hr 09/05/20 09/05/20 09/05/20 04:15 06:00 08:46 Temperature 98.0 F 98.4 F Pulse Rate 61 60 66 Respiratory 18 19 Rate Blood Pressure 178/54 182/57 O2 Sat by Pulse 95 96 Oximetry 09/05/20 09/05/20 09/05/20 09:03 10:00 12:04 Temperature Pulse Rate Respiratory 18 Rate Blood Pressure 185/71 O2 Sat by Pulse 99 98 Oximetry 09/05/20 09/05/20 12:05 12:07 Temperature Pulse Rate 61 Respiratory Rate Blood Pressure 185/71 O2 Sat by Pulse Oximetry General appearance: Present: no acute distress - EENT Eyes: PERRL, EOM intact ENT: hearing intact - Neck Neck: supple, normal ROM - Respiratory Respiratory effort: normal Respiratory: bilateral: CTA - Cardiovascular Rhythm: regular Heart Sounds: Present: S1 & S2 Extremities: No edema - Gastrointestinal General gastrointestinal: Present: soft, non-tender Rectal Exam: deferred - Genitourinary Female genitourinary: deferred - Integumentary Integumentary: clear - Musculoskeletal Musculoskeletal: strength equal bilaterally - Neurologic Neurologic: no focal deficits - Psychiatric Psychiatric: appropriate mood/affect - Labs CBC & Chem 7: 09/04/20 05:53 09/05/20 05:38 Labs: Abnormal lab results 09/05/20 09/05/20 09/05/20 Range/Units 05:38 08:48 11:34 Chloride 108.3 H (98-107) mmol/L BUN 20 H (7-17) mg/dL Creatinine 1.3 H (0.6-1.2) mg/dL Glucose 101 H (65-100) mg/dL POC Glucose 126 H 112 H (70-105) mg/dL HEART Score - HEART Score Troponin: Troponin T 0.023 ng/mL (0.00-0.029) 09/04/20 05:53
[2020-09-05] MEDS ORDERED: SACUBITRIL/VALSARTAN 24-26 MG TAB PO SCH (14:00)
[2020-09-05] MEDS: DIGOXIN 0.125 MG TAB PO SCH (18:50)
[2020-09-06 05:36] LABS: Calcium 8.5 mg/dL (8.4-10.2)
[2020-09-06] MEDS: INSULIN LISPRO 100 UNIT/ML SUB-Q SCH (09:41)
[2020-09-06] MEDS: POTASSIUM CHLORIDE ER 20 MEQ TAB PO SCH (09:43)
[2020-09-06] MEDS: FUROSEMIDE 40 MG/4 ML INJ IV SCH (09:43)
[2020-09-06] MEDS: PARoxetine 20 MG TAB PO SCH (09:43)
[2020-09-06] MEDS: FERROUS SULFATE 325 MG TAB PO SCH (09:43)
[2020-09-06] MEDS: ASPIRIN EC 81 MG TAB PO SCH (09:43)
[2020-09-06] MEDS: cloNIDine 0.2 MG TAB PO SCH (09:44)
[2020-09-06] MEDS: carvediloL 25 MG TAB PO SCH (09:44)
[2020-09-06] MEDS: HEPARIN 5,000 UNIT/1 ML VIAL SUB-Q SCH (09:44)
[2020-09-06] MEDS: amLODIPine 10 MG TAB PO SCH (09:44)
[2020-09-06] MEDS: SACUBITRIL/VALSARTAN 49-51 MG TAB PO SCH (09:44)
[2020-09-06] MEDS: hydrALAZINE 100 MG TAB PO SCH (09:44)
--- NOTE | 2020-09-06 10:01 | Progress Note ---
Assessment and Plan Transition to PO Lasix 40mg daily. BP stable on current regimen. Pt may be discharged from a Cardiology perspective. Follow-up with Dr. Rodriguez on 09/24/2020 @ 2pm ([phone]). Will revisit ICD implantation as an outpatient. Pt seen in conjunction with Dr. Leonardo, who agrees with the assessment and plan of care. - Patient Problems (1) Acute on chronic HFrEF (heart failure with reduced ejection fraction) Current Visit: Yes Status: Acute (2) Nonischemic cardiomyopathy Current Visit: Yes Status: Chronic (3) NSVT (nonsustained ventricular tachycardia) Current Visit: Yes Status: Chronic (4) CKD (chronic kidney disease) Current Visit: Yes Status: Chronic (5) HTN (hypertension) Current Visit: Yes Status: Chronic Qualifiers: Hypertension type: primary hypertension Qualified Code(s): I10 - Essential (primary) hypertension (6) HLD (hyperlipidemia) Current Visit: Yes Status: Chronic Qualifiers: Hyperlipidemia type: mixed hyperlipidemia Qualified Code(s): E78.2 - Mixed hyperlipidemia (7) DM2 (diabetes mellitus, type 2) Current Visit: Yes Status: Chronic (8) PVD (peripheral vascular disease) Current Visit: Yes Status: Chronic (9) Moderate aortic regurgitation Current Visit: Yes Status: Chronic (10) History of DVT (deep vein thrombosis) Current Visit: Yes Status: Chronic Subjective Date of service: 09/06/20 Principal diagnosis: A/C HFrEF Interval history: Resting comfortably in bed with no complaints. States her breathing has significantly improved since arrival. BP much better this AM. Tele reviewed - SR 50-60s w/PVCs, no events overnight. Objective Last Vital Signs Temp 98.2 F 09/06/20 08:38 Pulse 78 09/06/20 09:57 Resp 17 09/06/20 09:57 BP 166/55 09/06/20 09:44 Pulse Ox 100 09/06/20 09:57 - Physical Examination General: No Apparent Distress HEENT: Positive: EOMI, Normocephaly, Mucus Membranes Moist Neck: Positive: neck supple, trachea midline. Negative: JVD/HJR Cardiac: Positive: Reg Rate and Rhythm, S1/S2 Lungs: Positive: clear to auscultation Neuro: Positive: Grossly Intact Abdomen: Positive: Soft. Negative: Tender Skin: Negative: Rash Musculoskeletal: No Pain Extremities: Present: upper extr. pulses, lower extr. pulses. Absent: edema - Labs and Meds Comprehensive Metabolic Panel 09/06/20 Range/Units 04:29 Sodium 140 (137-145) mmol/L Potassium 4.7 D (3.6-5.0) mmol/L Chloride 105.4 (98-107) mmol/L Carbon Dioxide 25 (22-30) mmol/L BUN 23 H (7-17) mg/dL Creatinine 1.3 H (0.6-1.2) mg/dL Glucose 107 H (65-100) mg/dL Calcium 8.5 (8.4-10.2) mg/dL - Imaging and Cardiology EKG: report reviewed, image reviewed Echo: report reviewed (09/03/2020 - EF 25-30%, LV mildly dilated, mild LVH, mild diastolic dysfunction, moderate AR, mild MR, RVSP 49 mmHg) - Telemetry EKG Rhythm: Sinus Rhythm - EKG Sinus rhythms and dysrhythmias: sinus rhythm
--- NOTE | 2020-09-06 11:21 | Discharge Summary ---
Providers - Providers Date of Admission: 09/03/20 05:24 Date of discharge: 09/06/20 Attending physician: KIMBERLY RYAN 09/03/20 05:24 Consult to Physician [CONS] Routine Comment: Consulting Provider: JASE SYLVESTER Physician Instructions: Reason For Exam: chf 09/03/20 07:07 Consult to Physician [CONS] Routine Comment: Consulting Provider: BUDDY BRIGHT Physician Instructions: Reason For Exam: Hypoxia 09/03/20 08:49 Consult to Dietitian/Nutrition [CONS] Routine Physician Instructions: Reason For Exam: Reason for Consult: Pt needs oral supplement 09/03/20 14:45 Physical Therapy Evaluation and Treat [CONS] Routine Comment: please do walk test to assess need for 02 Reason For Exam: PT to eval for weakness Primary care physician: CARDIAC CATH TECH Hospitalization Condition: Stable Hospital course: Patient is 70 years old female with history of congestive heart failure, COPD, coronary artery disease, hypertension and diabetes. Patient presented to the ER complaining of shortness of breath for the last few days. Patient stated that she is having significant orthopnea. She stated that she get out of breath even if she walks for a short distance. Patient denied any fever or chills. No nausea or vomiting. ED work-up shows chest x-ray cardiomegaly with patchy airspace disease throughout much of the midline and the lower aspect of the right lung emphysematous changes noted. Lab values WBC 6.0, hemoglobin 12.6, platelets 278, creatinine 1.5, glucose 110, BNP 18,124, total protein 6.2. Patient seen in the ED at bedside. Blood pressure very elevated 212/72, patient is on BiPAP shortness of breath. I reviewed medical record vital signs and blood work report. Wax Pourer is consulted for acute CHF. We will consult material clerk for hypoxia and COPD extubation. Assessment and plan Acute CHF exacerbation cardiomegaly with patchy airspace disease throughout much of the midline and the lower aspect of the right lung Cardioprotective measuresaspirin, statin, BB, oxygen supplementation Echo results reviewed EF 25 to 30% Continue Lasix Monitor electrolytes Cardiology note reviewed and follow-up with Dr. Brewer on 09/24 Acute hypoxic respiratory failure Improved Room air O2 with 6-minute walk 96% Pl Sql Programmer: Consulted/note reviewed X-ray chest reviewed 6-minute walk on room air-96% on walking for 6 minutes per discussion with RN Nonischemic cardiomyopathy Follow-up with cardiology Hypertensive urgency Improved Medications adjusted Chronic kidney disease stage III Advised to avoid nephrotoxic drugs including nonsteroidal anti-inflammatory agents Hyperglycemia A1c 5.8 Hypomagnesemia Magnesium supplemented CODE STATUS Patient is full code Daily clinical course: 09/04/20: 2D echo showed EF 25 to 30%. Continue diuresis, monitor ins and O's and daily weight. Wean off O2 as tolerated, assess for home O2 requirement. Clinically stable plan for discharge tomorrow. COVID-19 test is negative. 09/05 patient is alert and oriented, she is on 3 L oxygen via nasal cannula, she offers no specific complaints states that breathing is, good now. Denies chest pain or shortness of breath. Cardiology and pulmonary notes reviewed. Lab results reviewed. Possible discharge in a.m. as BP is still poorly controlled. 09/06 patient is alert and oriented and offers no specific complaints. She denies any chest pain or shortness of breath. Cardiology note reviewed. She is medically stable for discharge Disposition: DC-01 TO HOME OR SELFCARE Final Discharge Diagnosis (Prints w/discharge instructions): Acute systolic CHF exacerbation Time spent for discharge: 38 min Core Measure Documentation - Palliative Care Palliative Care/ Comfort Measures: Not Applicable - Core Measures Any of the following diagnoses?: heart failure - Heart Failure Discharge Requirements HUMAIRA/ARB for LVSD if EF <40%: Yes Beta anisa at discharge: Yes Exam - Constitutional Vitals: Temp Pulse Resp BP Pulse Ox 98.2 F 78 17 166/55 100 09/06/20 08:38 09/06/20 09:57 09/06/20 09:57 09/06/20 09:44 09/06/20 09:57 General appearance: Present: no acute distress, well-nourished - EENT Eyes: Present: PERRL, EOM intact ENT: hearing intact, clear oral mucosa - Neck Neck: Present: supple, normal ROM. Absent: masses or JVD - Respiratory Respiratory effort: normal Respiratory: bilateral: CTA, diminished - Cardiovascular Rhythm: regular Heart Sounds: Present: S1 & S2 - Extremities Extremities: No edema - Abdominal General gastrointestinal: Present: soft, non-tender Female genitourinary: Present: deferred - Rectal Rectal Exam: deferred - Integumentary Integumentary: Present: clear - Musculoskeletal Musculoskeletal: strength equal bilaterally - Psychiatric Psychiatric: appropriate mood/affect - Neurologic Neurologic: no focal deficits Plan Activity: advance as tolerated Weight Bearing Status: Weight Bear as Tolerated Diet: regular, low fat, low cholesterol, low salt, diabetic Special Instructions: restrict fluid intake to (1500 ml/day) Follow up with: PRIMARY CARE, [Primary Care Provider] - 3-5 Days ZENAIDA BREWER MD [Staff Physician] - 14 Days Prescriptions: amLODIPine 10 mg PO DAILY #30 tablet hydrALAZINE [Apresoline TAB] 100 mg PO BID #60 tab cloNIDine [Catapres] 0.2 mg PO BID #60 tablet carvediloL [Coreg] 25 mg PO BID #60 Ferrous Sulfate [Feosol 325 MG tab] 325 mg PO QDAY #30 tablet Aspirin EC [Halfprin EC] 81 mg PO QDAY #30 tablet Potassium Chloride [K-Dur] 20 meq PO QDAY #30 tablet Digoxin [Lanoxin] 0.125 mg PO DAILY@1700 #30 tablet Furosemide [Lasix TAB] 40 mg PO QDAY #30 tablet AtorvaSTATin [Lipitor] 40 mg PO QHS #30 tablet PARoxetine [Paxil] 20 mg PO DAILY #30 tablet
[2020-09-06 12:48] VITALS: BP 149/50
[2020-09-07] MEDS ORDERED: FUROSEMIDE 40 MG TAB PO SCH (10:00)
== END 2020-09-06 14:35 | disposition home or self-care (01) | DRG 291 ==
LOC: ED 01:56 → 4A 05:24
PROVIDERS: ADMIT Hospitalist; ATTEND Internal Medicine
PROC: 5A09357 Assistance with Respiratory Ventilation, Less than 24 Consecutive Hours, Continuous Positive Airway Pressure (ICD-10-PCS; principal; 2020-09-03)
DX: I13.0 Hypertensive heart and chronic kidney disease with heart failure and stage 1 through stage 4 chronic kidney disease, or unspecified chronic kidney disease (principal); J96.01 Acute respiratory failure with hypoxia; I50.23 Acute on chronic systolic (congestive) heart failure; N17.9 Acute kidney failure, unspecified; J44.1 Chronic obstructive pulmonary disease with (acute) exacerbation; I47.2 Ventricular tachycardia; I42.0 Dilated cardiomyopathy; I16.0 Hypertensive urgency; E11.65 Type 2 diabetes mellitus with hyperglycemia; I35.1 Nonrheumatic aortic (valve) insufficiency; N18.30 Chronic kidney disease, stage 3 unspecified; E78.5 Hyperlipidemia, unspecified; E11.51 Type 2 diabetes mellitus with diabetic peripheral angiopathy without gangrene; Z20.822 Contact with and (suspected) exposure to COVID-19; E11.22 Type 2 diabetes mellitus with diabetic chronic kidney disease; I25.10 Atherosclerotic heart disease of native coronary artery without angina pectoris; I73.9 Peripheral vascular disease, unspecified; E83.42 Hypomagnesemia; F41.9 Anxiety disorder, unspecified; I25.2 Old myocardial infarction; Z86.718 Personal history of other venous thrombosis and embolism
CPT/HCPCS: 36415; 71045; 80048; 80053; 80162; 82962; 83036; 83735; 83880; 84484; 85025; 85610; 85730; 87641; 93005; 93306; 94640; 94660; 96374; 96375; 96376; G0378; A9270-GY; J0360; J1644; J1940; J1956; J2405; J3475; U0003

== ENCOUNTER 2020-09-25 05:13 | Inpatient (IN) | payer MEDICARE ==
[2020-09-25] MEDS ORDERED: IPRATROPIUM 0.02% NEBU 2.5 ML IH ONE (05:48)
[2020-09-25] MEDS ORDERED: MAGNESIUM SULFATE 2 GM/50 ML BAG IV ONE (05:48)
[2020-09-25] MEDS ORDERED: ALBUTEROL 2.5 MG/3 ML NEBU IH ONE (05:48)
[2020-09-25] MEDS ORDERED: ASPIRIN 325 MG TAB PO ONE (06:17)
--- NOTE | 2020-09-25 06:21 | Emergency Department Report ---
ED Chest Pain HPI - General Chief Complaint: Dyspnea/Respdistress Stated Complaint: diff breathing Time Seen by Provider: 09/25/20 05:54 Source: patient, EMS Mode of arrival: Stretcher Limitations: No Limitations - History of Present Illness Initial Comments: 70-year-old female with complex medical history including hypertension, DM2, CHF (EF of 25-30% on ECHO on 09/03/2020), and COPD brought in by EMS due to shortness of breath and respiratory distress as well as chest pain. The patient states that since last night she has been experiencing recurrent intermittent mid substernal chest pain which is accompanied by shortness of breath. She states t hat the chest pain has been coming and going since last night. She is unable to quantify the duration of the chest pain but says that during periods where she does not have the chest pain she still has mild chest tightness. The pain radiates to her left shoulder and down the left arm. She had a mild dry cough over that period of time. She tried using her nebulizer at home. This did not provide significant relief. According to the EMS report, when they arrived, the patient was hypoxic with an oxygen saturation of 88% on room air which corrected with nonrebreather. The patient is vaccinated against the novel coronavirus. She denies any associated headache, vision change, fever/chills, back pain, increase lower extremity edema, cough productive of mucus, significant abdominal pain, dysuria, nausea/vomiting, focal weakness, sensory changes, or any other complaints. At this time she says she has only mild shortness of breath and some mild residual chest tightness but no pain - Related Data Home Medications Medication Instructions Recorded Confirmed Last Taken Amlodipine Besylate [Norvasc] 5 mg PO QDAY 09/03/20 09/03/20 Unknown Aspirin 325 mg PO QDAY PRN 09/03/20 09/03/20 Unknown Clonidine HCl [Kapvay] 0.2 mg PO QHS 09/03/20 09/03/20 Unknown Digoxin 125 mcg PO QDAY 09/03/20 09/03/20 Unknown PARoxetine HCl [Paxil] 20 mg PO QDAY 09/03/20 09/03/20 Unknown Sacubitril/Valsartan [Entresto 1 each PO BID 09/03/20 09/03/20 Unknown 49-51 mg] Previous Rx's Medication Instructions Recorded Last Taken Type Aspirin EC [Halfprin EC] 81 mg PO QDAY #30 tablet 09/06/20 Unknown Rx AtorvaSTATin [Lipitor] 40 mg PO QHS #30 tablet 09/06/20 Unknown Rx Digoxin [Lanoxin] 0.125 mg PO DAILY@1700 #30 tablet 09/06/20 Unknown Rx Ferrous Sulfate [Feosol 325 MG tab] 325 mg PO QDAY #30 tablet 09/06/20 Unknown Rx Furosemide [Lasix TAB] 40 mg PO QDAY #30 tablet 09/06/20 Unknown Rx PARoxetine [Paxil] 20 mg PO DAILY #30 tablet 09/06/20 Unknown Rx Potassium Chloride [K-Dur] 20 meq PO QDAY #30 tablet 09/06/20 Unknown Rx amLODIPine 10 mg PO DAILY #30 tablet 09/06/20 Unknown Rx carvediloL [Coreg] 25 mg PO BID #60 09/06/20 Unknown Rx cloNIDine [Catapres] 0.2 mg PO BID #60 tablet 09/06/20 Unknown Rx hydrALAZINE [Apresoline TAB] 100 mg PO BID #60 tab 09/06/20 Unknown Rx Allergies Allergy/AdvReac Type Severity Reaction Status Date / Time No Known Allergies Allergy Verified 04/08/16 18:42 Heart Score - HEART Score History: Highly suspicious EKG: Non-specific Age: > 65 Risk factors: > 3 risk factors or hx of atherosclerotic disease Troponin: 1-3x normal limit HEART Score: 8 - EKG Read Time Time EKG Completed: 06:14 EKG Read Time: 06:17 ED Review of Systems ROS: Stated complaint: diff breathing Other details as noted in HPI Constitutional: denies: chills, fever Eyes: denies: eye pain, vision change ENT: denies: ear pain, throat pain Respiratory: cough, shortness of breath Cardiovascular: chest pain. denies: palpitations, edema, syncope Gastrointestinal: denies: abdominal pain, nausea, vomiting Genitourinary: denies: dysuria, frequency Musculoskeletal: denies: back pain, joint swelling Skin: denies: rash Neurological: denies: headache, weakness, numbness ED Past Medical Hx - Past Medical History Previous Medical History?: Yes Hx Hypertension: Yes Hx Heart Attack/AMI: Yes Hx Congestive Heart Failure: Yes Hx Diabetes: Yes Hx Deep Vein Thrombosis: Yes (stents in legs) Hx Liver Disease: No Hx Renal Disease: No Hx Sickle Cell Disease: No Hx Seizures: No Hx Psychiatric Treatment: Yes (ANXIETY) Hx Asthma: Yes Hx COPD: Yes Hx HIV: No Additional medical history: HIGH CHOLESTEROL. 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 MILD HEART ENLARGEMENT - Surgical History Past Surgical History?: Yes Hx Coronary Stent: (STENT PLACEMENT IN LEG) Hx Pacemaker: No Hx Internal Defibrillator: (has a life vest but does not use it pending evaluattion for AICD as an outp) Additional Surgical History: STENTS IN LEGS, BLOOD CLOTS REMOVED FROM HEAD. TUBAL LIGATION - Social History Smoking Status: Former Smoker - Medications Home Medications: Home Medications Medication Instructions Recorded Confirmed Last Taken Type Amlodipine Besylate [Norvasc] 5 mg PO QDAY 09/03/20 09/03/20 Unknown History Aspirin 325 mg PO QDAY PRN 09/03/20 09/03/20 Unknown History Clonidine HCl [Kapvay] 0.2 mg PO QHS 09/03/20 09/03/20 Unknown History Digoxin 125 mcg PO QDAY 09/03/20 09/03/20 Unknown History PARoxetine HCl [Paxil] 20 mg PO QDAY 09/03/20 09/03/20 Unknown History Sacubitril/Valsartan [Entresto 1 each PO BID 09/03/20 09/03/20 Unknown History 49-51 mg] Aspirin EC [Halfprin EC] 81 mg PO QDAY #30 tablet 09/06/20 Unknown Rx AtorvaSTATin [Lipitor] 40 mg PO QHS #30 tablet 09/06/20 Unknown Rx Digoxin [Lanoxin] 0.125 mg PO DAILY@1700 #30 tablet 09/06/20 Unknown Rx Ferrous Sulfate [Feosol 325 MG tab] 325 mg PO QDAY #30 tablet 09/06/20 Unknown Rx Furosemide [Lasix TAB] 40 mg PO QDAY #30 tablet 09/06/20 Unknown Rx PARoxetine [Paxil] 20 mg PO DAILY #30 tablet 09/06/20 Unknown Rx Potassium Chloride [K-Dur] 20 meq PO QDAY #30 tablet 09/06/20 Unknown Rx amLODIPine 10 mg PO DAILY #30 tablet 09/06/20 Unknown Rx carvediloL [Coreg] 25 mg PO BID #60 09/06/20 Unknown Rx cloNIDine [Catapres] 0.2 mg PO BID #60 tablet 09/06/20 Unknown Rx hydrALAZINE [Apresoline TAB] 100 mg PO BID #60 tab 09/06/20 Unknown Rx ED Physical Exam - General Limitations: No Limitations - Other Other exam information: GENERAL: Frail appearing elderly female. No acute distress HEAD: Normocephalic. No obvious signs of trauma. ENT: Dry mucous membranes. Nonrebreather mask in place EYES: Extraocular movements are intact. Pupils are equal round and reactive to light bilaterally NECK: Supple. Full ROM is intact. Trachea is midline. LUNGS: Mildly tachypneic but without respiratory distress or accessory muscle use. Equal chest rise bilaterally. Clear to auscultation bilaterally. CARDIOVASCULAR: Normal rate and rhythm. 3/6 systolic murmur. No rubs. VASCULAR: Cap refill < 2 seconds. Trace edema bilaterally ABDOMEN: Abdomen is soft and nondistended. There is no significant tenderness, guarding or rebound. SKIN: Skin is warm and dry NEURO: Patient is awake, alert, and oriented. 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 No focal deficits. Normal motor and sensory exam throughout. Normal speech. MUSCULOSKELETAL: No obvious deformities. No significant tenderness. Normal ROM throughout. BACK/SPINE: No midline tenderness or step-offs of the C/T/L spine. No co stovertebral angle tenderness. ED Course Vital Signs 09/25/20 09/25/20 09/25/20 05:25 06:12 07:31 Temperature 97.7 F Pulse Rate 71 67 Pulse Rate [ 90 Posterior] Respiratory 16 15 Rate Respiratory 18 Rate [Posterior ] Blood Pressure 176/57 Blood Pressure 174/77 [Left] O2 Sat by Pulse 99 93 Oximetry 09/25/20 09/25/20 09/25/20 08:01 08:06 08:31 Temperature Pulse Rate 69 70 72 Pulse Rate [ Posterior] Respiratory 14 16 Rate Respiratory Rate [Posterior ] Blood Pressure 176/59 176/100 176/57 Blood Pressure [Left] O2 Sat by Pulse 96 93 Oximetry 09/25/20 09/25/20 09/25/20 09:00 09:31 10:01 Temperature Pulse Rate 74 73 69 Pulse Rate [ Posterior] Respiratory 16 18 17 Rate Respiratory Rate [Posterior ] Blood Pressure 176/59 182/64 185/65 Blood Pressure [Left] O2 Sat by Pulse 92 95 95 Oximetry 09/25/20 09/25/20 09/25/20 10:13 10:14 10:31 Temperature Pulse Rate 79 Pulse Rate [ Posterior] Respiratory 16 19 Rate Respiratory Rate [Posterior ] Blood Pressure 196/96 Blood Pressure [Left] O2 Sat by Pulse 95 95 96 Oximetry 09/25/20 09/25/20 09/25/20 11:01 11:11 11:12 Temperature Pulse Rate 74 74 74 Pulse Rate [ Posterior] Respiratory 14 Rate Respiratory Rate [Posterior ] Blood Pressure 211/83 210/84 210/74 Blood Pressure [Left] O2 Sat by Pulse 95 Oximetry 09/25/20 09/25/20 09/25/20 11:13 11:31 11:51 Temperature Pulse Rate 74 81 Pulse Rate [ Posterior] Respiratory 19 Rate Respiratory Rate [Posterior ] Blood Pressure 210/84 203/86 Blood Pressure [Left] O2 Sat by Pulse 95 97 Oximetry 09/25/20 09/25/20 09/25/20 12:00 12:31 13:01 Temperature Pulse Rate 77 71 65 Pulse Rate [ Posterior] Respiratory 23 15 16 Rate Respiratory Rate [Posterior ] Blood Pressure 193/78 186/69 157/52 Blood Pressure [Left] O2 Sat by Pulse 96 96 95 Oximetry 09/25/20 09/25/20 09/25/20 13:31 14:01 14:23 Temperature Pulse Rate 65 68 64 Pulse Rate [ Posterior] Respiratory 14 16 Rate Respiratory Rate [Posterior ] Blood Pressure 157/47 160/53 162/52 Blood Pressure [Left] O2 Sat by Pulse 95 96 Oximetry 09/25/20 09/25/20 09/25/20 14:31 15:01 15:31 Temperature Pulse Rate 71 75 73 Pulse Rate [ Posterior] Respiratory 17 16 16 Rate Respiratory Rate [Posterior ] Blood Pressure 162/56 185/71 175/72 Blood Pressure [Left] O2 Sat by Pulse 96 96 95 Oximetry 09/25/20 09/25/20 09/25/20 16:01 16:30 17:01 Temperature Pulse Rate 76 79 69 Pulse Rate [ Posterior] Respiratory 19 15 15 Rate Respiratory Rate [Posterior ] Blood Pressure 183/68 154/124 164/59 Blood Pressure [Left] O2 Sat by Pulse 96 96 96 Oximetry 09/25/20 17:31 Temperature Pulse Rate 73 Pulse Rate [ Posterior] Respiratory 20 Rate Respiratory Rate [Posterior ] Blood Pressure 142/67 Blood Pressure [Left] O2 Sat by Pulse 96 Oximetry CHIP score - Chip Score Age > 65: (0) No Aspirin use within the Past 7 Days: (1) Yes 3 or more CAD Risk Factors: (1) Yes 2 or more Angina events in past 24 hrs: (1) Yes Known CAD with more than 50% Stenosis: (1) Yes Elevated Cardiac Markers: (0) No ST Deviation Greater than 0.5mm: (0) No CHIP Score: 4 ED Medical Decision Making - Lab Data Result diagrams: 09/25/20 07:03 09/25/20 06:04 Labs 09/25/20 09/25/20 09/25/20 06:04 06:04 06:04 WBC 6.4 RBC 3.82 Hgb 13.0 Hct 38.5 MCV 101 H MCH 34 H MCHC 34 RDW 15.5 H Plt Count 270 Lymph % (Auto) 24.7 Steele % (Auto) 6.6 Eos % (Auto) 1.7 Baso % (Auto) 0.9 Lymph # (Auto) 1.6 Steele # (Auto) 0.4 Eos # (Auto) 0.1 Baso # (Auto) 0.1 Seg Neutrophils % 66.1 Seg Neutrophils # 4.3 PT 14.0 INR 1.03 APTT 30.0 Sodium 140 Potassium 4.4 Chloride 106.3 Carbon Dioxide 21 L Anion Gap 17 BUN 17 Creatinine 1.4 H Estimated GFR 45 BUN/Creatinine Ratio 12 Glucose 113 H Calcium 9.1 Magnesium 2.90 H Total Bilirubin 0.30 AST 18 ALT 12 Alkaline Phosphatase 82 Troponin T NT-Pro-B Natriuret Pep Total Protein 6.5 Albumin 3.9 Albumin/Globulin Ratio 1.5 Triglycerides Cholesterol LDL Cholesterol Direct HDL Cholesterol Cholesterol/HDL Ratio Lipase Digoxin 09/25/20 09/25/20 09/25/20 06:04 06:09 06:43 WBC RBC Hgb Hct MCV MCH MCHC RDW Plt Count Lymph % (Auto) Steele % (Auto) Eos % (Auto) Baso % (Auto) Lymph # (Auto) Steele # (Auto) Eos # (Auto) Baso # (Auto) Seg Neutrophils % Seg Neutrophils # PT INR APTT Sodium Potassium Chloride Carbon Dioxide Anion Gap BUN Creatinine Estimated GFR BUN/Creatinine Ratio Glucose Calcium Magnesium Total Bilirubin AST ALT Alkaline Phosphatase Troponin T 0.071 H NT-Pro-B Natriuret Pep 56907 H Total Protein Albumin Albumin/Globulin Ratio Triglycerides 119 Cholesterol 245 H LDL Cholesterol Direct 180 H HDL Cholesterol 60 H Cholesterol/HDL Ratio 4.08 Lipase 35 Digoxin 0.8 L 09/25/20 09/25/20 07:03 07:03 WBC RBC Hgb 13.2 Hct 39.1 MCV MCH MCHC RDW Plt Count 282 Lymph % (Auto) Steele % (Auto) Eos % (Auto) Baso % (Auto) Lymph # (Auto) Steele # (Auto) Eos # (Auto) Baso # (Auto) Seg Neutrophils % Seg Neutrophils # PT 14.0 INR 1.03 APTT 28.9 Sodium Potassium Chloride Carbon Dioxide Anion Gap BUN Creatinine Estimated GFR BUN/Creatinine Ratio Glucose Calcium Magnesium Total Bilirubin AST ALT Alkaline Phosphatase Troponin T NT-Pro-B Natriuret Pep Total Protein Albumin Albumin/Globulin Ratio Triglycerides Cholesterol LDL Cholesterol Direct HDL Cholesterol Cholesterol/HDL Ratio Lipase Digoxin - EKG Data -: EKG Interpreted by Me - EKG Data When compared to previous EKG there are: no significant change 09/25/20 06:24 Normal sinus rhythm. Normal axis. Intraventricular conduction delay. Otherwise normal intervals. No ectopy. LVH associated changes, no significanrt ST segment abnormalities and unchanged from prior EKG - Radiology Data CHEST 1 VIEW 09/25/2020 5:45 AM INDICATION / CLINICAL INFORMATION: Chest Pain. COMPARISON: 09/03/2020 FINDINGS: Patient is rotated SUPPORT DEVICES: None. HEART / MEDIASTINUM: There is enlargement of the cardiac silhouette. There is some prominence of the right hilum which is likely vascular LUNGS / PLEURA: There is mild worsening in bilateral airspace opacity. No pneumothorax. ADDITIONAL FINDINGS: No significant additional findings. IMPRESSION: 1. Is worsening airspace opacity in the lower lung zones. 2. There is prominence of the right hilum which is likely vascular. Signer Name: Miko Monge MD Signed: 09/25/2020 5:50 AM Workstation Name: [id number] - Medical Decision Making 70-year-old female with complex medical history including COPD and CHF with EF of 25 to 30% based on echo performed on 09/03 presents with intermittent chest pain and shortness of breath since last night. It is intermittent but recurrent. She does have constant chest tightness between episodes of pain. It is radiating down the left arm. She does have a dry cough. She is vaccinated against the novel coronavirus. According to the EMS report, the patient was hypoxic with an oxygen saturation of 88% on room air when they arrived. On initial assessment, the patient is afebrile and with normal vitals with exception of elevated blood pressure. On my assessment, the patient was in no respiratory distress. Lung auscultation reveals clear lung jimenez bilaterally. She has a 2 out of 6 systolic murmur. There is only trace edema bilaterally. The remainder of her exam is grossly within normal limits. The nonrebreather mask was removed after my exam. Given her history of COPD we will give a breathing treatment. Will also give full strength aspirin. We will also perform broad work-up including a full set of labs, EKG, chest x-ray, and if there is no obvious identifiable cause of the patient's hypoxia we will perform CTA of the chest to assess for evidence of pulmonary embolism. Repeat assessment at 6:45 AM, the patient reports feeling much better. Her chest pain has resolved. Her breathing is improved. At 7 AM, labs have resulted and reveal no significant leukocytosis or anemia. Coags are normal. Chemistry reveals elevated creatinine of 1.4 which is at the patient's baseline based on review of prior medical records. BNP is elevated at 22,167. Troponin is elevated at 0.071. Chest x-ray shows worsening pulmonary opacities similar in distribution to her last presentation with CHF exacerbation. Again, she is afebrile and with no leukocytosis to suggest infection. Given elevated troponin and 70-year-old patient with chest pain, will treat for NSTEMI with heparin bolus and heparin drip. We will also ordered Nitropaste to improve the patient's breathing and chest pain as well as to treat her blood pressure. 60 mg of IV Lasix ordered. We will continue to follow closely. On repeat assessment again at 7:30 AM, the patient again says that she feels even better. Vital signs are stable. She has appropriate oxygen saturation on 3 L via nasal cannula. All results were explained and discussed with the patient along with the plan of management including admission. The patient expresses understanding agreement with the plan of care. At 7:30 AM, I spoke with Dr. Ragland, the on-call hospitalist who regarding the case and he accepts the patient for admission and will assume care. He request that I place a cardiology consult from the ER which I have done. The medical secretary receptionist, Silva placed a call to [facility] and they stated that Dr. Leonardo and the PA will come by to discuss the consult. At 8:20 AM, I personally spoke over the phone with Gonzalez, the PA for Dr. Leonardo. He says they will come assess the patient now and give inpatient recommendations. Critical Care Time: Yes Critical care time in (mins) excluding proc time.: 60 Critical care attestation.: If time is entered above; I have spent that time in minutes in the direct care of this critically ill patient, excluding procedure time. Critical care time was spent in the assessment, evaluation, work-up, and management of CHF exacerbation with NSTEMI and hypoxia requiring supplemental oxygen, IV heparin and IV heparin drip, along with frequent reassessm ent/reevaluation and coordination between specialists. ED Disposition Clinical Impression: NSTEMI (non-ST elevated myocardial infarction), CHF exacerbation, Hypoxia Disposition: OP ADMIT IP TO THIS HOSP Is pt being admited?: Yes Condition: Stable
[2020-09-25 06:26] LABS: Basophils # (Auto) 0.1 K/mm3 (0.0-0.1); Basophils % (Auto) 0.9 % (0.0-1.8); Eosinophils # (Auto) 0.1 K/mm3 (0.0-0.4); Eosinophils % (Auto) 1.7 % (0.0-4.3); Hematocrit 38.5 % (30.3-42.9); Lymphocytes # (Auto) 1.6 K/mm3 (1.2-5.4); Lymphocytes % (Auto) 24.7 % (13.4-35.0); Mean Corpuscular HGB Conc 34 % (30-34); Mean Corpuscular Volume 101 fl (79-97); Monocytes # (Auto) 0.4 K/mm3 (0.0-0.8); Monocytes % (Auto) 6.6 % (0.0-7.3); Platelet Count 270 K/mm3 (140-440); Red Blood Count 3.82 M/mm3 (3.65-5.03); Red Cell Distribution Width 15.5 % (13.2-15.2)
[2020-09-25 06:36] LABS: INR 1.03 (0.87-1.13)
[2020-09-25 06:48] LABS: Albumin 3.9 g/dL (3.9-5); Calcium 9.1 mg/dL (8.4-10.2)
--- NOTE | 2020-09-25 06:54 | XRay Report ---
CHEST 1 VIEW 09/25/2020 5:45 AM INDICATION / CLINICAL INFORMATION: Chest Pain. COMPARISON: 09/03/2020 FINDINGS: Patient is rotated SUPPORT DEVICES: None. HEART / MEDIASTINUM: There is enlargement of the cardiac silhouette. There is some prominence of the right hilum which is likely vascular LUNGS / PLEURA: There is mild worsening in bilateral airspace opacity. No pneumothorax. ADDITIONAL FINDINGS: No significant additional findings. IMPRESSION: 1. Is worsening airspace opacity in the lower lung zones. 2. There is prominence of the right hilum which is likely vascular. Signer Name: Miko Monge MD Signed: 09/25/2020 6:50 AM Workstation Name: [id number]
[2020-09-25] MEDS ORDERED: NITROGLYCERIN 2% OINT 1 GM TP ONE (07:00)
[2020-09-25] MEDS ORDERED: HEPARIN 10,000 UNITS/10 ML VIAL IV PRN (07:03)
[2020-09-25] MEDS ORDERED: HEPARIN 10,000 UNITS/10 ML VIAL IV ONE (07:03)
[2020-09-25] MEDS ORDERED: FUROSEMIDE 100 MG/10 ML INJ IV ONE (07:04)
[2020-09-25 07:07] LABS: Chol/HDL Ratio 4.08 %
--- NOTE | 2020-09-25 07:26 | History and Physical Report ---
History of Present Illness Date of examination: 09/25/20 Date of admission: 09/25/20 Chief complaint: chest pain with shortness of breath History of present illness: Patient is a poor historian and report collaborated with the ED doc 70-year-old female with complex medical history including hypertension, DM2, CHF (EF of 25-30% on ECHO on 09/03/2020), prior stent to the leg and COPD as result of prior Tobacco history, brought in by EMS due to shortness of breath and respiratory distress as well as chest pain. The patient states that since last night she has been experiencing recurrent intermittent mid substernal chest pain which is accompanied by shortness of breath. She states that the chest pain has been coming and going since last night. She is unable to quantify the duration of the chest pain but says that during periods where she does not have the chest pain she still has mild chest tightness. The pain radiates to her left shoulder and down the left arm. She had a mild dry cough over that period of time. She tried using her nebulizer at home. This did not provide significant relief. According to the EMS report, when they arrived, the patient was hypoxic with an oxygen saturation of 88% on room air which corrected with nonrebreather. The patient is vaccinated against the novel coronavirus. She denies any associated headache, vision change, fever/chills, back pain, increase lower extremity edema, cough productive of mucus, significant abdominal pain, dysuria, nausea/vomiting, focal weakness, sensory changes, or any other complaints. At this time she says she has only mild shortness of breath and some mild residual chest tightness but no pain She has had multiple hospitalization recently had a recent CTA In the ER she began to have some improvement and was reduced to 3 liters [place] Past History Past Medical History: CAD, COPD, hypertension, hyperlipidemia, other (prior clot in leg, with stent placement) Past Surgical History: Other (stent to leg) Social history: lives with family, full code. denies: smoking (quit years ago), IV drug use Family history: no significant family history Medications and Allergies Allergies Allergy/AdvReac Type Severity Reaction Status Date / Time No Known Allergies Allergy Verified 04/08/16 18:42 Home Medications Medication Instructions Recorded Confirmed Last Taken Type Amlodipine Besylate [Norvasc] 5 mg PO QDAY 09/03/20 09/03/20 Unknown History Aspirin 325 mg PO QDAY PRN 09/03/20 09/03/20 Unknown History Clonidine HCl [Kapvay] 0.2 mg PO QHS 09/03/20 09/03/20 Unknown History Digoxin 125 mcg PO QDAY 09/03/20 09/03/20 Unknown History PARoxetine HCl [Paxil] 20 mg PO QDAY 09/03/20 09/03/20 Unknown History Sacubitril/Valsartan [Entresto 1 each PO BID 09/03/20 09/03/20 Unknown History 49-51 mg] Aspirin EC [Halfprin EC] 81 mg PO QDAY #30 tablet 09/06/20 Unknown Rx AtorvaSTATin [Lipitor] 40 mg PO QHS #30 tablet 09/06/20 Unknown Rx Digoxin [Lanoxin] 0.125 mg PO DAILY@1700 #30 tablet 09/06/20 Unknown Rx Ferrous Sulfate [Feosol 325 MG tab] 325 mg PO QDAY #30 tablet 09/06/20 Unknown Rx Furosemide [Lasix TAB] 40 mg PO QDAY #30 tablet 09/06/20 Unknown Rx PARoxetine [Paxil] 20 mg PO DAILY #30 tablet 09/06/20 Unknown Rx Potassium Chloride [K-Dur] 20 meq PO QDAY #30 tablet 09/06/20 Unknown Rx amLODIPine 10 mg PO DAILY #30 tablet 09/06/20 Unknown Rx carvediloL [Coreg] 25 mg PO BID #60 09/06/20 Unknown Rx cloNIDine [Catapres] 0.2 mg PO BID #60 tablet 09/06/20 Unknown Rx hydrALAZINE [Apresoline TAB] 100 mg PO BID #60 tab 09/06/20 Unknown Rx Active Meds: Active Medications Heparin Sodium (Porcine) (Heparin 10,000 Units/10 Ml Vial) 2,400 unit 40 unit/kg (2400 unit) IV Q6H PRN PRN Reason: Anti-Xa Assay < 0.1 units/ml Heparin Sodium/Sodium Chloride (Heparin/ 0.45% Nacl-25,000 Unit/500 Ml) 25,000 unit in 500 mls @ 18 mls/hr IV TITRATE [facility]; Protocol Review of Systems All systems: negative Constitutional: malaise, lethargy, no fever, no chills, no sweats, no night sweats, no fatigue, no weakness, no chronic headaches, no poor appetite, no daytime sleepiness, no chronic pain Cardiovascular: chest pain, orthopnea, shortness of breath, dyspnea on exertion, no palpitations, no rapid/irregular heart beat, no edema, no syncope, no lightheadedness Respiratory: shortness of breath, dyspnea on exertion, no cough, no cough with sputum, no excessive sputum, no hemoptysis, no congestion, no wheezing, no pleurisy, no pain, no pain on inspiration, no snoring, no sleep apnea Gastrointestinal: no abdominal pain, no nausea, no diarrhea, no constipation, no melena, no hematochezia, no loss of appetite Integumentary: no rash, no redness Neurological: no paralysis, no weakness, no numbness, no seizures, no tremors, no tic, no change in speech Endocrine: no excessive thirst, no polyuria, no excessive sweating, no flushing, no deepening of the voice, no thyroid mass, no low blood sugars Exam - Physical Exam Narrative exam: VITAL SIGNS: Reviewed. GENERAL: The patient appears normally developed, appears lethargic, short of breath short of breath vital signs as documented. HEAD: No signs of head trauma. EYES: Pupils are equal. Extraocular motions intact. EARS: Hearing grossly intact. MOUTH: Oropharynx is normal. NECK: No adenopathy, no JVD. CHEST: Chest with diminished sounds bilaterally with shallow breathing. No wheezes, rales, or rhonchi. CARDIAC: Regular rate and rhythm. S1 and S2, without murmurs, gallops, or rubs. VASCULAR: No Edema. Peripheral pulses normal and equal in all extremities. ABDOMEN: Soft, non tender and non distended. No rebound or guarding, and no masses palpated. Bowel Sounds normal. MUSCULOSKELETAL: Good range of motion of all major joints. Extremities without clubbing, cyanosis or edema. NEUROLOGIC EXAM: Alert and oriented x 3 No focal sensory or strength deficits. Speech normal. Follows commands. PSYCHIATRIC: Mood normal. SKIN: detail exam as documented in skin assessment - Constitutional Vitals: Temp Pulse Resp BP Pulse Ox 97.7 F 90 18 174/77 99 09/25/20 05:25 09/25/20 06:12 09/25/20 06:12 09/25/20 05:25 09/25/20 05:25 HEART Score - HEART Score EKG: Non-specific Age: > 65 Risk factors: > 3 risk factors or hx of atherosclerotic disease Troponin: Troponin T 0.071 ng/mL (0.00-0.029) H 09/25/20 06:04 Troponin: 1-3x normal limit Results - Labs CBC & Chem 7: 09/25/20 06:04 09/25/20 06:04 Labs: Laboratory Last Values WBC 6.4 K/mm3 (4.5-11.0) 09/25/20 06:04 RBC 3.82 M/mm3 (3.65-5.03) 09/25/20 06:04 Hgb 13.0 gm/dl (10.1-14.3) 09/25/20 06:04 Hct 38.5 % (30.3-42.9) 09/25/20 06:04 MCV 101 fl (79-97) H 09/25/20 06:04 MCH 34 pg (28-32) H 09/25/20 06:04 MCHC 34 % (30-34) 09/25/20 06:04 RDW 15.5 % (13.2-15.2) H 09/25/20 06:04 Plt Count 270 K/mm3 (140-440) 09/25/20 06:04 Lymph % (Auto) 24.7 % (13.4-35.0) 09/25/20 06:04 [place] % (Auto) 6.6 % (0.0-7.3) 09/25/20 06:04 Eos % (Auto) 1.7 % (0.0-4.3) 09/25/20 06:04 Baso % (Auto) 0.9 % (0.0-1.8) 09/25/20 06:04 Lymph # (Auto) 1.6 K/mm3 (1.2-5.4) 09/25/20 06:04 [place] # (Auto) 0.4 K/mm3 (0.0-0.8) 09/25/20 06:04 Eos # (Auto) 0.1 K/mm3 (0.0-0.4) 09/25/20 06:04 Baso # (Auto) 0.1 K/mm3 (0.0-0.1) 09/25/20 06:04 Seg Neutrophils % 66.1 % (40.0-70.0) 09/25/20 06:04 Seg Neutrophils # 4.3 K/mm3 (1.8-7.7) 09/25/20 06:04 PT 14.0 Sec. (12.2-14.9) 09/25/20 06:04 INR 1.03 (0.87-1.13) 09/25/20 06:04 APTT 30.0 Sec. (24.2-36.6) 09/25/20 06:04 Sodium 140 mmol/L (137-145) 09/25/20 06:04 Potassium 4.4 mmol/L (3.6-5.0) 09/25/20 06:04 Chloride 106.3 mmol/L (98-107) 09/25/20 06:04 Carbon Dioxide 21 mmol/L (22-30) L 09/25/20 06:04 Anion Gap 17 mmol/L 09/25/20 06:04 BUN 17 mg/dL (7-17) 09/25/20 06:04 Creatinine 1.4 mg/dL (0.6-1.2) H 09/25/20 06:04 Estimated GFR 45 ml/min 09/25/20 06:04 BUN/Creatinine Ratio 12 % 09/25/20 06:04 Glucose 113 mg/dL (65-100) H 09/25/20 06:04 Calcium 9.1 mg/dL (8.4-10.2) 09/25/20 06:04 Magnesium 2.90 mg/dL (1.7-2.3) H 09/25/20 06:04 Total Bilirubin 0.30 mg/dL (0.1-1.2) 09/25/20 06:04 AST 18 units/L (5-40) 09/25/20 06:04 ALT 12 units/L (7-56) 09/25/20 06:04 Alkaline Phosphatase 82 units/L (35-129) 09/25/20 06:04 Troponin T 0.071 ng/mL (0.00-0.029) H 09/25/20 06:04 NT-Pro-B Natriuret Pep 38070 pg/mL (0-900) H 09/25/20 06:09 Total Protein 6.5 g/dL (6.3-8.2) 09/25/20 06:04 Albumin 3.9 g/dL (3.9-5) 09/25/20 06:04 Albumin/Globulin Ratio 1.5 % 09/25/20 06:04 Triglycerides 119 mg/dL (2-149) 09/25/20 06:04 Cholesterol 245 mg/dL (50-199) H 09/25/20 06:04 LDL Cholesterol Direct 180 mg/dL (50-130) H 09/25/20 06:04 HDL Cholesterol 60 mg/dL (40-59) H 09/25/20 06:04 Cholesterol/HDL Ratio 4.08 % 09/25/20 06:04 Lipase 35 units/L (13-60) 09/25/20 06:09 Digoxin 0.8 ng/mL (0.9-2.0) L 09/25/20 06:43 Assessment and Plan Assessment and plan: Patient is a poor historian and report collaborated with the ED doc 70-year-old female with complex medical history including hypertension, DM2, CHF (EF of 25-30% on ECHO on 09/03/2020), prior stent to the leg and COPD as result of prior Tobacco history, brought in by EMS due to shortness of breath and respiratory distress as well as chest pain. The patient states that since last night she has been experiencing recurrent intermittent mid substernal chest pain which is accompanied by shortness of breath. She states that the chest pain has been coming and going since last night. She is unable to quantify the duration of the chest pain but says that during periods where she does not have the chest pain she still has mild chest tightness. The pain radiates to her left shoulder and down the left arm. She had a mild dry cough over that period of time. She tried using her nebulizer at home. This did not provide significant relief. According to the EMS report, when they arrived, the patient was hypoxic with an oxygen saturation of 88% on room air which corrected with nonrebreather. The patient is vaccinated against the novel coronavirus. She denies any associated headache, vision change, fever/chills, back pain, increase lower extremity edema, cough productive of mucus, significant abdominal pain, dysuria, nausea/vomiting, focal weakness, sensory changes, or any other complaints. At this time she says she has only mild shortness of breath and some mild residual chest tightness but no pain She has had multiple hospitalization recently had a recent CTA In the ER she began to have some improvement and was reduced to 3 liters NC Chest x-ray shows patchy airspace disease NSTEMI (non-ST elevated myocardial infarction), CHF exacerbation, Hypoxia Assessment and plan Acute CHF exacerbation Non-ST elevated CA Acute hypoxic respiratory failure Nonischemic cardiomyopathy Acute kidney injury on chronic kidney disease stage IIIlikely secondary to vasomotor nephropathy Hypertensive urgency PAD with history of DVT Plan Admit to Telemetry Continue oxygen and wean as tolerated Patient with recurrent admission will need Home health on discharge with Enrollment in Heart failure program Nebs PRN and will recommend outpatient PFT Pulmonary consult if Respiratory status not improving Start heart failure GDMT Cardiology consult Continue Heparin gtt pending cardiology follow up Is my understanding that the patient has a LifeVest but has not been using it and is awaiting outpatient work-up for AICD placement. Will defer to cardiology Diet education on low-salt diet DVT and GI prophylaxis Plan of care discussed in detail with the patient she verbalized understanding. We will also reach out to family CODE STATUS Patient is full code Advance Directives: Yes Plan of care discussed with patient/family: Yes
[2020-09-25] MEDS ORDERED: ONDANSETRON 4 MG/2 ML INJ IV PRN (09:00)
[2020-09-25] MEDS ORDERED: MORPHINE 2 MG/1 ML INJ IV PRN (09:00)
[2020-09-25] MEDS ORDERED: ALBUTEROL 2.5 MG/3 ML NEBU IH PRN (09:00)
[2020-09-25] MEDS ORDERED: ACETAMINOPHEN 325 MG TAB PO PRN (09:00)
[2020-09-25] MEDS ORDERED: NITROGLYCERIN 0.4 MG TAB SUBL SL PRN (09:00)
[2020-09-25] MEDS ORDERED: NALOXONE 0.4 MG/1 ML INJ IV PRN (09:00)
[2020-09-25] MEDS: HEPARIN/ 0.45% NACL DRIP 25,000 UNIT/500 ML BAG IV SCH (09:03)
[2020-09-25 09:52] LABS: Hematocrit 39.1 % (30.3-42.9); Hemoglobin 13.2 gm/dl (10.1-14.3)
[2020-09-25] MEDS ORDERED: FAMOTIDINE 20 MG TAB PO SCH (10:00)
[2020-09-25] MEDS ORDERED: hydrALAZINE 100 MG TAB PO SCH (10:00)
[2020-09-25] MEDS ORDERED: amLODIPine 10 MG TAB PO SCH (10:00)
[2020-09-25 10:22] LABS: INR 1.03 (0.87-1.13); Partial Thromboplastin Time 28.9 Sec. (24.2-36.6)
[2020-09-25] MEDS ORDERED: hydrALAZINE 20 MG/1 ML INJ IV ONE (11:00)
[2020-09-25] MEDS: carvediloL 25 MG TAB PO SCH ×2 (11:11→22:38)
[2020-09-25] MEDS: cloNIDine 0.2 MG TAB PO SCH ×2 (11:12→22:38)
[2020-09-25] MEDS: FERROUS SULFATE 325 MG TAB PO SCH ×2 (11:12→22:38)
[2020-09-25] MEDS: FAMOTIDINE 10 MG TAB PO SCH ×2 (11:13→22:38)
[2020-09-25] MEDS: SENNOSIDES 8.6 MG TAB PO SCH ×2 (11:14→22:39)
--- NOTE | 2020-09-25 11:21 | Consultation ---
History of Present Illness Consult date: 09/25/20 Requesting physician: CHIQUIS MARTINEZ Consult reason: elevated troponin History of present illness: Patient is a 70-year-old female with a significant medical history of cardiomyopathy (EF 25 to 30%), diabetes, COPD, hypertension, peripheral artery disease, history of tobacco use. She is followed by Dr. Rodriguez with our office. Patient presents to [facility] ER via EMS due to shortness of breath and chest pain x1 day. Chest pain is described as substernal to left-sided and tight with no radiation. No aggravating or relieving factors. Chest pain resolved after albuterol nebulized treatment administered in the field. EMS reports initial SPO2 of 88% which improved with O2 via NRB. Cardiology is consulted for elevated troponins, exacerbation of chronic heart failure. At time of exam patient is complaining of mild shortness of breath with supplemental oxygen. She denies any chest pain, weakness, dizziness, abdominal pain, emesis results the, recent illness or known exposures. Physical exam reveals well compensated heart failure. Patient is near euvolemia with no extremity edema. Breath sounds are slightly diminished with crackles on the left. Past History Past Medical History: CAD, COPD, hypertension, hyperlipidemia, other (prior clot in leg, with stent placement, see HPI) Past Surgical History: Other (stent to leg) Social history: lives with family, full code. denies: smoking (quit years ago), IV drug use Family history: no significant family history Medications and Allergies Allergies Allergy/AdvReac Type Severity Reaction Status Date / Time No Known Allergies Allergy Verified 04/08/16 18:42 Home Medications Medication Instructions Recorded Confirmed Last Taken Type Amlodipine Besylate [Norvasc] 5 mg PO QDAY 09/03/20 09/03/20 Unknown History Aspirin 325 mg PO QDAY PRN 09/03/20 09/03/20 Unknown History Clonidine HCl [Kapvay] 0.2 mg PO QHS 09/03/20 09/03/20 Unknown History Digoxin 125 mcg PO QDAY 09/03/20 09/03/20 Unknown History PARoxetine HCl [Paxil] 20 mg PO QDAY 09/03/20 09/03/20 Unknown History Sacubitril/Valsartan [Entresto 1 each PO BID 09/03/20 09/03/20 Unknown History 49-51 mg] Aspirin EC [Halfprin EC] 81 mg PO QDAY #30 tablet 09/06/20 Unknown Rx AtorvaSTATin [Lipitor] 40 mg PO QHS #30 tablet 09/06/20 Unknown Rx Digoxin [Lanoxin] 0.125 mg PO DAILY@1700 #30 tablet 09/06/20 Unknown Rx Ferrous Sulfate [Feosol 325 MG tab] 325 mg PO QDAY #30 tablet 09/06/20 Unknown Rx Furosemide [Lasix TAB] 40 mg PO QDAY #30 tablet 09/06/20 Unknown Rx PARoxetine [Paxil] 20 mg PO DAILY #30 tablet 09/06/20 Unknown Rx Potassium Chloride [K-Dur] 20 meq PO QDAY #30 tablet 09/06/20 Unknown Rx amLODIPine 10 mg PO DAILY #30 tablet 09/06/20 Unknown Rx carvediloL [Coreg] 25 mg PO BID #60 09/06/20 Unknown Rx cloNIDine [Catapres] 0.2 mg PO BID #60 tablet 09/06/20 Unknown Rx hydrALAZINE [Apresoline TAB] 100 mg PO BID #60 tab 09/06/20 Unknown Rx Active Meds: Active Medications Acetaminophen (Acetaminophen 325 Mg Tab) 650 mg PO Q4H PRN PRN Reason: Pain MILD(1-3)/Fever >100.5/GAMEZ Albuterol (Albuterol 2.5 Mg/3 Ml Nebu) 2.5 mg IH Q4HRT PRN PRN Reason: Shortness Of Breath Amlodipine Besylate (Amlodipine 10 Mg Tab) 10 mg PO QDAY [facility] Aspirin (Aspirin 81 Mg Tab Chew) 81 mg PO QDAY [facility] Atorvastatin Calcium (Atorvastatin 40 Mg Tab) 40 mg PO QHS [facility] Carvedilol (Carvedilol 25 Mg Tab) 25 mg PO BID [facility] Clonidine HCl (Clonidine 0.2 Mg Tab) 0.2 mg PO Q12HR [facility] Digoxin (Digoxin 0.125 Mg Tab) 0.125 mg PO DAILY@1700 [facility] Famotidine (Famotidine 10 Mg Tab) 10 mg PO BID [facility] Ferrous Sulfate (Ferrous Sulfate 325 Mg Tab) 325 mg PO BID [facility] Furosemide (Furosemide 20 Mg/2 Ml Inj) 20 mg IV BID@0600,1800 [facility] Heparin Sodium (Porcine) (Heparin 10,000 Units/10 Ml Vial) 2,400 unit 40 un it/kg (2400 unit) IV Q6H PRN PRN Reason: Anti-Xa Assay < 0.1 units/ml Hydralazine HCl (Hydralazine 100 Mg Tab) 100 mg PO TID [facility] Heparin Sodium/Sodium Chloride (Heparin/ 0.45% Nacl-25,000 Unit/500 Ml) 25,000 unit in 500 mls @ 18 mls/hr IV TITRATE [facility]; Protocol Last Admin: 09/25/20 09:03 Dose: 900 units/hr, 18 mls/hr Documented by: Isosorbide Mononitrate (Isosorbide Mononitrate Er 30 Mg Tab) 30 mg PO QDAY [facility] Morphine Sulfate (Morphine 2 Mg/1 Ml Inj) 2 mg IV Q4H PRN PRN Reason: Pain, Moderate (4-6) Naloxone HCl (Naloxone 0.4 Mg/1 Ml Inj) 0.1 mg IV Q2MIN PRN PRN Reason: Res Rate </= 8 or 02 SAT < 92% Nifedipine (Nifedipine Xl 60 Mg Tab) 60 mg PO QDAY [facility] Nitroglycerin (Nitroglycerin 0.4 Mg Tab Subl) 0.4 mg SL .Q5MIN PRN PRN Reason: Chest Pain Ondansetron HCl (Ondansetron 4 Mg/2 Ml Inj) 4 mg IV Q4H PRN PRN Reason: Nausea And Vomiting Paroxetine HCl (Paroxetine 20 Mg Tab) 20 mg PO QDAY [facility] Senna (Sennosides 8.6 Mg Tab) 8.6 mg PO Q12HR [facility] Sodium Chloride (Sodium Chloride 0.9% 10 Ml Flush Syringe) 10 ml IV BID [facility] Sodium Chloride (Sodium Chloride 0.9% 10 Ml Flush Syringe) 10 ml IV PRN PRN PRN Reason: LINE FLUSH Review of Systems Constitutional: no weight loss, no weight gain, no fever, no chills, no sweats, no night sweats Ears, nose, mouth and throat: no ear pain, no ear discharge, no nasal con gestion, no nasal discharge, no sinus pressure Cardiovascular: chest pain, shortness of breath, high blood pressure, no orthopnea, no palpitations, no rapid/irregular heart beat, no edema, no syncope, no lightheadedness, no dyspnea on exertion, no paroxysmal nocturnal dyspnea, no leg edema, no decreased exercise tolerance Respiratory: no cough, no cough with sputum, no hemoptysis, no shortness of breath, no dyspnea on exertion Gastrointestinal: no abdominal pain, no nausea, no vomiting, no diarrhea Genitourinary Female: no flank pain Musculoskeletal: no neck stiffness, no neck pain, no shooting arm pain, no arm numbness/tingling, no low back pain, no shooting leg pain Integumentary: no rash, no pruritis, no redness, no sores, no wounds Neurological: no head injury, no paralysis, no weakness, no parathesias, no num bness, no tingling, no seizures, no syncope Psychiatric: no anxiety Endocrine: no cold intolerance, no heat intolerance Hematologic/Lymphatic: no easy bruising, no easy bleeding Allergic/Immunologic: no urticaria Physical Examination Last Vital Signs Temp 97.7 F 09/25/20 05:25 Pulse 74 09/25/20 11:13 Resp 16 09/25/20 10:14 BP 210/84 09/25/20 11:13 Pulse Ox 95 09/25/20 10:14 General appearance: no acute distress HEENT: Positive: PERRL, Normocephaly, Mucus Membranes Moist Neck: Positive: neck supple, trachea midline Cardiac: Positive: Reg Rate and Rhythm, S1/S2 Lungs: Positive: Decreased Breath Sounds, Rales (Left side) Neuro: Positive: Grossly Intact Abdomen: Positive: Unremarkable, Soft Skin: Negative: Rash, Wound Musculoskeletal: No Pain Extremities: Present: upper extr. pulses, lower extr. pulses. Absent: edema Results 09/25/20 07:03 09/25/20 06:04 Cardiac Enzymes 09/25/20 Range/Units 06:04 AST 18 (5-40) units/L Coagulation 09/25/20 09/25/20 Range/Units 06:04 07:03 PT 14.0 14.0 (12.2-14.9) Sec. INR 1.03 1.03 (0.87-1.13) APTT 30.0 28.9 (24.2-36.6) Sec. Lipids 09/25/20 Range/Units 06:04 Triglycerides 119 (2-149) mg/dL Cholesterol 245 H (50-199) mg/dL HDL Cholesterol 60 H (40-59) mg/dL Cholesterol/HDL Ratio 4.08 % CBC 09/25/20 09/25/20 Range/Units 06:04 07:03 WBC 6.4 (4.5-11.0) K/mm3 RBC 3.82 (3.65-5.03) M/mm3 Hgb 13.0 13.2 (10.1-14.3) gm/dl Hct 38.5 39.1 (30.3-42.9) % Plt Count 270 282 (140-440) K/mm3 Lymph # (Auto) 1.6 (1.2-5.4) K/mm3 [place] # (Auto) 0.4 (0.0-0.8) K/mm3 Eos # (Auto) 0.1 (0.0-0.4) K/mm3 Baso # (Auto) 0.1 (0.0-0.1) K/mm3 Comprehensive Metabolic Panel 09/25/20 Range/Units 06:04 Sodium 140 (137-145) mmol/L Potassium 4.4 (3.6-5.0) mmol/L Chloride 106.3 (98-107) mmol/L Carbon Dioxide 21 L (22-30) mmol/L BUN 17 (7-17) mg/dL Creatinine 1.4 H (0.6-1.2) mg/dL Glucose 113 H (65-100) mg/dL Calcium 9.1 (8.4-10.2) mg/dL AST 18 (5-40) units/L ALT 12 (7-56) units/L Alkaline Phosphatase 82 (35-129) units/L Total Protein 6.5 (6.3-8.2) g/dL Albumin 3.9 (3.9-5) g/dL - Imaging and Cardiology Echo: pending EKG: report reviewed, image reviewed EKG interpretations - Telemetry EKG Rhythm: Sinus Rhythm - EKG Sinus rhythms and dysrhythmias: sinus rhythm Assessment and Plan NSTEMI suspect type II * Chest pain is currently resolved after albuterol nebulized treatment. Twelve- lead reviewed shows sinus rhythm 64 with no acute ischemic changes. Troponins mildly elevated x2, subacute. We will continue to trend CE's * Currently on heparin gtt. Heart failure reduced ejection fraction in setting of dilated cardiomyopathy * Echocardiogram reviewed 09/03/2020: LVEF is 25 to 30%. LV mildly dilated. LV SF moderately to severely decreased. Mild LVH. Hypokinesis of inferior wall. Mild diastolic dysfunction. RV SF is normal. Moderate AR. Mild MR. * Will plan for ischemic eval once hypertension is controlled. * GDMT: ASA, Atorvastatin, BB HTN * Optimize antihypertensive regimen:Coreg 25 mg twice daily, clonidine 0.2 mg twice daily, hydralazine 100 mg p.o. 3 times daily, Imdur 30 mg daily, nif edipine XL 60 mg daily DELISA in CKD * No HUMAIRA/ARB in setting of DELISA. Avoid nephrotoxic agents DVT prophylaxis * Heparin gtt. We will tentatively plan for ischemic eval on Wednesday once hypertension is co ntrolled. Will follow This patient was seen in conjunction with Dr. Ron Oconnor who agrees with this assessment and plan of care - Patient Problems (1) Heart failure with reduced ejection fraction Current Visit: Yes Status: Chronic (2) CKD (chronic kidney disease) stage 4, GFR 15-29 ml/min Current Visit: Yes Status: Chronic (3) History of tobacco use Current Visit: Yes Status: Chronic (4) Peripheral artery disease Current Visit: Yes Status: Chronic (5) Bronchial asthma Current Visit: Yes Status: Chronic Qualifiers: Asthma complication type: uncomplicated (6) Cardiomyopathy Current Visit: Yes Status: Chronic (7) Diabetes mellitus Current Visit: Yes Status: Chronic Qualifiers: Diabetes mellitus type: type 2 Diabetes mellitus assisted insulin use: without superintendent [employer] use (8) Chest pain Current Visit: Yes Status: Resolved (9) Acute respiratory failure Current Visit: Yes Status: Acute (10) Acute on chronic kidney failure Current Visit: Yes Status: Acute (11) Uncontrolled hypertension Current Visit: Yes Status: Acute (12) NSTEMI (non-ST elevated myocardial infarction) Current Visit: Yes Status: Acute
[2020-09-25] MEDS: PARoxetine 20 MG TAB PO SCH (11:24)
[2020-09-25 12:10] LABS: Bilirubin,Urine NEG (Negative); Blood,Urine NEG (Negative); Color,Urine Straw (Yellow); Mucus,Urine FEW /HPF; Urobilinogen,Urine < 2.0 mg/dL (<2.0)
[2020-09-25 12:12] LABS: RBC,Urine < 1.0 /HPF (0.0-6.0)
[2020-09-25 12:18] LABS: Amphetamine Screen,Urine Negative; Benzodiazepines Screen,Urine Negative; Cannabinoid Screen,Urine Negative; Cocaine Screen,Urine Negative; Methadone Screen,Urine Negative; Opiate Screen,Urine Negative
[2020-09-25] MEDS: NIFEdipine XL 60 MG TAB PO SCH (14:23)
[2020-09-25] MEDS: hydrALAZINE 100 MG TAB PO SCH ×2 (16:11→20:55)
[2020-09-25] MEDS: DIGOXIN 0.125 MG TAB PO SCH (18:33)
[2020-09-25] MEDS: FUROSEMIDE 20 MG/2 ML INJ IV SCH (18:34)
[2020-09-26] MEDS: FUROSEMIDE 20 MG/2 ML INJ IV SCH ×2 (05:27→17:11)
[2020-09-26] MEDS: HEPARIN/ 0.45% NACL DRIP 25,000 UNIT/500 ML BAG IV SCH (05:28)
[2020-09-26 05:36] LABS: Albumin 3.7 g/dL (3.9-5); Calcium 8.5 mg/dL (8.4-10.2)
[2020-09-26 05:41] LABS: Basophils % (Auto) 0.2 % (0.0-1.8); Hematocrit 35.3 % (30.3-42.9); Hemoglobin 11.8 gm/dl (10.1-14.3); Lymphocytes # (Auto) 1.4 K/mm3 (1.2-5.4); Mean Corpuscular HGB Conc 33 % (30-34); Mean Corpuscular Volume 99 fl (79-97); Monocytes # (Auto) 0.7 K/mm3 (0.0-0.8); Monocytes % (Auto) 6.5 % (0.0-7.3); Platelet Count 273 K/mm3 (140-440); Red Blood Count 3.56 M/mm3 (3.65-5.03); Red Cell Distribution Width 15.8 % (13.2-15.2)
[2020-09-26] MEDS: FERROUS SULFATE 325 MG TAB PO SCH ×2 (09:03→21:40)
[2020-09-26] MEDS: NIFEdipine XL 60 MG TAB PO SCH (09:03)
[2020-09-26] MEDS: cloNIDine 0.2 MG TAB PO SCH ×2 (09:03→21:40)
[2020-09-26] MEDS: hydrALAZINE 100 MG TAB PO SCH ×3 (09:03→21:41)
[2020-09-26] MEDS: PARoxetine 20 MG TAB PO SCH (09:03)
[2020-09-26] MEDS: ASPIRIN 81 MG TAB CHEW PO SCH (09:03)
[2020-09-26] MEDS: FAMOTIDINE 10 MG TAB PO SCH ×2 (09:03→21:41)
[2020-09-26] MEDS: SENNOSIDES 8.6 MG TAB PO SCH ×2 (09:04→21:42)
[2020-09-26] MEDS: carvediloL 25 MG TAB PO SCH ×2 (09:04→21:41)
[2020-09-26] MEDS ORDERED: NIFEdipine XL 60 MG TAB PO SCH (09:07)
[2020-09-26] MEDS ORDERED: NIFEdipine XL 90 MG TAB PO SCH (10:00)
[2020-09-26] MEDS ORDERED: NIFEdipine XL 30 MG TAB PO SCH (10:00)
[2020-09-26 10:40] LABS: Basophils % (Auto) 0.3 % (0.0-1.8); Hematocrit 35.8 % (30.3-42.9); Hemoglobin 11.8 gm/dl (10.1-14.3); Lymphocytes # (Auto) 1.6 K/mm3 (1.2-5.4); Lymphocytes % (Auto) 12.4 % (13.4-35.0); Mean Corpuscular HGB Conc 33 % (30-34); Mean Corpuscular Volume 99 fl (79-97); Monocytes # (Auto) 0.9 K/mm3 (0.0-0.8); Platelet Count 306 K/mm3 (140-440); Red Blood Count 3.61 M/mm3 (3.65-5.03); Red Cell Distribution Width 15.9 % (13.2-15.2)
[2020-09-26 10:52] LABS: INR 1.18 (0.87-1.13)
[2020-09-26 10:56] LABS: Calcium 9.2 mg/dL (8.4-10.2)
[2020-09-26] MEDS ORDERED: SODIUM CHLORIDE 0.9% 500 ML 500 ML IV SCH (11:00)
--- NOTE | 2020-09-26 11:24 | Progress Note ---
Assessment and Plan NSTEMI suspect type II * Chest pain is currently resolved after albuterol nebulized treatment. Twelve- lead reviewed shows sinus rhythm 64 with no acute ischemic changes. Troponins mildly elevated x2, subacute. We will continue to trend CE's * Discontinue heparin gtt at 1600 today Heart failure reduced ejection fraction in setting of dilated cardiomyopathy * Echocardiogram reviewed 09/03/2020: LVEF is 25 to 30%. LV mildly dilated. LV SF moderately to severely decreased. Mild LVH. Hypokinesis of inferior wall. Mild diastolic dysfunction. RV SF is normal. Moderate AR. Mild MR. * Scheduled for LHC in the AM. NPO after midnight * GDMT: ASA, Atorvastatin, BB HTN * Optimize antihypertensive regimen:Coreg 25 mg twice daily, clonidine 0.2 mg twice daily, hydralazine 100 mg p.o. 3 times daily, Imdur 30 mg daily, nifedipine XL 60 mg daily DELISA in CKD * No HUMAIRA/ARB in setting of DELISA. Avoid nephrotoxic agents DVT prophylaxis * Heparin gtt. Patient scheduled for LHC in the AM. Patient seen in conjunction with Dr. Leonardo who agrees with this assessment and plan of care. Will continue to follow - Patient Problems (1) Acute exacerbation of CHF (congestive heart failure) Current Visit: Yes Status: Acute Qualifiers: (2) Acute on chronic kidney failure Current Visit: Yes Status: Acute (3) NSTEMI (non-ST elevated myocardial infarction) Current Visit: Yes Status: Acute (4) CKD (chronic kidney disease) stage 4, GFR 15-29 ml/min Current Visit: Yes Status: Chronic (5) Cardiomyopathy Current Visit: Yes Status: Chronic (6) Diabetes mellitus Current Visit: Yes Status: Chronic Qualifiers: Diabetes mellitus type: type 2 Diabetes mellitus university administrator insulin use: without university administrator use (7) HTN (hypertension) Current Visit: Yes Status: Chronic Qualifiers: Hypertension type: primary hypertension Qualified Code(s): I10 - Essential (primary) hypertension (8) History of tobacco use Current Visit: Yes Status: Chronic (9) Peripheral artery disease Current Visit: Yes Status: Chronic (10) Chest pain Current Visit: Yes Status: Resolved Subjective Date of service: 09/26/20 Principal diagnosis: HFrEF, NSTEMI type2 Interval history: Patient resting in bed comfortably Sinus 60s with no events on monitor Objective Last Vital Signs Temp 98.4 F 09/26/20 07:50 Pulse 71 09/26/20 09:04 Resp 16 09/26/20 07:50 BP 166/63 09/26/20 09:04 Pulse Ox 99 09/26/20 10:00 - Physical Examination General: No Apparent Distress HEENT: Positive: PERRL, Normocephaly, Mucus Membranes Moist Neck: Positive: neck supple, trachea midline Cardiac: Positive: Reg Rate and Rhythm Lungs: Positive: Normal Breath Sounds Neuro: Positive: Grossly Intact Abdomen: Positive: Unremarkable, Soft Skin: Negative: Rash, Wound Musculoskeletal: No Pain Extremities: Present: upper extr. pulses, lower extr. pulses. Absent: edema - Labs and Meds Cardiac Enzymes 09/26/20 Range/Units 04:40 AST 14 (5-40) units/L Coagulation 09/26/20 Range/Units 10:20 PT 15.6 H (12.2-14.9) Sec. INR 1.18 H (0.87-1.13) CBC 09/26/20 09/26/20 Range/Units 04:40 10:20 WBC 11.5 H 13.2 H (4.5-11.0) K/mm3 RBC 3.56 L 3.61 L (3.65-5.03) M/mm3 Hgb 11.8 11.8 (10.1-14.3) gm/dl Hct 35.3 35.8 (30.3-42.9) % Plt Count 273 306 (140-440) K/mm3 Lymph # (Auto) 1.4 1.6 (1.2-5.4) K/mm3 [place] # (Auto) 0.7 0.9 H (0.0-0.8) K/mm3 Eos # (Auto) 0.0 0.0 (0.0-0.4) K/mm3 Baso # (Auto) 0.0 0.0 (0.0-0.1) K/mm3 Comprehensive Metabolic Panel 09/26/20 09/26/20 Range/Units 04:40 10:20 Sodium 139 141 (137-145) mmol/L Potassium 3.9 4.1 (3.6-5.0) mmol/L Chloride 104.8 103.3 (98-107) mmol/L Carbon Dioxide 21 L 23 (22-30) mmol/L BUN 19 H 19 H (7-17) mg/dL Creatinine 1.3 H 1.3 H (0.6-1.2) mg/dL Glucose 121 H 135 H (65-100) mg/dL Calcium 8.5 9.2 (8.4-10.2) mg/dL AST 14 (5-40) units/L ALT 11 (7-56) units/L Alkaline Phosphatase 76 (35-129) units/L Total Protein 6.3 (6.3-8.2) g/dL Albumin 3.7 L (3.9-5) g/dL - Imaging and Cardiology EKG: report reviewed, image reviewed - Telemetry EKG Rhythm: Sinus Rhythm - EKG Sinus rhythms and dysrhythmias: sinus rhythm
--- NOTE | 2020-09-26 12:20 | Progress Note ---
Assessment and Plan Assessment and plan: Patient is a poor historian and report collaborated with the ED doc 70-year-old female with complex medical history including hypertension, DM2, CHF (EF of 25-30% on ECHO on 09/03/2020), prior stent to the leg and COPD as result of prior Tobacco history, brought in by EMS due to shortness of breath and r espiratory distress as well as chest pain. The patient states that since last night she has been experiencing recurrent intermittent mid substernal chest pain which is accompanied by shortness of breath. She states that the chest pain has been coming and going since last night. She is unable to quantify the duration of the chest pain but says that during periods where she does not have the chest pain she still has mild chest tightness. The pain radiates to her left shoulder and down the left arm. She had a mild dry cough over that period of time. She tried using her nebulizer at home. This did not provide significant relief. According to the EMS report, when they arrived, the patient was hypoxic with an oxygen saturation of 88% on room air which corrected with nonrebreather. The p atient is vaccinated against the novel coronavirus. She denies any associated headache, vision change, fever/chills, back pain, increase lower extremity edema, cough productive of mucus, significant abdominal pain, dysuria, nausea/vomiting, focal weakness, sensory changes, or any other complaints. At this time she says she has only mild shortness of breath and some mild residual chest tightness but no pain She has had multiple hospitalization recently had a recent CTA In the ER she began to have some improvement and was reduced to 3 liters NC Chest x-ray shows patchy airspace disease NSTEMI (non-ST elevated myocardial infarction), CHF exacerbation, Hypoxia Assessment and plan Acute CHF exacerbation presumed systolic Non-ST elevated SC Acute hypoxic respiratory failure Nonischemic cardiomyopathy Acute kidney injury on chronic kidney disease stage III likely secondary to vasomotor nephropathy Hypertensive urgency Leukocytosis PAD with history of DVT Plan 09/26: Patient remains clinically stable Heparin infusion. Cardiology plans for cardiac cath in a.m. Renal function is improving. Patient with recurrent admission will need Home health on discharge with Enrollment in Heart failure program Wean oxygen as tolerated Nebs PRN and will recommend outpatient PFT Pulmonary consult if Respiratory status not improving cont heart failure GDMT Cardiology consult Is my understanding that the patient has a LifeVest but has not been using it and is awaiting outpatient work-up for AICD placement. Will defer to cardiology Diet education on low-salt diet DVT and GI prophylaxis Plan of care discussed in detail with the patient she verbalized understanding. We will also reach out to family CODE STATUS Patient is full code Rounded on patient with case management team History Interval history: Patient seen and examined sitting up today no further complaints of chest pain. Hospitalist Physical - Physical exam Narrative exam: VITAL SIGNS: Reviewed. GENERAL: The patient appears normally developed, much more awake sitting up vital signs as documented. HEAD: No signs of head trauma. EYES: Pupils are equal. Extraocular motions intact. EARS: Hearing grossly intact. MOUTH: Oropharynx is normal. NECK: No adenopathy, no JVD. CHEST: Chest with diminished sounds bilaterally. No wheezes, rales, or rhonchi . CARDIAC: Regular rate and rhythm. S1 and S2, without murmurs, gallops, or rubs. VASCULAR: No Edema. Peripheral pulses normal and equal in all extremities. ABDOMEN: Soft, non tender and non distended. No rebound or guarding, and no masses palpated. Bowel Sounds normal. MUSCULOSKELETAL: Good range of motion of all major joints. Extremities without clubbing, cyanosis or edema. NEUROLOGIC EXAM: Alert and oriented x 3 No focal sensory or strength deficits. Speech normal. Follows commands. PSYCHIATRIC: Mood normal. SKIN: detail exam as documented in skin assessment - Constitutional Vitals: Temp Pulse Resp BP Pulse Ox 98.4 F 78 16 166/63 97 09/26/20 07:50 09/26/20 11:00 09/26/20 07:50 09/26/20 09:04 09/26/20 11:00 General appearance: Present: no acute distress HEART Score - HEART Score EKG: Non-specific Age: > 65 Risk factors: > 3 risk factors or hx of atherosclerotic disease Troponin: Troponin T 0.039 ng/mL (0.00-0.029) H 09/26/20 04:40 Troponin: 1-3x normal limit Results - Labs CBC & Chem 7: 09/26/20 10:20 09/26/20 10:20 Labs: Laboratory Last Values WBC 13.2 K/mm3 (4.5-11.0) H 09/26/20 10:20 RBC 3.61 M/mm3 (3.65-5.03) L 09/26/20 10:20 Hgb 11.8 gm/dl (10.1-14.3) 09/26/20 10:20 Hct 35.8 % (30.3-42.9) 09/26/20 10:20 MCV 99 fl (79-97) H 09/26/20 10:20 MCH 33 pg (28-32) H 09/26/20 10:20 MCHC 33 % (30-34) 09/26/20 10:20 RDW 15.9 % (13.2-15.2) H 09/26/20 10:20 Plt Count 306 K/mm3 (140-440) 09/26/20 10:20 Lymph % (Auto) 12.4 % (13.4-35.0) L 09/26/20 10:20 [place] % (Auto) 7.0 % (0.0-7.3) 09/26/20 10:20 Eos % (Auto) 0.0 % (0.0-4.3) 09/26/20 10:20 Baso % (Auto) 0.3 % (0.0-1.8) 09/26/20 10:20 Lymph # (Auto) 1.6 K/mm3 (1.2-5.4) 09/26/20 10:20 [place] # (Auto) 0.9 K/mm3 (0.0-0.8) H 09/26/20 10:20 Eos # (Auto) 0.0 K/mm3 (0.0-0.4) 09/26/20 10:20 Baso # (Auto) 0.0 K/mm3 (0.0-0.1) 09/26/20 10:20 Seg Neutrophils % 80.3 % (40.0-70.0) H 09/26/20 10:20 Seg Neutrophils # 10.6 K/mm3 (1.8-7.7) H 09/26/20 10:20 PT 15.6 Sec. (12.2-14.9) H 09/26/20 10:20 INR 1.18 (0.87-1.13) H 09/26/20 10:20 APTT 28.9 Sec. (24.2-36.6) 09/25/20 07:03 Heparin Anti-Xa Level 0.66 U.I./ml (0.3-0.7) 09/26/20 10:20 ABG pH 7.464 (7.320-7.450) H 09/25/20 11:16 POC ABG pCO2 27.3 mmHg (32.0-48.0) L 09/25/20 11:16 POC ABG pO2 72.7 mmHg (83-108) L 09/25/20 11:16 POC ABG HCO3 19.2 09/25/20 11:16 ABG O2 Saturation 95.1 (0-100) 09/25/20 11:16 POC ABG Base Excess -3.2 09/25/20 11:16 ABG Hemoglobin 13.6 (12.0-17.5) 09/25/20 11:16 ABG Oxyhemoglobin 94.0 (94-98) 09/25/20 11:16 ABG Methemoglobin 0.3 (0.0-1.5) 09/25/20 11:16 ABG Sodium 137.7 mmol/L (136.0-145.0) 09/25/20 11:16 ABG Potassium 4.2 mmol/L (3.40-4.50) 09/25/20 11:16 ABG Chloride 108.0 mmol/L (98-107) H 09/25/20 11:16 ABG Glucose 165 mg/dL (65-95) H 09/25/20 11:16 Carboxyhemoglobin 0.9 (0.5-1.5) 09/25/20 11:16 FiO2 % 28.0 09/25/20 11:16 Sodium 141 mmol/L (137-145) 09/26/20 10:20 Potassium 4.1 mmol/L (3.6-5.0) 09/26/20 10:20 Chloride 103.3 mmol/L (98-107) 09/26/20 10:20 Carbon Dioxide 23 mmol/L (22-30) 09/26/20 10:20 Anion Gap 19 mmol/L 09/26/20 10:20 BUN 19 mg/dL (7-17) H 09/26/20 10:20 Creatinine 1.3 mg/dL (0.6-1.2) H 09/26/20 10:20 Estimated GFR 49 ml/min 09/26/20 10:20 BUN/Creatinine Ratio 15 % 09/26/20 10:20 Glucose 135 mg/dL (65-100) H 09/26/20 10:20 POC Glucose 128 mg/dL (70-105) H 09/26/20 11:58 Hemoglobin A1c 5.7 % (4-6) 09/25/20 08:33 Calcium 9.2 mg/dL (8.4-10.2) 09/26/20 10:20 Magnesium 2.90 mg/dL (1.7-2.3) H 09/25/20 06:04 Total Bilirubin 0.50 mg/dL (0.1-1.2) 09/26/20 04:40 AST 14 units/L (5-40) 09/26/20 04:40 ALT 11 units/L (7-56) 09/26/20 04:40 Alkaline Phosphatase 76 units/L (35-129) 09/26/20 04:40 Troponin T 0.039 ng/mL (0.00-0.029) H 09/26/20 04:40 NT-Pro-B Natriuret Pep 96096 pg/mL (0-900) H 09/25/20 06:09 Total Protein 6.3 g/dL (6.3-8.2) 09/26/20 04:40 Albumin 3.7 g/dL (3.9-5) L 09/26/20 04:40 Albumin/Globulin Ratio 1.4 % 09/26/20 04:40 Triglycerides 119 mg/dL (2-149) 09/25/20 06:04 Cholesterol 245 mg/dL (50-199) H 09/25/20 06:04 LDL Cholesterol Direct 180 mg/dL (50-130) H 09/25/20 06:04 HDL Cholesterol 60 mg/dL (40-59) H 09/25/20 06:04 Cholesterol/HDL Ratio 4.08 % 09/25/20 06:04 Lipase 35 units/L (13-60) 09/25/20 06:09 Arterial Blood Glucose 165 mg/dL (65-95) H 09/25/20 11:16 Urine Color Straw (Yellow) 09/25/20 Unknown Urine Turbidity Clear (Clear) 09/25/20 Unknown Urine pH 5.0 (5.0-7.0) 09/25/20 Unknown Ur Specific [place] 1.008 (1.003-1.030) 09/25/20 Unknown Urine Protein 100 mg/dl mg/dL (Negative) 09/25/20 Unknown Urine Glucose (UA) Neg mg/dL (Negative) 09/25/20 Unknown Urine Ketones Neg mg/dL (Negative) 09/25/20 Unknown Urine Blood Neg (Negative) 09/25/20 Unknown Urine Nitrite Neg (Negative) 09/25/20 Unknown Urine Bilirubin Neg (Negative) 09/25/20 Unknown Urine Urobilinogen < 2.0 mg/dL (<2.0) 09/25/20 Unknown Ur Leukocyte Esterase Neg (Negative) 09/25/20 Unknown Urine WBC (Auto) 1.0 /HPF (0.0-6.0) 09/25/20 Unknown Urine RBC (Auto) < 1.0 /HPF (0.0-6.0) 09/25/20 Unknown U Epithel Cells (Auto) 1.0 /HPF (0-13.0) 09/25/20 Unknown Urine Mucus Few /HPF 09/25/20 Unknown Digoxin 0.8 ng/mL (0.9-2.0) L 09/25/20 06:43 Urine Opiates Screen Negative 09/25/20 Unknown Urine Methadone Screen Negative 09/25/20 Unknown Ur Barbiturates Screen Negative 09/25/20 Unknown Ur Phencyclidine Scrn Negative 09/25/20 Unknown Ur Amphetamines Screen Negative 09/25/20 Unknown U Benzodiazepines Scrn Negative 09/25/20 Unknown Urine Cocaine Screen Negative 09/25/20 Unknown U Marijuana (THC) Screen Negative 09/25/20 Unknown Drugs of Abuse Note Disclamer 09/25/20 Unknown Microbiology: Microbiology 09/25/20 06:43 Peripheral/Venous Blood Culture - Preliminary NO GROWTH AFTER 24 HOURS 09/25/20 06:43 Peripheral/Venous Blood Culture - Preliminary NO GROWTH AFTER 24 HOURS Ray/IV: Voiding Method Bedside Commode Active Medications - Current Medications Current Medications: Generic Name Dose Route Start Last Admin Trade Name Freq PRN Reason Stop Dose Admin Acetaminophen 650 mg 09/25/20 09:00 Acetaminophen 325 Mg Tab PO Q4H PRN Pain MILD(1-3)/Fever >100.5/GAMEZ Albuterol 2.5 mg 09/25/20 09:00 Albuterol 2.5 Mg/3 Ml Nebu Q4HRT PRN Shortness Of Breath Aspirin 81 mg 09/26/20 10:00 09/26/20 09:03 Aspirin 81 Mg Tab Chew PO 81 mg QDAY MARVEL Administration Atorvastatin Calcium 40 mg 09/25/20 22:00 09/25/20 22:38 Atorvastatin 40 Mg Tab PO 40 mg QHS MARVEL Administration Carvedilol 25 mg 09/25/20 10:00 09/26/20 09:04 Carvedilol 25 Mg Tab PO 25 mg BID MARVEL Administration Clonidine HCl 0.2 mg 09/25/20 10:00 09/26/20 09:03 Clonidine 0.2 Mg Tab PO 0.2 mg Q12HR MARVEL Administration Digoxin 0.125 mg 09/25/20 17:00 09/25/20 18:33 Digoxin 0.125 Mg Tab PO 0.125 mg DAILY@1700 MARVEL Administration Famotidine 10 mg 09/25/20 10:00 09/26/20 09:03 Famotidine 10 Mg Tab PO 10 mg BID MARVEL Administration Ferrous Sulfate 325 mg 09/25/20 10:00 09/26/20 09:03 Ferrous Sulfate 325 Mg Tab PO 325 mg BID MARVEL Administration Furosemide 20 mg 09/25/20 18:00 09/26/20 05:27 Furosemide 20 Mg/2 Ml Inj IV 20 mg BID@0600,1800 MARVEL Administration Heparin Sodium (Porcine) 2,400 unit 09/25/20 07:03 Heparin 10,000 Units/10 Ml Vial 40 unit/kg (2400 unit) 09/26/20 16:00 IV Q6H PRN Anti-Xa Assay < 0.1 units/ml Hydralazine HCl 100 mg 09/25/20 14:00 09/26/20 09:03 Hydralazine 100 Mg Tab PO 100 mg TID MARVEL Administration Heparin Sodium/Sodium Chloride 25,000 unit in 500 mls @ 18 mls/hr 09/25/20 08:00 09/26/20 11:21 Heparin/ 0.45% Nacl-25,000 Unit/500 Ml IV 09/26/20 18:00 850 units/hr TITRATE MARVEL 17 mls/hr Titration Protocol 900 UNITS/HR Sodium Chloride 500 mls @ 50 mls/hr 09/26/20 11:00 Nacl 0.9% 500 Ml IV 09/26/20 20:59 DIRECT MARVEL Isosorbide Mononitrate 30 mg 09/25/20 12:00 09/26/20 09:03 Isosorbide Mononitrate Er 30 Mg Tab PO 30 mg QDAY MARVEL Administration Morphine Sulfate 2 mg 09/25/20 09:00 Morphine 2 Mg/1 Ml Inj IV Q4H PRN Pain, Moderate (4-6) Naloxone HCl 0.1 mg 09/25/20 09:00 Naloxone 0.4 Mg/1 Ml Inj IV Q2MIN PRN Res Rate </= 8 or 02 SAT < 92% Nifedipine 90 mg 09/27/20 10:00 Nifedipine Xl 90 Mg Tab PO QDAY MARVEL Nitroglycerin 0.4 mg 09/25/20 09:00 Nitroglycerin 0.4 Mg Tab Subl SL .Q5MIN PRN Chest Pain Ondansetron HCl 4 mg 09/25/20 09:00 Ondansetron 4 Mg/2 Ml Inj IV Q4H PRN Nausea And Vomiting Paroxetine HCl 20 mg 09/25/20 10:00 09/26/20 09:03 Paroxetine 20 Mg Tab PO 20 mg QDAY MARVEL Administration Senna 8.6 mg 09/25/20 10:00 09/26/20 09:04 Sennosides 8.6 Mg Tab PO Not Given Q12HR MARVEL Sodium Chloride 10 ml 09/25/20 10:00 09/26/20 09:04 Sodium Chloride 0.9% 10 Ml Flush Syringe IV 10 ml BID MARVEL Administration Sodium Chloride 10 ml 09/25/20 09:00 Sodium Chloride 0.9% 10 Ml Flush Syringe IV PRN PRN LINE FLUSH
--- NOTE | 2020-09-26 12:21 | Electrocardiograph Report ---
[facility] Test Date: 2020-09-25 Test Time: 06:14:40 Pat Name: DIANA FLANNERY Department: Room: A465 Gender: F Buccaro: REGINE : 1950 Requested By: SHANE OLIVER Order Number: [id number] Reading MD: Muna Rob Measurements Intervals [place] Rate: 65 P: 60 MN: 195 QRS: -11 QRSD: 116 T: 212 QT: 449 QTc: 466 Interpretive Statements Sinus rhythm Consider [id number]-[id number] syndrome LVH with secondary repolarization abnormality Abnormal ECG Compared to ECG 09/03/2020 02:23:41 No significant change Electronically Signed On 09-26-2020 12:20:54 EDT by Muna Rob
--- NOTE | 2020-09-26 12:37 | Electrocardiograph Report ---
[facility] Test Date: 2020-09-26 Test Time: 07:33:33 Pat Name: DIANA FLANNERY Department: Room: A465 1 Gender: F [employer] Scientist: VERNA : 1950 Requested By: QUIN BARRERA Order Number: [id number] Reading MD: Muna Rob Measurements Intervals [place] Rate: 64 P: 53 ID: [id number] QRS: -28 QRSD: 119 T: 175 QT: 435 QTc: 449 Interpretive Statements Sinus rhythm LVH with IVCD and secondary repol abnrm Compared to ECG 09/25/2020 06:14:40 No significant change Electronically Signed On 09-26-2020 12:37:41 EDT by Muna Rob
[2020-09-26] MEDS: DIGOXIN 0.125 MG TAB PO SCH (17:10)
[2020-09-27 05:00] LABS: Hematocrit 35.8 % (30.3-42.9); Mean Corpuscular HGB Conc 34 % (30-34); Mean Corpuscular Volume 100 fl (79-97); Platelet Count 264 K/mm3 (140-440); Red Blood Count 3.56 M/mm3 (3.65-5.03); Red Cell Distribution Width 15.9 % (13.2-15.2)
[2020-09-27 05:16] LABS: INR 0.98 (0.87-1.13)
[2020-09-27 05:17] LABS: Partial Thromboplastin Time 26.5 Sec. (24.2-36.6)
[2020-09-27 05:20] LABS: Calcium 9.1 mg/dL (8.4-10.2)
[2020-09-27] MEDS: FUROSEMIDE 20 MG/2 ML INJ IV SCH (07:00)
[2020-09-27] MEDS ORDERED: SODIUM CHLORIDE 0.9% 500 ML 500 ML ONE (07:21)
[2020-09-27] MEDS: ASPIRIN 81 MG TAB CHEW PO SCH ×2 (07:43→10:58)
[2020-09-27] MEDS ORDERED: HEPARIN/NS 5000 UNIT/500ML 1,000 ML IR ONE (08:32)
[2020-09-27] MEDS: fentaNYL 100 MCG/2 ML INJ ONE ×2 (09:12→09:18)
[2020-09-27] MEDS: MIDAZOLAM 2 MG/2 ML INJ ONE ×2 (09:12→09:18)
[2020-09-27] MEDS: NITROGLYCERIN SYRINGE 3 ML ONE ×2 (09:12→09:22)
[2020-09-27] MEDS: LIDOCAINE (2%) 20 MG/1 ML VIAL 20 ML MDV INFILTRATI ONE ×2 (09:13→09:21)
[2020-09-27] MEDS: HEPARIN 10,000 UNITS/10 ML VIAL ONE ×2 (09:14→09:22)
[2020-09-27] MEDS: VERAPAMIL 5 MG/2 ML INJ ONE ×2 (09:15→09:22)
[2020-09-27] MEDS: hydrALAZINE 20 MG/1 ML INJ ONE ×2 (09:27→09:30)
--- NOTE | 2020-09-27 09:53 | Discharge Summary ---
Providers - Providers Date of Admission: 09/25/20 07:28 Attending physician: QUIN BARRERA MD 09/25/20 Consult to Cardiac Rehabilitation [CONS] Routine Reason For Exam: Phase 1 09/25/20 07:27 Consult to Physician [CONS] Routine Comment: Consulting Provider: ZENAIDA BREWER Physician Instructions: Reason For Exam: NSTEMI 09/25/20 18:55 Physical Therapy Evaluation and Treat [CONS] Routine Comment: Weakness Reason For Exam: Eval & Treat Primary care physician: ROLL OPERATOR Hospitalization Reason for admission: Chest pain Condition: Stable Hospital course: Patient is a poor historian and report collaborated with the ED doc 70-year-old female with complex medical history including hypertension, DM2, CHF (EF of 25-30% on ECHO on 09/03/2020), prior stent to the leg and COPD as result of prior Tobacco history, brought in by EMS due to shortness of breath and respiratory distress as well as chest pain. The patient states that since last night she has been experiencing recurrent intermittent mid substernal chest pain which is accompanied by shortness of breath. She states that the chest pain has been coming and going since last night. She is unable to quantify the duration of the chest pain but says that during periods where she does not have the chest pain she still has mild chest tightness. The pain radiates to her left shoulder and down the left arm. She had a mild dry cough over that period of time. She tried using her nebulizer at home. This did not provide significant relief. According to the EMS report, when they arrived, the patient was hypoxic with an oxygen saturation of 88% on room air which corrected with nonrebreather. The patient is vaccinated against the novel coronavirus. She denies any associated headache, vision change, fever/chills, back pain, increase lower extremity edema, cough productive of mucus, significant abdominal pain, dysuria, nausea/vomiting, focal weakness, sensory changes, or any other complaints. At this time she says she has only mild shortness of breath and some mild residual chest tightness but no pain She has had multiple hospitalization recently had a recent CTA In the ER she began to have some improvement and was reduced to 3 liters NC Chest x-ray shows patchy airspace disease NSTEMI (non-ST elevated myocardial infarction), CHF exacerbation, Hypoxia Assessment and plan Acute CHF exacerbation presumed systolic Non-ST elevated NC Acute hypoxic respiratory failure Nonischemic cardiomyopathy Acute kidney injury on chronic kidney disease stage III likely secondary to vasomotor nephropathy Hypertensive urgency Leukocytosis PAD with history of DVT Plan 09/26: Patient remains clinically stable Heparin infusion. Cardiology plans for cardiac cath in a.m. Renal function is improving. Patient with recurrent admission will need Home health on discharge with Enrollment in Heart failure program Wean oxygen as tolerated Spoke to the daughter who tells me that she is discussing DNR with the her mother, although they had discussed this in the past, she will like to discuss it further with her mother and also other siblings, at this time no Decision has been made, she affirms that she will remain a full code until further discussion made. Time spent discussing advance directive with daughter and patient 30 Mins 09/27: Patient underwent cardiac catheterization with no significant occlusions noted. Medications adjusted by oven stripper and patient can be discharged today Nebs PRN and will recommend outpatient PFT Disposition: DC-01 TO HOME OR SELFCARE Final Discharge Diagnosis (Prints w/discharge instructions): nstemi Time spent for discharge: 35 mins Core Measure Documentation - Palliative Care Palliative Care/ Comfort Measures: Not Applicable - Core Measures Any of the following diagnoses?: none Exam - Physical Exam Narrative exam: VITAL SIGNS: Reviewed. GENERAL: The patient appears normally developed, much more awake, vital signs as documented. HEAD: No signs of head trauma. EYES: Pupils are equal. Extraocular motions intact. EARS: Hearing grossly intact. MOUTH: Oropharynx is normal. NECK: No adenopathy, no JVD. CHEST: Chest with diminished sounds bilaterally. No wheezes, rales, or rhonchi. CARDIAC: Regular rate and rhythm. S1 and S2, without murmurs, gallops, or rubs. VASCULAR: No Edema. Peripheral pulses normal and equal in all extremities. ABDOMEN: Soft, non tender and non distended. No rebound or guarding, and no masses palpated. Bowel Sounds normal. MUSCULOSKELETAL: Good range of motion of all major joints. Extremities without clubbing, cyanosis or edema. NEUROLOGIC EXAM: Alert and oriented x 3 No focal sensory or strength deficits. Speech normal. Follows commands. PSYCHIATRIC: Mood normal. SKIN: detail exam as documented in skin assessment - Constitutional Vitals: Temp Pulse Resp BP Pulse Ox 98.4 F 61 18 153/52 97 09/27/20 03:43 09/27/20 03:43 09/27/20 03:43 09/27/20 03:43 09/27/20 03:43 Plan Activity: advance as tolerated, fall precautions Diet: low salt Special Instructions: record daily weights, record daily BP diary, physical therapy, occupational therapy Plan of Treatment: must follow with cardiology for repeat renal function test Follow up with: PRIMARY CARE, [Primary Care Provider] - 3-5 Days SAMUEL STEIN MD [Staff Physician] - 7 Days Prescriptions: cloNIDine [Catapres] 0.1 mg PO QHS #30 tablet hydrALAZINE [Apresoline TAB] 100 mg PO TID #90 tab Sacubitril/Valsartan [Entresto 49-51 mg] 2 each PO BID #120 tablet Ferrous Sulfate [Feosol 325 MG tab] 325 mg PO BID #30 tablet ISOSORBIDE MONOnitrate [Imdur ER] 30 mg PO QDAY #30 tablet Furosemide [Lasix TAB] 20 mg PO QDAY #30 tablet Famotidine [Pepcid] 10 mg PO BID #30 tablet NIFEdipine XL [Procardia Xl] 90 mg PO QDAY #30 tablet
[2020-09-27] MEDS ORDERED: cloNIDine 0.2 MG TAB PO SCH (10:00)
[2020-09-27] MEDS ORDERED: SACUBITRIL/VALSARTAN 49-51 MG TAB PO SCH (10:00)
[2020-09-27] MEDS ORDERED: FUROSEMIDE 20 MG TAB PO SCH (10:00)
[2020-09-27] MEDS ORDERED: NIFEdipine XL 90 MG TAB PO SCH (10:00)
[2020-09-27] MEDS ORDERED: traMADol 50 MG TAB PO PRN (10:30)
--- NOTE | 2020-09-27 10:31 | Cardiac Catherization Report ---
DATE OF SERVICE: 09/27/2020 CLINICAL INFORMATION: This is a 70-year-old female with hypertensive urgency, severe LV dysfunction, mild renal insufficiency presents with a non-ST elevation NC, here for left heart catheterization. Procedure was done under moderate sedation, started at 0918, finished at 0931. Fifteen minutes of moderate sedation. DESCRIPTION OF PROCEDURE: Procedure was done via the right radial artery, sterile technique, local anesthesia. A 6-Kittitian radial sheath inserted. Left system engaged with a JL3.5 catheter. FINDINGS: Left main is a large caliber vessel, patent, bifurcates into large LAD that is patent. Diagonal 1 is a medium caliber vessel, patent. Ramus is a large caliber vessel, is patent with upper and lower branch medium caliber. Circumflex small to medium caliber vessel, mid has 50% lesion, goes into a small caliber OM1 that is patent. RCA engaged JR4 severely calcified, moderate tortuosity. Proximal is patent, mid diffuse 50-60%. PDA and PLV are small caliber vessel patent. LV gram done in MEÑO and TOLBERT view shows severe LV dysfunction, EF 25%. LV dilated, LVEDP at 32 mmHg, LV is 196, aortic is 196/69. No gradient across the aortic valve on pullback. 5-Kittitian catheters all taken over a guidewire. A 6-Kittitian radial sheath was discontinued. Radial band applied. No hematoma, no bleeding. SUMMARY: Left main patent, LAD patent, diagonal patent, ramus patent, circumflex mid 50%, OM1 small and patent, RCA proximal patent, mid 50-60%, severe LV dysfunction, LVEDP at 32 mmHg. Medical management. Discussed this with the patient and the patient's daughter in detail. TID: [id number] RECEIPT: [id number] BRIJESH/MICHELLE
[2020-09-27] MEDS: FAMOTIDINE 10 MG TAB PO SCH (10:53)
[2020-09-27] MEDS: PARoxetine 20 MG TAB PO SCH (10:54)
[2020-09-27] MEDS: FERROUS SULFATE 325 MG TAB PO SCH (10:55)
[2020-09-27] MEDS: SENNOSIDES 8.6 MG TAB PO SCH (10:58)
[2020-09-27] MEDS: carvediloL 25 MG TAB PO SCH (11:01)
[2020-09-27] MEDS: hydrALAZINE 100 MG TAB PO SCH ×2 (11:12→13:03)
--- NOTE | 2020-09-27 12:59 | Progress Note ---
Assessment and Plan NSTEMI suspect type II * Chest pain is currently resolved after albuterol nebulized treatment. Twelve- lead reviewed shows sinus rhythm 64 with no acute ischemic changes. Troponins mildly elevated x2, subacute. We will continue to trend CE's * Discontinue heparin gtt at 1600 today Heart failure reduced ejection fraction in setting of dilated cardiomyopathy * Echocardiogram reviewed 09/03/2020: LVEF is 25 to 30%. LV mildly dilated. LV SF moderately to severely decreased. Mild LVH. Hypokinesis of inferior wall. Mild diastolic dysfunction. RV SF is normal. Moderate AR. Mild MR. * [facility] 09/27/2020- Left main patent, LAD patent, diagonal patent, circumflex mid 50%, RCA proximal patent, severe LV dysfunction. Recommend medical management * GDMT: ASA, Atorvastatin, BB * Intiated Lasix 20mg PO QD HTN * Optimize antihypertensive regimen:Coreg 25 mg twice daily, clonidine 0.2 mg twice daily, hydralazine 100 mg p.o. 3 times daily, Imdur 30 mg daily, nifedipine XL 60 mg daily. Restarted Entresto (49-51) 2 tablets PO BID DELISA in CKD * No HUMAIRA/ARB in setting of DELISA. Avoid nephrotoxic agents Patient is stable and may be discharged from cardiac standpoint. Patient has outpatient labs scheduled for 10/03/2020 and a follow up appointment with Dr. Rodriguez, [facility] Distributor Sales Consultant, on 11/05/2020 at 3pm out our [place] Location. Patient seen in conjunction with Dr. Leonardo who agrees with this assessment and plan of care. Will see as needed - Patient Problems (1) Acute exacerbation of CHF (congestive heart failure) Current Visit: Yes Status: Acute Qualifiers: (2) Acute on chronic kidney failure Current Visit: Yes Status: Acute (3) NSTEMI (non-ST elevated myocardial infarction) Current Visit: Yes Status: Acute (4) CKD (chronic kidney disease) stage 4, GFR 15-29 ml/min Current Visit: Yes Status: Chronic (5) Cardiomyopathy Current Visit: Yes Status: Chronic (6) Diabetes mellitus Current Visit: Yes Status: Chronic Qualifiers: Diabetes mellitus type: type 2 Diabetes mellitus detention insulin use: without car pre cooler use (7) HTN (hypertension) Current Visit: Yes Status: Chronic Qualifiers: Hypertension type: primary hypertension Qualified Code(s): I10 - Essential (primary) hypertension (8) History of tobacco use Current Visit: Yes Status: Chronic (9) Peripheral artery disease Current Visit: Yes Status: Chronic (10) Chest pain Current Visit: Yes Status: Resolved Subjective Date of service: 09/27/20 Principal diagnosis: HFrEF, NSTEMI type2 Interval history: Patient had cardiac cath today. Patient reports no complaints following procedure Sinus Rhythm on monitor Objective Last Vital Signs Temp 98.4 F 09/27/20 03:43 Pulse 55 L 09/27/20 11:01 Resp 18 09/27/20 11:00 BP 158/55 09/27/20 11:01 Pulse Ox 98 09/27/20 11:54 - Physical Examination General: No Apparent Distress HEENT: Positive: PERRL, Normocephaly, Mucus Membranes Moist Neck: Positive: neck supple, trachea midline Cardiac: Positive: Reg Rate and Rhythm, S1/S2 Lungs: Positive: Normal Exam, clear to auscultation, Normal Breath Sounds Neuro: Positive: Grossly Intact Abdomen: Positive: Unremarkable, Soft Skin: Negative: Rash, Wound Musculoskeletal: No Pain Extremities: Present: upper extr. pulses, lower extr. pulses. Absent: edema - Labs and Meds Coagulation 09/27/20 Range/Units 04:34 PT 13.6 (12.2-14.9) Sec. INR 0.98 (0.87-1.13) APTT 26.5 (24.2-36.6) Sec. CBC 09/27/20 Range/Units 04:34 WBC 10.2 (4.5-11.0) K/mm3 RBC 3.56 L (3.65-5.03) M/mm3 Hgb 12.0 (10.1-14.3) gm/dl Hct 35.8 (30.3-42.9) % Plt Count 264 (140-440) K/mm3 Comprehensive Metabolic Panel 09/27/20 Range/Units 04:34 Sodium 140 (137-145) mmol/L Potassium 3.9 (3.6-5.0) mmol/L Chloride 104.0 (98-107) mmol/L Carbon Dioxide 26 (22-30) mmol/L BUN 21 H (7-17) mg/dL Creatinine 1.2 (0.6-1.2) mg/dL Glucose 98 (65-100) mg/dL Calcium 9.1 (8.4-10.2) mg/dL - Imaging and Cardiology EKG: report reviewed, image reviewed Echo: report reviewed - EKG Sinus rhythms and dysrhythmias: sinus rhythm
[2020-09-27 13:02] VITALS: BP 161/55
== END 2020-09-27 16:17 | disposition home health service (06) | DRG 280 ==
LOC: ED 05:13 → 4A 07:28
PROVIDERS: ADMIT Internal Medicine; ATTEND Internal Medicine
PROC: 4A033R1 Measurement of Arterial Saturation, Peripheral, Percutaneous Approach (ICD-10-PCS; principal; 2020-09-25)
PROC: 4A023N7 Measurement of Cardiac Sampling and Pressure, Left Heart, Percutaneous Approach (ICD-10-PCS; 2020-09-27)
PROC: B2111ZZ Fluoroscopy of Multiple Coronary Arteries using Low Osmolar Contrast (ICD-10-PCS; 2020-09-27)
DX: I21.4 Non-ST elevation (NSTEMI) myocardial infarction (principal); I50.23 Acute on chronic systolic (congestive) heart failure; J96.01 Acute respiratory failure with hypoxia; N17.0 Acute kidney failure with tubular necrosis; I13.0 Hypertensive heart and chronic kidney disease with heart failure and stage 1 through stage 4 chronic kidney disease, or unspecified chronic kidney disease; N18.4 Chronic kidney disease, stage 4 (severe); I42.8 Other cardiomyopathies; I42.0 Dilated cardiomyopathy; I16.0 Hypertensive urgency; E11.22 Type 2 diabetes mellitus with diabetic chronic kidney disease; J44.9 Chronic obstructive pulmonary disease, unspecified; Z79.82 Long term (current) use of aspirin; F41.9 Anxiety disorder, unspecified; E78.00 Pure hypercholesterolemia, unspecified; Z87.891 Personal history of nicotine dependence; I25.10 Atherosclerotic heart disease of native coronary artery without angina pectoris; E78.5 Hyperlipidemia, unspecified; E11.51 Type 2 diabetes mellitus with diabetic peripheral angiopathy without gangrene; J45.909 Unspecified asthma, uncomplicated; Z86.718 Personal history of other venous thrombosis and embolism
CPT/HCPCS: 36415; 36600; 71045; 80048; 80053; 80061; 80162; 80307; 81001; 82805; 82962; 83036; 83690; 83735; 83880; 84484; 85014; 85018; 85025; 85027; 85049; 85520; 85610; 85730; 87040; 93005; 93458; 94644; 96374; G0378; C1894; J0360; J1644; J1940; J2250; J3010; J7040; Q9967

== ENCOUNTER 2020-11-06 23:33 | Emergency (ER) | payer MEDICARE ==
[2020-11-07] MEDS ORDERED: ACETAMINOPHEN 325 MG TAB PO ONE (01:20)
--- NOTE | 2020-11-07 01:51 | XRay Report ---
CHEST 1 VIEW 11/07/2020 1:34 AM INDICATION / CLINICAL INFORMATION: dyspnea. COMPARISON: 09/25/2020 FINDINGS: SUPPORT DEVICES: None. HEART / MEDIASTINUM: Stable cardiomegaly. LUNGS / PLEURA: Mild scarring right base. No significant infiltrate. No pneumothorax. ADDITIONAL FINDINGS: No significant additional findings. IMPRESSION: 1. Stable cardiomegaly. 2. Mild scarring right base. Signer Name: Mac Lemus MD Signed: 11/07/2020 1:46 AM Workstation Name: [id number]
[2020-11-07 02:06] LABS: Basophils % (Auto) 0.5 % (0.0-1.8); Eosinophils # (Auto) 0.1 K/mm3 (0.0-0.4); Eosinophils % (Auto) 0.7 % (0.0-4.3); Hematocrit 37.9 % (30.3-42.9); Hemoglobin 12.9 gm/dl (10.1-14.3); Lymphocytes # (Auto) 1.3 K/mm3 (1.2-5.4); Lymphocytes % (Auto) 16.9 % (13.4-35.0); Mean Corpuscular HGB Conc 34 % (30-34); Mean Corpuscular Volume 98 fl (79-97); Monocytes # (Auto) 0.2 K/mm3 (0.0-0.8); Monocytes % (Auto) 3.2 % (0.0-7.3); Platelet Count 301 K/mm3 (140-440); Red Blood Count 3.86 M/mm3 (3.65-5.03); Red Cell Distribution Width 14.1 % (13.2-15.2)
[2020-11-07 02:22] LABS: Calcium 9.4 mg/dL (8.4-10.2)
--- NOTE | 2020-11-07 02:54 | Emergency Department Report ---
ED Shortness of Breath HPI - General Chief Complaint: Dyspnea/Respdistress Stated Complaint: MARGO, COPD EXACERBATION Time Seen by Provider: 11/07/20 01:12 Source: patient, EMS Mode of arrival: Stretcher Limitations: No Limitations - History of Present Illness Initial Comments: Patient is a 70-year-old F Ang[place] female with a past medical history ofhyper tension, DM2, CHF (EF of 25-30% on ECHO on 09/03/2020), prior stent to the leg and COPD as result of prior Tobacco history, who is presenting with shortness of breath. Paramedics state that the patient had O2 sat in the upper 80s on arrival. She was wheezing and tripoding. Given neb treatment of albuterol and also was given a dose of Solu-Medrol and magnesium prior to arrival. Patient states that she was feeling much improved ready when she arrived. Patient still complaining of some chest soreness secondary to a cough for the last couple days. Patient states that symptoms been present for at least 3 days. She does have a nebulizer machine and uses 1 vial of albuterol at a time. She denies fevers chills body aches nausea vomiting or diarrhea at this time. - Related Data Previous Rx's Medication Instructions Recorded Last Taken Type Aspirin EC [Halfprin EC] 81 mg PO QDAY #30 tablet 09/06/20 Unknown Rx AtorvaSTATin [Lipitor] 40 mg PO QHS #30 tablet 09/06/20 Unknown Rx Digoxin [Lanoxin] 0.125 mg PO DAILY@1700 #30 tablet 09/06/20 Unknown Rx PARoxetine [Paxil] 20 mg PO DAILY #30 tablet 09/06/20 Unknown Rx Potassium Chloride [K-Dur] 20 meq PO QDAY #30 tablet 09/06/20 Unknown Rx carvediloL [Coreg] 25 mg PO BID #60 09/06/20 Unknown Rx Famotidine [Pepcid] 10 mg PO BID #30 tablet 09/27/20 Unknown Rx Ferrous Sulfate [Feosol 325 MG tab] 325 mg PO BID #30 tablet 09/27/20 Unknown Rx Furosemide [Lasix TAB] 20 mg PO QDAY #30 tablet 09/27/20 Unknown Rx ISOSORBIDE MONOnitrate [Imdur ER] 30 mg PO QDAY #30 tablet 09/27/20 Unknown Rx NIFEdipine XL [Procardia Xl] 90 mg PO QDAY #30 tablet 09/27/20 Unknown Rx Sacubitril/Valsartan [Entresto 2 each PO BID #120 tablet 09/27/20 Unknown Rx 49-51 mg] cloNIDine [Catapres] 0.1 mg PO QHS #30 tablet 09/27/20 Unknown Rx hydrALAZINE [Apresoline TAB] 100 mg PO TID #90 tab 09/27/20 Unknown Rx ALBUTEROL NEB's [Proventil 0.083% 5 mg IH TID PRN #30 neb 11/07/20 Unknown Rx NEBS] Benzonatate [Tessalon Perles] 100 mg PO Q8HR #10 capsule 11/07/20 Unknown Rx predniSONE [Deltasone] 50 mg PO QDAY #5 tab 11/07/20 Unknown Rx Allergies Allergy/AdvReac Type Severity Reaction Status Date / Time No Known Allergies Allergy Verified 04/08/16 18:42 ED Review of Systems ROS: Stated complaint: MARGO, COPD EXACERBATION Other details as noted in HPI Comment: All other systems reviewed and negative ED Past Medical Hx - Past Medical History Previous Medical History?: Yes Hx Hypertension: Yes Hx Heart Attack/AMI: Yes Hx Congestive Heart Failure: Yes Hx Diabetes: Yes Hx Deep Vein Thrombosis: Yes (stents in legs) Hx Liver Disease: No Hx Renal Disease: No Hx Sickle Cell Disease: No Hx Seizures: No Hx Psychiatric Treatment: Yes (ANXIETY) Hx Asthma: Yes Hx COPD: Yes Hx HIV: No Additional medical history: HIGH CHOLESTEROL. 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 MILD HEART ENLARGEMENT - Surgical History Past Surgical History?: Yes Hx Coronary Stent: (STENT PLACEMENT IN LEG) Hx Pacemaker: No Hx Internal Defibrillator: (has a life vest but does not use it pending evaluattion for AICD as an outp) Additional Surgical History: STENTS IN LEGS, BLOOD CLOTS REMOVED FROM HEAD. TUBAL LIGATION - Social History Smoking Status: Former Smoker - Medications Home Medications: Home Medications Medication Instructions Recorded Confirmed Last Taken Type Aspirin EC [Halfprin EC] 81 mg PO QDAY #30 tablet 09/06/20 Unknown Rx AtorvaSTATin [Lipitor] 40 mg PO QHS #30 tablet 09/06/20 Unknown Rx Digoxin [Lanoxin] 0.125 mg PO DAILY@1700 #30 tablet 09/06/20 Unknown Rx PARoxetine [Paxil] 20 mg PO DAILY #30 tablet 09/06/20 Unknown Rx Potassium Chloride [K-Dur] 20 meq PO QDAY #30 tablet 09/06/20 Unknown Rx carvediloL [Coreg] 25 mg PO BID #60 09/06/20 Unknown Rx Famotidine [Pepcid] 10 mg PO BID #30 tablet 09/27/20 Unknown Rx Ferrous Sulfate [Feosol 325 MG tab] 325 mg PO BID #30 tablet 09/27/20 Unknown Rx Furosemide [Lasix TAB] 20 mg PO QDAY #30 tablet 09/27/20 Unknown Rx ISOSORBIDE MONOnitrate [Imdur ER] 30 mg PO QDAY #30 tablet 09/27/20 Unknown Rx NIFEdipine XL [Procardia Xl] 90 mg PO QDAY #30 tablet 09/27/20 Unknown Rx Sacubitril/Valsartan [Entresto 2 each PO BID #120 tablet 09/27/20 Unknown Rx 49-51 mg] cloNIDine [Catapres] 0.1 mg PO QHS #30 tablet 09/27/20 Unknown Rx hydrALAZINE [Apresoline TAB] 100 mg PO TID #90 tab 09/27/20 Unknown Rx ALBUTEROL NEB's [Proventil 0.083% 5 mg IH TID PRN #30 neb 11/07/20 Unknown Rx NEBS] Benzonatate [Tessalon Perles] 100 mg PO Q8HR #10 capsule 11/07/20 Unknown Rx predniSONE [Deltasone] 50 mg PO QDAY #5 tab 11/07/20 Unknown Rx ED Physical Exam - General Limitations: No Limitations General appearance: alert, in no apparent distress - Head Head exam: Present: atraumatic, normocephalic - Eye Eye exam: Present: normal appearance, PERRL, EOMI - ENT ENT exam: Present: normal orophraynx, mucous membranes moist - Neck Neck exam: Present: normal inspection - Respiratory Respiratory exam: Present: normal lung sounds bilaterally. Absent: respiratory distress, wheezes, rales, rhonchi - Cardiovascular Cardiovascular Exam: Present: regular rate, normal rhythm, normal heart sounds. Absent: systolic murmur, diastolic murmur, rubs, gallop - GI/Abdominal GI/Abdominal exam: Present: soft, normal bowel sounds. Absent: distended, tenderness, guarding, rebound - Extremities Exam Extremities exam: Present: normal inspection - Back Exam Back exam: Present: normal inspection - Neurological Exam Neurological exam: Present: alert, oriented X3 - Psychiatric Psychiatric exam: Present: normal affect, normal mood - Skin Skin exam: Present: warm, dry, intact, normal color. Absent: rash ED Course Vital Signs 11/07/20 11/07/20 01:25 02:07 Temperature 97.9 F Pulse Rate 87 Respiratory 20 20 Rate Blood Pressure 160/64 [Left] O2 Sat by Pulse 98 Oximetry ED Medical Decision Making - Lab Data Result diagrams: 11/07/20 01:35 11/07/20 01:35 Lab Results 11/07/20 11/07/20 11/07/20 Range/Units 01:35 01:35 01:35 WBC 7.5 (4.5-11.0) K/mm3 RBC 3.86 (3.65-5.03) M/mm3 Hgb 12.9 (10.1-14.3) gm/dl Hct 37.9 (30.3-42.9) % MCV 98 H (79-97) fl MCH 34 H (28-32) pg MCHC 34 (30-34) % RDW 14.1 (13.2-15.2) % Plt Count 301 (140-440) K/mm3 Lymph % (Auto) 16.9 (13.4-35.0) % [place] % (Auto) 3.2 (0.0-7.3) % Eos % (Auto) 0.7 (0.0-4.3) % Baso % (Auto) 0.5 (0.0-1.8) % Lymph # (Auto) 1.3 (1.2-5.4) K/mm3 [place] # (Auto) 0.2 (0.0-0.8) K/mm3 Eos # (Auto) 0.1 (0.0-0.4) K/mm3 Baso # (Auto) 0.0 (0.0-0.1) K/mm3 Seg Neutrophils % 78.7 H (40.0-70.0) % Seg Neutrophils # 5.9 (1.8-7.7) K/mm3 Sodium 141 (137-145) mmol/L Potassium 4.1 (3.6-5.0) mmol/L Chloride 107.2 H (98-107) mmol/L Carbon Dioxide 19 L (22-30) mmol/L Anion Gap 19 mmol/L BUN 18 H (7-17) mg/dL Creatinine 1.3 H (0.6-1.2) mg/dL Estimated GFR 49 ml/min BUN/Creatinine Ratio 14 % Glucose 112 H (65-100) mg/dL Calcium 9.4 (8.4-10.2) mg/dL Troponin T < 0.010 (0.00-0.029) ng/mL - EKG Data -: EKG Interpreted by Me - EKG Data 11/07/20 02:53 EKG shows sinus rhythm rate 87. [place] is slightly leftward intervals show slight prolonged QT. T waves are inverted laterally. Evidence of LVH with interventricular conduction delay. Is compared with EKG from 09/25/2020 and there is no interval change - Radiology Data [facility] [address] [place] [address] XRay Report Signed Patient: DIANA FLANNERY MR#: [id number] : 1950 Acct:[id number] Age/Sex: 70 / F ADM Date: 11/06/20 Loc: ED Attending Dr: Ordering Physician: SELMA AMEZCUA MD Date of Service: 11/07/20 Procedure(s): XR chest 1V ap Accession Number(s): [id number] cc: SELMA AMEZCUA MD Fluoro Time In Minutes: CHEST 1 VIEW 11/07/2020 1:34 AM INDICATION / CLINICAL INFORMATION: dyspnea. COMPARISON: 09/25/2020 FINDINGS: SUPPORT DEVICES: None. HEART / MEDIASTINUM: Stable cardiomegaly. LUNGS / PLEURA: Mild scarring right base. No significant infiltrate. No pneumothorax. ADDITIONAL FINDINGS: No significant additional findings. IMPRESSION: 1. Stable cardiomegaly. 2. Mild scarring right base. Signer Name: Mac Lemus MD Signed: 11/07/2020 1:46 AM Workstation Name: [id number] - Medical Decision Making Patient is a 70-year-old F [place] female with past medical history of COPD who has some wheezing prior to arrival. Patient received neb treatments Solu- Medrol mag prior to arrival. Patient states she is feeling much improved. Still has some chest soreness but EKG showed no interval change from previous EKGs and troponin was negative. No pneumonia seen on chest x-ray. Patient was vaccinated against COVID-19. Suggest that the patient take 2 vials of her albuterol solution per neb every 4 hours and will continue a short course of steroids for the patient. Patient is status stable for discharge. O2 sats in the upper 90s on room air throughout her visit. Critical care attestation.: If time is entered above; I have spent that time in minutes in the direct care of this critically ill patient, excluding procedure time. ED Disposition Clinical Impression: COPD exacerbation Disposition: 01 HOME / SELF CARE / HOMELESS Is pt being admited?: No Does the pt Need Aspirin: No Condition: Stable Instructions: Chronic Obstructive Pulmonary Disease (ED), Chronic Obstructive Pulmonary Disease Referrals: PRIMARY CAREMD [Primary Care Provider] - 3-5 Days Time of Disposition: 02:57
[2020-11-07 03:35] VITALS: BP 165/69
--- NOTE | 2020-11-07 10:20 | Electrocardiograph Report ---
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
== END 2020-11-07 03:41 | disposition home or self-care (01) ==
LOC: ED 23:33
DX: J44.1 Chronic obstructive pulmonary disease with (acute) exacerbation (principal); I11.0 Hypertensive heart disease with heart failure; E11.8 Type 2 diabetes mellitus with unspecified complications; I82.409 Acute embolism and thrombosis of unspecified deep veins of unspecified lower extremity; F41.8 Other specified anxiety disorders; E78.00 Pure hypercholesterolemia, unspecified; Z98.890 Other specified postprocedural states; Z87.891 Personal history of nicotine dependence
CPT/HCPCS: 36415; 71045; 80048; 84484; 85025; 93005; 99284

== ENCOUNTER 2021-02-26 12:05 | Emergency (ER) | payer MEDICARE ==
[2021-02-26] MEDS ORDERED: KETOROLAC 30 MG/1 ML INJ IM ONE (12:12)
--- NOTE | 2021-02-26 12:16 | Emergency Department Report ---
ED Shortness of Breath HPI - General Chief Complaint: Dyspnea/Respdistress Stated Complaint: MARGO Time Seen by Provider: 02/26/21 12:11 Source: EMS Mode of arrival: Stretcher Limitations: No Limitations - History of Present Illness Initial Comments: Patient presents by EMS secondary shortness of breath and chest pain. She got up this morning, smoked a cigarette, and started having left chest pain and trouble breathing. She used her albuterol inhaler and nebulizer. That provided no symptomatic improvement. She called EMS. During transport, EMS administered a DuoNeb as well as Solu-Medrol. Her heart rate improved. Her oxygen improved. They arrived here. Upon arrival, patient states she is still having difficulty breathing and still having a chest pain. She states that what the paramedics gave did help. She is describing a sharp and stabbing left-sided chest pain that is worse with inspiration. It is not exertional. The pain does not radiate or migrate. She has no arm pain. She has not been diaphoretic. The pain is not positional. She states it is only there when she takes a deep breath. She states she has a hard time taking a deep breath because of her shortness of breath. She admits to coughing up whitish phlegm. She has had no fevers. There has been no known coronavirus exposure. - Related Data Previous Rx's Medication Instructions Recorded Last Taken Type Aspirin EC [Halfprin EC] 81 mg PO QDAY #30 tablet 09/06/20 Unknown Rx AtorvaSTATin [Lipitor] 40 mg PO QHS #30 tablet 09/06/20 Unknown Rx Digoxin [Lanoxin] 0.125 mg PO DAILY@1700 #30 tablet 09/06/20 Unknown Rx PARoxetine [Paxil] 20 mg PO DAILY #30 tablet 09/06/20 Unknown Rx Potassium Chloride [K-Dur] 20 meq PO QDAY #30 tablet 09/06/20 Unknown Rx carvediloL [Coreg] 25 mg PO BID #60 09/06/20 Unknown Rx Famotidine [Pepcid] 10 mg PO BID #30 tablet 09/27/20 Unknown Rx Ferrous Sulfate [Feosol 325 MG tab] 325 mg PO BID #30 tablet 09/27/20 Unknown Rx Furosemide [Lasix TAB] 20 mg PO QDAY #30 tablet 09/27/20 Unknown Rx ISOSORBIDE MONOnitrate [Imdur ER] 30 mg PO QDAY #30 tablet 09/27/20 Unknown Rx NIFEdipine XL [Procardia Xl] 90 mg PO QDAY #30 tablet 09/27/20 Unknown Rx Sacubitril/Valsartan [Entresto 2 each PO BID #120 tablet 09/27/20 Unknown Rx 49-51 mg] cloNIDine [Catapres] 0.1 mg PO QHS #30 tablet 09/27/20 Unknown Rx hydrALAZINE [Apresoline TAB] 100 mg PO TID #90 tab 09/27/20 Unknown Rx ALBUTEROL NEB's [Proventil 0.083% 5 mg IH TID PRN #30 neb 11/07/20 Unknown Rx NEBS] Benzonatate [Tessalon Perles] 100 mg PO Q8HR #10 capsule 11/07/20 Unknown Rx predniSONE [Deltasone] 50 mg PO QDAY #5 tab 11/07/20 Unknown Rx Allergies Allergy/AdvReac Type Severity Reaction Status Date / Time No Known Allergies Allergy Verified 02/26/21 12:09 ED Review of Systems ROS: Stated complaint: MARGO Other details as noted in HPI Comment: All other systems reviewed and negative Constitutional: denies: fever Eyes: denies: eye pain ENT: denies: ear pain Respiratory: see HPI Cardiovascular: as per HPI Endocrine: denies: unexplained weight loss Gastrointestinal: denies: abdominal pain Genitourinary: denies: dysuria Musculoskeletal: denies: back pain Skin: denies: rash Neurological: denies: headache Hematological/Lymphatic: denies: easy bruising ED Past Medical Hx - Past Medical History Hx Hypertension: Yes Hx Heart Attack/AMI: Yes Hx Congestive Heart Failure: Yes Hx Diabetes: Yes Hx Deep Vein Thrombosis: Yes (stents in legs) Hx Liver Disease: No Hx Renal Disease: No Hx Sickle Cell Disease: No Hx Seizures: No Hx Psychiatric Treatment: Yes (ANXIETY) Hx Asthma: Yes Hx COPD: Yes Hx HIV: No Additional medical history: HIGH CHOLESTEROL. 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 MILD HEART ENLARGEMENT - Surgical History Hx Coronary Stent: (STENT PLACEMENT IN LEG) Hx Pacemaker: No Hx Internal Defibrillator: (has a life vest but does not use it pending evaluattion for AICD as an outp) Additional Surgical History: STENTS IN LEGS, BLOOD CLOTS REMOVED FROM HEAD. TUBAL LIGATION - Family History Family history: hypertension - Social History Smoking Status: Former Smoker - Medications Home Medications: Home Medications Medication Instructions Recorded Confirmed Last Taken Type Aspirin EC [Halfprin EC] 81 mg PO QDAY #30 tablet 09/06/20 Unknown Rx AtorvaSTATin [Lipitor] 40 mg PO QHS #30 tablet 09/06/20 Unknown Rx Digoxin [Lanoxin] 0.125 mg PO DAILY@1700 #30 tablet 09/06/20 Unknown Rx PARoxetine [Paxil] 20 mg PO DAILY #30 tablet 09/06/20 Unknown Rx Potassium Chloride [K-Dur] 20 meq PO QDAY #30 tablet 09/06/20 Unknown Rx carvediloL [Coreg] 25 mg PO BID #60 09/06/20 Unknown Rx Famotidine [Pepcid] 10 mg PO BID #30 tablet 09/27/20 Unknown Rx Ferrous Sulfate [Feosol 325 MG tab] 325 mg PO BID #30 tablet 09/27/20 Unknown Rx Furosemide [Lasix TAB] 20 mg PO QDAY #30 tablet 09/27/20 Unknown Rx ISOSORBIDE MONOnitrate [Imdur ER] 30 mg PO QDAY #30 tablet 09/27/20 Unknown Rx NIFEdipine XL [Procardia Xl] 90 mg PO QDAY #30 tablet 09/27/20 Unknown Rx Sacubitril/Valsartan [Entresto 2 each PO BID #120 tablet 09/27/20 Unknown Rx 49-51 mg] cloNIDine [Catapres] 0.1 mg PO QHS #30 tablet 09/27/20 Unknown Rx hydrALAZINE [Apresoline TAB] 100 mg PO TID #90 tab 09/27/20 Unknown Rx ALBUTEROL NEB's [Proventil 0.083% 5 mg IH TID PRN #30 neb 11/07/20 Unknown Rx NEBS] Benzonatate [Tessalon Perles] 100 mg PO Q8HR #10 capsule 11/07/20 Unknown Rx predniSONE [Deltasone] 50 mg PO QDAY #5 tab 11/07/20 Unknown Rx ED Physical Exam - General Limitations: No Limitations, Other (Pulse ox noted and normal) General appearance: alert, in distress (Mild), other (Frail) - Head Head exam: Present: atraumatic, normocephalic - Eye Eye exam: Present: normal appearance, EOMI. Absent: scleral icterus - ENT ENT exam: Present: mucous membranes moist, normal external ear exam - Neck Neck exam: Present: normal inspection. Absent: meningismus - Respiratory Respiratory exam: Present: normal lung sounds bilaterally, respiratory distress (Mild), prolonged expiratory. Absent: wheezes, rales - Cardiovascular Cardiovascular Exam: Present: normal rhythm, tachycardia - GI/Abdominal GI/Abdominal exam: Present: soft. Absent: tenderness - Extremities Exam Extremities exam: Present: normal capillary refill. Absent: calf tenderness - Back Exam Back exam: Absent: CVA tenderness (R), CVA tenderness (L) - Neurological Exam Neurological exam: Present: alert, oriented X3, CN II-XII intact. Absent: motor sensory deficit - Psychiatric Psychiatric exam: Present: normal affect, normal mood - Skin Skin exam: Present: warm, dry ED Course Vital Signs 02/26/21 02/26/21 02/26/21 12:07 12:38 12:46 Temperature 98 F Pulse Rate 115 H 105 H 108 H Respiratory 16 30 H Rate Blood Pressure 183/81 Blood Pressure 190/100 [Left] O2 Sat by Pulse 96 96 Oximetry 02/26/21 02/26/21 02/26/21 13:00 13:06 13:16 Temperature 98.8 F Pulse Rate 104 H 104 H Respiratory 18 18 19 Rate Blood Pressure 181/80 202/82 Blood Pressure [Left] O2 Sat by Pulse 95 95 95 Oximetry 02/26/21 02/26/21 02/26/21 13:30 13:39 13:46 Temperature Pulse Rate 101 H 99 H Respiratory 18 17 24 Rate Blood Pressure 173/79 192/82 Blood Pressure [Left] O2 Sat by Pulse 95 96 Oximetry 02/26/21 02/26/21 02/26/21 14:00 14:16 14:30 Temperature Pulse Rate 101 H 103 H 104 H Respiratory 16 13 17 Rate Blood Pressure 187/80 191/82 194/81 Blood Pressure [Left] O2 Sat by Pulse 96 96 94 Oximetry 02/26/21 02/26/21 02/26/21 14:46 15:00 15:09 Temperature 98.2 F Pulse Rate 101 H 99 H Respiratory 18 19 Rate Blood Pressure 171/61 174/66 Blood Pressure [Left] O2 Sat by Pulse 93 94 Oximetry 02/26/21 15:21 Temperature 98.2 F Pulse Rate 104 H Respiratory 18 Rate Blood Pressure 176/88 Blood Pressure [Left] O2 Sat by Pulse 94 Oximetry - Reevaluation(s) Reevaluation #1: 02/26/21 12:16 EMS was met upon arrival. X-ray and EKG were ordered. Old records reviewed. Reevaluation #2: 02/26/21 16:07 Work-up was complete. Second troponin was noted. Patient was discharged. ED Medical Decision Making - Lab Data Result diagrams: 02/26/21 13:05 02/26/21 13:05 - Medical Decision Making Patient presented secondary to chest pain. Etiology for this was not known. It is unlikely to be cardiac as this was pleuritic in nature. This was not related to left arm pain. This was related to inspiration and cough. This clearly seem to be respiratory and pulmonary in nature. There was no radiographic evidence of pneumonia or pneumothorax. She did not have evidence of congestive heart failure or Covid at this time. Based on 2 troponins, there is no change in either or EKG changes suggest STEMI. Patient was treated symptomatically and referred for outpatient evaluation and follow-up. She does not have symptoms or pulse does not suggest arctic dissection. Critical Care Time: No Critical care attestation.: If time is entered above; I have spent that time in minutes in the direct care of this critically ill patient, excluding procedure time. ED Disposition Clinical Impression: Left-sided chest pain Asthma exacerbation Qualifiers: Asthma severity: moderate Asthma persistence: persistent Qualified Code(s): J45.41 - Moderate persistent asthma with (acute) exacerbation Disposition: 01 HOME / SELF CARE / HOMELESS Is pt being admited?: No Condition: Stable Instructions: Bronchospasm, Adult, Nonspecific Chest Pain, Adult, Peak Flow Meter, Asthma Attack, Pain Without a Known Cause Additional Instructions: Continue your home medication. Push fluids. Return for problems. Follow-up with your regular doctor for recheck. Use Tylenol for any fevers that develop. Referrals: PRIMARY CARE, [Primary Care Provider] - 3-5 Days
--- NOTE | 2021-02-26 12:50 | XRay Report ---
CHEST 2 VIEWS INDICATION / CLINICAL INFORMATION: left cp STUDY TIME: 1230 COMPARISON: 11/07/2020 FINDINGS: SUPPORT DEVICES: None. HEART / MEDIASTINUM: Cardiomegaly is again seen LUNGS / PLEURA: Pulmonary vascularity appears within normal limits. Scarring is again seen in the rig ht base. No pleural effusions are seen. No definite pneumonic infiltrates are noted. No pneumothorax. ADDITIONAL FINDINGS: No significant additional findings. Signer Name: Edgar Murguia MD Signed: 02/26/2021 12:46 PM Workstation Name: [id number]
[2021-02-26 13:24] LABS: Hematocrit 36.8 % (30.3-42.9); Hemoglobin 12.2 gm/dl (10.1-14.3); Mean Corpuscular HGB Conc 33 % (30-34); Mean Corpuscular Volume 96 fl (79-97); Platelet Count 301 K/mm3 (140-440); Red Blood Count 3.84 M/mm3 (3.65-5.03)
[2021-02-26 14:57] LABS: BUN/Creatinine Ratio 14; Blood Urea Nitrogen 14 mg/dL (7-17); Calcium 8.8 mg/dL (8.4-10.2); Hemolysis Index 13
[2021-02-26] MEDS ORDERED: POTASSIUM CHLORIDE ER 20 MEQ TAB PO ONE (15:11)
[2021-02-26 15:24] LABS: Chol/HDL Ratio 3.06 %; HDL Cholesterol 64 mg/dL (40-59); LDL Cholesterol,Direct 125 mg/dL (50-130)
[2021-02-26 16:44] VITALS: BP 170/74
== END 2021-02-26 16:43 | disposition home or self-care (01) ==
LOC: ED 12:05
DX: R07.89 Other chest pain (principal); J45.41 Moderate persistent asthma with (acute) exacerbation; I10 Essential (primary) hypertension; E11.8 Type 2 diabetes mellitus with unspecified complications; Z87.891 Personal history of nicotine dependence
CPT/HCPCS: 36415; 71046; 80048; 80061; 84484; 85027; 96372; 99284; J1885

== ENCOUNTER 2021-07-12 07:34 | Inpatient (IN) | payer MEDICARE ==
[2021-07-12] MEDS ORDERED: IPRATROPIUM/ALBUTEROL SULFATE 3 ML AMPUL.NEB IH ONE (08:11)
[2021-07-12] MEDS ORDERED: cloNIDine 0.2 MG TAB PO ONE (08:13)
[2021-07-12] MEDS ORDERED: ONDANSETRON 4 MG/2 ML INJ IV ONE (08:13)
--- NOTE | 2021-07-12 08:17 | Emergency Department Report ---
HPI - General Chief Complaint: Dyspnea/Respdistress Time Seen by Provider: 07/12/21 08:09 - HPI HPI: Room 7 The patient is a 71-year-old female present with a chief complaint of shortness of breath. The patient states that she has had nausea vomiting and diarrhea for the past 3 days. Patient states last night she developed shortness of breath from an asthma exacerbation. EMS was called this morning and found the patient hypoxic to 92% on room air. Patient was administered albuterol Solu-Medrol 125 mg and magnesium sulfate by EMS prior to arrival. Per EMS the patient has shown some improvement. Patient denies history of fever. Patient states she received 1 dose of the [employer] COVID-vaccine. ED Past Medical Hx - Past Medical History Hx Hypertension: Yes Hx Heart Attack/AMI: Yes Hx Congestive Heart Failure: Yes Hx Diabetes: Yes (Taken off metformin) Hx Deep Vein Thrombosis: Yes (stents in legs) Hx Renal Disease: Yes (Renal insufficiency) Hx Psychiatric Treatment: Yes (ANXIETY) Hx Asthma: Yes Hx COPD: Yes Additional medical history: HIGH CHOLESTEROL. 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 MILD HEART ENLARGEMENT - Surgical History Hx Coronary Stent: (STENT PLACEMENT IN LEG) Hx Pacemaker: No Hx Internal Defibrillator: (has a life vest but does not use it pending evaluattion for AICD as an outp) Additional Surgical History: STENTS IN LEGS, BLOOD CLOTS REMOVED FROM HEAD. TUBAL LIGATION - Family History Family history: no significant - Social History Smoking Status: Former Smoker (None since 2019) Substance Use Type: None - Medications Home Medications: Home Medications Medication Instructions Recorded Confirmed Last Taken Type Aspirin EC [Halfprin EC] 81 mg PO QDAY #30 tablet 09/06/20 Unknown Rx AtorvaSTATin [Lipitor] 40 mg PO QHS #30 tablet 09/06/20 Unknown Rx Digoxin [Lanoxin] 0.125 mg PO DAILY@1700 #30 tablet 09/06/20 Unknown Rx PARoxetine [Paxil] 20 mg PO DAILY #30 tablet 09/06/20 Unknown Rx Potassium Chloride [K-Dur] 20 meq PO QDAY #30 tablet 09/06/20 Unknown Rx carvediloL [Coreg] 25 mg PO BID #60 09/06/20 Unknown Rx Famotidine [Pepcid] 10 mg PO BID #30 tablet 09/27/20 Unknown Rx Ferrous Sulfate [Feosol 325 MG tab] 325 mg PO BID #30 tablet 09/27/20 Unknown Rx Furosemide [Lasix TAB] 20 mg PO QDAY #30 tablet 09/27/20 Unknown Rx ISOSORBIDE MONOnitrate [Imdur ER] 30 mg PO QDAY #30 tablet 09/27/20 Unknown Rx NIFEdipine XL [Procardia Xl] 90 mg PO QDAY #30 tablet 09/27/20 Unknown Rx Sacubitril/Valsartan [Entresto 2 each PO BID #120 tablet 09/27/20 Unknown Rx 49-51 mg] cloNIDine [Catapres] 0.1 mg PO QHS #30 tablet 09/27/20 Unknown Rx hydrALAZINE [Apresoline TAB] 100 mg PO TID #90 tab 09/27/20 Unknown Rx ALBUTEROL NEB's [Proventil 0.083% 5 mg IH TID PRN #30 neb 11/07/20 Unknown Rx NEBS] Benzonatate [Tessalon Perles] 100 mg PO Q8HR #10 capsule 11/07/20 Unknown Rx predniSONE [Deltasone] 50 mg PO QDAY #5 tab 11/07/20 Unknown Rx ED Review of Systems ROS: Stated complaint: MARGO/HEADACHE Other details as noted in HPI Constitutional: denies: fever Eyes: denies: eye pain ENT: denies: throat pain Respiratory: cough, shortness of breath Cardiovascular: denies: chest pain Endocrine: no symptoms reported Gastrointestinal: nausea, vomiting, diarrhea Genitourinary: denies: dysuria Musculoskeletal: denies: back pain Neurological: denies: headache Physical Exam - Physical Exam Vital Signs: Vital Signs 07/12/21 07:57 Temperature 98 F Pulse Rate 97 H Respiratory 18 Rate Blood Pressure 199/96 [Left] O2 Sat by Pulse 100 Oximetry Physical Exam: GENERAL: The patient is well-developed well-nourished female lying on stretcher exhibiting slightly increased work of breathing. [] HEENT: Normocephalic. Atraumatic. Extraocular motions are intact. Patient has moist mucous membranes. NECK: Supple. Trachea midline CHEST/LUNGS: Clear to auscultation. There is slightly increased work of breathing HEART/CARDIOVASCULAR: Regular. There is no tachycardia. There is no gallop rub or murmur. ABDOMEN: Abdomen is soft, nontender. Patient has normal bowel sounds. There is no abdominal distention. SKIN: There is no rash. There is no edema. There is no diaphoresis. NEURO: The patient is awake, alert, and oriented. The patient is cooperative. The patient has no focal neurologic deficits. The patient has normal speech. GCS 15 MUSCULOSKELETAL: There is no evidence of acute injury. ED Course Vital Signs 07/12/21 07:57 Temperature 98 F Pulse Rate 97 H Respiratory 18 Rate Blood Pressure 199/96 [Left] O2 Sat by Pulse 100 Oximetry ED Medical Decision Making - Lab Data Result diagrams: 07/12/21 08:26 07/12/21 08:26 Laboratory Tests 07/12/21 07/12/21 07/12/21 08:26 08:26 08:26 WBC 8.8 RBC 4.49 Hgb 13.9 Hct 43.1 H MCV 96 MCH 31 MCHC 32 RDW 15.1 Plt Count 283 Lymph % (Auto) 16.2 [place] % (Auto) 6.3 Eos % (Auto) 0.9 Baso % (Auto) 0.5 Lymph # (Auto) 1.4 [place] # (Auto) 0.6 Eos # (Auto) 0.1 Baso # (Auto) 0.0 Seg Neutrophils % 76.1 H Seg Neutrophils # 6.7 PT 14.4 INR 1.01 Sodium 146 H Potassium 4.4 Chloride 108.7 H Carbon Dioxide 25 Anion Gap 17 BUN 15 Creatinine 1.0 Estimated GFR > 60 BUN/Creatinine Ratio 15 Glucose 131 H Calcium 9.1 Total Bilirubin 0.70 AST 17 ALT 16 Alkaline Phosphatase 109 Troponin T NT-Pro-B Natriuret Pep Total Protein 6.5 Albumin 4.1 Albumin/Globulin Ratio 1.7 Triglycerides Cholesterol LDL Cholesterol Direct HDL Cholesterol Cholesterol/HDL Ratio Lipase 53 07/12/21 08:26 WBC RBC Hgb Hct MCV MCH MCHC RDW Plt Count Lymph % (Auto) [place] % (Auto) Eos % (Auto) Baso % (Auto) Lymph # (Auto) [place] # (Auto) Eos # (Auto) Baso # (Auto) Seg Neutrophils % Seg Neutrophils # PT INR Sodium Potassium Chloride Carbon Dioxide Anion Gap BUN Creatinine Estimated GFR BUN/Creatinine Ratio Glucose Calcium Total Bilirubin AST ALT Alkaline Phosphatase Troponin T 0.033 H NT-Pro-B Natriuret Pep 5541 H Total Protein Albumin Albumin/Globulin Ratio Triglycerides 196 H Cholesterol 197 LDL Cholesterol Direct 113 HDL Cholesterol 50 Cholesterol/HDL Ratio 3.94 Lipase - EKG Data -: EKG Interpreted by Me EKG shows normal: sinus rhythm, axis Rate: normal - EKG Data When compared to previous EKG there are: previous EKG unavailable Interpretation: nonspecific ST-T wave nyla, LVH - Radiology Data Radiology results: report reviewed (Acute abdominal series with chest x-ray), image reviewed (Acute abdominal series with chest x-ray) interpreted by me: Acute abdominal series with chest x-ray-no air-fluid levels. No free air. No focal infiltrates. No pneumothorax [facility] [address] [place] [address] XRay Report Signed Patient: DIANA FLANNERY MR#: [id number] : 1950 Acct:[id number] Age/Sex: 71 / F ADM Date: 07/12/21 Loc: ED Attending Dr: Ordering Physician: LORI GONZALEZ MD Date of Service: 07/12/21 Procedure(s): XR abd series w cxr 1V Accession Number(s): [id number] cc: LORI GONZALEZ MD Fluoro Time In Minutes: XR abd series w cxr 1V INDICATION / CLINICAL INFORMATION: Nausea vomiting diarrhea, shortness of breath. COMPARISON: 02/24/2021. FINDINGS: TUBES / LINES: None. CHEST: The heart is enlarged. No significant pulmonary vasculature congestion. Lungs are clear. No sizable pleural effusion or pneumothorax. BOWEL GAS PATTERN: No significant abnormality. FREE AIR / EXTRALUMINAL GAS: None seen. ADDITIONAL FINDINGS: No significant additional findings. IMPRESSION: No acute abnormality Signer Name: Jarret Francis MD Signed: 07/12/2021 8:34 AM Workstation Name: [id number] Transcribed By: ALEXANDRA Dictated By: JARRET FRANCIS MD Electronically Authenticated By: JARRET FRANCIS MD Signed Date/Time: 07/12/21833 DD/ 2 TD/TT: - Differential Diagnosis Gastroenteritis, P SBO, asthma exacerbation, pneumonia, bronchitis, Critical care attestation.: If time is entered above; I have spent that time in minutes in the direct care of this critically ill patient, excluding procedure time. ED Disposition Clinical Impression: Shortness of breath, Elevated troponin, Chest pain Disposition: 09 ADMITTED INPATIENT Is pt being admited?: Yes Does the pt Need Aspirin: Yes Condition: Fair Instructions: Nonspecific Chest Pain, Adult Time of Disposition: 09:41 (Care transferred to hospitalist Dr Ragland (discussed with Dr. Liao)) Heart Score - HEART Score History: Slightly suspicious EKG: Non-specific Age: > 65 Risk factors: 1-2 risk factors Troponin: 1-3x normal limit HEART Score: 5 - EKG Read Time Time EKG Completed: :26 EKG Read Time: 09:34
[2021-07-12 08:36] LABS: Basophils % (Auto) 0.5 % (0.0-1.8); Eosinophils # (Auto) 0.1 K/mm3 (0.0-0.4); Eosinophils % (Auto) 0.9 % (0.0-4.3); Hematocrit 43.1 % (30.3-42.9); Hemoglobin 13.9 gm/dl (10.1-14.3); Lymphocytes # (Auto) 1.4 K/mm3 (1.2-5.4); Lymphocytes % (Auto) 16.2 % (13.4-35.0); Mean Corpuscular HGB Conc 32 % (30-34); Mean Corpuscular Volume 96 fl (79-97); Monocytes # (Auto) 0.6 K/mm3 (0.0-0.8); Monocytes % (Auto) 6.3 % (0.0-7.3); Platelet Count 283 K/mm3 (140-440); Red Blood Count 4.49 M/mm3 (3.65-5.03); Red Cell Distribution Width 15.1 % (13.2-15.2)
--- NOTE | 2021-07-12 08:39 | XRay Report ---
XR abd series w cxr 1V INDICATION / CLINICAL INFORMATION: Nausea vomiting diarrhea, shortness of breath. COMPARISON: 02/24/2021. FINDINGS: TUBES / LINES: None. CHEST: The heart is enlarged. No significant pulmonary vasculature congestion. Lungs are clear. No si zable pleural effusion or pneumothorax. BOWEL GAS PATTERN: No significant abnormality. FREE AIR / EXTRALUMINAL GAS: None seen. ADDITIONAL FINDINGS: No significant additional findings. IMPRESSION: No acute abnormality Signer Name: Floyd Francis MD Signed: 07/12/2021 8:34 AM Workstation Name: [id number]
[2021-07-12 08:52] LABS: INR 1.01 (0.87-1.13)
[2021-07-12 09:02] LABS: Alanine Aminotransferase 16 units/L (7-56); Albumin 4.1 g/dL (3.9-5); BUN/Creatinine Ratio 15; Blood Urea Nitrogen 15 mg/dL (7-17); Calcium 9.1 mg/dL (8.4-10.2); Hemolysis Index 14
[2021-07-12 09:17] LABS: Chol/HDL Ratio 3.94 %
[2021-07-12] MEDS ORDERED: FUROSEMIDE 40 MG/4 ML INJ IV ONE (09:17)
[2021-07-12] MEDS ORDERED: ASPIRIN 325 MG TAB PO ONE (09:17)
[2021-07-12] MEDS ORDERED: ALBUTEROL 2.5 MG/3 ML NEBU IH PRN (09:52)
[2021-07-12] MEDS ORDERED: ACETAMINOPHEN 325 MG TAB PO PRN (09:56)
[2021-07-12] MEDS ORDERED: NALOXONE 0.4 MG/1 ML INJ IV PRN (09:56)
[2021-07-12] MEDS ORDERED: DEXTROSE 50% IN WATER (25GM) 50 ML SYRINGE IV PRN (09:56)
[2021-07-12] MEDS ORDERED: FAMOTIDINE 10 MG TAB PO SCH (10:00)
[2021-07-12] MEDS ORDERED: ASPIRIN 81 MG TAB CHEW PO SCH (10:00)
--- NOTE | 2021-07-12 10:02 | History and Physical Report ---
History of Present Illness Date of examination: 07/12/21 Date of admission: 07/12/2021 Chief complaint: Shortness of breath with intractable nausea vomiting History of present illness: Patient is a 71-year-old female with past medical history of hypertension, diabetes mellitus, CHF with a EF of 25 to 30% on echo done on 03 September 2020, prior stent to the leg and also history of COPD as a result of tobacco use which she still continues to smoke intermittently. She presents to the ED with complaints of nausea vomiting and diarrhea that has been going on for the last week with progressive worsening up till last night prompting the family to call EMS and bring the patient to the hospital as she was visibly short of breath. Per documentation patient was hypoxic 92% on room air prior to EMS arrival. She is accompanied by her daughter who gives information. States that she follows up with outside medical and sees a kidney doctor and also heart doctor. Unfort unately she continues to smoke less than a pack a day although the patient had told me she does not smoke. She is compliant with her medications and her diet. Has been no new changes to medications and no fever recorded at home. She is noted to have had 1 dose of the Quinn & Quinn vaccine. Her daughter reports that there is no hemoptysis or hematemesis and no hematochezia. Also reports that she has been having some gradual weight loss in the last few weeks. The patient states that she does not have much of an appetite EKG shows sinus rhythm Acute abdominal series with chest x-ray-no air-fluid levels. No free air. No focal infiltrates. No pneumothorax Past History Past Medical History: acute [place], CAD, COPD, diabetes, hypertension, hyper lipidemia, other (2 "LEAKY VALVES" IN HEART. MILD HEART ENLARGEMENT) Past Surgical History: Other (Stent to the LAD as a result of PAD, tubal ligation, blood clots removed from the head) Social history: lives with family, AND/DNR-allow natural Family history: no significant family history Medications and Allergies Allergies Allergy/AdvReac Type Severity Reaction Status Date / Time No Known Allergies Allergy Verified 02/26/21 12:09 Home Medications Medication Instructions Recorded Confirmed Last Taken Type Aspirin EC [Halfprin EC] 81 mg PO QDAY #30 tablet 09/06/20 Unknown Rx AtorvaSTATin [Lipitor] 40 mg PO QHS #30 tablet 09/06/20 Unknown Rx Digoxin [Lanoxin] 0.125 mg PO DAILY@1700 #30 tablet 09/06/20 Unknown Rx PARoxetine [Paxil] 20 mg PO DAILY #30 tablet 09/06/20 Unknown Rx Potassium Chloride [K-Dur] 20 meq PO QDAY #30 tablet 09/06/20 Unknown Rx carvediloL [Coreg] 25 mg PO BID #60 09/06/20 Unknown Rx Famotidine [Pepcid] 10 mg PO BID #30 tablet 09/27/20 Unknown Rx Ferrous Sulfate [Feosol 325 MG tab] 325 mg PO BID #30 tablet 09/27/20 Unknown Rx Furosemide [Lasix TAB] 20 mg PO QDAY #30 tablet 09/27/20 Unknown Rx ISOSORBIDE MONOnitrate [Imdur ER] 30 mg PO QDAY #30 tablet 09/27/20 Unknown Rx NIFEdipine XL [Procardia Xl] 90 mg PO QDAY #30 tablet 09/27/20 Unknown Rx Sacubitril/Valsartan [Entresto 2 each PO BID #120 tablet 09/27/20 Unknown Rx 49-51 mg] cloNIDine [Catapres] 0.1 mg PO QHS #30 tablet 09/27/20 Unknown Rx hydrALAZINE [Apresoline TAB] 100 mg PO TID #90 tab 09/27/20 Unknown Rx ALBUTEROL NEB's [Proventil 0.083% 5 mg IH TID PRN #30 neb 11/07/20 Unknown Rx NEBS] Benzonatate [Tessalon Perles] 100 mg PO Q8HR #10 capsule 11/07/20 Unknown Rx predniSONE [Deltasone] 50 mg PO QDAY #5 tab 11/07/20 Unknown Rx Active Meds: Active Medications Acetaminophen (Acetaminophen 325 Mg Tab) 650 mg PO Q4H PRN PRN Reason: Pain MILD(1-3)/Fever >100.5/GAMEZ Albuterol (Albuterol 2.5 Mg/3 Ml Nebu) 5 mg IH TID PRN PRN Reason: Wheezing Albuterol/Ipratropium (Ipratropium/Albuterol Sulfate 3 Ml Ampul.Neb) 1 ampul IH Q6HRT [facility] Aspirin (Aspirin Ec 81 Mg Tab) 81 mg PO QDAY [facility] Atorvastatin Calcium (Atorvastatin 40 Mg Tab) 40 mg PO QHS [facility] Benzonatate (Benzonatate 100 Mg Cap) 100 mg PO Q8HR [facility] Budesonide (Budesonide 0.5 Mg/2 Ml Nebu) 0.5 mg IH Q12HRT [facility] Carvedilol (Carvedilol 25 Mg Tab) 25 mg PO BID [facility] Clonidine HCl (Clonidine 0.1 Mg Tab) 0.1 mg PO QHS [facility] Dextrose (Dextrose 50% In Water (25gm) 50 Ml Syringe) 50 ml IV Q30MIN PRN; Protocol PRN Reason: Hypoglycemia Digoxin (Digoxin 0.125 Mg Tab) 0.125 mg PO DAILY@1700 [facility] Famotidine (Famotidine 10 Mg Tab) 10 mg PO BID [facility] Ferrous Sulfate (Ferrous Sulfate 325 Mg Tab) 325 mg PO BID [facility] Furosemide (Furosemide 20 Mg/2 Ml Inj) 20 mg IV QDAY [facility] Hydralazine HCl (Hydralazine 100 Mg Tab) 100 mg PO TID [facility] Insulin Human Lispro (Insulin Lispro 100 Unit/Ml) 0 unit SUB-Q ACHS [facility]; Protocol Methylprednisolone Sodium Succinate (Methylprednisolone Sod Succinate 125 Mg/2 Ml Inj) 80 mg IV Q8HR [facility] Naloxone HCl (Naloxone 0.4 Mg/1 Ml Inj) 0.1 mg IV Q2MIN PRN PRN Reason: Res Rate </= 8 or 02 SAT < 92% Nifedipine (Nifedipine Xl 90 Mg Tab) 90 mg PO QDAY [facility] Ondansetron HCl (Ondansetron 4 Mg/2 Ml Inj) 4 mg IV Q4H PRN PRN Reason: Nausea And Vomiting Oxycodone/Acetaminophen (Oxycodone /Acetaminophen 5-325mg Tab) 1 tab PO Q6H PRN PRN Reason: Pain, Moderate (4-6) Paroxetine HCl (Paroxetine 20 Mg Tab) 20 mg PO DAILY [facility] Potassium Chloride (Potassium Chloride Er 20 Meq Tab) 20 meq PO QDAY [facility] Sacubitril/Valsartan (Sacubitril/Valsartan 49-51 Mg Tab) 2 each PO BID [facility] Senna (Sennosides 8.6 Mg Tab) 8.6 mg PO Q12HR [facility] Sodium Chloride (Sodium Chloride 0.9% 10 Ml Flush Syringe) 10 ml IV BID [facility] Sodium Chloride (Sodium Chloride 0.9% 10 Ml Flush Syringe) 10 ml IV PRN PRN PRN Reason: LINE FLUSH Review of Systems All systems: negative Constitutional: weight loss, fatigue, weakness, poor appetite, no fever, no chills, no sweats, no night sweats Cardiovascular: no chest pain, no orthopnea, no palpitations Respiratory: no cough, no cough with sputum Gastrointestinal: nausea, vomiting, diarrhea Exam - Physical Exam Narrative exam: VITAL SIGNS: Reviewed. GENERAL: The patient appears normally developed, Vital signs as documented. HEAD: No signs of head trauma. EYES: Pupils are equal. Extraocular motions intact. EARS: Hearing grossly intact. MOUTH: Oropharynx is normal. NECK: No adenopathy, no JVD. CHEST: Chest with diminished breath sounds bilaterally. No wheezes, rales, or rhonchi. CARDIAC: Regular rate and rhythm. S1 and S2, without murmurs, gallops, or rubs. VASCULAR: No Edema. Peripheral pulses normal and equal in all extremities. ABDOMEN: Soft, non tender and non distended. No rebound or guarding, and no masses palpated. Bowel Sounds normal. MUSCULOSKELETAL: Good range of motion of all major joints. Extremities without clubbing, cyanosis or edema. NEUROLOGIC EXAM: Alert and oriented x 3 No focal sensory or strength deficits. Speech normal. Follows commands. PSYCHIATRIC: Mood normal. SKIN: detail exam as documented in skin assessment - Constitutional Vitals: Temp Pulse Resp BP Pulse Ox 98 F 97 H 18 199/96 100 07/12/21 07:57 07/12/21 08:40 07/12/21 08:40 07/12/21 07:57 07/12/21 07:57 HEART Score - HEART Score EKG: Non-specific Age: > 65 Risk factors: 1-2 risk factors Troponin: Troponin T 0.033 ng/mL (0.00-0.029) H 07/12/21 08:26 Troponin: 1-3x normal limit Results - Labs CBC & Chem 7: 07/12/21 08:26 07/12/21 08:26 Labs: Laboratory Last Values WBC 8.8 K/mm3 (4.5-11.0) 07/12/21 08:26 RBC 4.49 M/mm3 (3.65-5.03) 07/12/21 08:26 Hgb 13.9 gm/dl (10.1-14.3) 07/12/21 08:26 Hct 43.1 % (30.3-42.9) H 07/12/21 08:26 MCV 96 fl (79-97) 07/12/21 08:26 MCH 31 pg (28-32) 07/12/21 08:26 MCHC 32 % (30-34) 07/12/21 08:26 RDW 15.1 % (13.2-15.2) 07/12/21 08:26 Plt Count 283 K/mm3 (140-440) 07/12/21 08:26 Lymph % (Auto) 16.2 % (13.4-35.0) 07/12/21 08:26 [place] % (Auto) 6.3 % (0.0-7.3) 07/12/21 08:26 Eos % (Auto) 0.9 % (0.0-4.3) 07/12/21 08:26 Baso % (Auto) 0.5 % (0.0-1.8) 07/12/21 08:26 Lymph # (Auto) 1.4 K/mm3 (1.2-5.4) 07/12/21 08:26 [place] # (Auto) 0.6 K/mm3 (0.0-0.8) 07/12/21 08:26 Eos # (Auto) 0.1 K/mm3 (0.0-0.4) 07/12/21 08:26 Baso # (Auto) 0.0 K/mm3 (0.0-0.1) 07/12/21 08:26 Seg Neutrophils % 76.1 % (40.0-70.0) H 07/12/21 08:26 Seg Neutrophils # 6.7 K/mm3 (1.8-7.7) 07/12/21 08:26 PT 14.4 Sec. (12.2-14.9) 07/12/21 08:26 INR 1.01 (0.87-1.13) 07/12/21 08:26 Sodium 146 mmol/L (137-145) H 07/12/21 08:26 Potassium 4.4 mmol/L (3.6-5.0) 07/12/21 08:26 Chloride 108.7 mmol/L (98-107) H 07/12/21 08:26 Carbon Dioxide 25 mmol/L (22-30) 07/12/21 08:26 Anion Gap 17 mmol/L 07/12/21 08:26 BUN 15 mg/dL (7-17) 07/12/21 08:26 Creatinine 1.0 mg/dL (0.6-1.2) 07/12/21 08:26 Estimated GFR > 60 ml/min 07/12/21 08:26 BUN/Creatinine Ratio 15 % 07/12/21 08:26 Glucose 131 mg/dL (65-100) H 07/12/21 08:26 Calcium 9.1 mg/dL (8.4-10.2) 07/12/21 08:26 Total Bilirubin 0.70 mg/dL (0.1-1.2) 07/12/21 08:26 AST 17 units/L (5-40) 07/12/21 08:26 ALT 16 units/L (7-56) 07/12/21 08:26 Alkaline Phosphatase 109 units/L (35-129) 07/12/21 08:26 Troponin T 0.033 ng/mL (0.00-0.029) H 07/12/21 08:26 NT-Pro-B Natriuret Pep 5541 pg/mL (0-900) H 07/12/21 08:26 Total Protein 6.5 g/dL (6.3-8.2) 07/12/21 08:26 Albumin 4.1 g/dL (3.9-5) 07/12/21 08:26 Albumin/Globulin Ratio 1.7 % 07/12/21 08:26 Triglycerides 196 mg/dL (2-149) H 07/12/21 08:26 Cholesterol 197 mg/dL (50-199) 07/12/21 08:26 LDL Cholesterol Direct 113 mg/dL (50-130) 07/12/21 08:26 HDL Cholesterol 50 mg/dL (40-59) 07/12/21 08:26 Cholesterol/HDL Ratio 3.94 % 07/12/21 08:26 Lipase 53 units/L (13-60) 07/12/21 08:26 Assessment and Plan Assessment and plan: Patient is a 71-year-old female with past medical history of hypertension, diabetes mellitus, CHF with a EF of 25 to 30% on echo done on 03 September 2020, prior stent to the leg and also history of COPD as a result of tobacco use which she still continues to smoke intermittently. She presents to the ED with complaints of nausea vomiting and diarrhea that has been going on for the last week with progressive worsening up till last night prompting the family to call EMS and bring the patient to the hospital as she was visibly short of breath. Per documentation patient was hypoxic 92% on room air prior to EMS arrival. She is accompanied by her daughter who gives information. States that she follows up with outside medical and sees a kidney doctor and also heart doctor. Unfortunately she continues to smoke less than a pack a day although the patient had told me she does not smoke. She is compliant with her medications and her diet. Has been no new changes to medications and no fever recorded at home. She is noted to have had 1 dose of the Quinn & Quinn vaccine. Her daughter reports that there is no hemoptysis or hematemesis and no hematochezia. Also reports that she has been having some gradual weight loss in the last few weeks. The patient states that she does not have much of an appetite EKG shows sinus rhythm Acute abdominal series with chest x-ray-no air-fluid levels. No free air. No focal infiltrates. No pneumothorax Intractable nausea vomiting Acute hypoxic respiratory failure COPD exacerbation Acute on chronic systolic congestive heart failure Nonischemic cardiomyopathy Hypertensive urgency PAD with prior history of DVT not on anticoagulation at this time Currently ongoing work-up for AICD placement Moderate protein calorie malnutrition with cachexia Tobacco use disorder NSTEMI type II Diarrhea with no leukocytosis Hypernatremia Systemic inflammatory response syndrome without organ dysfunction PLAN Admit patient to telemetry Cardiology consult GI consult considering failure to thrive PPI/H2 anisa IV Antiemetics IV Lasix can switch to p.o. in a.m. considering that the patient's exam leads me to think less of exacerbation of heart failure Goal-directed medical therapy for heart failure If diarrhea persist will obtain C. difficile screen Tobacco cessation 15 minutes counseling provided to the patient she verbalized understanding Blood pressure control with home medications Monitor troponin at this time. Patient does not complain of any true chest pain. Discussed extensively with the patient and daughter at bedside patient verbalized understanding but her clinical condition wants to be a DNR the daughter echoes this. Discussed with nursing staff and The DNR forms DVT and GI prophylaxis SNF admission, available more therapeutic or diagnostic measures monitor i mplemented 60minutes spent on patient care with additional 35 [address] care [address] anning and tobacco cessation counseling Advance Directives: Yes Plan of care discussed with patient/family: Yes
[2021-07-12] MEDS ORDERED: POTASSIUM CHLORIDE ER 20 MEQ TAB PO SCH (11:00)
[2021-07-12] MEDS: SACUBITRIL/VALSARTAN 49-51 MG TAB PO SCH ×2 (11:26→23:04)
[2021-07-12] MEDS: SENNOSIDES 8.6 MG TAB PO SCH ×2 (11:29→23:05)
[2021-07-12] MEDS: NIFEdipine XL 90 MG TAB PO SCH (12:28)
[2021-07-12 12:59] LABS: Creatine Kinase MB 2.4 ng/mL (0.0-4.0)
[2021-07-12] MEDS: ARFORMOTEROL 15 MCG/2 ML NEBU IH SCH ×2 (13:14→21:55)
[2021-07-12] MEDS: IPRATROPIUM/ALBUTEROL SULFATE 3 ML AMPUL.NEB IH SCH ×2 (13:21→21:54)
[2021-07-12] MEDS: ASPIRIN EC 81 MG TAB PO SCH (13:24)
[2021-07-12] MEDS: FERROUS SULFATE 325 MG TAB PO SCH ×2 (13:25→23:04)
[2021-07-12] MEDS: carvediloL 25 MG TAB PO SCH ×2 (13:27→23:04)
[2021-07-12] MEDS: INSULIN LISPRO 100 UNIT/ML SUB-Q SCH ×3 (14:21→23:02)
[2021-07-12] MEDS: BENZONATATE 100 MG CAP PO SCH ×2 (14:36→23:04)
[2021-07-12] MEDS: hydrALAZINE 100 MG TAB PO SCH ×2 (14:36→23:05)
[2021-07-12] MEDS: PARoxetine 20 MG TAB PO SCH (14:37)
[2021-07-12] MEDS: methylPREDNISolone Sod Succinate 125 MG/2 ML INJ IV SCH ×2 (14:37→23:03)
--- NOTE | 2021-07-12 15:59 | Consultation ---
History of Present Illness Consult date: 07/12/21 Requesting physician: QUIN BARRERA Consult reason: chest pain History of present illness: She has a history of NICMP, CAD, chronic HFrEF, and Asthma. Coronary angiography of September 2020 revealed 50% mid-LCX stenosis and 50 60% mid-RCA stenosis. Echocardiogram of September 2020 revealed an ejection fraction of 25 30% with RVSP of 49 mmHg. She presented to the ER with a one-week history of recurrent, sharp, pericardial chest pain which is not related to her level of activity. She also complains of shortness of breath as well as chronic orthopnea which is unchanged. In addition, she has been experiencing nausea, vomiting and diarrhea. There is no fever or chills. There is no cough. Past History Past Medical History: acute [place], CAD, diabetes, heart failure (chronic HFrEF), hypertension, hyperlipidemia, PVD, renal failure, other (NSTEMI, Asthma) Past Surgical History: Other (LE vascular stenting, Colonic polypectomy.) Social history: lives with family Family history: no significant family history Medications and Allergies Allergies Allergy/AdvReac Type Severity Reaction Status Date / Time No Known Allergies Allergy Verified 02/26/21 12:09 Home Medications Medication Instructions Recorded Confirmed Last Taken Type Aspirin EC [Halfprin EC] 81 mg PO QDAY #30 tablet 09/06/20 07/12/21 Unknown Rx AtorvaSTATin [Lipitor] 40 mg PO QHS #30 tablet 09/06/20 07/12/21 Unknown Rx Digoxin [Lanoxin] 0.125 mg PO DAILY@1700 #30 tablet 09/06/20 07/12/21 Unknown Rx PARoxetine [Paxil] 20 mg PO DAILY #30 tablet 09/06/20 07/12/21 Unknown Rx Potassium Chloride [K-Dur] 20 meq PO QDAY #30 tablet 09/06/20 07/12/21 Unknown Rx carvediloL [Coreg] 25 mg PO BID #60 09/06/20 07/12/21 Unknown Rx Famotidine [Pepcid] 10 mg PO BID #30 tablet 09/27/20 07/12/21 Unknown Rx Ferrous Sulfate [Feosol 325 MG tab] 325 mg PO BID #30 tablet 09/27/20 07/12/21 Unknown Rx Furosemide [Lasix TAB] 20 mg PO QDAY #30 tablet 09/27/20 07/12/21 Unknown Rx ISOSORBIDE MONOnitrate [Imdur ER] 30 mg PO QDAY #30 tablet 09/27/20 07/12/21 Unknown Rx NIFEdipine XL [Procardia Xl] 90 mg PO QDAY #30 tablet 09/27/20 07/12/21 Unknown Rx Sacubitril/Valsartan [Entresto 2 each PO BID #120 tablet 09/27/20 07/12/21 Unknown Rx 49-51 mg] cloNIDine [Catapres] 0.1 mg PO QHS #30 tablet 09/27/20 07/12/21 Unknown Rx hydrALAZINE [Apresoline TAB] 100 mg PO TID #90 tab 09/27/20 07/12/21 Unknown Rx ALBUTEROL NEB's [Proventil 0.083% 5 mg IH TID PRN #30 neb 11/07/20 07/12/21 Unknown Rx NEBS] Active Meds: Active Medications Acetaminophen (Acetaminophen 325 Mg Tab) 650 mg PO Q4H PRN PRN Reason: Pain MILD(1-3)/Fever >100.5/GAMEZ Albuterol (Albuterol 2.5 Mg/3 Ml Nebu) 5 mg IH TID PRN PRN Reason: Wheezing Last Admin: 07/12/21 13:15 Dose: 5 mg Albuterol/Ipratropium (Ipratropium/Albuterol Sulfate 3 Ml Ampul.Neb) 1 ampul IH Q6HRT [facility] Last Admin: 07/12/21 13:21 Dose: Not Given Arformoterol Tartrate (Arformoterol 15 Mcg/2 Ml Nebu) 15 mcg IH Q12HRT [facility] Last Admin: 07/12/21 13:14 Dose: 15 mcg Aspirin (Aspirin Ec 81 Mg Tab) 81 mg PO QDAY [facility] Last Admin: 07/12/21 13:24 Dose: 81 mg Atorvastatin Calcium (Atorvastatin 40 Mg Tab) 40 mg PO QHS [facility] Benzonatate (Benzonatate 100 Mg Cap) 100 mg PO Q8HR [facility] Last Admin: 07/12/21 14:36 Dose: 100 mg Budesonide (Budesonide 0.5 Mg/2 Ml Nebu) 0.5 mg IH Q12HRT [facility] Carvedilol (Carvedilol 25 Mg Tab) 25 mg PO BID [facility] Last Admin: 07/12/21 13:27 Dose: 25 mg Clonidine HCl (Clonidine 0.1 Mg Tab) 0.1 mg PO QHS [facility] Dextrose (Dextrose 50% In Water (25gm) 50 Ml Syringe) 50 ml IV Q30MIN PRN; Protocol PRN Reason: Hypoglycemia Digoxin (Digoxin 0.125 Mg Tab) 0.125 mg PO DAILY@1700 [facility] Famotidine (Famotidine 20 Mg/2 Ml Inj) 20 mg IV BID [facility] Ferrous Sulfate (Ferrous Sulfate 325 Mg Tab) 325 mg PO BID [facility] Last Admin: 07/12/21 13:25 Dose: 325 mg Furosemide (Furosemide 20 Mg/2 Ml Inj) 20 mg IV QDAY [facility] Hydralazine HCl (Hydralazine 100 Mg Tab) 100 mg PO TID [facility] Last Admin: 07/12/21 14:36 Dose: 100 mg Insulin Human Lispro (Insulin Lispro 100 Unit/Ml) 0 unit SUB-Q ACHS [facility]; Protocol Last Admin: 07/12/21 14:21 Dose: Not Given Methylprednisolone Sodium Succinate (Methylprednisolone Sod Succinate 125 Mg/2 Ml Inj) 80 mg IV Q8HR [facility] Last Admin: 07/12/21 14:37 Dose: 80 mg Naloxone HCl (Naloxone 0.4 Mg/1 Ml Inj) 0.1 mg IV Q2MIN PRN PRN Reason: Res Rate </= 8 or 02 SAT < 92% Nifedipine (Nifedipine Xl 90 Mg Tab) 90 mg PO QDAY [facility] Last Admin: 07/12/21 12:28 Dose: 90 mg Ondansetron HCl (Ondansetron 4 Mg/2 Ml Inj) 4 mg IV Q4H PRN PRN Reason: Nausea And Vomiting Oxycodone/Acetaminophen (Oxycodone /Acetaminophen 5-325mg Tab) 1 tab PO Q6H PRN PRN Reason: Pain, Moderate (4-6) Paroxetine HCl (Paroxetine 20 Mg Tab) 20 mg PO DAILY [facility] Last Admin: 07/12/21 14:37 Dose: 20 mg Potassium Chloride (Potassium Chloride Er 20 Meq Tab) 20 meq PO QDAY [facility] Last Admin: 07/12/21 13:28 Dose: 20 meq Sacubitril/Valsartan (Sacubitril/Valsartan 49-51 Mg Tab) 2 each PO BID [facility] Last Admin: 07/12/21 11:26 Dose: 2 each Senna (Sennosides 8.6 Mg Tab) 8.6 mg PO Q12HR [facility] Last Admin: 07/12/21 11:29 Dose: 8.6 mg Sodium Chloride (Sodium Chloride 0.9% 10 Ml Flush Syringe) 10 ml IV BID [facility] Last Admin: 07/12/21 14:20 Dose: Not Given Sodium Chloride (Sodium Chloride 0.9% 10 Ml Flush Syringe) 10 ml IV PRN PRN PRN Reason: LINE FLUSH Review of Systems Constitutional: no fever, no chills Ears, nose, mouth and throat: no ear pain, no ear discharge, no sore throat Cardiovascular: chest pain, orthopnea, shortness of breath Respiratory: shortness of breath, no cough, no hemoptysis Gastrointestinal: nausea, vomiting, diarrhea, no constipation Genitourinary Female: no dysuria, no urinary frequency Rectal: no pain, no bleeding Musculoskeletal: no neck stiffness, no neck pain, no myalgias Integumentary: no rash, no pruritis Neurological: no weakness, no parathesias, no numbness, no headaches Endocrine: no cold intolerance, no heat intolerance Hematologic/Lymphatic: no easy bruising, no easy bleeding Allergic/Immunologic: no urticaria Physical Examination Vital Signs Temp Pulse Resp BP Pulse Ox 98 F 97 H 18 199/96 100 07/12/21 07:57 07/12/21 07:57 07/12/21 07:57 07/12/21 07:57 07/12/21 07:57 General appearance: no acute distress HEENT: Positive: EOMI, Normocephaly, Mucus Membranes Moist Neck: Positive: neck supple, trachea midline Cardiac: Positive: Reg Rate and Rhythm, S1/S2 Lungs: Positive: clear to auscultation Neuro: Positive: Grossly Intact Abdomen: Positive: Soft, Active Bowel Sounds. Negative: Tender Skin: Positive: Clear. Negative: Rash Musculoskeletal: Normal Range of Motion Extremities: Present: normal. Absent: edema Results 07/12/21 08:26 07/12/21 08:26 Cardiac Enzymes 07/12/21 07/12/21 Range/Units 08:26 12:20 AST 17 (5-40) units/L CK-MB (CK-2) 2.4 (0.0-4.0) ng/mL Coagulation 07/12/21 Range/Units 08:26 PT 14.4 (12.2-14.9) Sec. INR 1.01 (0.87-1.13) Lipids 07/12/21 Range/Units 08:26 Triglycerides 196 H (2-149) mg/dL Cholesterol 197 (50-199) mg/dL HDL Cholesterol 50 (40-59) mg/dL Cholesterol/HDL Ratio 3.94 % CBC 07/12/21 Range/Units 08:26 WBC 8.8 (4.5-11.0) K/mm3 RBC 4.49 (3.65-5.03) M/mm3 Hgb 13.9 (10.1-14.3) gm/dl Hct 43.1 H (30.3-42.9) % Plt Count 283 (140-440) K/mm3 Lymph # (Auto) 1.4 (1.2-5.4) K/mm3 [place] # (Auto) 0.6 (0.0-0.8) K/mm3 Eos # (Auto) 0.1 (0.0-0.4) K/mm3 Baso # (Auto) 0.0 (0.0-0.1) K/mm3 Comprehensive Metabolic Panel 07/12/21 Range/Units 08:26 Sodium 146 H (137-145) mmol/L Potassium 4.4 (3.6-5.0) mmol/L Chloride 108.7 H (98-107) mmol/L Carbon Dioxide 25 (22-30) mmol/L BUN 15 (7-17) mg/dL Creatinine 1.0 (0.6-1.2) mg/dL Glucose 131 H (65-100) mg/dL Calcium 9.1 (8.4-10.2) mg/dL AST 17 (5-40) units/L ALT 16 (7-56) units/L Alkaline Phosphatase 109 (35-129) units/L Total Protein 6.5 (6.3-8.2) g/dL Albumin 4.1 (3.9-5) g/dL - Imaging and Cardiology EKG: image reviewed EKG interpretations - Telemetry EKG Rhythm: Sinus Rhythm - EKG Sinus rhythms and dysrhythmias: sinus rhythm Chamber hypertrophy or enlargement: left ventricular hypertro Repolarization changes or abnormalities: repolarization abn secondary to ventricular hypertrophy Assessment and Plan Obtain serial troponins. Initiate oral nitrates. Optimize antihypertensive regimen. - Patient Problems (1) Chest pain Current Visit: Yes Status: Acute (2) Gastroenteritis Current Visit: Yes Status: Acute (3) Elevated troponin Current Visit: Yes Status: Acute (4) NICM (nonischemic cardiomyopathy) Current Visit: Yes Status: Chronic (5) Chronic HFrEF (heart failure with reduced ejection fraction) Current Visit: Yes Status: Acute (6) Asthma Current Visit: Yes Status: Chronic (7) HTN (hypertension) Current Visit: Yes Status: Chronic Qualifiers: Hypertension type: primary hypertension Qualified Code(s): I10 - Essential (primary) hypertension (8) Pulmonary hypertension Current Visit: Yes Status: Chronic (9) Peripheral artery disease Current Visit: Yes Status: Chronic (10) Diabetes mellitus Current Visit: Yes Status: Chronic Qualifiers: Diabetes mellitus type: type 2
[2021-07-12] MEDS: DIGOXIN 0.125 MG TAB PO SCH (17:37)
[2021-07-12] MEDS: BUDESONIDE 0.5 MG/2 ML NEBU IH SCH (21:54)
[2021-07-12] MEDS ORDERED: cloNIDine 0.1 MG TAB PO SCH (22:00)
[2021-07-12] MEDS: FAMOTIDINE 20 MG/2 ML INJ IV SCH (23:04)
[2021-07-12 23:52] LABS: Creatine Kinase MB 3.2 ng/mL (0.0-4.0)
[2021-07-13] MEDS: IPRATROPIUM/ALBUTEROL SULFATE 3 ML AMPUL.NEB IH SCH ×4 (04:29→21:53)
[2021-07-13 05:16] LABS: Basophils % (Auto) 0.3 % (0.0-1.8); Hematocrit 39.4 % (30.3-42.9); Hemoglobin 12.9 gm/dl (10.1-14.3); Lymphocytes # (Auto) 0.9 K/mm3 (1.2-5.4); Lymphocytes % (Auto) 9.6 % (13.4-35.0); Mean Corpuscular HGB Conc 33 % (30-34); Mean Corpuscular Volume 96 fl (79-97); Monocytes # (Auto) 0.2 K/mm3 (0.0-0.8); Monocytes % (Auto) 1.7 % (0.0-7.3); Platelet Count 260 K/mm3 (140-440); Red Blood Count 4.12 M/mm3 (3.65-5.03); Red Cell Distribution Width 15.1 % (13.2-15.2)
[2021-07-13 05:26] LABS: Calcium 8.7 mg/dL (8.4-10.2)
[2021-07-13] MEDS: BENZONATATE 100 MG CAP PO SCH ×3 (06:56→22:29)
[2021-07-13] MEDS: methylPREDNISolone Sod Succinate 125 MG/2 ML INJ IV SCH (06:56)
[2021-07-13] MEDS: oxyCODONE /ACETAMINOPHEN 5-325MG TAB PO PRN (07:56)
--- NOTE | 2021-07-13 09:06 | Electrocardiograph Report ---
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
[2021-07-13] MEDS: BUDESONIDE 0.5 MG/2 ML NEBU IH SCH ×2 (09:42→21:53)
[2021-07-13] MEDS: ARFORMOTEROL 15 MCG/2 ML NEBU IH SCH ×2 (09:42→21:53)
[2021-07-13] MEDS: SACUBITRIL/VALSARTAN 49-51 MG TAB PO SCH ×2 (09:59→22:29)
[2021-07-13] MEDS: PARoxetine 20 MG TAB PO SCH (10:00)
[2021-07-13] MEDS: FERROUS SULFATE 325 MG TAB PO SCH ×2 (10:00→22:29)
[2021-07-13] MEDS: hydrALAZINE 100 MG TAB PO SCH ×3 (10:00→22:30)
[2021-07-13] MEDS: ASPIRIN EC 81 MG TAB PO SCH (10:00)
[2021-07-13] MEDS ORDERED: FUROSEMIDE 20 MG/2 ML INJ IV SCH (10:00)
[2021-07-13] MEDS: SENNOSIDES 8.6 MG TAB PO SCH ×2 (10:00→22:29)
[2021-07-13] MEDS: NIFEdipine XL 90 MG TAB PO SCH (10:00)
[2021-07-13] MEDS: cloNIDine 0.2 MG TAB PO SCH ×2 (10:00→22:30)
[2021-07-13] MEDS: FAMOTIDINE 20 MG/2 ML INJ IV SCH (10:00)
[2021-07-13] MEDS ORDERED: FUROSEMIDE 20 MG TAB PO SCH (10:00)
[2021-07-13] MEDS: INSULIN LISPRO 100 UNIT/ML SUB-Q SCH ×4 (10:00→22:00)
[2021-07-13] MEDS: carvediloL 25 MG TAB PO SCH ×2 (10:00→22:30)
[2021-07-13] MEDS: ONDANSETRON 4 MG/2 ML INJ IV PRN (11:11)
--- NOTE | 2021-07-13 11:46 | Gastroenterology Consultation ---
History of Present Illness - Reason for Consult Consult date: 07/13/21 N/V Requesting physician: QUIN BARRERA - History of Present Illness Is a pleasant 71-year-old female medical history as below who presents for nausea vomiting diarrhea She tells me that her symptoms started approximately 4 days ago. Intractable nausea vomiting associated with nonbloody diarrhea. She reports vomitus is white with mucus no blood and that her stool is nonbloody with no melena She reports she does take care of her grandson who goes to daycare he also about 4 days ago developed fevers no other symptoms similar to hers though No other sick contacts at home Associated with loss of appetite no other GI complaints She reports she was feeling well prior to this Obtained/updated/reviewed patient's current medications Past History Past Medical History: acute [place], CAD, diabetes, heart failure (chronic HFrEF), hypertension, hyperlipidemia, PVD, renal failure, other (NSTEMI, Asthma) Past Surgical History: Other (LE vascular stenting, Colonic polypectomy.) Social history: lives with family Family history: no significant family history Medications and Allergies Allergies Allergy/AdvReac Type Severity Reaction Status Date / Time No Known Allergies Allergy Verified 02/26/21 12:09 Home Medications Medication Instructions Recorded Confirmed Last Taken Type Aspirin EC [Halfprin EC] 81 mg PO QDAY #30 tablet 09/06/20 07/12/21 Unknown Rx AtorvaSTATin [Lipitor] 40 mg PO QHS #30 tablet 09/06/20 07/12/21 Unknown Rx Digoxin [Lanoxin] 0.125 mg PO DAILY@1700 #30 tablet 09/06/20 07/12/21 Unknown Rx PARoxetine [Paxil] 20 mg PO DAILY #30 tablet 09/06/20 07/12/21 Unknown Rx Potassium Chloride [K-Dur] 20 meq PO QDAY #30 tablet 09/06/20 07/12/21 Unknown Rx carvediloL [Coreg] 25 mg PO BID #60 09/06/20 07/12/21 Unknown Rx Famotidine [Pepcid] 10 mg PO BID #30 tablet 09/27/20 07/12/21 Unknown Rx Ferrous Sulfate [Feosol 325 MG tab] 325 mg PO BID #30 tablet 09/27/20 07/12/21 Unknown Rx Furosemide [Lasix TAB] 20 mg PO QDAY #30 tablet 09/27/20 07/12/21 Unknown Rx ISOSORBIDE MONOnitrate [Imdur ER] 30 mg PO QDAY #30 tablet 09/27/20 07/12/21 Unknown Rx NIFEdipine XL [Procardia Xl] 90 mg PO QDAY #30 tablet 09/27/20 07/12/21 Unknown Rx Sacubitril/Valsartan [Entresto 2 each PO BID #120 tablet 09/27/20 07/12/21 Unknown Rx 49-51 mg] cloNIDine [Catapres] 0.1 mg PO QHS #30 tablet 09/27/20 07/12/21 Unknown Rx hydrALAZINE [Apresoline TAB] 100 mg PO TID #90 tab 09/27/20 07/12/21 Unknown Rx ALBUTEROL NEB's [Proventil 0.083% 5 mg IH TID PRN #30 neb 11/07/20 07/12/21 Unknown Rx NEBS] Active Meds: Active Medications Acetaminophen (Acetaminophen 325 Mg Tab) 650 mg PO Q4H PRN PRN Reason: Pain MILD(1-3)/Fever >100.5/GAMEZ Albuterol (Albuterol 2.5 Mg/3 Ml Nebu) 5 mg IH TID PRN PRN Reason: Wheezing Last Admin: 07/12/21 13:15 Dose: 5 mg Albuterol/Ipratropium (Ipratropium/Albuterol Sulfate 3 Ml Ampul.Neb) 1 ampul IH Q6HRT [facility] Last Admin: 07/13/21 09:41 Dose: 1 ampul Arformoterol Tartrate (Arformoterol 15 Mcg/2 Ml Nebu) 15 mcg IH Q12HRT [facility] Last Admin: 07/13/21 09:42 Dose: 15 mcg Aspirin (Aspirin Ec 81 Mg Tab) 81 mg PO QDAY [facility] Last Admin: 07/13/21 10:00 Dose: 81 mg Atorvastatin Calcium (Atorvastatin 40 Mg Tab) 40 mg PO QHS [facility] Last Admin: 07/12/21 23:04 Dose: 40 mg Benzonatate (Benzonatate 100 Mg Cap) 100 mg PO Q8HR [facility] Last Admin: 07/13/21 06:56 Dose: 100 mg Budesonide (Budesonide 0.5 Mg/2 Ml Nebu) 0.5 mg IH Q12HRT [facility] Last Admin: 07/13/21 09:42 Dose: 0.5 mg Carvedilol (Carvedilol 25 Mg Tab) 25 mg PO BID [facility] Last Admin: 07/13/21 10:00 Dose: 25 mg Clonidine HCl (Clonidine 0.2 Mg Tab) 0.2 mg PO BID [facility] Last Admin: 07/13/21 10:00 Dose: 0.2 mg Dextrose (Dextrose 50% In Water (25gm) 50 Ml Syringe) 50 ml IV Q30MIN PRN; Protocol PRN Reason: Hypoglycemia Digoxin (Digoxin 0.125 Mg Tab) 0.125 mg PO DAILY@1700 [facility] Last Admin: 07/12/21 17:37 Dose: 0.125 mg Famotidine (Famotidine 10 Mg Tab) 10 mg PO BID [facility] Ferrous Sulfate (Ferrous Sulfate 325 Mg Tab) 325 mg PO BID [facility] Last Admin: 07/13/21 10:00 Dose: 325 mg Furosemide (Furosemide 20 Mg Tab) 20 mg PO QDAY [facility] Last Admin: 07/13/21 10:00 Dose: 20 mg Hydralazine HCl (Hydralazine 100 Mg Tab) 100 mg PO TID [facility] Last Admin: 07/13/21 10:00 Dose: 100 mg Insulin Human Lispro (Insulin Lispro 100 Unit/Ml) 0 unit SUB-Q [facility]; Protocol Last Admin: 07/13/21 10:00 Dose: 2 unit Isosorbide Mononitrate (Isosorbide Mononitrate Er 60 Mg Tab) 120 mg PO QDAY [facility] Last Admin: 07/13/21 10:00 Dose: 120 mg Methylprednisolone Sodium Succinate (Methylprednisolone Sod Succinate 40 Mg/1 Ml Inj) 40 mg IV Q12HR [facility] Naloxone HCl (Naloxone 0.4 Mg/1 Ml Inj) 0.1 mg IV Q2MIN PRN PRN Reason: Res Rate </= 8 or 02 SAT < 92% Nifedipine (Nifedipine Xl 90 Mg Tab) 90 mg PO QDAY [facility] Last Admin: 07/13/21 10:00 Dose: 90 mg Ondansetron HCl (Ondansetron 4 Mg/2 Ml Inj) 4 mg IV Q4H PRN PRN Reason: Nausea And Vomiting Last Admin: 07/13/21 11:11 Dose: 4 mg Oxycodone/Acetaminophen (Oxycodone /Acetaminophen 5-325mg Tab) 1 tab PO Q6H PRN PRN Reason: Pain, Moderate (4-6) Last Admin: 07/13/21 07:56 Dose: 1 tab Paroxetine HCl (Paroxetine 20 Mg Tab) 20 mg PO DAILY [facility] Last Admin: 07/13/21 10:00 Dose: 20 mg Sacubitril/Valsartan (Sacubitril/Valsartan 49-51 Mg Tab) 2 each PO BID [facility] Last Admin: 07/13/21 09:59 Dose: 2 each Senna (Sennosides 8.6 Mg Tab) 8.6 mg PO Q12HR [facility] Last Admin: 07/13/21 10:00 Dose: 8.6 mg Sodium Chloride (Sodium Chloride 0.9% 10 Ml Flush Syringe) 10 ml IV BID [facility] Last Admin: 07/13/21 10:01 Dose: 10 ml Sodium Chloride (Sodium Chloride 0.9% 10 Ml Flush Syringe) 10 ml IV PRN PRN PRN Reason: LINE FLUSH Review of Systems - Review of Systems All systems: negative (10 Systems reviewed and negative except as mentioned above in the history of present illness) Exam - Constitutional Vital Signs: Temp Pulse Resp BP Pulse Ox 97.8 F 64 18 151/54 91 07/13/21 07:35 07/13/21 11:03 07/13/21 07:35 07/13/21 07:35 07/13/21 07:35 General appearance: no acute distress - EENT Eyes: EOM intact ENT: hearing intact - Neck Neck: supple - Respiratory Respiratory effort: normal - Cardiovascular Rhythm: regular - Gastrointestinal General gastrointestinal: Present: soft, non-tender, normal bowel sounds - Integumentary Integumentary: Present: warm, dry - Musculoskeletal Musculoskeletal: normal - Neurologic Neurological: alert and oriented x3 - Psychiatric Psychiatric: appropriate mood/affect - Labs CBC & Chem 7: 07/13/21 03:39 07/13/21 03:39 Lab Results: Laboratory Results - last 24 hr 07/12/21 07/12/21 07/12/21 12:20 16:22 20:47 WBC RBC Hgb Hct MCV MCH MCHC RDW Plt Count Lymph % (Auto) [place] % (Auto) Eos % (Auto) Baso % (Auto) Lymph # (Auto) [place] # (Auto) Eos # (Auto) Baso # (Auto) Seg Neutrophils % Seg Neutrophils # Sodium Potassium Chloride Carbon Dioxide Anion Gap BUN Creatinine Estimated GFR BUN/Creatinine Ratio Glucose POC Glucose 214 H 178 H Calcium Total Creatine Kinase 112 CK-MB (CK-2) 2.4 CK-MB (CK-2) Rel Index 2.1 Troponin T 0.029 07/12/21 07/13/21 07/13/21 23:16 03:39 03:39 WBC 9.5 RBC 4.12 Hgb 12.9 Hct 39.4 MCV 96 MCH 31 MCHC 33 RDW 15.1 Plt Count 260 Lymph % (Auto) 9.6 L [place] % (Auto) 1.7 Eos % (Auto) 0.0 Baso % (Auto) 0.3 Lymph # (Auto) 0.9 L [place] # (Auto) 0.2 Eos # (Auto) 0.0 Baso # (Auto) 0.0 Seg Neutrophils % 88.4 H Seg Neutrophils # 8.4 H Sodium 141 Potassium 5.2 H Chloride 102.0 Carbon Dioxide 22 Anion Gap 22 BUN 25 H Creatinine 1.3 H Estimated GFR 49 BUN/Creatinine Ratio 19 Glucose 188 H POC Glucose Calcium 8.7 Total Creatine Kinase 135 CK-MB (CK-2) 3.2 CK-MB (CK-2) Rel Index 2.3 Troponin T 0.018 Assessment and Plan -Differential diagnosis for patient's acute symptoms of nausea vomiting and diarrhea is acute infectious etiology such as acute viral gastroenteritis lower on the differential diagnosis is peptic ulcer disease chronic inflammatory state etc. therefore recommend supportive care antiemetics and will monitor closely suspect patient symptoms will gradually improve over the next 1 to 2 days if not improving then can reconsider upper endoscopy - Patient Problems (1) Nausea vomiting and diarrhea Current Visit: Yes Status: Acute (2) Gastroenteritis Current Visit: Yes Status: Acute
--- NOTE | 2021-07-13 13:04 | Progress Note ---
Assessment and Plan Assessment and plan: Intractable nausea vomitingresolved Acute hypoxic respiratory failureresolved COPD exacerbation Acute on chronic systolic congestive heart failureimproving Nonischemic cardiomyopathy Hypertensive urgencyresolved PAD with prior history of DVT not on anticoagulation at this time Currently ongoing work-up for AICD placement Moderate protein calorie malnutrition with cachexia Tobacco use disorder NSTEMI type II Diarrhea with no leukocytosisimproving Hypernatremiaresolved Systemic inflammatory response syndrome without organ dysfunction PLAN: Admit patient to telemetry Cardiology consult; appreciate recs GI consult; appreciate recs Continue PPI/H2 anisa IV Continue antiemetics Continue p.o. Lasix in the setting of possible heart failure exacerbation. Goal-directed medical therapy for heart failure If diarrhea persist will obtain C. difficile screen Blood pressure control with home medications Monitor troponin at this time. Patient does not complain of any true chest pain. #Tobacco dependence #Tobacco/Smoking cessation counseling - Counseled patient about the importance of smoking cessation and the possible sequelae as a result of continued tobacco consumption. The patient expresses understanding. -Time: +15 mins #Advanced care planning -Disease education conducted, care plan discussed, diagnoses discussed, prognosis discussed, and patient acknowledges understanding with care plan -Time: +30 min #Discharge planning - Patient is pending resolution of heart failure and improvement in diarrhea. - Case management has been made aware. - Discharge is tentatively 07/14/2021. Disposition Plan: Pending possible discharge home tomorrow Total Time Spent with Patient (Minutes): 45 minutes History Interval history: No acute events overnight. Hospitalist Physical - Constitutional Vitals: Temp Pulse Resp BP Pulse Ox 97.4 F L 71 18 173/56 99 07/13/21 11:12 07/13/21 11:12 07/13/21 11:12 07/13/21 11:12 07/13/21 11:12 General appearance: Present: no acute distress, well-nourished - EENT Eyes: Present: PERRL, EOM intact ENT: hearing intact, clear oral mucosa, dentition normal - Neck Neck: Present: supple, normal ROM - Respiratory Respiratory effort: normal Respiratory: bilateral: CTA - Cardiovascular Rhythm: regular Heart Sounds: Present: S1 & S2 - Extremities Extremities: no ischemia, pulses intact, pulses symmetrical, No edema, normal temperature, normal color Peripheral Pulses: within normal limits - Abdominal General gastrointestinal: soft, non-tender, non-distended, normal bowel sounds - Integumentary Integumentary: Present: clear, warm, dry - Psychiatric Psychiatric: appropriate mood/affect, intact judgment & insight, memory intact, cooperative - Neurologic Neurologic: CNII-XII intact, moves all extremities - Allied Health Allied health notes reviewed: nursing HEART Score - HEART Score EKG: Non-specific Age: > 65 Risk factors: 1-2 risk factors Troponin: Troponin T 0.018 ng/mL (0.00-0.029) 07/12/21 23:16 Troponin: 1-3x normal limit Results - Labs CBC & Chem 7: 07/13/21 03:39 07/13/21 03:39 Labs: Laboratory Last Values WBC 9.5 K/mm3 (4.5-11.0) 07/13/21 03:39 RBC 4.12 M/mm3 (3.65-5.03) 07/13/21 03:39 Hgb 12.9 gm/dl (10.1-14.3) 07/13/21 03:39 Hct 39.4 % (30.3-42.9) 07/13/21 03:39 MCV 96 fl (79-97) 07/13/21 03:39 MCH 31 pg (28-32) 07/13/21 03:39 MCHC 33 % (30-34) 07/13/21 03:39 RDW 15.1 % (13.2-15.2) 07/13/21 03:39 Plt Count 260 K/mm3 (140-440) 07/13/21 03:39 Lymph % (Auto) 9.6 % (13.4-35.0) L 07/13/21 03:39 [place] % (Auto) 1.7 % (0.0-7.3) 07/13/21 03:39 Eos % (Auto) 0.0 % (0.0-4.3) 07/13/21 03:39 Baso % (Auto) 0.3 % (0.0-1.8) 07/13/21 03:39 Lymph # (Auto) 0.9 K/mm3 (1.2-5.4) L 07/13/21 03:39 [place] # (Auto) 0.2 K/mm3 (0.0-0.8) 07/13/21 03:39 Eos # (Auto) 0.0 K/mm3 (0.0-0.4) 07/13/21 03:39 Baso # (Auto) 0.0 K/mm3 (0.0-0.1) 07/13/21 03:39 Seg Neutrophils % 88.4 % (40.0-70.0) H 07/13/21 03:39 Seg Neutrophils # 8.4 K/mm3 (1.8-7.7) H 07/13/21 03:39 PT 14.4 Sec. (12.2-14.9) 07/12/21 08:26 INR 1.01 (0.87-1.13) 07/12/21 08:26 Sodium 141 mmol/L (137-145) 07/13/21 03:39 Potassium 5.2 mmol/L (3.6-5.0) H 07/13/21 03:39 Chloride 102.0 mmol/L (98-107) 07/13/21 03:39 Carbon Dioxide 22 mmol/L (22-30) 07/13/21 03:39 Anion Gap 22 mmol/L 07/13/21 03:39 BUN 25 mg/dL (7-17) H 07/13/21 03:39 Creatinine 1.3 mg/dL (0.6-1.2) H 07/13/21 03:39 Estimated GFR 49 ml/min 07/13/21 03:39 BUN/Creatinine Ratio 19 % 07/13/21 03:39 Glucose 188 mg/dL (65-100) H 07/13/21 03:39 POC Glucose 193 mg/dL (70-105) H 07/13/21 11:10 Calcium 8.7 mg/dL (8.4-10.2) 07/13/21 03:39 Total Bilirubin 0.70 mg/dL (0.1-1.2) 07/12/21 08:26 AST 17 units/L (5-40) 07/12/21 08:26 ALT 16 units/L (7-56) 07/12/21 08:26 Alkaline Phosphatase 109 units/L (35-129) 07/12/21 08:26 Total Creatine Kinase 135 units/L (30-135) 07/12/21 23:16 CK-MB (CK-2) 3.2 ng/mL (0.0-4.0) 07/12/21 23:16 CK-MB (CK-2) Rel Index 2.3 (0-4) 07/12/21 23:16 Troponin T 0.018 ng/mL (0.00-0.029) 07/12/21 23:16 NT-Pro-B Natriuret Pep 5541 pg/mL (0-900) H 07/12/21 08:26 Total Protein 6.5 g/dL (6.3-8.2) 07/12/21 08:26 Albumin 4.1 g/dL (3.9-5) 07/12/21 08:26 Albumin/Globulin Ratio 1.7 % 07/12/21 08:26 Triglycerides 196 mg/dL (2-149) H 07/12/21 08:26 Cholesterol 197 mg/dL (50-199) 07/12/21 08:26 LDL Cholesterol Direct 113 mg/dL (50-130) 07/12/21 08:26 HDL Cholesterol 50 mg/dL (40-59) 07/12/21 08:26 Cholesterol/HDL Ratio 3.94 % 07/12/21 08:26 Lipase 53 units/L (13-60) 07/12/21 08:26 Digoxin 0.7 ng/mL (0.9-2.0) L 07/12/21 08:26 Ray/IV: Voiding Method Toilet Active Medications - Current Medications Current Medications: Generic Name Dose Route Start Last Admin Trade Name Freq PRN Reason Stop Dose Admin Acetaminophen 650 mg 07/12/21 09:56 Acetaminophen 325 Mg Tab PO Q4H PRN Pain MILD(1-3)/Fever >100.5/GAMEZ Albuterol 5 mg 07/12/21 09:52 07/12/21 13:15 Albuterol 2.5 Mg/3 Ml Nebu IH 5 mg TID PRN Administration Wheezing Albuterol/Ipratropium 1 ampul 07/12/21 14:00 07/13/21 09:41 Ipratropium/Albuterol Sulfate 3 Ml Ampul.Neb IH 1 ampul Q6HRT [facility] Administration Arformoterol Tartrate 15 mcg 07/12/21 10:45 07/13/21 09:42 Arformoterol 15 Mcg/2 Ml Nebu IH 15 mcg Q12HRT [facility] Administration Aspirin 81 mg 07/12/21 10:00 07/13/21 10:00 Aspirin Ec 81 Mg Tab PO 81 mg QDAY [facility] Administration Atorvastatin Calcium 40 mg 07/12/21 22:00 07/12/21 23:04 Atorvastatin 40 Mg Tab PO 40 mg QHS [facility] Administration Benzonatate 100 mg 07/12/21 14:00 07/13/21 06:56 Benzonatate 100 Mg Cap PO 100 mg Q8HR [facility] Administration Budesonide 0.5 mg 07/12/21 20:00 07/13/21 09:42 Budesonide 0.5 Mg/2 Ml Nebu IH 0.5 mg Q12HRT [facility] Administration Carvedilol 25 mg 07/12/21 11:00 07/13/21 10:00 Carvedilol 25 Mg Tab PO 25 mg BID [facility] Administration Clonidine HCl 0.2 mg 07/13/21 10:00 07/13/21 10:00 Clonidine 0.2 Mg Tab PO 0.2 mg BID [facility] Administration Dextrose 50 ml 07/12/21 09:56 Dextrose 50% In Water (25gm) 50 Ml Syringe IV Q30MIN PRN Hypoglycemia Protocol Digoxin 0.125 mg 07/12/21 17:00 07/12/21 17:37 Digoxin 0.125 Mg Tab PO 0.125 mg DAILY@1700 [facility] Administration Famotidine 10 mg 07/13/21 22:00 Famotidine 10 Mg Tab PO BID [facility] Ferrous Sulfate 325 mg 07/12/21 10:00 07/13/21 10:00 Ferrous Sulfate 325 Mg Tab PO 325 mg BID [facility] Administration Furosemide 20 mg 07/13/21 10:00 07/13/21 10:00 Furosemide 20 Mg Tab PO 20 mg QDAY [facility] Administration Hydralazine HCl 100 mg 07/12/21 14:00 07/13/21 10:00 Hydralazine 100 Mg Tab PO 100 mg TID [facility] Administration Insulin Human Lispro 0 unit 07/12/21 11:30 07/13/21 12:16 Insulin Lispro 100 Unit/Ml SUB-Q 2 unit ACHS [facility] Administration Protocol Isosorbide Mononitrate 120 mg 07/13/21 10:00 07/13/21 10:00 Isosorbide Mononitrate Er 60 Mg Tab PO 120 mg QDAY [facility] Administration Methylprednisolone Sodium Succinate 40 mg 07/13/21 18:00 Methylprednisolone Sod Succinate 40 Mg/1 Ml Inj IV Q12HR [facility] Naloxone HCl 0.1 mg 07/12/21 09:56 Naloxone 0.4 Mg/1 Ml Inj IV Q2MIN PRN Res Rate </= 8 or 02 SAT < 92% Nifedipine 90 mg 07/12/21 11:00 07/13/21 10:00 Nifedipine Xl 90 Mg Tab PO 90 mg QDAY [facility] Administration Ondansetron HCl 4 mg 07/12/21 09:56 07/13/21 11:11 Ondansetron 4 Mg/2 Ml Inj IV 4 mg Q4H PRN Administration Nausea And Vomiting Oxycodone/Acetaminophen 1 tab 07/12/21 09:56 07/13/21 07:56 Oxycodone /Acetaminophen 5-325mg Tab PO 1 tab Q6H PRN Administration Pain, Moderate (4-6) Paroxetine HCl 20 mg 07/12/21 11:00 07/13/21 10:00 Paroxetine 20 Mg Tab PO 20 mg DAILY [facility] Administration Sacubitril/Valsartan 2 each 07/12/21 11:00 07/13/21 09:59 Sacubitril/Valsartan 49-51 Mg Tab PO 2 each BID [facility] Administration Senna 8.6 mg 07/12/21 10:00 07/13/21 10:00 Sennosides 8.6 Mg Tab PO 8.6 mg Q12HR [facility] Administration Sodium Chloride 10 ml 07/12/21 10:00 07/13/21 10:01 Sodium Chloride 0.9% 10 Ml Flush Syringe IV 10 ml BID [facility] Administration Sodium Chloride 10 ml 07/12/21 09:56 Sodium Chloride 0.9% 10 Ml Flush Syringe IV PRN PRN LINE FLUSH
[2021-07-13] MEDS ORDERED: methylPREDNISolone Sod Succinate 125 MG/2 ML INJ IV SCH (14:00)
[2021-07-13] MEDS ORDERED: METOCLOPRAMIDE 10 MG TAB PO PRN (14:03)
--- NOTE | 2021-07-13 14:14 | Progress Note ---
Assessment and Plan Lexiscan stress test with nuclear imaging in a.m. - Patient Problems (1) Chest pain Current Visit: Yes Status: Acute (2) Gastroenteritis Current Visit: Yes Status: Acute (3) Elevated troponin Current Visit: Yes Status: Acute (4) NICM (nonischemic cardiomyopathy) Current Visit: Yes Status: Chronic (5) Chronic HFrEF (heart failure with reduced ejection fraction) Current Visit: Yes Status: Acute (6) Asthma Current Visit: Yes Status: Chronic (7) HTN (hypertension) Current Visit: Yes Status: Chronic Qualifiers: Hypertension type: primary hypertension Qualified Code(s): I10 - Essential (primary) hypertension (8) Pulmonary hypertension Current Visit: Yes Status: Chronic (9) Peripheral artery disease Current Visit: Yes Status: Chronic (10) Diabetes mellitus Current Visit: Yes Status: Chronic Qualifiers: Diabetes mellitus type: type 2 Subjective Date of service: 07/13/21 Principal diagnosis: CP, G-enteritis Interval history: She feels better this morning. No chest pain. Objective Vital Signs Temp Pulse Pulse Resp Resp BP Pulse Ox 07/13/21 13:20 71 18 07/13/21 11:12 97.4 F L 71 18 173/56 99 07/13/21 11:03 64 07/13/21 10:00 97 07/13/21 09:42 63 20 95 07/13/21 07:35 97.8 F 69 18 151/54 91 07/13/21 04:02 98.4 F 82 18 153/50 95 07/13/21 00:06 98.5 F 87 17 166/60 92 07/12/21 22:00 97 07/12/21 21:58 82 16 07/12/21 21:47 98.1 F 83 18 176/67 95 07/12/21 16:21 97.8 F 72 18 145/49 90 07/12/21 15:20 85 97 - Physical Examination General: No Apparent Distress HEENT: Positive: EOMI, Normocephaly, Mucus Membranes Moist Neck: Positive: neck supple, trachea midline Cardiac: Positive: Reg Rate and Rhythm, S1/S2 Lungs: Positive: clear to auscultation Neuro: Positive: Grossly Intact Abdomen: Positive: Soft, Active Bowel Sounds. Negative: Tender Skin: Positive: Clear. Negative: Rash Musculoskeletal: Normal Range of Motion Extremities: Present: normal. Absent: edema - Labs and Meds Cardiac Enzymes 07/12/21 Range/Units 23:16 CK-MB (CK-2) 3.2 (0.0-4.0) ng/mL CBC 07/13/21 Range/Units 03:39 WBC 9.5 (4.5-11.0) K/mm3 RBC 4.12 (3.65-5.03) M/mm3 Hgb 12.9 (10.1-14.3) gm/dl Hct 39.4 (30.3-42.9) % Plt Count 260 (140-440) K/mm3 Lymph # (Auto) 0.9 L (1.2-5.4) K/mm3 [place] # (Auto) 0.2 (0.0-0.8) K/mm3 Eos # (Auto) 0.0 (0.0-0.4) K/mm3 Baso # (Auto) 0.0 (0.0-0.1) K/mm3 Comprehensive Metabolic Panel 07/13/21 Range/Units 03:39 Sodium 141 (137-145) mmol/L Potassium 5.2 H (3.6-5.0) mmol/L Chloride 102.0 (98-107) mmol/L Carbon Dioxide 22 (22-30) mmol/L BUN 25 H (7-17) mg/dL Creatinine 1.3 H (0.6-1.2) mg/dL Glucose 188 H (65-100) mg/dL Calcium 8.7 (8.4-10.2) mg/dL - Imaging and Cardiology EKG: image reviewed - Telemetry EKG Rhythm: Sinus Rhythm - EKG Sinus rhythms and dysrhythmias: sinus rhythm Chamber hypertrophy or enlargement: left ventricular hypertro Repolarization changes or abnormalities: repolarization abn secondary to maria eugenia tricular hypertrophy
[2021-07-13] MEDS: methylPREDNISolone Sod Succinate 40 MG/1 ML INJ IV SCH ×2 (17:20→22:30)
[2021-07-13] MEDS: DIGOXIN 0.125 MG TAB PO SCH (17:35)
[2021-07-13] MEDS: FAMOTIDINE 10 MG TAB PO SCH (22:29)
[2021-07-14] MEDS: IPRATROPIUM/ALBUTEROL SULFATE 3 ML AMPUL.NEB IH SCH ×3 (03:15→15:21)
[2021-07-14] MEDS: oxyCODONE /ACETAMINOPHEN 5-325MG TAB PO PRN (05:58)
[2021-07-14] MEDS: BENZONATATE 100 MG CAP PO SCH ×2 (05:58→15:42)
[2021-07-14 06:09] LABS: Calcium 8.5 mg/dL (8.4-10.2)
[2021-07-14] MEDS: INSULIN LISPRO 100 UNIT/ML SUB-Q SCH (07:46)
[2021-07-14] MEDS: hydrALAZINE 100 MG TAB PO SCH (08:00)
[2021-07-14] MEDS ORDERED: REGADENOSON 0.4 MG/5 ML INJ IV ONE (08:25)
[2021-07-14] MEDS ORDERED: SACUBITRIL/VALSARTAN 49-51 MG TAB PO SCH (10:00)
--- NOTE | 2021-07-14 10:50 | Progress Note ---
Assessment and Plan Patient is a 71-year-old female with a past medical history of NICMP, CAD, chronic HFrEF, and Asthma presents to the ED with complaint of shortness of breath and nausea around Nonischemic cardiomyopathy Acute on chronic chronic HFrEF Coronary artery Nausea/vomiting-GI following Asthma PAD Diabetes Echocardiogram reviewed 09/03/2020: LVEF is 25 to 30%. LV mildly dilated. LV SF moderately to severely decreased. Mild LVH. Hypokinesis of inferior wall. Mild diastolic dysfunction. RV SF is normal. Moderate AR. Mild MR. LHC 09/27/2020- Left main patent, LAD patent, diagonal patent, circumflex mid 50%, RCA proximal patent, severe LV dysfunction Lexiscan MPI stress test 07/14/2021-Normal myocardial perfusion in anterior inferior septal lateral and apical regions. Moderate LV dysfunction EF 34% suggestive of nonischemic cardiomyopathy. No significant ischemia noted Plan: Patient currently on aspirin, Lipitor, Coreg 25 mg p.o. twice daily, clonidine 0.2 mg p.o. twice daily, digoxin 0.125 mg p.o. daily, hydralazine 100 mg p.o. 3 times daily, Imdur 120 mg p.o. daily, nifedipine 90 mg p.o. daily, and Entresto 49 to 51 mg p.o. twice daily Negative stress test this a.m. Cardiac status otherwise stable Patient has a follow-up appointment scheduled with Dr. Rodriguez, [facility], 08/01/2021 at 3:30 PM in our [place] location. Phone #[phone] Patient seen in conjunction with Dr. Leonardo who agrees with this plan of care - Patient Problems (1) Chronic HFrEF (heart failure with reduced ejection fraction) Current Visit: Yes Status: Acute (2) Elevated troponin Current Visit: Yes Status: Acute (3) Gastroenteritis Current Visit: Yes Status: Acute (4) Asthma Current Visit: Yes Status: Chronic (5) Diabetes mellitus Current Visit: Yes Status: Chronic Qualifiers: Diabetes mellitus type: type 2 (6) NICM (nonischemic cardiomyopathy) Current Visit: Yes Status: Chronic (7) Peripheral artery disease Current Visit: Yes Status: Chronic (8) Pulmonary hypertension Current Visit: Yes Status: Chronic Subjective Date of service: 07/14/21 Principal diagnosis: CP, G-enteritis Interval history: Patient for stress test this a.m. Patient sinus 60s to 70s with PVCs Objective Vital Signs Temp Pulse Pulse Resp Resp BP Pulse Ox 07/14/21 08:42 129/60 07/14/21 08:40 120/61 07/14/21 08:38 126/59 07/14/21 08:37 93/57 07/14/21 08:36 88/62 07/14/21 08:16 84/58 07/14/21 08:00 97 07/14/21 07:41 97.8 F 68 18 159/56 93 07/14/21 04:09 98.5 F 66 17 142/48 96 07/14/21 03:15 71 16 07/14/21 03:00 68 07/13/21 23:48 98.1 F 68 18 122/46 90 07/13/21 22:00 18 97 07/13/21 21:53 96 07/13/21 21:00 70 96 H 07/13/21 20:43 98.0 F 72 17 154/57 95 07/13/21 15:41 97.3 F L 70 18 136/56 91 07/13/21 13:20 71 18 07/13/21 11:12 97.4 F L 71 18 173/56 99 07/13/21 11:03 64 - Physical Examination General: No Apparent Distress HEENT: Positive: EOMI, Normocephaly, Mucus Membranes Moist Neck: Positive: neck supple, trachea midline Cardiac: Positive: Reg Rate and Rhythm Lungs: Positive: Normal Breath Sounds Neuro: Positive: Grossly Intact Abdomen: Positive: Soft, Active Bowel Sounds. Negative: Tender Skin: Positive: Clear. Negative: Rash Musculoskeletal: Normal Range of Motion Extremities: Present: normal. Absent: edema - Labs and Meds Cardiac Enzymes 07/12/21 07/12/21 07/12/21 Range/Units 08:26 08:26 08:26 WBC 8.8 (4.5-11.0) K/mm3 RBC 4.49 (3.65-5.03) M/mm3 Hgb 13.9 (10.1-14.3) gm/dl Hct 43.1 H (30.3-42.9) % MCV 96 (79-97) fl MCH 31 (28-32) pg MCHC 32 (30-34) % RDW 15.1 (13.2-15.2) % Plt Count 283 (140-440) K/mm3 Lymph % (Auto) 16.2 (13.4-35.0) % [place] % (Auto) 6.3 (0.0-7.3) % Eos % (Auto) 0.9 (0.0-4.3) % Baso % (Auto) 0.5 (0.0-1.8) % Lymph # (Auto) 1.4 (1.2-5.4) K/mm3 [place] # (Auto) 0.6 (0.0-0.8) K/mm3 Eos # (Auto) 0.1 (0.0-0.4) K/mm3 Baso # (Auto) 0.0 (0.0-0.1) K/mm3 Seg Neutrophils % 76.1 H (40.0-70.0) % Seg Neutrophils # 6.7 (1.8-7.7) K/mm3 PT 14.4 (12.2-14.9) Sec. INR 1.01 (0.87-1.13) Sodium 146 H (137-145) mmol/L Potassium 4.4 (3.6-5.0) mmol/L Chloride 108.7 H (98-107) mmol/L Carbon Dioxide 25 (22-30) mmol/L Anion Gap 17 mmol/L BUN 15 (7-17) mg/dL Creatinine 1.0 (0.6-1.2) mg/dL Estimated GFR > 60 ml/min BUN/Creatinine Ratio 15 % Glucose 131 H (65-100) mg/dL POC Glucose (70-105) mg/dL Calcium 9.1 (8.4-10.2) mg/dL Total Bilirubin 0.70 (0.1-1.2) mg/dL ALT 16 (7-56) units/L Alkaline Phosphatase 109 (35-129) units/L Total Creatine Kinase (30-135) units/L CK-MB (CK-2) Rel Index (0-4) Troponin T (0.00-0.029) ng/mL NT-Pro-B Natriuret Pep (0-900) pg/mL Total Protein 6.5 (6.3-8.2) g/dL Albumin 4.1 (3.9-5) g/dL Albumin/Globulin Ratio 1.7 % Triglycerides (2-149) mg/dL Cholesterol (50-199) mg/dL LDL Cholesterol Direct (50-130) mg/dL HDL Cholesterol (40-59) mg/dL Cholesterol/HDL Ratio % Lipase 53 (13-60) units/L Digoxin (0.9-2.0) ng/mL 07/12/21 07/12/21 07/12/21 Range/Units 08:26 08:26 12:20 WBC (4.5-11.0) K/mm3 RBC (3.65-5.03) M/mm3 Hgb (10.1-14.3) gm/dl Hct (30.3-42.9) % MCV (79-97) fl MCH (28-32) pg MCHC (30-34) % RDW (13.2-15.2) % Plt Count (140-440) K/mm3 Lymph % (Auto) (13.4-35.0) % [place] % (Auto) (0.0-7.3) % Eos % (Auto) (0.0-4.3) % Baso % (Auto) (0.0-1.8) % Lymph # (Auto) (1.2-5.4) K/mm3 [place] # (Auto) (0.0-0.8) K/mm3 Eos # (Auto) (0.0-0.4) K/mm3 Baso # (Auto) (0.0-0.1) K/mm3 Seg Neutrophils % (40.0-70.0) % Seg Neutrophils # (1.8-7.7) K/mm3 PT (12.2-14.9) Sec. INR (0.87-1.13) Sodium (137-145) mmol/L Potassium (3.6-5.0) mmol/L Chloride (98-107) mmol/L Carbon Dioxide (22-30) mmol/L Anion Gap mmol/L BUN (7-17) mg/dL Creatinine (0.6-1.2) mg/dL Estimated GFR ml/min BUN/Creatinine Ratio % Glucose (65-100) mg/dL POC Glucose (70-105) mg/dL Calcium (8.4-10.2) mg/dL Total Bilirubin (0.1-1.2) mg/dL ALT (7-56) units/L Alkaline Phosphatase (35-129) units/L Total Creatine Kinase 112 (30-135) units/L CK-MB (CK-2) Rel Index 2.1 (0-4) Troponin T 0.033 H 0.029 (0.00-0.029) ng/mL NT-Pro-B Natriuret Pep 5541 H (0-900) pg/mL Total Protein (6.3-8.2) g/dL Albumin (3.9-5) g/dL Albumin/Globulin Ratio % Triglycerides 196 H (2-149) mg/dL Cholesterol 197 (50-199) mg/dL LDL Cholesterol Direct 113 (50-130) mg/dL HDL Cholesterol 50 (40-59) mg/dL Cholesterol/HDL Ratio 3.94 % Lipase (13-60) units/L Digoxin 0.7 L (0.9-2.0) ng/mL 07/12/21 07/12/21 07/12/21 Range/Units 16:22 20:47 23:16 WBC (4.5-11.0) K/mm3 RBC (3.65-5.03) M/mm3 Hgb (10.1-14.3) gm/dl Hct (30.3-42.9) % MCV (79-97) fl MCH (28-32) pg MCHC (30-34) % RDW (13.2-15.2) % Plt Count (140-440) K/mm3 Lymph % (Auto) (13.4-35.0) % [place] % (Auto) (0.0-7.3) % Eos % (Auto) (0.0-4.3) % Baso % (Auto) (0.0-1.8) % Lymph # (Auto) (1.2-5.4) K/mm3 [place] # (Auto) (0.0-0.8) K/mm3 Eos # (Auto) (0.0-0.4) K/mm3 Baso # (Auto) (0.0-0.1) K/mm3 Seg Neutrophils % (40.0-70.0) % Seg Neutrophils # (1.8-7.7) K/mm3 PT (12.2-14.9) Sec. INR (0.87-1.13) Sodium (137-145) mmol/L Potassium (3.6-5.0) mmol/L Chloride (98-107) mmol/L Carbon Dioxide (22-30) mmol/L Anion Gap mmol/L BUN (7-17) mg/dL Creatinine (0.6-1.2) mg/dL Estimated GFR ml/min BUN/Creatinine Ratio % Glucose (65-100) mg/dL POC Glucose 214 H 178 H (70-105) mg/dL Calcium (8.4-10.2) mg/dL Total Bilirubin (0.1-1.2) mg/dL ALT (7-56) units/L Alkaline Phosphatase (35-129) units/L Total Creatine Kinase 135 (30-135) units/L CK-MB (CK-2) Rel Index 2.3 (0-4) Troponin T 0.018 (0.00-0.029) ng/mL NT-Pro-B Natriuret Pep (0-900) pg/mL Total Protein (6.3-8.2) g/dL Albumin (3.9-5) g/dL Albumin/Globulin Ratio % Triglycerides (2-149) mg/dL Cholesterol (50-199) mg/dL LDL Cholesterol Direct (50-130) mg/dL HDL Cholesterol (40-59) mg/dL Cholesterol/HDL Ratio % Lipase (13-60) units/L Digoxin (0.9-2.0) ng/mL 07/13/21 07/13/21 07/13/21 Range/Units 03:39 03:39 07:33 WBC 9.5 (4.5-11.0) K/mm3 RBC 4.12 (3.65-5.03) M/mm3 Hgb 12.9 (10.1-14.3) gm/dl Hct 39.4 (30.3-42.9) % MCV 96 (79-97) fl MCH 31 (28-32) pg MCHC 33 (30-34) % RDW 15.1 (13.2-15.2) % Plt Count 260 (140-440) K/mm3 Lymph % (Auto) 9.6 L (13.4-35.0) % [place] % (Auto) 1.7 (0.0-7.3) % Eos % (Auto) 0.0 (0.0-4.3) % Baso % (Auto) 0.3 (0.0-1.8) % Lymph # (Auto) 0.9 L (1.2-5.4) K/mm3 [place] # (Auto) 0.2 (0.0-0.8) K/mm3 Eos # (Auto) 0.0 (0.0-0.4) K/mm3 Baso # (Auto) 0.0 (0.0-0.1) K/mm3 Seg Neutrophils % 88.4 H (40.0-70.0) % Seg Neutrophils # 8.4 H (1.8-7.7) K/mm3 PT (12.2-14.9) Sec. INR (0.87-1.13) Sodium 141 (137-145) mmol/L Potassium 5.2 H (3.6-5.0) mmol/L Chloride 102.0 (98-107) mmol/L Carbon Dioxide 22 (22-30) mmol/L Anion Gap 22 mmol/L BUN 25 H (7-17) mg/dL Creatinine 1.3 H (0.6-1.2) mg/dL Estimated GFR 49 ml/min BUN/Creatinine Ratio 19 % Glucose 188 H (65-100) mg/dL POC Glucose 175 H (70-105) mg/dL Calcium 8.7 (8.4-10.2) mg/dL Total Bilirubin (0.1-1.2) mg/dL ALT (7-56) units/L Alkaline Phosphatase (35-129) units/L Total Creatine Kinase (30-135) units/L CK-MB (CK-2) Rel Index (0-4) Troponin T (0.00-0.029) ng/mL NT-Pro-B Natriuret Pep (0-900) pg/mL Total Protein (6.3-8.2) g/dL Albumin (3.9-5) g/dL Albumin/Globulin Ratio % Triglycerides (2-149) mg/dL Cholesterol (50-199) mg/dL LDL Cholesterol Direct (50-130) mg/dL HDL Cholesterol (40-59) mg/dL Cholesterol/HDL Ratio % Lipase (13-60) units/L Digoxin (0.9-2.0) ng/mL 07/13/21 07/13/21 07/13/21 Range/Units 11:10 15:41 22:15 WBC (4.5-11.0) K/mm3 RBC (3.65-5.03) M/mm3 Hgb (10.1-14.3) gm/dl Hct (30.3-42.9) % MCV (79-97) fl MCH (28-32) pg MCHC (30-34) % RDW (13.2-15.2) % Plt Count (140-440) K/mm3 Lymph % (Auto) (13.4-35.0) % [place] % (Auto) (0.0-7.3) % Eos % (Auto) (0.0-4.3) % Baso % (Auto) (0.0-1.8) % Lymph # (Auto) (1.2-5.4) K/mm3 [place] # (Auto) (0.0-0.8) K/mm3 Eos # (Auto) (0.0-0.4) K/mm3 Baso # (Auto) (0.0-0.1) K/mm3 Seg Neutrophils % (40.0-70.0) % Seg Neutrophils # (1.8-7.7) K/mm3 PT (12.2-14.9) Sec. INR (0.87-1.13) Sodium (137-145) mmol/L Potassium (3.6-5.0) mmol/L Chloride (98-107) mmol/L Carbon Dioxide (22-30) mmol/L Anion Gap mmol/L BUN (7-17) mg/dL Creatinine (0.6-1.2) mg/dL Estimated GFR ml/min BUN/Creatinine Ratio % Glucose (65-100) mg/dL POC Glucose 193 H 147 H 147 H (70-105) mg/dL Calcium (8.4-10.2) mg/dL Total Bilirubin (0.1-1.2) mg/dL ALT (7-56) units/L Alkaline Phosphatase (35-129) units/L Total Creatine Kinase (30-135) units/L CK-MB (CK-2) Rel Index (0-4) Troponin T (0.00-0.029) ng/mL NT-Pro-B Natriuret Pep (0-900) pg/mL Total Protein (6.3-8.2) g/dL Albumin (3.9-5) g/dL Albumin/Globulin Ratio % Triglycerides (2-149) mg/dL Cholesterol (50-199) mg/dL LDL Cholesterol Direct (50-130) mg/dL HDL Cholesterol (40-59) mg/dL Cholesterol/HDL Ratio % Lipase (13-60) units/L Digoxin (0.9-2.0) ng/mL 07/14/21 07/14/21 Range/Units 05:32 07:45 WBC (4.5-11.0) K/mm3 RBC (3.65-5.03) M/mm3 Hgb (10.1-14.3) gm/dl Hct (30.3-42.9) % MCV (79-97) fl MCH (28-32) pg MCHC (30-34) % RDW (13.2-15.2) % Plt Count (140-440) K/mm3 Lymph % (Auto) (13.4-35.0) % [place] % (Auto) (0.0-7.3) % Eos % (Auto) (0.0-4.3) % Baso % (Auto) (0.0-1.8) % Lymph # (Auto) (1.2-5.4) K/mm3 [place] # (Auto) (0.0-0.8) K/mm3 Eos # (Auto) (0.0-0.4) K/mm3 Baso # (Auto) (0.0-0.1) K/mm3 Seg Neutrophils % (40.0-70.0) % Seg Neutrophils # (1.8-7.7) K/mm3 PT (12.2-14.9) Sec. INR (0.87-1.13) Sodium 139 (137-145) mmol/L Potassium 4.4 (3.6-5.0) mmol/L Chloride 104.0 (98-107) mmol/L Carbon Dioxide 22 (22-30) mmol/L Anion Gap 17 mmol/L BUN 25 H (7-17) mg/dL Creatinine 1.4 H (0.6-1.2) mg/dL Estimated GFR 45 ml/min BUN/Creatinine Ratio 18 % Glucose 145 H (65-100) mg/dL POC Glucose 146 H (70-105) mg/dL Calcium 8.5 (8.4-10.2) mg/dL Total Bilirubin (0.1-1.2) mg/dL ALT (7-56) units/L Alkaline Phosphatase (35-129) units/L Total Creatine Kinase (30-135) units/L CK-MB (CK-2) Rel Index (0-4) Troponin T (0.00-0.029) ng/mL NT-Pro-B Natriuret Pep (0-900) pg/mL Total Protein (6.3-8.2) g/dL Albumin (3.9-5) g/dL Albumin/Globulin Ratio % Triglycerides (2-149) mg/dL Cholesterol (50-199) mg/dL LDL Cholesterol Direct (50-130) mg/dL HDL Cholesterol (40-59) mg/dL Cholesterol/HDL Ratio % Lipase (13-60) units/L Digoxin (0.9-2.0) ng/mL Comprehensive Metabolic Panel 07/14/21 Range/Units 05:32 Sodium 139 (137-145) mmol/L Potassium 4.4 (3.6-5.0) mmol/L Chloride 104.0 (98-107) mmol/L Carbon Dioxide 22 (22-30) mmol/L BUN 25 H (7-17) mg/dL Creatinine 1.4 H (0.6-1.2) mg/dL Glucose 145 H (65-100) mg/dL Calcium 8.5 (8.4-10.2) mg/dL - Imaging and Cardiology EKG: image reviewed - Telemetry EKG Rhythm: Sinus Rhythm - EKG Sinus rhythms and dysrhythmias: sinus rhythm Ventricular dysrhythmias: ventricular premature com Chamber hypertrophy or enlargement: left ventricular hypertro Repolarization changes or abnormalities: repolarization abn secondary to ventricular hypertrophy
--- NOTE | 2021-07-14 11:11 | Gastroenterology Progress Note ---
Assessment and Plan Consistent with acute viral gastroenteritis which is rapidly resolving From GI perspective patient should consider lactose free diet for the next few days as her gastrointestinal system returns to normal Otherwise no further recommendations and patient is cleared for discharge from gastroenterology perspective GI will sign off please call us back we can be of any further assistance - Patient Problems (1) Nausea vomiting and diarrhea Current Visit: Yes Status: Acute (2) Gastroenteritis Current Visit: Yes Status: Acute Subjective Date of service: 07/14/21 Principal diagnosis: CP, G-enteritis Interval history: Patient is feeling better from GI perspective No abdominal pain nausea vomiting or diarrhea today Objective - Constitutional Vitals: Temp Pulse Resp BP Pulse Ox 97.8 F 68 18 129/60 97 07/14/21 07:41 07/14/21 07:41 07/14/21 07:41 07/14/21 08:42 07/14/21 08:00 General appearance: no acute distress - EENT Eyes: EOM intact - Neck Neck: supple - Respiratory Respiratory effort: normal - Gastrointestinal General gastrointestinal: Present: soft, non-tender - Integumentary Integumentary: Present: dry - Psychiatric Psychiatric: appropriate mood/affect - Labs CBC & Chem 7: 07/13/21 03:39 07/14/21 05:32 Labs: Laboratory Results - last 24 hr 07/13/21 07/13/21 07/13/21 07:33 11:10 15:41 Sodium Potassium Chloride Carbon Dioxide Anion Gap BUN Creatinine Estimated GFR BUN/Creatinine Ratio Glucose POC Glucose 175 H 193 H 147 H Calcium 07/13/21 07/14/21 07/14/21 22:15 05:32 07:45 Sodium 139 Potassium 4.4 Chloride 104.0 Carbon Dioxide 22 Anion Gap 17 BUN 25 H Creatinine 1.4 H Estimated GFR 45 BUN/Creatinine Ratio 18 Glucose 145 H POC Glucose 147 H 146 H Calcium 8.5
--- NOTE | 2021-07-14 11:18 | Nuclear Medicine Report ---
APPROVED REPORT Exam: Nuclear Stress Test Indication: [facility] Ht: 5 ft 4 in Wt: 99 lbs BSA: 1.45 m2 HR: 62 bpmBP: 84/58 mmHgBMI: 16.99 Rhythm: SINUS RHYTHM ANTEROSEPTAL INFARCT, AGE INDETERMINED ST@T WAVE ABNORMALITIES Stress Test Details Stress Test: Pharmacologic stress testing performed using 0.4 mg of regadenoson per 5 mL given IV over 10 seconds. Reason for pharmacologic stress test: physical limitation. HR Resting HR: 62 bpm Max HR Achieved: 80 bpm Max Heart Rate (APMHR): 147.294933 bpm Target HR (85% APMHR): 124.097543 bpm % of APMHR: 54.42 Recovery HR: 74 bpm BP Resting BP: 84/58 mmHg Max BP: 129/60 mmHg Recovery BP: 88/62 mmHg ECG Resting ECG: Sinus Rhythm Stress ECG: sINUS RHYTHM WITH OCCASIONAL PAC'S Clinical Reason for Termination: Completed protocol Stress Symptoms: None NM EXAM: Myocardial Perfusion REST/STRESS Imaging Protocol: Rest Tc-99m/Stress Tc-99m 1 day Resting Data Rest SPECT myocardial perfusion imaging was performed in supine position 45 minutes following the intravenous injection of 10 mCi of Tc-99m Myoview. Time of rest injection: 0700 Pharmacologic Stress Pharmacologic stress test was performed by injecting Regadenoson 0.4 mg IV push followed by the intravenous injection of 28 mCi of Tc-99m Myoview. Time of stress injection: 0836 Gated Stress SPECT was performed 30 minutes after stress injection. The images were gated to evaluate regional wall motion and calculate left ventricular ejection fraction. Study Quality Study: excellent Lung Uptake: Normal Study Data TID = 1.05. Perfusion Wall Motion The rest and stress images show normal left ventricular wall motion. Nuclear Conclusion ECG Findings: negative for ischemia Clinical Findings: negative for ischemia Nuclear Findings: negative for ischemia Exercise Capacity: not assessed Left Ventricular Function: abnormal Negative Lexiscan EKG normal myocardial perfusion anterior inferior septal lateral and apical regions moderate LV dysfunction EF 34% suggestive of nonischemic cardiomyopathy no significant ischemia noted
[2021-07-14] MEDS: PARoxetine 20 MG TAB PO SCH (11:37)
[2021-07-14 11:38] VITALS: BP 166/60
[2021-07-14] MEDS: SENNOSIDES 8.6 MG TAB PO SCH (11:38)
[2021-07-14] MEDS: FAMOTIDINE 10 MG TAB PO SCH (11:38)
[2021-07-14] MEDS: ASPIRIN EC 81 MG TAB PO SCH (11:38)
[2021-07-14] MEDS: FERROUS SULFATE 325 MG TAB PO SCH (11:38)
[2021-07-14] MEDS: cloNIDine 0.2 MG TAB PO SCH (11:38)
[2021-07-14] MEDS: NIFEdipine XL 90 MG TAB PO SCH (11:39)
[2021-07-14] MEDS: carvediloL 25 MG TAB PO SCH (11:39)
[2021-07-14] MEDS: methylPREDNISolone Sod Succinate 40 MG/1 ML INJ IV SCH (11:39)
--- NOTE | 2021-07-14 12:25 | Discharge Summary ---
Providers - Providers Date of Admission: 07/12/21 09:56 Date of discharge: 07/14/21 Attending physician: PATEL SANTILLAN MD 07/12/21 09:51 Consult to Physician [CONS] Routine Comment: Consulting Provider: ZENAIDA BREWER Physician Instructions: Reason For Exam: chf 07/12/21 10:08 Consult to Physician [CONS] Urgent Comment: Consulting Provider: ZENAIDA BREWER Physician Instructions: Reason For Exam: Elevated troponin, CHF 07/12/21 10:32 Consult to Physician [CONS] Routine Comment: Consulting Provider: LUCIA PRATT Physician Instructions: Reason For Exam: POOR APPEPITIE WITH NAUSEA AND VOMITING 07/12/21 14:07 Consult to Dietitian/Nutrition [CONS] Routine Physician Instructions: Reason For Exam: Reason for Consult: Malnutrition Primary care physician: GOKUL KAPADIA Hospitalization Reason for admission: Hypoxic respiratory failure, intractable nausea and vomiting Condition: Fair Procedures: Myocardial perfusion scan. Hospital course: Patient is a 71-year-old female with past medical history of hypertension, diabetes mellitus, CHF with a EF of 25 to 30% on echo done on 03 September 2020, prior stent to the leg and also history of COPD as a result of tobacco use which she still continues to smoke intermittently. She presents to the ED with complaints of nausea vomiting and diarrhea that has been going on for the last week with progressive worsening up till last night prompting the family to call EMS and bring the patient to the hospital as she was visibly short of breath. Per documentation patient was hypoxic 92% on room air prior to EMS arrival. She is accompanied by her daughter who gives information. States that she follows up with outside medical and sees a kidney doctor and also heart doctor. Unfortunately she continues to smoke less than a pack a day although the patient had told me she does not smoke. She is compliant with her medications and her diet. Has been no new changes to medications and no fever recorded at home. Patient was evaluated by gastroenterology who deemed her nausea and vomiting to likely be secondary to an acute viral gastroenteritis. Her symptoms are significantly improved, and they feel that she should avoid lactose for the next few days as her symptoms completely resolved. Patient was evaluated by cardiology due to concerns for acute on chronic systolic heart failure. The patient was medically managed with diuresis. Patient underwent a nuclear stress test on 07/14/2021 that was unremarkable. The patient is medically clear for discharge. Disposition: 01 HOME / SELF CARE / HOMELESS Final Discharge Diagnosis (Prints w/discharge instructions): Intractable nausea and vomiting, acute hypoxic respiratory failure, COPD exacerbation, acute on chronic systolic heart failure, nonischemic cardiomyopathy, hypertensive urgency, PAD with prior history of DVT not on anticoagulation, moderate protein caloric malnutrition with cachexia, tobacco dependence, NSTEMI type II, diarrhea without leukocytosis, hypernatremia, SIRS without organ dysfunction Time spent for discharge: 45 min Core Measure Documentation - Palliative Care Palliative Care/ Comfort Measures: Not Applicable - Core Measures Any of the following diagnoses?: heart failure - Heart Failure Discharge Requirements HUMAIRA/ARB for LVSD if EF <40%: Not Applicable Reason for no HUMAIRA/ARB: Renal impairment Beta anisa at discharge: Yes Exam - Constitutional Vitals: Temp Pulse Resp BP Pulse Ox 97.8 F 74 18 166/60 97 07/14/21 07:41 07/14/21 11:39 07/14/21 07:41 07/14/21 11:39 07/14/21 08:00 General appearance: Present: no acute distress, cachectic - EENT Eyes: Present: PERRL, EOM intact ENT: hearing intact, clear oral mucosa, dentition normal - Neck Neck: Present: supple, normal ROM - Respiratory Respiratory effort: normal Respiratory: bilateral: CTA - Cardiovascular Rhythm: regular Heart Sounds: Present: S1 & S2 - Extremities Extremities: no ischemia, pulses intact, pulses symmetrical, normal temperature, normal color Peripheral Pulses: within normal limits - Abdominal General gastrointestinal: Present: soft, non-tender, non-distended, normal bowel sounds Female genitourinary: Present: deferred - Rectal Rectal Exam: deferred - Integumentary Integumentary: Present: clear, warm, dry - Musculoskeletal Musculoskeletal: generalized weakness - Psychiatric Psychiatric: appropriate mood/affect, intact judgment & insight, memory intact, cooperative - Neurologic Neurologic: CNII-XII intact, moves all extremities - Allied Health Allied health notes reviewed: nursing Plan Activity: advance as tolerated Diet: low salt Additional Instructions: Patient is a 71-year-old female with past medical history of hypertension, diabetes mellitus, CHF with a EF of 25 to 30% on echo done on 03 September 2020, prior stent to the leg and also history of COPD as a result of tobacco use which she still continues to smoke intermittently. She presents to the ED with complaints of nausea vomiting and diarrhea that has been going on for the last week with progressive worsening up till last night prompting the family to call EMS and bring the patient to the hospital as she was visibly short of breath. Per documentation patient was hypoxic 92% on room air prior to EMS arrival. She is accompanied by her daughter who gives information. States that she follows up with outside medical and sees a kidney doctor and also heart doctor. Unfortunately she continues to smoke less than a pack a day although the patient had told me she does not smoke. She is compliant with her medications and her diet. Has been no new changes to medications and no fever recorded at home. Patient was evaluated by gastroenterology who deemed her nausea and vomiting to likely be secondary to an acute viral gastroenteritis. Her symptoms are significantly improved, and they feel that she should avoid lactose for the next few days as her symptoms completely resolved. Patient was evaluated by cardiology due to concerns for acute on chronic systolic heart failure. The patient was medically managed with diuresis. Patient underwent a nuclear stress test on 07/14/2021 that was unremarkable. The patient is medically clear for discharge. Care Plan Goals: Patient is medically cleared for discharge. Assessment: Patient is a 71-year-old female with past medical history of hypertension, diabetes mellitus, CHF with a EF of 25 to 30% on echo done on 03 September 2020, prior stent to the leg and also history of COPD as a result of tobacco use which she still continues to smoke intermittently. She presents to the ED with complaints of nausea vomiting and diarrhea that has been going on for the last week with progressive worsening up till last night prompting the family to call EMS and bring the patient to the hospital as she was visibly short of breath. Per documentation patient was hypoxic 92% on room air prior to EMS arrival. She is accompanied by her daughter who gives information. States that she follows up with outside medical and sees a kidney doctor and also heart doctor. Unfortunately she continues to smoke less than a pack a day although the patient had told me she does not smoke. She is compliant with her medications and her diet. Has been no new changes to medications and no fever recorded at home. Patient was evaluated by gastroenterology who deemed her nausea and vomiting to likely be secondary to an acute viral gastroenteritis. Her symptoms are significantly improved, and they feel that she should avoid lactose for the next few days as her symptoms completely resolved. Patient was evaluated by cardiology due to concerns for acute on chronic systolic heart failure. The patient was medically managed with diuresis. Patient underwent a nuclear stress test on 07/14/2021 that was unremarkable. The patient is medically clear for discharge. Follow up with: GOKUL KAPADIA MD [Primary Care Provider] - 3-5 Days ZENAIDA BREWER MD [Staff Physician] - 08/01/21 3:30 pm Prescriptions: AtorvaSTATin [Lipitor] 40 mg PO QHS #30 tablet hydrALAZINE [Apresoline TAB] 100 mg PO TID #90 tab carvediloL [Coreg] 25 mg PO BID #60 tab Sacubitril/Valsartan [Entresto 49-51 mg] 1 each PO BID #120 tablet Ferrous Sulfate [Feosol 325 MG tab] 325 mg PO BID #30 tablet Aspirin EC [Halfprin EC] 81 mg PO QDAY #30 tablet ISOSORBIDE MONOnitrate [Imdur ER] 120 mg PO QDAY #30 tablet Digoxin [Lanoxin] 0.125 mg PO DAILY@1700 #30 tablet PARoxetine [Paxil] 20 mg PO DAILY #30 tablet Famotidine [Pepcid] 10 mg PO BID #30 tablet NIFEdipine XL [Procardia Xl] 90 mg PO QDAY #30 tablet ALBUTEROL NEB's [Proventil 0.083% NEBS] 5 mg IH TID PRN #30 neb PRN Reason: Wheezing Metoclopramide [Reglan TAB] 5 mg PO Q6H PRN #20 tablet PRN Reason: Nausea And Vomiting
[2021-07-14] MEDS: ONDANSETRON 4 MG/2 ML INJ IV PRN (13:45)
[2021-07-14] MEDS: BUDESONIDE 0.5 MG/2 ML NEBU IH SCH (15:21)
[2021-07-14] MEDS: ARFORMOTEROL 15 MCG/2 ML NEBU IH SCH (15:21)
== END 2021-07-14 18:01 | disposition home or self-care (01) | DRG 280 ==
LOC: ED 07:34 → 4A 09:56
PROVIDERS: ADMIT Internal Medicine; ATTEND Student in an Organized Health Care Education/Training Program
DX: I11.0 Hypertensive heart disease with heart failure (principal); J96.01 Acute respiratory failure with hypoxia; I21.A1 Myocardial infarction type 2; I50.23 Acute on chronic systolic (congestive) heart failure; A08.39 Other viral enteritis; J44.1 Chronic obstructive pulmonary disease with (acute) exacerbation; E44.0 Moderate protein-calorie malnutrition; Z68.1 Body mass index [BMI] 19.9 or less, adult; R65.10 Systemic inflammatory response syndrome (SIRS) of non-infectious origin without acute organ dysfunction; E87.0 Hyperosmolality and hypernatremia; Z66 Do not resuscitate; I42.8 Other cardiomyopathies; E78.00 Pure hypercholesterolemia, unspecified; F41.9 Anxiety disorder, unspecified; I25.10 Atherosclerotic heart disease of native coronary artery without angina pectoris; E78.5 Hyperlipidemia, unspecified; I27.20 Pulmonary hypertension, unspecified; E11.51 Type 2 diabetes mellitus with diabetic peripheral angiopathy without gangrene; I16.0 Hypertensive urgency; F17.200 Nicotine dependence, unspecified, uncomplicated; Z71.6 Tobacco abuse counseling; I25.2 Old myocardial infarction; Z86.718 Personal history of other venous thrombosis and embolism
CPT/HCPCS: 36415; 74022; 78452; 80048; 80053; 80061; 80162; 82550; 82553; 82962; 83690; 83880; 84484; 85025; 85610; 93005; 93017; 94640; 94644; 96374; 96375; 99285; 99406; G0378; J3490; Q9967; A9502; J1815; J1940; J2405; J2785; J2920; J2930

== ENCOUNTER 2021-08-20 05:07 | Inpatient (IN) | payer MEDICARE ==
[2021-08-20] MEDS ORDERED: IPRATROPIUM/ALBUTEROL SULFATE 3 ML AMPUL.NEB IH ONE (05:38)
[2021-08-20 06:24] LABS: Basophils % (Auto) 0.4 % (0.0-1.8); Eosinophils % (Auto) 0.1 % (0.0-4.3); Hematocrit 34.6 % (30.3-42.9); Hemoglobin 11.4 gm/dl (10.1-14.3); Lymphocytes # (Auto) 1.4 K/mm3 (1.2-5.4); Lymphocytes % (Auto) 13.2 % (13.4-35.0); Mean Corpuscular HGB Conc 33 % (30-34); Mean Corpuscular Volume 96 fl (79-97); Monocytes # (Auto) 1.1 K/mm3 (0.0-0.8); Monocytes % (Auto) 9.8 % (0.0-7.3); Platelet Count 186 K/mm3 (140-440); Red Blood Count 3.59 M/mm3 (3.65-5.03); Red Cell Distribution Width 15.4 % (13.2-15.2)
--- NOTE | 2021-08-20 06:25 | XRay Report ---
CHEST 1 VIEW INDICATION / CLINICAL INFORMATION: sob. COMPARISON: Chest x-ray 07/12/2021 FINDINGS: SUPPORT DEVICES: None. HEART / MEDIASTINUM: Mild cardiomegaly. LUNGS / PLEURA: Central pulmonary vessels appear minimally prominent. Lungs bilaterally demonstrate p eripheral linear interstitial opacities and scattered airspace opacities within the bases. BONES: No significant osseous abnormality. ADDITIONAL FINDINGS: No significant additional findings. IMPRESSION: 1. Mild decompensated CHF with features of pulmonary edema. Signer Name: Darek Anaya II, MD Signed: 08/20/2021 6:21 AM Workstation Name: [id number]
[2021-08-20 06:30] LABS: Albumin 3.7 g/dL (3.9-5); Calcium 8.8 mg/dL (8.4-10.2)
[2021-08-20 06:33] LABS: Partial Thromboplastin Time 30.4 Sec. (24.2-36.6)
[2021-08-20 07:05] LABS: Chol/HDL Ratio 2.94 %
[2021-08-20] MEDS ORDERED: FUROSEMIDE 40 MG/4 ML INJ IV ONE (08:26)
--- NOTE | 2021-08-20 08:30 | Emergency Department Report ---
ED Shortness of Breath HPI - General Chief Complaint: Dyspnea/Respdistress Stated Complaint: SOB Time Seen by Provider: 08/20/21 07:58 Source: patient, EMS Mode of arrival: Stretcher Limitations: No Limitations - History of Present Illness Initial Comments: 71-year-old female with a history of asthma, COPD, and CHF who now presents with shortness of breath associated with cough that has been going on for about a week progressively getting worse. Patient denies any fever or chills. Cough is productive of white to yellow phlegm. Walking from room to the other worsen breath. No other modifying or associated factors reported. - Related Data Previous Rx's Medication Instructions Recorded Last Taken Type cloNIDine [Catapres] 0.1 mg PO QHS #30 tablet 09/27/20 Unknown Rx ALBUTEROL NEB's [Proventil 0.083% 5 mg IH TID PRN #30 neb 07/14/21 Unknown Rx NEBS] Aspirin EC [Halfprin EC] 81 mg PO QDAY #30 tablet 07/14/21 Unknown Rx AtorvaSTATin [Lipitor] 40 mg PO QHS #30 tablet 07/14/21 Unknown Rx Digoxin [Lanoxin] 0.125 mg PO DAILY@1700 #30 tablet 07/14/21 Unknown Rx Famotidine [Pepcid] 10 mg PO BID #30 tablet 07/14/21 Unknown Rx Ferrous Sulfate [Feosol 325 MG tab] 325 mg PO BID #30 tablet 07/14/21 Unknown Rx ISOSORBIDE MONOnitrate [Imdur ER] 120 mg PO QDAY #30 tablet 07/14/21 Unknown Rx Metoclopramide [Reglan TAB] 5 mg PO Q6H PRN #20 tablet 07/14/21 Unknown Rx NIFEdipine XL [Procardia Xl] 90 mg PO QDAY #30 tablet 07/14/21 Unknown Rx PARoxetine [Paxil] 20 mg PO DAILY #30 tablet 07/14/21 Unknown Rx Sacubitril/Valsartan [Entresto 1 each PO BID #120 tablet 07/14/21 Unknown Rx 49-51 mg] carvediloL [Coreg] 25 mg PO BID #60 tab 07/14/21 Unknown Rx hydrALAZINE [Apresoline TAB] 100 mg PO TID #90 tab 07/14/21 Unknown Rx Allergies Allergy/AdvReac Type Severity Reaction Status Date / Time No Known Allergies Allergy Verified 08/20/21 05:29 ED Review of Systems ROS: Stated complaint: SOB Other details as noted in HPI Comment: All other systems reviewed and negative Respiratory: cough, shortness of breath, SOB with exertion, SOB at rest, wheezing Cardiovascular: dyspnea on exertion. denies: chest pain, palpitations ED Past Medical Hx - Past Medical History Previous Medical History?: Yes Hx Hypertension: Yes Hx Heart Attack/AMI: Yes Hx Congestive Heart Failure: Yes Hx Diabetes: Yes Hx Deep Vein Thrombosis: Yes (stents in legs) Hx Renal Disease: Yes Hx Psychiatric Treatment: Yes (ANXIETY) Hx Asthma: Yes Hx COPD: Yes Additional medical history: HIGH CHOLESTEROL. 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 MILD HEART ENLARGEMENT - Surgical History Past Surgical History?: Yes Hx Coronary Stent: (STENT PLACEMENT IN LEG) Hx Pacemaker: No Hx Internal Defibrillator: (has a life vest but does not use it pending evaluattion for AICD as an outp) Additional Surgical History: STENTS IN LEGS, BLOOD CLOTS REMOVED FROM HEAD. TUBAL LIGATION - Social History Smoking Status: Former Smoker Substance Use Type: None - Medications Home Medications: Home Medications Medication Instructions Recorded Confirmed Last Taken Type cloNIDine [Catapres] 0.1 mg PO QHS #30 tablet 09/27/20 07/12/21 Unknown Rx ALBUTEROL NEB's [Proventil 0.083% 5 mg IH TID PRN #30 neb 07/14/21 Unknown Rx NEBS] Aspirin EC [Halfprin EC] 81 mg PO QDAY #30 tablet 07/14/21 Unknown Rx AtorvaSTATin [Lipitor] 40 mg PO QHS #30 tablet 07/14/21 Unknown Rx Digoxin [Lanoxin] 0.125 mg PO DAILY@1700 #30 tablet 07/14/21 Unknown Rx Famotidine [Pepcid] 10 mg PO BID #30 tablet 07/14/21 Unknown Rx Ferrous Sulfate [Feosol 325 MG tab] 325 mg PO BID #30 tablet 07/14/21 Unknown Rx ISOSORBIDE MONOnitrate [Imdur ER] 120 mg PO QDAY #30 tablet 07/14/21 Unknown Rx Metoclopramide [Reglan TAB] 5 mg PO Q6H PRN #20 tablet 07/14/21 Unknown Rx NIFEdipine XL [Procardia Xl] 90 mg PO QDAY #30 tablet 07/14/21 Unknown Rx PARoxetine [Paxil] 20 mg PO DAILY #30 tablet 07/14/21 Unknown Rx Sacubitril/Valsartan [Entresto 1 each PO BID #120 tablet 07/14/21 Unknown Rx 49-51 mg] carvediloL [Coreg] 25 mg PO BID #60 tab 07/14/21 Unknown Rx hydrALAZINE [Apresoline TAB] 100 mg PO TID #90 tab 07/14/21 Unknown Rx ED Physical Exam - General Limitations: No Limitations General appearance: alert, in no apparent distress - Head Head exam: Present: normal inspection - ENT ENT exam: Present: normal exam, normal orophraynx, mucous membranes moist - Neck Neck exam: Present: normal inspection. Absent: tenderness - Respiratory Respiratory exam: Present: normal lung sounds bilaterally. Absent: respiratory distress, accessory muscle use - Cardiovascular Cardiovascular Exam: Present: regular rate, normal rhythm, normal heart sounds - GI/Abdominal GI/Abdominal exam: Present: soft, normal bowel sounds. Absent: tenderness - Extremities Exam Extremities exam: Present: normal inspection, normal capillary refill. Absent: tenderness, pedal edema - Back Exam Back exam: Present: normal inspection. Absent: tenderness - Neurological Exam Neurological exam: Present: alert, oriented X3 - Psychiatric Psychiatric exam: Present: normal affect, normal mood ED Course Vital Signs 08/20/21 08/20/21 08/20/21 05:23 05:52 07:51 Temperature 98.4 F Pulse Rate 99 H Pulse Rate [ 90 Anterior Bilateral Throughout] Respiratory 26 H Rate Respiratory 20 Rate [Anterior Bilateral Throughout] Blood Pressure Blood Pressure 173/79 [Left] O2 Sat by Pulse 94 95 Oximetry 08/20/21 08/20/21 08/20/21 08:01 08:15 10:01 Temperature Pulse Rate 86 86 84 Pulse Rate [ Anterior Bilateral Throughout] Respiratory 20 24 19 Rate Respiratory Rate [Anterior Bilateral Throughout] Blood Pressure 164/58 164/58 152/66 Blood Pressure [Left] O2 Sat by Pulse 95 95 95 Oximetry - Reevaluation(s) Reevaluation #1: 08/20/21 08:30 Here with shortness of breath on exertion--with history of COPD, asthma, and CHF symptoms could be as a result of all of these but no limited to other such as M I. PE and pneumonia-- so as a result will go ahead and order CXR, CBC, CMP, UA, EKG to rule those out. Reevaluation #2: 08/20/21 08:32 Labs reviewed and noted with elevated BNP at 68,992 with noted pulmonary vascular congestion and edema on CXR-- consisted with likely exacerbation of heart failure-- Pt is needing oxygen supplement to maintain O2 >92 % so will consider admission for diuresing--Given Lasix 40 mg IV x 1 Also noted with elevated initial troponin that is likely as a result of her Kidney injury and the cardiac strain from the CHF exacerbation-- will continue to monitor with serial troponin. 08/20/21 08:37 08/20/21 11:00 Will not be able to give high-dose Lasix at this point considering kidney injury with elevated BUN and creatinine at 2.1 - Consultations Consultation #1: 08/20/21 12:11 Dr Schwarz consulted who accept pt for further evaluation and treatment ED Medical Decision Making - Lab Data Result diagrams: 08/20/21 05:51 08/20/21 05:51 Critical care attestation.: If time is entered above; I have spent that time in minutes in the direct care of this critically ill patient, excluding procedure time. ED Disposition Clinical Impression: Shortness of breath Acute exacerbation of CHF (congestive heart failure) Qualifiers: Heart failure type: unspecified Qualified Code(s): I50.9 - Heart failure, unspecified Kidney injury Qualifiers: Encounter type: initial encounter Laterality: unspecified laterality Qualified Code(s): S37.009A - Unspecified injury of unspecified kidney, initial encounter Disposition: 09 ADMITTED INPATIENT Is pt being admited?: No Does the pt Need Aspirin: No Condition: Stable Time of Disposition: 12:11 (Dr Schwarz consulted who accept pt for further evaluation and treatment )
--- NOTE | 2021-08-20 09:07 | Electrocardiograph Report ---
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: Keny COSTELLO : 1950 Requested By: MANISH MCKEON Order Number: [id number] Reading MD: Riaz Pop Measurements Intervals [place] Rate: 92 P: 77 VA: 166 QRS: -46 QRSD: 120 T: 144 QT: 371 QTc: 461 Interpretive Statements Sinus rhythm Probable left atrial enlargement Left anterior fascicular block LVH with secondary repolarization abnormality Anterior infarct, old Compared to ECG 07/12/2021 09:26:37 Left anterior fascicular block now present Ventricular premature complex(es) no longer present Intraventricular conduction delay no longer present Prolonged QT interval no longer present Myocardial infarct finding still present Electronically Signed On 08-20-2021 9:07:36 EDT by Riaz Pop
[2021-08-20] MEDS ORDERED: MORPHINE 2 MG/1 ML INJ IV PRN (12:12)
[2021-08-20] MEDS ORDERED: ACETAMINOPHEN 325 MG TAB PO PRN (12:12)
[2021-08-20] MEDS: ONDANSETRON 4 MG/2 ML INJ IV PRN (12:45)
[2021-08-20] MEDS ORDERED: METOCLOPRAMIDE 10 MG/2 ML INJ IV ONE (13:32)
[2021-08-21] MEDS: ONDANSETRON 4 MG/2 ML INJ IV PRN ×3 (00:20→16:47)
[2021-08-21] MEDS ORDERED: ALBUTEROL 2.5 MG/3 ML NEBU IH PRN (00:21)
[2021-08-21] MEDS ORDERED: METOCLOPRAMIDE 10 MG TAB PO PRN (00:21)
--- NOTE | 2021-08-21 00:21 | History and Physical Report ---
History of Present Illness Date of examination: 08/20/21 Date of admission: 08/20/21 12:12 Chief complaint: Increasing shortness of breath for 1 week History of present illness: 71-year-old male with history of multiple medical problems including CHF, COPD, hypertension, hyperlipidemia and coronary artery disease comes in for increasing shortness of breath for 2 weeks. Shortness of breath on minimal exertion. Class IV NYHA symptoms. Also orthopnea present. Also also cough with white phlegm and yellow phlegm present. No PND attacks. Orthopnea present. Swelling of the legs present. No fever or chills. 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 - Past Medical History --Previous Medical History?: Yes --Hypertension: Yes --Heart Attack/AMI: Yes --Congestive Heart Failure: Yes --Diabetes: Yes --Deep Vein Thrombosis: Yes (stents in legs) --Renal Disease: Yes --Psychiatric Treatment: Yes (ANXIETY) --Asthma: Yes --COPD: Yes --Additional medical history: HIGH CHOLESTEROL. 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 MILD HEART ENLARGEMENT - Surgical History --Past Surgical History?: Yes --Hx Coronary Stent: (STENT PLACEMENT IN LEG) --Hx Internal Defibrillator: (has a life vest but does not use it pending evaluattion for AICD as an outp) --Additional Surgical History: STENTS IN LEGS, BLOOD CLOTS REMOVED FROM HEAD. TUBAL LIGATION - Social History Smoking Status: Former Smoker Substance Use Type: None - Family history --Htn - Medications Home Medications: Home Medications Medication Instructions Recorded Confirmed Last Taken Type cloNIDine [Catapres] 0.1 mg PO QHS #30 tablet 09/27/20 07/12/21 Unknown Rx ALBUTEROL NEB's [Proventil 0.083% 5 mg IH TID PRN #30 neb 07/14/21 Unknown Rx NEBS] Aspirin EC [Halfprin EC] 81 mg PO QDAY #30 tablet 07/14/21 Unknown Rx AtorvaSTATin [Lipitor] 40 mg PO QHS #30 tablet 07/14/21 Unknown Rx Digoxin [Lanoxin] 0.125 mg PO DAILY@1700 #30 tablet 07/14/21 Unknown Rx Famotidine [Pepcid] 10 mg PO BID #30 tablet 07/14/21 Unknown Rx Ferrous Sulfate [Feosol 325 MG tab] 325 mg PO BID #30 tablet 07/14/21 Unknown Rx ISOSORBIDE MONOnitrate [Imdur ER] 120 mg PO QDAY #30 tablet 07/14/21 Unknown Rx Metoclopramide [Reglan TAB] 5 mg PO Q6H PRN #20 tablet 07/14/21 Unknown Rx NIFEdipine XL [Procardia Xl] 90 mg PO QDAY #30 tablet 07/14/21 Unknown Rx PARoxetine [Paxil] 20 mg PO DAILY #30 tablet 07/14/21 Unknown Rx Sacubitril/Valsartan [Entresto 1 each PO BID #120 tablet 07/14/21 Unknown Rx 49-51 mg] carvediloL [Coreg] 25 mg PO BID #60 tab 07/14/21 Unknown Rx hydrALAZINE [Apresoline TAB] 100 mg PO TID #90 tab 07/14/21 Unknown Rx Review of Systems ROS: Constitutional no weight loss or weight gain no fever or chills HEENT no sore throat no post nasal drip no diplopia Neck no neck stiffness no lymph gland enlargement Chest and lungs shortness of breath and wheezing present, cough productive of Yellow sputum CVS patient has shortness of breath on minimal exertion, class IV NYHA symptoms, orthopnea GI no nausea no vomiting no diarrhea Genitourinary system no dysuria no flank pain Musculoskeletal system no muscle pains no 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 Skin no rash no itching Psychiatric no depression no homicidal or suicidal tendencies Hematologic no lymphedema or bruising Endocrine no polydipsia no polyuria no cold intolerance no heat intolerance Medications and Allergies Allergies Allergy/AdvReac Type Severity Reaction Status Date / Time No Known Allergies Allergy Verified 08/20/21 05:29 Home Medications Medication Instructions Recorded Confirmed Last Taken Type cloNIDine [Catapres] 0.1 mg PO QHS #30 tablet 09/27/20 07/12/21 Unknown Rx ALBUTEROL NEB's [Proventil 0.083% 5 mg IH TID PRN #30 neb 07/14/21 Unknown Rx NEBS] Aspirin EC [Halfprin EC] 81 mg PO QDAY #30 tablet 07/14/21 Unknown Rx AtorvaSTATin [Lipitor] 40 mg PO QHS #30 tablet 07/14/21 Unknown Rx Digoxin [Lanoxin] 0.125 mg PO DAILY@1700 #30 tablet 07/14/21 Unknown Rx Famotidine [Pepcid] 10 mg PO BID #30 tablet 07/14/21 Unknown Rx Ferrous Sulfate [Feosol 325 MG tab] 325 mg PO BID #30 tablet 07/14/21 Unknown Rx ISOSORBIDE MONOnitrate [Imdur ER] 120 mg PO QDAY #30 tablet 07/14/21 Unknown Rx Metoclopramide [Reglan TAB] 5 mg PO Q6H PRN #20 tablet 07/14/21 Unknown Rx NIFEdipine XL [Procardia Xl] 90 mg PO QDAY #30 tablet 07/14/21 Unknown Rx PARoxetine [Paxil] 20 mg PO DAILY #30 tablet 07/14/21 Unknown Rx Sacubitril/Valsartan [Entresto 1 each PO BID #120 tablet 07/14/21 Unknown Rx 49-51 mg] carvediloL [Coreg] 25 mg PO BID #60 tab 07/14/21 Unknown Rx hydrALAZINE [Apresoline TAB] 100 mg PO TID #90 tab 07/14/21 Unknown Rx Active Meds: Active Medications Acetaminophen (Acetaminophen 325 Mg Tab) 650 mg PO Q4H PRN PRN Reason: Pain MILD(1-3)/Fever >100.5/GAMEZ Morphine Sulfate (Morphine 2 Mg/1 Ml Inj) 2 mg IV Q4H PRN PRN Reason: Pain, Moderate (4-6) Ondansetron HCl (Ondansetron 4 Mg/2 Ml Inj) 4 mg IV Q8H PRN PRN Reason: Nausea And Vomiting Last Admin: 08/21/21 00:20 Dose: 4 mg Sodium Chloride (Sodium Chloride 0.9% 10 Ml Flush Syringe) 10 ml IV BID MARVEL Last Admin: 08/20/21 22:16 Dose: 10 ml Sodium Chloride (Sodium Chloride 0.9% 10 Ml Flush Syringe) 10 ml IV PRN PRN PRN Reason: LINE FLUSH Exam - Constitutional Vitals: Temp Pulse Resp BP Pulse Ox 98 F 75 18 181/66 96 08/20/21 19:56 08/20/21 16:30 08/20/21 19:30 08/20/21 19:45 08/20/21 19:45 General appearance: Present: no acute distress, well-nourished - EENT Eyes: Present: PERRL ENT: hearing intact, clear oral mucosa - Neck Neck: Present: supple, normal ROM - Respiratory Respiratory effort: normal Respiratory: bilateral: CTA - Cardiovascular Heart rate: 78 Rhythm: regular Heart Sounds: Present: S1 & S2. Absent: rub, click - Extremities Extremities: pulses symmetrical, No edema Extremity abnormal: edema (To place) Peripheral Pulses: within normal limits - Abdominal General gastrointestinal: Present: soft, non-tender, non-distended, normal bowel sounds Female genitourinary: Present: normal - Integumentary Integumentary: Present: clear, warm, dry - Musculoskeletal Musculoskeletal: gait normal, strength equal bilaterally - Psychiatric Psychiatric: appropriate mood/affect, intact judgment & insight - Neurologic Neurologic: CNII-XII intact, moves all extremities HEART Score - HEART Score History: Highly suspicious Age: > 65 Risk factors: > 3 risk factors or hx of atherosclerotic disease Troponin: Troponin T 0.231 ng/mL (0.00-0.029) H* 08/20/21 11:23 Troponin: 1-3x normal limit - Critical Actions Critical Actions: 4-6 pts:12-16.6% risk of adverse cardiac event. Should be admitted Results - Labs CBC & Chem 7: 08/21/21 04:01 08/21/21 04:01 Labs: Laboratory Last Values WBC 11.0 K/mm3 (4.5-11.0) 08/20/21 05:51 RBC 3.59 M/mm3 (3.65-5.03) L 08/20/21 05:51 Hgb 11.4 gm/dl (10.1-14.3) 08/20/21 05:51 Hct 34.6 % (30.3-42.9) 08/20/21 05:51 MCV 96 fl (79-97) 08/20/21 05:51 MCH 32 pg (28-32) 08/20/21 05:51 MCHC 33 % (30-34) 08/20/21 05:51 RDW 15.4 % (13.2-15.2) H 08/20/21 05:51 Plt Count 186 K/mm3 (140-440) 08/20/21 05:51 Lymph % (Auto) 13.2 % (13.4-35.0) L 08/20/21 05:51 [place] % (Auto) 9.8 % (0.0-7.3) H 08/20/21 05:51 Eos % (Auto) 0.1 % (0.0-4.3) 08/20/21 05:51 Baso % (Auto) 0.4 % (0.0-1.8) 08/20/21 05:51 Lymph # (Auto) 1.4 K/mm3 (1.2-5.4) 08/20/21 05:51 [place] # (Auto) 1.1 K/mm3 (0.0-0.8) H 08/20/21 05:51 Eos # (Auto) 0.0 K/mm3 (0.0-0.4) 08/20/21 05:51 Baso # (Auto) 0.0 K/mm3 (0.0-0.1) 08/20/21 05:51 Seg Neutrophils % 76.5 % (40.0-70.0) H 08/20/21 05:51 Seg Neutrophils # 8.4 K/mm3 (1.8-7.7) H 08/20/21 05:51 PT 14.3 Sec. (12.2-14.9) 08/20/21 05:51 INR 1.00 (0.87-1.13) 08/20/21 05:51 APTT 30.4 Sec. (24.2-36.6) 08/20/21 05:51 Sodium 138 mmol/L (137-145) 08/20/21 05:51 Potassium 3.6 mmol/L (3.6-5.0) 08/20/21 05:51 Chloride 99.9 mmol/L (98-107) 08/20/21 05:51 Carbon Dioxide 22 mmol/L (22-30) 08/20/21 05:51 Anion Gap 20 mmol/L 08/20/21 05:51 BUN 19 mg/dL (7-17) H 08/20/21 05:51 Creatinine 2.1 mg/dL (0.6-1.2) H 08/20/21 05:51 Estimated GFR 28 ml/min 08/20/21 05:51 BUN/Creatinine Ratio 9 % 08/20/21 05:51 Glucose 178 mg/dL (65-100) H 08/20/21 05:51 Calcium 8.8 mg/dL (8.4-10.2) 08/20/21 05:51 Total Bilirubin 0.90 mg/dL (0.1-1.2) 08/20/21 05:51 AST 32 units/L (5-40) 08/20/21 05:51 ALT 20 units/L (7-56) 08/20/21 05:51 Alkaline Phosphatase 99 units/L (35-129) 08/20/21 05:51 Troponin T 0.231 ng/mL (0.00-0.029) H* 08/20/21 11:23 NT-Pro-B Natriuret Pep 68473 pg/mL (0-900) H 08/20/21 05:51 Total Protein 6.7 g/dL (6.3-8.2) 08/20/21 05:51 Albumin 3.7 g/dL (3.9-5) L 08/20/21 05:51 Albumin/Globulin Ratio 1.2 % 08/20/21 05:51 Triglycerides 85 mg/dL (2-149) 08/20/21 05:51 Cholesterol 168 mg/dL (50-199) 08/20/21 05:51 LDL Cholesterol Direct 98 mg/dL (50-130) 08/20/21 05:51 HDL Cholesterol 57 mg/dL (40-59) 08/20/21 05:51 Cholesterol/HDL Ratio 2.94 % 08/20/21 05:51 Short CBC 08/21/21 Range/Units 04:01 WBC 9.8 (4.5-11.0) K/mm3 Hgb 10.9 (10.1-14.3) gm/dl Hct 32.6 (30.3-42.9) % Plt Count 166 (140-440) K/mm3 BMP 08/21/21 04:01 Sodium 142 Potassium 3.5 L Chloride 102.7 Carbon Dioxide 21 L BUN 27 H Creatinine 2.0 H Glucose 122 H Calcium 8.6 Cardiac Enzymes 08/20/21 08/20/21 Range/Units 07:02 11:23 Troponin T 0.247 H* 0.231 H* (0.00-0.029) ng/mL - Imaging and Cardiology Chest x-ray: report reviewed Imaging and Cardiology: Chest x-ray Mild decompensated CHF with features of pulmonary edema EKG sinus rhythm LVH LVH with repolarization abnormalities Left anterior fascicular block Ventricular premature complexes Intraventricular conduction delay not present Assessment and Plan Advance Directives: Yes (Full code) VTE prophylaxis?: Chemical Plan of care discussed with patient/family: Yes - Patient Problems (1) Acute respiratory failure with hypoxia Current Visit: Yes Status: Acute Plan to address problem: Was hypoxic initially on admission in the emergency room Improved with nasal cannula oxygen Titrate oxygen supplementation to keep oxygen levels around 94 Nebulizer treatments and IV Lasix (2) Acute exacerbation of CHF (congestive heart failure) Current Visit: Yes Status: Acute Qualifiers: Heart failure type: combined systolic and diastolic Qualified Code(s): I50.43 - Acute on chronic combined systolic (congestive) and diastolic (congestive) heart failure Plan to address problem: Patient has a high BNP in the mid 60s thousands Echocardiogram for ejection fraction and wall motion abnormalities and valve function Daily intake and output Daily weights Cardiology consult IV Lasix 40 every 12 along with Aldactone Potassium supplemented necessary (3) COPD exacerbation Current Visit: Yes Status: Acute Plan to address problem: Patient started on low-dose steroids, IV Levaquin and nebulizer treatments [id number] and as needed BiPAP medical history Respiratory assessment and treatment (4) Hypertension Current Visit: Yes Status: Chronic Qualifiers: Hypertension type: primary hypertension Qualified Code(s): I10 - Essential (primary) hypertension Plan to address problem: Continue antihypertensives and adjust medications (5) DELISA (acute kidney injury) Current Visit: No Status: Acute Plan to address problem: Vasomotor nephropathy Nephrology consult if necessary (6) Coronary artery disease Current Visit: Yes Status: Chronic Qualifiers: Coronary Disease-Associated Artery/Lesion type: [place] artery [place] vs. transplanted heart: [place] heart Plan to address problem: Continue isosorbide mononitrate (7) Hyperlipidemia Current Visit: Yes Status: Chronic Qualifiers: Hyperlipidemia type: mixed hyperlipidemia Qualified Code(s): E78.2 - Mixed hyperlipidemia Plan to address problem: Continue statins (8) DVT prophylaxis Current Visit: Yes Status: Acute Plan to address problem: On heparin and GI prophylaxis (9) Advance care planning Current Visit: Yes Status: Acute Plan to address problem: Disease education conducted, care plan discussed, diagnosis discussed, prog nosis. Patient is full code. Patient acknowledged understanding and agreement with care plan. +30 minutes.
[2021-08-21] MEDS ORDERED: ONDANSETRON 4 MG/2 ML INJ IV PRN (00:34)
[2021-08-21] MEDS ORDERED: ACETAMINOPHEN 325 MG TAB PO PRN (00:34)
[2021-08-21] MEDS ORDERED: IPRATROPIUM/ALBUTEROL SULFATE 3 ML AMPUL.NEB IH PRN (00:37)
[2021-08-21] MEDS: carvediloL 25 MG TAB PO SCH ×3 (02:27→16:42)
[2021-08-21] MEDS: SACUBITRIL/VALSARTAN 49-51 MG TAB PO SCH ×3 (02:27→21:25)
[2021-08-21] MEDS: cloNIDine 0.1 MG TAB PO SCH ×3 (02:27→21:26)
[2021-08-21] MEDS: FUROSEMIDE 40 MG/4 ML INJ IV SCH ×3 (02:28→17:02)
[2021-08-21] MEDS: methylPREDNISolone Sod Succinate 125 MG/2 ML INJ IV SCH ×2 (02:29→07:17)
[2021-08-21 04:28] LABS: Basophils % (Auto) 0.2 % (0.0-1.8); Hematocrit 32.6 % (30.3-42.9); Hemoglobin 10.9 gm/dl (10.1-14.3); Lymphocytes # (Auto) 1.1 K/mm3 (1.2-5.4); Lymphocytes % (Auto) 11.3 % (13.4-35.0); Mean Corpuscular HGB Conc 33 % (30-34); Mean Corpuscular Volume 95 fl (79-97); Monocytes # (Auto) 0.6 K/mm3 (0.0-0.8); Monocytes % (Auto) 5.7 % (0.0-7.3); Platelet Count 166 K/mm3 (140-440); Red Blood Count 3.44 M/mm3 (3.65-5.03); Red Cell Distribution Width 15.3 % (13.2-15.2)
[2021-08-21 04:48] LABS: Calcium 8.6 mg/dL (8.4-10.2)
[2021-08-21] MEDS: NIFEdipine XL 90 MG TAB PO SCH (06:46)
[2021-08-21] MEDS: oxyCODONE /ACETAMINOPHEN 5-325MG TAB PO PRN ×2 (08:19→13:55)
[2021-08-21] MEDS: hydrALAZINE 100 MG TAB PO SCH ×3 (08:19→21:26)
[2021-08-21] MEDS ORDERED: POTASSIUM CHLORIDE ER 20 MEQ TAB PO NR (08:21)
[2021-08-21] MEDS: ASPIRIN EC 81 MG TAB PO SCH (09:44)
[2021-08-21] MEDS: FAMOTIDINE 10 MG TAB PO SCH ×2 (09:45→21:25)
[2021-08-21] MEDS: SPIRONOLACTONE 50 MG TAB PO SCH (09:45)
[2021-08-21] MEDS: PARoxetine 20 MG TAB PO SCH (09:45)
[2021-08-21] MEDS ORDERED: FERROUS SULFATE 325 MG TAB PO SCH (10:00)
--- NOTE | 2021-08-21 11:07 | Consultation ---
History of Present Illness Consult date: 08/21/21 Requesting physician: KATINA KIM Consult reason: congestive heart failure History of present illness: Patient is a 71 y/o female with a PMHx of NICMP, CAD, chronic HFrEF, and Asthma who presented to the ED with complaint of shortness of breath x3 to 4 days. She reports that she has dyspnea on exertion and orthopnea however the patient does have chronic orthopnea. She also reports a productive cough and thoracic pain associated with cough. Furthermore, the patient reports nausea, loss of appetite, and lightheadedness. She reports she has not been compliant with her fluid restrictions due to her loss of appetite and states she has been drinking lots of fluid instead. Patient denies any chest pain, squeezing or crushing pain, BLE, diaphoresis, or palpitations. She reports that she has been co mpliant with her medications and diet. Patient follows with Dr. Rodriguez of our practice. Cardiology is consulted for CHF. Past History Past Medical History: CAD, heart failure, hypertension, other (asthma) Past Surgical History: Other (LE vascular stenting, Colonic polypectomy.)) Social history: lives with family Family history: no significant family history Medications and Allergies Allergies Allergy/AdvReac Type Severity Reaction Status Date / Time No Known Allergies Allergy Verified 08/20/21 05:29 Home Medications Medication Instructions Recorded Confirmed Last Taken Type cloNIDine [Catapres] 0.1 mg PO QHS #30 tablet 09/27/20 07/12/21 Unknown Rx ALBUTEROL NEB's [Proventil 0.083% 5 mg IH TID PRN #30 neb 07/14/21 Unknown Rx NEBS] Aspirin EC [Halfprin EC] 81 mg PO QDAY #30 tablet 07/14/21 Unknown Rx AtorvaSTATin [Lipitor] 40 mg PO QHS #30 tablet 07/14/21 Unknown Rx Digoxin [Lanoxin] 0.125 mg PO DAILY@1700 #30 tablet 07/14/21 Unknown Rx Famotidine [Pepcid] 10 mg PO BID #30 tablet 07/14/21 Unknown Rx Ferrous Sulfate [Feosol 325 MG tab] 325 mg PO BID #30 tablet 07/14/21 Unknown Rx ISOSORBIDE MONOnitrate [Imdur ER] 120 mg PO QDAY #30 tablet 07/14/21 Unknown Rx Metoclopramide [Reglan TAB] 5 mg PO Q6H PRN #20 tablet 07/14/21 Unknown Rx NIFEdipine XL [Procardia Xl] 90 mg PO QDAY #30 tablet 07/14/21 Unknown Rx PARoxetine [Paxil] 20 mg PO DAILY #30 tablet 07/14/21 Unknown Rx Sacubitril/Valsartan [Entresto 1 each PO BID #120 tablet 07/14/21 Unknown Rx 49-51 mg] carvediloL [Coreg] 25 mg PO BID #60 tab 07/14/21 Unknown Rx hydrALAZINE [Apresoline TAB] 100 mg PO TID #90 tab 07/14/21 Unknown Rx Active Meds: Active Medications Acetaminophen (Acetaminophen 325 Mg Tab) 650 mg PO Q4H PRN PRN Reason: Pain MILD(1-3)/Fever >100.5/GAMEZ Albuterol (Albuterol 2.5 Mg/3 Ml Nebu) 5 mg IH TIDRT PRN PRN Reason: Wheezing Albuterol/Ipratropium (Ipratropium/Albuterol Sulfate 3 Ml Ampul.Neb) 1 ampul IH QIDRT [facility] Aspirin (Aspirin Ec 81 Mg Tab) 81 mg PO QDAY [facility] Last Admin: 08/21/21 09:44 Dose: 81 mg Atorvastatin Calcium (Atorvastatin 40 Mg Tab) 40 mg PO QHS [facility] Carvedilol (Carvedilol 25 Mg Tab) 25 mg PO BID@0800,1700 [facility] Last Admin: 08/21/21 08:19 Dose: 25 mg Clonidine HCl (Clonidine 0.1 Mg Tab) 0.1 mg PO Q12HR [facility] Last Admin: 08/21/21 02:27 Dose: 0.1 mg Famotidine (Famotidine 10 Mg Tab) 10 mg PO BID [facility] Last Admin: 08/21/21 09:45 Dose: 10 mg Ferrous Sulfate (Ferrous Sulfate 325 Mg Tab) 325 mg PO BID [facility] Last Admin: 08/21/21 09:45 Dose: 325 mg Furosemide (Furosemide 40 Mg/4 Ml Inj) 40 mg IV 0600,1800 [facility] Last Admin: 08/21/21 06:46 Dose: 40 mg Heparin Sodium (Porcine) (Heparin 5,000 Unit/1 Ml Vial) 5,000 unit SUB-Q Q12HR [facility] Hydralazine HCl (Hydralazine 100 Mg Tab) 100 mg PO TID [facility] Last Admin: 08/21/21 08:19 Dose: 100 mg Levofloxacin/Dextrose (Levaquin 750mg/150ml) 750 mg in 150 mls @ 100 mls/hr IV Q48HR [facility]; Protocol Last Admin: 08/21/21 09:45 Dose: 100 mls/hr Isosorbide Mononitrate (Isosorbide Mononitrate Er 60 Mg Tab) 120 mg PO QDAY [facility] Last Admin: 08/21/21 09:44 Dose: 120 mg Metoclopramide HCl (Metoclopramide 10 Mg Tab) 5 mg PO Q6H PRN PRN Reason: Nausea And Vomiting Morphine Sulfate (Morphine 2 Mg/1 Ml Inj) 2 mg IV Q4H PRN PRN Reason: Pain, Moderate (4-6) Nifedipine (Nifedipine Xl 90 Mg Tab) 90 mg PO QDAY@0600 [facility] Last Admin: 08/21/21 06:46 Dose: 90 mg Ondansetron HCl (Ondansetron 4 Mg/2 Ml Inj) 4 mg IV Q8H PRN PRN Reason: Nausea And Vomiting Last Admin: 08/21/21 09:56 Dose: 4 mg Oxycodone/Acetaminophen (Oxycodone /Acetaminophen 5-325mg Tab) 1 tab PO Q6H PRN PRN Reason: Pain, Moderate (4-6) Last Admin: 08/21/21 08:19 Dose: 1 tab Paroxetine HCl (Paroxetine 20 Mg Tab) 20 mg PO DAILY [facility] Last Admin: 08/21/21 09:45 Dose: 20 mg Potassium Chloride (Potassium Chloride Er 20 Meq Tab) 40 meq PO ONCE NR Stop: 08/21/21 12:00 Last Admin: 08/21/21 09:45 Dose: 40 meq Prednisone (Prednisone 20 Mg Tab) 40 mg PO QDAY [facility] Stop: 08/25/21 10:01 Sacubitril/Valsartan (Sacubitril/Valsartan 49-51 Mg Tab) 1 each PO BID [facility] [place] Last Admin: 08/21/21 02:27 Dose: Not Given Sodium Chloride (Sodium Chloride 0.9% 10 Ml Flush Syringe) 10 ml IV BID [facility] Last Admin: 08/21/21 09:46 Dose: 10 ml Sodium Chloride (Sodium Chloride 0.9% 10 Ml Flush Syringe) 10 ml IV PRN PRN PRN Reason: LINE FLUSH Spironolactone (Spironolactone 50 Mg Tab) 50 mg PO QDAY [facility] Last Admin: 08/21/21 09:45 Dose: 50 mg Review of Systems Constitutional: no weight loss, no weight gain Ears, nose, mouth and throat: no sinus pressure, no sinus pain Cardiovascular: orthopnea, lightheadedness, shortness of breath, dyspnea on exertion, no chest pain, no palpitations, no rapid/irregular heart beat, no edema Respiratory: cough with sputum, shortness of breath, dyspnea on exertion Gastrointestinal: nausea, no abdominal pain, no vomiting Integumentary: no rash, no pruritis, no redness Neurological: no head injury, no transient paralysis Psychiatric: no anxiety, no memory loss Endocrine: no cold intolerance, no heat intolerance Hematologic/Lymphatic: no easy bruising, no easy bleeding Physical Examination Vital Signs Temp Pulse Resp BP Pulse Ox 98.4 F 99 H 26 H 173/79 94 08/20/21 05:23 08/20/21 05:23 08/20/21 05:23 08/20/21 05:23 08/20/21 05:23 General appearance: no acute distress HEENT: Positive: PERRL Neck: Positive: trachea midline Cardiac: Positive: Reg Rate and Rhythm Lungs: Positive: Decreased Breath Sounds Neuro: Positive: Grossly Intact Abdomen: Positive: Soft, Active Bowel Sounds Skin: Negative: Rash, Suspicious Lesions, Ulceration Extremities: Present: upper extr. pulses. Absent: edema Results 08/21/21 04:01 08/21/21 04:01 Cardiac Enzymes 08/20/21 08/20/21 08/20/21 Range/Units 05:51 05:51 05:51 WBC 11.0 (4.5-11.0) K/mm3 RBC 3.59 L (3.65-5.03) M/mm3 Hgb 11.4 (10.1-14.3) gm/dl Hct 34.6 (30.3-42.9) % MCV 96 (79-97) fl MCH 32 (28-32) pg MCHC 33 (30-34) % RDW 15.4 H (13.2-15.2) % Plt Count 186 (140-440) K/mm3 Lymph % (Auto) 13.2 L (13.4-35.0) % Sawyer % (Auto) 9.8 H (0.0-7.3) % Eos % (Auto) 0.1 (0.0-4.3) % Baso % (Auto) 0.4 (0.0-1.8) % Lymph # (Auto) 1.4 (1.2-5.4) K/mm3 Sawyer # (Auto) 1.1 H (0.0-0.8) K/mm3 Eos # (Auto) 0.0 (0.0-0.4) K/mm3 Baso # (Auto) 0.0 (0.0-0.1) K/mm3 Seg Neutrophils % 76.5 H (40.0-70.0) % Seg Neutrophils # 8.4 H (1.8-7.7) K/mm3 PT 14.3 (12.2-14.9) Sec. INR 1.00 (0.87-1.13) APTT 30.4 (24.2-36.6) Sec. Sodium 138 (137-145) mmol/L Potassium 3.6 (3.6-5.0) mmol/L Chloride 99.9 (98-107) mmol/L Carbon Dioxide 22 (22-30) mmol/L Anion Gap 20 mmol/L BUN 19 H (7-17) mg/dL Creatinine 2.1 H (0.6-1.2) mg/dL Estimated GFR 28 ml/min BUN/Creatinine Ratio 9 % Glucose 178 H (65-100) mg/dL Calcium 8.8 (8.4-10.2) mg/dL Total Bilirubin 0.90 (0.1-1.2) mg/dL ALT 20 (7-56) units/L Alkaline Phosphatase 99 (35-129) units/L Troponin T (0.00-0.029) ng/mL NT-Pro-B Natriuret Pep (0-900) pg/mL Total Protein 6.7 (6.3-8.2) g/dL Albumin 3.7 L (3.9-5) g/dL Albumin/Globulin Ratio 1.2 % Triglycerides (2-149) mg/dL Cholesterol (50-199) mg/dL LDL Cholesterol Direct (50-130) mg/dL HDL Cholesterol (40-59) mg/dL Cholesterol/HDL Ratio % 08/20/21 08/20/21 08/20/21 Range/Units 05:51 07:02 11:23 WBC (4.5-11.0) K/mm3 RBC (3.65-5.03) M/mm3 Hgb (10.1-14.3) gm/dl Hct (30.3-42.9) % MCV (79-97) fl MCH (28-32) pg MCHC (30-34) % RDW (13.2-15.2) % Plt Count (140-440) K/mm3 Lymph % (Auto) (13.4-35.0) % Sawyer % (Auto) (0.0-7.3) % Eos % (Auto) (0.0-4.3) % Baso % (Auto) (0.0-1.8) % Lymph # (Auto) (1.2-5.4) K/mm3 Sawyer # (Auto) (0.0-0.8) K/mm3 Eos # (Auto) (0.0-0.4) K/mm3 Baso # (Auto) (0.0-0.1) K/mm3 Seg Neutrophils % (40.0-70.0) % Seg Neutrophils # (1.8-7.7) K/mm3 PT (12.2-14.9) Sec. INR (0.87-1.13) APTT (24.2-36.6) Sec. Sodium (137-145) mmol/L Potassium (3.6-5.0) mmol/L Chloride (98-107) mmol/L Carbon Dioxide (22-30) mmol/L Anion Gap mmol/L BUN (7-17) mg/dL Creatinine (0.6-1.2) mg/dL Estimated GFR ml/min BUN/Creatinine Ratio % Glucose (65-100) mg/dL Calcium (8.4-10.2) mg/dL Total Bilirubin (0.1-1.2) mg/dL ALT (7-56) units/L Alkaline Phosphatase (35-129) units/L Troponin T 0.251 H* 0.247 H* 0.231 H* (0.00-0.029) ng/mL NT-Pro-B Natriuret Pep 18593 H (0-900) pg/mL Total Protein (6.3-8.2) g/dL Albumin (3.9-5) g/dL Albumin/Globulin Ratio % Triglycerides 85 (2-149) mg/dL Cholesterol 168 (50-199) mg/dL LDL Cholesterol Direct 98 (50-130) mg/dL HDL Cholesterol 57 (40-59) mg/dL Cholesterol/HDL Ratio 2.94 % 08/21/21 08/21/21 Range/Units 04:01 04:01 WBC 9.8 (4.5-11.0) K/mm3 RBC 3.44 L (3.65-5.03) M/mm3 Hgb 10.9 (10.1-14.3) gm/dl Hct 32.6 (30.3-42.9) % MCV 95 (79-97) fl MCH 32 (28-32) pg MCHC 33 (30-34) % RDW 15.3 H (13.2-15.2) % Plt Count 166 (140-440) K/mm3 Lymph % (Auto) 11.3 L (13.4-35.0) % Sawyer % (Auto) 5.7 (0.0-7.3) % Eos % (Auto) 0.0 (0.0-4.3) % Baso % (Auto) 0.2 (0.0-1.8) % Lymph # (Auto) 1.1 L (1.2-5.4) K/mm3 Sawyer # (Auto) 0.6 (0.0-0.8) K/mm3 Eos # (Auto) 0.0 (0.0-0.4) K/mm3 Baso # (Auto) 0.0 (0.0-0.1) K/mm3 Seg Neutrophils % 82.8 H (40.0-70.0) % Seg Neutrophils # 8.1 H (1.8-7.7) K/mm3 PT (12.2-14.9) Sec. INR (0.87-1.13) APTT (24.2-36.6) Sec. Sodium 142 (137-145) mmol/L Potassium 3.5 L (3.6-5.0) mmol/L Chloride 102.7 (98-107) mmol/L Carbon Dioxide 21 L (22-30) mmol/L Anion Gap 22 mmol/L BUN 27 H (7-17) mg/dL Creatinine 2.0 H (0.6-1.2) mg/dL Estimated GFR 30 ml/min BUN/Creatinine Ratio 14 % Glucose 122 H (65-100) mg/dL Calcium 8.6 (8.4-10.2) mg/dL Total Bilirubin (0.1-1.2) mg/dL ALT (7-56) units/L Alkaline Phosphatase (35-129) units/L Troponin T (0.00-0.029) ng/mL NT-Pro-B Natriuret Pep (0-900) pg/mL Total Protein (6.3-8.2) g/dL Albumin (3.9-5) g/dL Albumin/Globulin Ratio % Triglycerides (2-149) mg/dL Cholesterol (50-199) mg/dL LDL Cholesterol Direct (50-130) mg/dL HDL Cholesterol (40-59) mg/dL Cholesterol/HDL Ratio % CBC 08/21/21 Range/Units 04:01 WBC 9.8 (4.5-11.0) K/mm3 RBC 3.44 L (3.65-5.03) M/mm3 Hgb 10.9 (10.1-14.3) gm/dl Hct 32.6 (30.3-42.9) % Plt Count 166 (140-440) K/mm3 Lymph # (Auto) 1.1 L (1.2-5.4) K/mm3 Sawyer # (Auto) 0.6 (0.0-0.8) K/mm3 Eos # (Auto) 0.0 (0.0-0.4) K/mm3 Baso # (Auto) 0.0 (0.0-0.1) K/mm3 Comprehensive Metabolic Panel 08/21/21 Range/Units 04:01 Sodium 142 (137-145) mmol/L Potassium 3.5 L (3.6-5.0) mmol/L Chloride 102.7 (98-107) mmol/L Carbon Dioxide 21 L (22-30) mmol/L BUN 27 H (7-17) mg/dL Creatinine 2.0 H (0.6-1.2) mg/dL Glucose 122 H (65-100) mg/dL Calcium 8.6 (8.4-10.2) mg/dL - Imaging and Cardiology Echo: pending, report reviewed Cardiac cath: report reviewed EKG interpretations - Telemetry EKG Rhythm: Sinus Rhythm - EKG Sinus rhythms and dysrhythmias: sinus rhythm AV and intraventricular conduction: left anterior fascicular Chamber hypertrophy or enlargement: left atrial enlargement, left ventricular hypertro Assessment and Plan Patient is a 71 y/o female with a PMHx of NICMP, CAD, chronic HFrEF, and Asthma who presented to the ED with complaint of shortness of breath x3 to 4 days. Nonischemic cardiomyopathy NSTEMI suspect type II Acute on chronic chronic HFrEF DELISA on CKD Coronary artery Asthma PAD Diabetes Echocardiogram reviewed 09/03/2020: LVEF is 25 to 30%. LV mildly dilated. LV SF moderately to severely decreased. Mild LVH. Hypokinesis of inferior wall. Mild diastolic dysfunction. RV SF is normal. Moderate AR. Mild MR. LHC 09/27/2020- Left main patent, LAD patent, diagonal patent, circumflex mid 50%, RCA proximal patent, severe LV dysfunction Lexiscan MPI stress test 07/14/2021-Normal myocardial perfusion in anterior inferior septal lateral and apical regions. Moderate LV dysfunction EF 34% suggestive of nonischemic cardiomyopathy. No significant ischemia noted Plan: EKG shows sinus rhythm with probable left atrial enlargement, left anterior fascicular block, and LVH with secondary repolarization abnormality. Old anterior infarct. No acute ischemic. Troponins elevated but downtrending. Patient denies any complaints of chest pain Suspect NSTEMI type II due to acute on chronic HFrEF and DELISA on CKD BNP noted to be elevated, patient reports orthopnea, and dyspnea on exertion, CXR shows pulmonary vascular congestion. Agree with diuresis with Lasix IV. Close monitoring of renal function, strict I&O's and repeat BMP Echo pending Due to elevated creatinine primary team may wish to consider nephrology consult Due to elevated creatinine we will stop digoxin Initiate heparin subQ for DVT prophylaxis Due to patient complaint of shortness of breath on check D-dimer Patient currently on aspirin, Lipitor, Coreg, clonidine, hydralazine, Imdur, nifedipine, spironolactone, Entresto Patient in conjunction with Dr. Pop who agrees with this plan of care - Patient Problems (1) Coronary artery disease Current Visit: Yes Status: Chronic Qualifiers: Coronary Disease-Associated Artery/Lesion type: solomon artery [place] vs. transplanted heart: solomon heart (2) Hyperlipidemia Current Visit: Yes Status: Chronic Qualifiers: Hyperlipidemia type: mixed hyperlipidemia Qualified Code(s): E78.2 - Mixed hyperlipidemia (3) Hypertension Current Visit: Yes Status: Chronic Qualifiers: Hypertension type: primary hypertension Qualified Code(s): I10 - Essential (primary) hypertension (4) Acute on chronic HFrEF (heart failure with reduced ejection fraction) Current Visit: No Status: Acute (5) Acute on chronic kidney failure Current Visit: No Status: Acute (6) Diabetes Current Visit: No Status: Acute (7) Elevated troponin Current Visit: No Status: Acute (8) NSTEMI (non-ST elevated myocardial infarction) Current Visit: No Status: Acute
[2021-08-21] MEDS: HEPARIN 5,000 UNIT/1 ML VIAL SUB-Q SCH ×2 (11:19→21:27)
--- NOTE | 2021-08-21 12:54 | Nuclear Medicine Report ---
NUCLEAR MEDICINE PERFUSION SCAN INDICATION: Shortness of breath, elevated d-dimer, evaluate for pulmonary embolus CORRELATION: AP chest performed yesterday RADIOPHARMACEUTICAL: Perfusion: 5.5 mCi Tc-99m MAA given IV FINDINGS: Perfusion images show symmetric and uniform radiotracer distribution throughout bilateral lung zones with no evidence of unmatched segmental perfusion defects. The cardiac shadow is slightly prominent. IMPRESSION: No evidence for pulmonary embolus. Signer Name: Douglas Nicholas Jr, MD Signed: 08/21/2021 12:49 PM Workstation Name: [id number]
[2021-08-21] MEDS: IPRATROPIUM/ALBUTEROL SULFATE 3 ML AMPUL.NEB IH SCH ×4 (13:16→20:33)
[2021-08-21] MEDS: FERROUS SULFATE 325 MG TAB PO SCH (16:43)
[2021-08-21] MEDS ORDERED: DIGOXIN 0.125 MG TAB PO SCH (17:00)
--- NOTE | 2021-08-21 19:09 | Progress Note ---
Assessment and Plan Assessment and plan: #Acute on chronic systolic heart failure - Continue CHF exacerbation protocol: Telemetry, Strict I/O, monitor urine output every shift, daily weights, afterload reduction, low-sodium diet, and fluid restriction of approximately 1.5 mL/day, IV Lasix 40 mg daily - Supplemental oxygen: 2 L nasal cannula - ProBNP on admission: 68,992 - Cardiology consulted; appreciate recs -Pending TTE to evaluate cardiac function - Continue to monitor #Acute hypoxic respiratory failure - etiology: Likely secondary to heart failure exacerbation versus COPD exacerbation. - baseline oxygen requirements: Room air - supplemental oxygen: 2 L nasal cannula - Continue protocol: continue pulse oximetry, wean oxygen as tolerated, ordered incentive spirometry and educated patient on how to use it and its importance. - continue to monitor #Presumed COPD exacerbation Patient described having productive cough with yellowishgreenish sputum Continue IV Levaquin and prednisone 40 mg daily, DuoNebs, and albuterol nebs as needed. Continue to monitor. #DELISA Creatinine 2.0 (baseline unknown) Likely secondary to cardiorenal syndrome in the setting of acute heart failure exacerbation. Renally dose meds and avoid for toxic drugs. If creatinine worsens, nephrology will be consulted. Continue to monitor. #NSTEMI type II #Acute on chronic systolic heart failure #Nonischemic cardiomyopathy #CAD #PAD #Hyperlipidemia #Hypertension Continue clonidine 0.1 mg nightly, aspirin 81 mg daily, atorvastatin 40 mg daily, digoxin 0.125 mg daily, Imdur 120 mg daily, nifedipine 90 mg daily, Entresto 1 tab twice daily, carvedilol 25 mg twice daily, p.o. hydralazine 100 mg 3 times daily Cardiology consulted; appreciate recs Continue to monitor #Anxiety Continue home paroxetine 20 mg daily #Iron deficiency anemia Hemoglobin 10.9 Continue home ferrous sulfate 325 mg daily #Mild protein caloric malnutrition Albumin 2.7 Starting dietary supplementation #Advanced care planning -Disease education conducted, care plan discussed, diagnoses discussed, prognosis discussed, and patient acknowledges understanding with care plan -Time: +30 min Disposition Plan: Continue medical management Total Time Spent with Patient (Minutes): 45 minutes History Interval history: No acute events overnight. Hospitalist Physical - Constitutional Vitals: Temp Pulse Resp BP Pulse Ox 97.7 F 79 18 139/47 93 08/21/21 16:21 08/21/21 18:00 08/21/21 05:19 08/21/21 16:21 08/21/21 16:21 General appearance: Present: no acute distress, well-nourished - EENT Eyes: Present: PERRL, EOM intact ENT: hearing intact, clear oral mucosa - Neck Neck: Present: supple, normal ROM - Respiratory Respiratory effort: normal Respiratory: bilateral: diminished (On 2 L nasal cannula) - Cardiovascular Rhythm: regular Heart Sounds: Present: S1 & S2 - Extremities Extremities: no ischemia, pulses intact, pulses symmetrical, normal temperature, normal color Extremity abnormal: edema (Trace edema bilateral lower extremities) Peripheral Pulses: within normal limits - Abdominal General gastrointestinal: soft, non-tender, non-distended, normal bowel sounds - Integumentary Integumentary: Present: clear, warm, dry - Psychiatric Psychiatric: appropriate mood/affect, cooperative - Neurologic Neurologic: CNII-XII intact - Allied Health Allied health notes reviewed: nursing HEART Score - HEART Score Age: > 65 Risk factors: > 3 risk factors or hx of atherosclerotic disease Troponin: Troponin T 0.231 ng/mL (0.00-0.029) H* 08/20/21 11:23 Troponin: 1-3x normal limit - Critical Actions Critical Actions: 4-6 pts:12-16.6% risk of adverse cardiac event. Should be admitted Results - Labs CBC & Chem 7: 08/21/21 04:01 08/21/21 04:01 Labs: Laboratory Last Values WBC 9.8 K/mm3 (4.5-11.0) 08/21/21 04:01 RBC 3.44 M/mm3 (3.65-5.03) L 08/21/21 04:01 Hgb 10.9 gm/dl (10.1-14.3) 08/21/21 04:01 Hct 32.6 % (30.3-42.9) 08/21/21 04:01 MCV 95 fl (79-97) 08/21/21 04:01 MCH 32 pg (28-32) 08/21/21 04:01 MCHC 33 % (30-34) 08/21/21 04:01 RDW 15.3 % (13.2-15.2) H 08/21/21 04:01 Plt Count 166 K/mm3 (140-440) 08/21/21 04:01 Lymph % (Auto) 11.3 % (13.4-35.0) L 08/21/21 04:01 [place] % (Auto) 5.7 % (0.0-7.3) 08/21/21 04:01 Eos % (Auto) 0.0 % (0.0-4.3) 08/21/21 04:01 Baso % (Auto) 0.2 % (0.0-1.8) 08/21/21 04:01 Lymph # (Auto) 1.1 K/mm3 (1.2-5.4) L 08/21/21 04:01 [place] # (Auto) 0.6 K/mm3 (0.0-0.8) 08/21/21 04:01 Eos # (Auto) 0.0 K/mm3 (0.0-0.4) 08/21/21 04:01 Baso # (Auto) 0.0 K/mm3 (0.0-0.1) 08/21/21 04:01 Seg Neutrophils % 82.8 % (40.0-70.0) H 08/21/21 04:01 Seg Neutrophils # 8.1 K/mm3 (1.8-7.7) H 08/21/21 04:01 PT 14.3 Sec. (12.2-14.9) 08/20/21 05:51 INR 1.00 (0.87-1.13) 08/20/21 05:51 APTT 30.4 Sec. (24.2-36.6) 08/20/21 05:51 D-Dimer 860.88 ng/mlDDU (0-234) H 08/21/21 10:51 Sodium 142 mmol/L (137-145) 08/21/21 04:01 Potassium 3.5 mmol/L (3.6-5.0) L 08/21/21 04:01 Chloride 102.7 mmol/L (98-107) 08/21/21 04:01 Carbon Dioxide 21 mmol/L (22-30) L 08/21/21 04:01 Anion Gap 22 mmol/L 08/21/21 04:01 BUN 27 mg/dL (7-17) H 08/21/21 04:01 Creatinine 2.0 mg/dL (0.6-1.2) H 08/21/21 04:01 Estimated GFR 30 ml/min 08/21/21 04:01 BUN/Creatinine Ratio 14 % 08/21/21 04:01 Glucose 122 mg/dL (65-100) H 08/21/21 04:01 Calcium 8.6 mg/dL (8.4-10.2) 08/21/21 04:01 Total Bilirubin 0.90 mg/dL (0.1-1.2) 08/20/21 05:51 AST 32 units/L (5-40) 08/20/21 05:51 ALT 20 units/L (7-56) 08/20/21 05:51 Alkaline Phosphatase 99 units/L (35-129) 08/20/21 05:51 Troponin T 0.231 ng/mL (0.00-0.029) H* 08/20/21 11:23 NT-Pro-B Natriuret Pep 88701 pg/mL (0-900) H 08/20/21 05:51 Total Protein 6.7 g/dL (6.3-8.2) 08/20/21 05:51 Albumin 3.7 g/dL (3.9-5) L 08/20/21 05:51 Albumin/Globulin Ratio 1.2 % 08/20/21 05:51 Triglycerides 85 mg/dL (2-149) 08/20/21 05:51 Cholesterol 168 mg/dL (50-199) 08/20/21 05:51 LDL Cholesterol Direct 98 mg/dL (50-130) 08/20/21 05:51 HDL Cholesterol 57 mg/dL (40-59) 08/20/21 05:51 Cholesterol/HDL Ratio 2.94 % 08/20/21 05:51 Active Medications - Current Medications Current Medications: Generic Name Dose Route Start Last Admin Trade Name Freq PRN Reason Stop Dose Admin Acetaminophen 650 mg 08/20/21 12:12 Acetaminophen 325 Mg Tab PO Q4H PRN Pain MILD(1-3)/Fever >100.5/GAMEZ Albuterol 5 mg 08/21/21 00:21 Albuterol 2.5 Mg/3 Ml Nebu IH TIDRT PRN Wheezing Albuterol/Ipratropium 1 ampul 08/21/21 08:00 08/21/21 17:06 Ipratropium/Albuterol Sulfate 3 Ml Ampul.Neb IH Not Given QIDRT [facility] Aspirin 81 mg 08/21/21 10:00 08/21/21 09:44 Aspirin Ec 81 Mg Tab PO 81 mg QDAY [facility] Administration Atorvastatin Calcium 40 mg 08/21/21 22:00 Atorvastatin 40 Mg Tab PO QHS [facility] Carvedilol 25 mg 08/21/21 01:00 08/21/21 16:42 Carvedilol 25 Mg Tab PO 25 mg BID@0800,1700 [facility] Administration Clonidine HCl 0.1 mg 08/21/21 01:00 08/21/21 11:19 Clonidine 0.1 Mg Tab PO 0.1 mg Q12HR [facility] Administration Famotidine 10 mg 08/21/21 10:00 08/21/21 09:45 Famotidine 10 Mg Tab PO 10 mg BID [facility] Administration Ferrous Sulfate 325 mg 08/21/21 17:00 08/21/21 16:43 Ferrous Sulfate 325 Mg Tab PO 325 mg 0800,1700 [facility] Administration Furosemide 40 mg 08/21/21 01:00 08/21/21 17:02 Furosemide 40 Mg/4 Ml Inj IV 40 mg 0600,1800 [facility] Administration Heparin Sodium (Porcine) 5,000 unit 08/21/21 10:30 08/21/21 11:19 Heparin 5,000 Unit/1 Ml Vial SUB-Q 5,000 unit Q12HR [facility] Administration Hydralazine HCl 100 mg 08/21/21 08:00 08/21/21 13:52 Hydralazine 100 Mg Tab PO 100 mg TID [facility] Administration Isosorbide Mononitrate 120 mg 08/21/21 10:00 08/21/21 09:44 Isosorbide Mononitrate Er 60 Mg Tab PO 120 mg QDAY [facility] Administration Levofloxacin 750 mg 08/23/21 22:00 Levofloxacin 750 Mg Tab PO 08/29/21 22:01 Q48H [facility] Protocol Metoclopramide HCl 5 mg 08/21/21 00:21 08/21/21 13:54 Metoclopramide 10 Mg Tab PO 5 mg Q6H PRN Administration Nausea And Vomiting Morphine Sulfate 2 mg 08/20/21 12:12 Morphine 2 Mg/1 Ml Inj IV Q4H PRN Pain, Moderate (4-6) Nifedipine 90 mg 08/21/21 06:00 08/21/21 06:46 Nifedipine Xl 90 Mg Tab PO 90 mg QDAY@0600 [facility] Administration Ondansetron HCl 4 mg 08/20/21 12:12 08/21/21 16:47 Ondansetron 4 Mg/2 Ml Inj IV 4 mg Q8H PRN Administration Nausea And Vomiting Oxycodone/Acetaminophen 1 tab 08/21/21 00:34 08/21/21 13:55 Oxycodone /Acetaminophen 5-325mg Tab PO 1 tab Q6H PRN Administration Pain, Moderate (4-6) Paroxetine HCl 20 mg 08/21/21 10:00 08/21/21 09:45 Paroxetine 20 Mg Tab PO 20 mg DAILY [facility] Administration Prednisone 40 mg 08/22/21 10:00 Prednisone 20 Mg Tab PO 08/25/21 10:01 QDAY [facility] Sacubitril/Valsartan 1 each 08/21/21 01:00 08/21/21 11:20 Sacubitril/Valsartan 49-51 Mg Tab PO 1 each BID [facility] Administration Sodium Chloride 10 ml 08/20/21 13:00 08/21/21 09:46 Sodium Chloride 0.9% 10 Ml Flush Syringe IV 10 ml BID [facility] Administration Sodium Chloride 10 ml 08/20/21 12:12 Sodium Chloride 0.9% 10 Ml Flush Syringe IV PRN PRN LINE FLUSH Spironolactone 50 mg 08/21/21 10:00 08/21/21 09:45 Spironolactone 50 Mg Tab PO 50 mg QDAY [facility] Administration Nutrition/Malnutrition Assess - Dietary Evaluation Nutrition/Malnutrition Findings: Nutrition Notes Start: 08/21/21 18:24 Freq: Status: Active Protocol: Document 08/21/21 18:24 STONE (Rec: 08/21/21 18:50 STONE [email or web address]) Nutrition Notes Need for Assessment generated from: MD Order Initial or Follow up Assessment Current Diagnosis Acute Kidney Injury,CKD(stage I-IV),COPD,Coronary Artery Disease,Diabetes,Hypertension, Respiratory Failure, Hyperlipidemia Other Pertinent Diagnosis HFrEF, Asthma, NSTEMI II, PAD. Current Diet Cardiac/Consistent Carbohydrates Diet (from B ). Labs/Tests 08/21: K 3.5, CO2 21, BUN 27, Crea 2.0, Glu 122. Pertinent Medications 08/21: Nutritionally unremarkable. Height 5 ft 8 in Weight 57.153 kg [place] Body Weight (kg) 63.63 BMI 19.1 Intake Prior to Admission Poor Weight change and time frame Pt denies having loss body weight [place] [employer]. Weight Status Appropriate Subjective/Other Information RD consult for dietary supplementation assessment. No reports available on Pt's PO intake of meals at the time , will assess at F/U. I will not prescribe dietary supplements, since they don't seem necessary at this time, will reassess at F/U. I will prescribe modification of diet from Cardiac to Cardiac/Consistent Carbohydrates Diet to support Pt's T2DM condition, along with cardiac needs. Pt is on Nasal Cannula, O2 saturation @ 96%, according to Physical Assessment History notes. Pt has missing teeth, according to Physical Assessment History notes. Pt presents bilateral-LE swelling, according to [place] & Physical notes. Percent of energy/protein needs met: Prescribed Cardiac/Consistent Carbohydrates Diet provides for energy/protein needs (1, 977 Kcal/86 g) during LOS. Burn Absent Trauma Absent GI Symptoms None Food Allergy No Skin Integrity/Comment Assessment WNL. Minimum of two criteria No Fluid Accumulation Moderate to Severe (severe) Reduced Glass Engraver Strength N/A (non-severe) Protein-Calorie Malnutrition N\A #1 Nutrition Diagnosis Altered nutrition-related laboratory values Etiology T2DM. As Evidenced by Signs and Symptoms 08/21: Glu 122. Is patient on ventilator? No Is Patient Ambulatory and/or Out of Bed Yes REE-([facility]-ambulatory/OOB) [ 1462.539 NUTR.[id number]] Kcal/Kg value to use for calculation 32 Approximate Energy Requirements Using 1829 kcal/Kg Calculation Used for Recommendations Kcal/kg Additional Notes Protein: 0.8-1.2 g/Kg IBW; 51- 77 g/day. Fluids: 1 ml/Kcal, or as per MD. Nutrition Intervention Change Diet Order: Modify to Cardiac/Consistent Carbohydrates Diet. Goal #1 Adjust the dietary intervention to better serve Pt's needs and clinical conditions during LOS. Follow-Up By: 08/28/21 Additional Comments Continue monitoring food tolerance, %PO intake of meals , and BM.
[2021-08-22 05:24] LABS: Basophils # (Auto) 0.1 K/mm3 (0.0-0.1); Basophils % (Auto) 0.3 % (0.0-1.8); Hematocrit 36.4 % (30.3-42.9); Hemoglobin 11.9 gm/dl (10.1-14.3); Lymphocytes # (Auto) 1.3 K/mm3 (1.2-5.4); Lymphocytes % (Auto) 8.4 % (13.4-35.0); Mean Corpuscular HGB Conc 33 % (30-34); Mean Corpuscular Volume 95 fl (79-97); Monocytes % (Auto) 6.3 % (0.0-7.3); Platelet Count 232 K/mm3 (140-440); Red Blood Count 3.82 M/mm3 (3.65-5.03); Red Cell Distribution Width 15.5 % (13.2-15.2)
[2021-08-22 05:41] LABS: Calcium 9.4 mg/dL (8.4-10.2)
[2021-08-22] MEDS: NIFEdipine XL 90 MG TAB PO SCH (06:11)
[2021-08-22] MEDS: FUROSEMIDE 40 MG/4 ML INJ IV SCH ×2 (06:11→19:37)
[2021-08-22] MEDS: IPRATROPIUM/ALBUTEROL SULFATE 3 ML AMPUL.NEB IH SCH ×2 (08:19→20:01)
[2021-08-22] MEDS: hydrALAZINE 100 MG TAB PO SCH ×3 (08:23→21:17)
[2021-08-22] MEDS: carvediloL 25 MG TAB PO SCH ×2 (08:23→19:36)
[2021-08-22] MEDS: FERROUS SULFATE 325 MG TAB PO SCH ×2 (08:23→19:37)
--- NOTE | 2021-08-22 10:02 | Progress Note ---
Assessment and Plan Patient is a 71 y/o female with a PMHx of NICMP, CAD, chronic HFrEF, and Asthma who presented to the ED with complaint of shortness of breath x3 to 4 days. Nonischemic cardiomyopathy NSTEMI suspect type II Acute on chronic chronic HFrEF DELISA on CKD Coronary artery Asthma PAD Diabetes Echocardiogram reviewed 09/03/2020: LVEF is 25 to 30%. LV mildly dilated. LV SF moderately to severely decreased. Mild LVH. Hypokinesis of inferior wall. Mild diastolic dysfunction. RV SF is normal. Moderate AR. Mild MR. LHC 09/27/2020- Left main patent, LAD patent, diagonal patent, circumflex mid 50%, RCA proximal patent, severe LV dysfunction Echo 08/21/2021-EF 30 to 35%. Mild concentric LVH. Mild diastolic dysfunction is present impaired relaxation pattern. Right ventricular systolic function is normal moderate aortic regurgitation. No pericardial effusion Lexiscan MPI stress test 07/14/2021-Normal myocardial perfusion in anterior inferior septal lateral and apical regions. Moderate LV dysfunction EF 34% suggestive of nonischemic cardiomyopathy. No significant ischemia noted Plan: Patient remains chest pain-free Suspect NSTEMI type II due to acute on chronic HFrEF and DELISA on CKD BNP noted to be elevated, patient reports orthopnea, and dyspnea on exertion, CXR shows pulmonary vascular congestion. Continue diuresis with Lasix IV. Close monitoring of renal function, strict I&O's and repeat BMP Creatinine noted to to be downtrending. Creatinine may be elevated to cardiorenal syndrome. However if creatinine continues to rise may wish to consider nephrology consult VQ scan negative for PE Patient currently on aspirin, Lipitor, Coreg, clonidine, hydralazine, Imdur, nifedipine, spironolactone, Entresto Patient has a follow-up appointment with Dr. Rodriguez, [facility] student development specialist, on 09/09/2021 at 2:45 PM in our [place] location. Phone #[phone] Patient in conjunction with Dr. Pop who agrees with this plan of care - Patient Problems (1) Coronary artery disease Current Visit: Yes Status: Chronic Qualifiers: Coronary Disease-Associated Artery/Lesion type: [place] artery [place] vs. transplanted heart: [place] heart (2) Hyperlipidemia Current Visit: Yes Status: Chronic Qualifiers: Hyperlipidemia type: mixed hyperlipidemia Qualified Code(s): E78.2 - Mixed hyperlipidemia (3) Hypertension Current Visit: Yes Status: Chronic Qualifiers: Hypertension type: primary hypertension Qualified Code(s): I10 - Essential (primary) hypertension (4) Acute on chronic HFrEF (heart failure with reduced ejection fraction) Current Visit: No Status: Acute (5) Acute on chronic kidney failure Current Visit: No Status: Acute (6) Diabetes Current Visit: No Status: Acute (7) Elevated troponin Current Visit: No Status: Acute (8) NSTEMI (non-ST elevated myocardial infarction) Current Visit: No Status: Acute Subjective Date of service: 08/22/21 Principal diagnosis: Acute on chronic HFrEF Interval history: Patient resting in bed in no acute distress. Patient remains on nasal cannula. Patient reports improvement in her respiratory status and states she is having good urine output Sinus 70s to 80s on monitor with few PVCs and PACs Objective Vital Signs Temp Pulse Pulse Resp Resp BP BP 08/22/21 09:30 08/22/21 08:23 123/54 08/22/21 08:19 84 20 08/22/21 07:00 97.5 F L 74 20 123/54 08/22/21 04:37 08/22/21 03:09 98.6 F 85 20 144/56 08/22/21 00:20 98.0 F 80 20 170/59 08/21/21 20:36 08/21/21 20:34 80 20 08/21/21 19:58 75 08/21/21 19:41 97.3 F L 75 20 134/73 08/21/21 18:00 79 08/21/21 16:21 97.7 F 79 139/47 08/21/21 13:51 145/56 08/21/21 12:53 08/21/21 10:00 83 Pulse Ox 08/22/21 09:30 95 08/22/21 08:23 08/22/21 08:19 08/22/21 07:00 95 08/22/21 04:37 96 08/22/21 03:09 100 08/22/21 00:20 98 08/21/21 20:36 99 08/21/21 20:34 08/21/21 19:58 08/21/21 19:41 100 08/21/21 18:00 08/21/21 16:21 93 08/21/21 13:51 06/16/22 12:53 96 08/21/21 10:00 - Physical Examination General: No Apparent Distress HEENT: Positive: PERRL Neck: Positive: trachea midline Cardiac: Positive: Reg Rate and Rhythm Lungs: Positive: Decreased Breath Sounds Neuro: Positive: Grossly Intact Abdomen: Positive: Soft, Active Bowel Sounds Skin: Negative: Rash, Suspicious Lesions, Ulceration Extremities: Present: upper extr. pulses. Absent: edema - Labs and Meds CBC 08/22/21 Range/Units 04:38 WBC 15.7 H (4.5-11.0) K/mm3 RBC 3.82 (3.65-5.03) M/mm3 Hgb 11.9 (10.1-14.3) gm/dl Hct 36.4 (30.3-42.9) % Plt Count 232 (140-440) K/mm3 Lymph # (Auto) 1.3 (1.2-5.4) K/mm3 [place] # (Auto) 1.0 H (0.0-0.8) K/mm3 Eos # (Auto) 0.0 (0.0-0.4) K/mm3 Baso # (Auto) 0.1 (0.0-0.1) K/mm3 Comprehensive Metabolic Panel 08/22/21 Range/Units 04:38 Sodium 146 H (137-145) mmol/L Potassium 3.7 (3.6-5.0) mmol/L Chloride 103.5 (98-107) mmol/L Carbon Dioxide 26 (22-30) mmol/L BUN 31 H (7-17) mg/dL Creatinine 1.6 H (0.6-1.2) mg/dL Glucose 125 H (65-100) mg/dL Calcium 9.4 (8.4-10.2) mg/dL - Imaging and Cardiology Echo: pending, report reviewed Cardiac cath: report reviewed - Telemetry EKG Rhythm: Sinus Rhythm - EKG Sinus rhythms and dysrhythmias: sinus rhythm AV and intraventricular conduction: left anterior fascicular Chamber hypertrophy or enlargement: left atrial enlargement, left ventricular hypertro
[2021-08-22] MEDS: PARoxetine 20 MG TAB PO SCH (10:28)
[2021-08-22] MEDS: predniSONE 20 MG TAB PO SCH (10:28)
[2021-08-22] MEDS: cloNIDine 0.1 MG TAB PO SCH ×2 (10:29→21:17)
[2021-08-22] MEDS: FAMOTIDINE 10 MG TAB PO SCH ×2 (10:29→21:17)
[2021-08-22] MEDS: ASPIRIN EC 81 MG TAB PO SCH (10:29)
[2021-08-22] MEDS: SPIRONOLACTONE 50 MG TAB PO SCH (10:29)
[2021-08-22] MEDS: SACUBITRIL/VALSARTAN 49-51 MG TAB PO SCH ×2 (10:30→21:17)
[2021-08-22] MEDS: HEPARIN 5,000 UNIT/1 ML VIAL SUB-Q SCH ×2 (10:33→21:17)
--- NOTE | 2021-08-22 14:06 | Progress Note ---
Assessment and Plan Assessment and plan: #Acute on chronic systolic heart failureimproving - Continue CHF exacerbation protocol: Telemetry, Strict I/O, monitor urine output every shift, daily weights, afterload reduction, low-sodium diet, and fluid restriction of approximately 1.5 mL/day, IV Lasix 40 mg daily - Supplemental oxygen: 2 L nasal cannula - ProBNP on admission: 68,992 - Cardiology consulted; appreciate recs - TTE (08/21/2021) revealing EF 30-35%, normal-sized LV, severely decreased LV systolic function, mild concentric LVH, hypokinesis in the basal inferoseptal wall, mild diastolic dysfunction, and RVSP is 42 mmHg. - Continue to monitor #Acute hypoxic respiratory failure - etiology: Likely secondary to heart failure exacerbation versus COPD exacerbat ion. - baseline oxygen requirements: Room air - supplemental oxygen: 2 L nasal cannula - Continue protocol: continue pulse oximetry, wean oxygen as tolerated, ordered incentive spirometry and educated patient on how to use it and its importance. V/Q scan unremarkable for pulmonary embolism. - continue to monitor #Presumed COPD exacerbation Patient described having productive cough with yellowishgreenish sputum Continue IV Levaquin and prednisone 40 mg daily, DuoNebs, and albuterol nebs as needed. Continue to monitor. #AKIimproving Creatinine 2.0 (baseline unknown)--> 1.6 Likely secondary to cardiorenal syndrome in the setting of acute heart failure exacerbation. Renally dose meds and avoid for toxic drugs. If creatinine worsens, nephrology will be consulted. Continue to monitor. #Leukocytosis WBC 15.7 (previously 9.8) Likely secondary to demarginalization in the setting of steroid administration for COPD exacerbation. Low clinical suspicion for worsening clinical status. Continue to monitor with repeat CBC tomorrow morning. #NSTEMI type II #Acute on chronic systolic heart failure #Nonischemic cardiomyopathy #CAD #PAD #Hyperlipidemia #Hypertension Continue clonidine 0.1 mg nightly, aspirin 81 mg daily, atorvastatin 40 mg daily, digoxin 0.125 mg daily, Imdur 120 mg daily, nifedipine 90 mg daily, Entresto 1 tab twice daily, carvedilol 25 mg twice daily, p.o. hydralazine 100 mg 3 times daily Cardiology consulted; appreciate recs Continue to monitor #Anxiety Continue home paroxetine 20 mg daily #Iron deficiency anemia Hemoglobin 10.9 Continue home ferrous sulfate 325 mg daily #Mild protein caloric malnutrition Albumin 2.7 Starting dietary supplementation #Advanced care planning -Disease education conducted, care plan discussed, diagnoses discussed, prognosis discussed, and patient acknowledges understanding with care plan -Time: +30 min #Discharge planning - Patient is pending resolution of acute hypoxic respiratory failure. - Case management has been made aware. - Discharge is tentatively 24-48 hours. Disposition Plan: Continue medical management Total Time Spent with Patient (Minutes): 45 minutes History Interval history: No acute events overnight. Hospitalist Physical - Constitutional Vitals: Temp Pulse Resp BP Pulse Ox 97.5 F L 68 20 147/60 95 08/22/21 07:00 08/22/21 10:29 08/22/21 08:19 08/22/21 10:29 08/22/21 09:30 General appearance: Present: no acute distress, well-nourished - EENT Eyes: Present: PERRL, EOM intact ENT: hearing intact, clear oral mucosa, dentition normal - Neck Neck: Present: supple, normal ROM - Respiratory Respiratory effort: normal Respiratory: bilateral: diminished (On 2 L nasal cannula) - Cardiovascular Rhythm: regular Heart Sounds: Present: S1 & S2 - Extremities Extremities: no ischemia, pulses intact, pulses symmetrical, No edema, normal temperature, normal color Peripheral Pulses: within normal limits - Abdominal General gastrointestinal: soft, non-tender, non-distended, normal bowel sounds - Integumentary Integumentary: Present: clear, warm, dry - Psychiatric Psychiatric: appropriate mood/affect, intact judgment & insight, memory intact, cooperative - Neurologic Neurologic: CNII-XII intact, moves all extremities - Allied Health Allied health notes reviewed: nursing HEART Score - HEART Score Age: > 65 Risk factors: > 3 risk factors or hx of atherosclerotic disease Troponin: Troponin T 0.231 ng/mL (0.00-0.029) H* 08/20/21 11:23 Troponin: 1-3x normal limit - Critical Actions Critical Actions: 4-6 pts:12-16.6% risk of adverse cardiac event. Should be admitted Results - Labs CBC & Chem 7: 08/22/21 04:38 08/22/21 04:38 Labs: Laboratory Last Values WBC 15.7 K/mm3 (4.5-11.0) H 08/22/21 04:38 RBC 3.82 M/mm3 (3.65-5.03) 08/22/21 04:38 Hgb 11.9 gm/dl (10.1-14.3) 08/22/21 04:38 Hct 36.4 % (30.3-42.9) 08/22/21 04:38 MCV 95 fl (79-97) 08/22/21 04:38 MCH 31 pg (28-32) 08/22/21 04:38 MCHC 33 % (30-34) 08/22/21 04:38 RDW 15.5 % (13.2-15.2) H 08/22/21 04:38 Plt Count 232 K/mm3 (140-440) 08/22/21 04:38 Lymph % (Auto) 8.4 % (13.4-35.0) L 08/22/21 04:38 [place] % (Auto) 6.3 % (0.0-7.3) 08/22/21 04:38 Eos % (Auto) 0.0 % (0.0-4.3) 08/22/21 04:38 Baso % (Auto) 0.3 % (0.0-1.8) 08/22/21 04:38 Lymph # (Auto) 1.3 K/mm3 (1.2-5.4) 08/22/21 04:38 [place] # (Auto) 1.0 K/mm3 (0.0-0.8) H 08/22/21 04:38 Eos # (Auto) 0.0 K/mm3 (0.0-0.4) 08/22/21 04:38 Baso # (Auto) 0.1 K/mm3 (0.0-0.1) 08/22/21 04:38 Seg Neutrophils % 85.0 % (40.0-70.0) H 08/22/21 04:38 Seg Neutrophils # 13.4 K/mm3 (1.8-7.7) H 08/22/21 04:38 PT 14.3 Sec. (12.2-14.9) 08/20/21 05:51 INR 1.00 (0.87-1.13) 08/20/21 05:51 APTT 30.4 Sec. (24.2-36.6) 08/20/21 05:51 D-Dimer 860.88 ng/mlDDU (0-234) H 08/21/21 10:51 Sodium 146 mmol/L (137-145) H 08/22/21 04:38 Potassium 3.7 mmol/L (3.6-5.0) 08/22/21 04:38 Chloride 103.5 mmol/L (98-107) 08/22/21 04:38 Carbon Dioxide 26 mmol/L (22-30) 08/22/21 04:38 Anion Gap 20 mmol/L 08/22/21 04:38 BUN 31 mg/dL (7-17) H 08/22/21 04:38 Creatinine 1.6 mg/dL (0.6-1.2) H 08/22/21 04:38 Estimated GFR 38 ml/min 08/22/21 04:38 BUN/Creatinine Ratio 19 % 08/22/21 04:38 Glucose 125 mg/dL (65-100) H 08/22/21 04:38 Calcium 9.4 mg/dL (8.4-10.2) 08/22/21 04:38 Total Bilirubin 0.90 mg/dL (0.1-1.2) 08/20/21 05:51 AST 32 units/L (5-40) 08/20/21 05:51 ALT 20 units/L (7-56) 08/20/21 05:51 Alkaline Phosphatase 99 units/L (35-129) 08/20/21 05:51 Troponin T 0.231 ng/mL (0.00-0.029) H* 08/20/21 11:23 NT-Pro-B Natriuret Pep 24978 pg/mL (0-900) H 08/20/21 05:51 Total Protein 6.7 g/dL (6.3-8.2) 08/20/21 05:51 Albumin 3.7 g/dL (3.9-5) L 08/20/21 05:51 Albumin/Globulin Ratio 1.2 % 08/20/21 05:51 Triglycerides 85 mg/dL (2-149) 08/20/21 05:51 Cholesterol 168 mg/dL (50-199) 08/20/21 05:51 LDL Cholesterol Direct 98 mg/dL (50-130) 08/20/21 05:51 HDL Cholesterol 57 mg/dL (40-59) 08/20/21 05:51 Cholesterol/HDL Ratio 2.94 % 08/20/21 05:51 Active Medications - Current Medications Current Medications: Generic Name Dose Route Start Last Admin Trade Name Freq PRN Reason Stop Dose Admin Acetaminophen 650 mg 08/20/21 12:12 Acetaminophen 325 Mg Tab PO Q4H PRN Pain MILD(1-3)/Fever >100.5/GAMEZ Albuterol 5 mg 08/21/21 00:21 Albuterol 2.5 Mg/3 Ml Nebu IH TIDRT PRN Wheezing Albuterol/Ipratropium 1 ampul 08/22/21 20:00 Ipratropium/Albuterol Sulfate 3 Ml Ampul.Neb IH BIDRT MARVEL Aspirin 81 mg 08/21/21 10:00 08/22/21 10:29 Aspirin Ec 81 Mg Tab PO 81 mg QDAY MARVEL Administration Atorvastatin Calcium 40 mg 08/21/21 22:00 08/21/21 21:26 Atorvastatin 40 Mg Tab PO 40 mg QHS MARVEL Administration Carvedilol 25 mg 08/21/21 01:00 08/22/21 08:23 Carvedilol 25 Mg Tab PO 25 mg BID@0800,1700 MARVEL Administration Clonidine HCl 0.1 mg 08/21/21 01:00 08/22/21 10:29 Clonidine 0.1 Mg Tab PO 0.1 mg Q12HR MARVEL Administration Famotidine 10 mg 08/21/21 10:00 08/22/21 10:29 Famotidine 10 Mg Tab PO 10 mg BID MARVEL Administration Ferrous Sulfate 325 mg 08/21/21 17:00 08/22/21 08:23 Ferrous Sulfate 325 Mg Tab PO 325 mg 0800,1700 MARVEL Administration Furosemide 40 mg 08/21/21 01:00 08/22/21 06:11 Furosemide 40 Mg/4 Ml Inj IV 40 mg 0600,1800 [facility]EL Administration Heparin Sodium (Porcine) 5,000 unit 08/21/21 10:30 08/22/21 10:33 Heparin 5,000 Unit/1 Ml Vial SUB-Q 5,000 unit Q12HR [facility]VEL Administration Hydralazine HCl 100 mg 08/21/21 08:00 08/22/21 08:23 Hydralazine 100 Mg Tab PO 100 mg TID MARVEL Administration Isosorbide Mononitrate 120 mg 08/21/21 10:00 08/22/21 10:28 Isosorbide Mononitrate Er 60 Mg Tab PO 120 mg QDAY MARVEL Administration Levofloxacin 750 mg 08/23/21 22:00 Levofloxacin 750 Mg Tab PO 08/29/21 22:01 Q48H [facility] Protocol Metoclopramide HCl 5 mg 08/21/21 00:21 08/21/21 13:54 Metoclopramide 10 Mg Tab PO 5 mg Q6H PRN Administration Nausea And Vomiting Morphine Sulfate 2 mg 08/20/21 12:12 Morphine 2 Mg/1 Ml Inj IV Q4H PRN Pain, Moderate (4-6) Nifedipine 90 mg 08/21/21 06:00 08/22/21 06:11 Nifedipine Xl 90 Mg Tab PO 90 mg QDAY@0600 [facility] Administration Ondansetron HCl 4 mg 08/20/21 12:12 08/21/21 16:47 Ondansetron 4 Mg/2 Ml Inj IV 4 mg Q8H PRN Administration Nausea And Vomiting Oxycodone/Acetaminophen 1 tab 08/21/21 00:34 08/21/21 13:55 Oxycodone /Acetaminophen 5-325mg Tab PO 1 tab Q6H PRN Administration Pain, Moderate (4-6) Paroxetine HCl 20 mg 08/21/21 10:00 08/22/21 10:28 Paroxetine 20 Mg Tab PO 20 mg DAILY [facility]EL Administration Prednisone 40 mg 08/22/21 10:00 08/22/21 10:28 Prednisone 20 Mg Tab PO 08/25/21 10:01 40 mg QDAY [facility]VEL Administration Sacubitril/Valsartan 1 each 08/21/21 01:00 08/22/21 10:30 Sacubitril/Valsartan 49-51 Mg Tab PO 1 each BID MARVEL Administration Sodium Chloride 10 ml 08/20/21 13:00 08/21/21 21:26 Sodium Chloride 0.9% 10 Ml Flush Syringe IV 10 ml BID [facility] Administration Sodium Chloride 10 ml 08/20/21 12:12 Sodium Chloride 0.9% 10 Ml Flush Syringe IV PRN PRN LINE FLUSH Spironolactone 50 mg 08/21/21 10:00 08/22/21 10:29 Spironolactone 50 Mg Tab PO 50 mg QDAY MARVEL Administration Nutrition/Malnutrition Assess - Dietary Evaluation Nutrition/Malnutrition Findings: Nutrition Notes Start: 08/21/21 18:24 Freq: Status: Active Protocol: Document 08/21/21 18:24 STONE (Rec: 08/21/21 18:50 STONE [id number]) Nutrition Notes Need for Assessment generated from: MD Order Initial or Follow up Assessment Current Diagnosis Acute Kidney Injury,CKD(stage I-IV),COPD,Coronary Artery Disease,Diabetes,Hypertension, Respiratory Failure, Hyperlipidemia Other Pertinent Diagnosis HFrEF, Asthma, NSTEMI II, PAD. Current Diet Cardiac/Consistent Carbohydrates Diet (from B ). Labs/Tests 08/21: K 3.5, CO2 21, BUN 27, Crea 2.0, Glu 122. Pertinent Medications 08/21: Nutritionally unremarkable. Height 5 ft 8 in Weight 57.153 kg [place] Body Weight (kg) 63.63 BMI 19.1 Intake Prior to Admission Poor Weight change and time frame Pt denies having loss body weight [employer] INST[employer]. Weight Status Appropriate Subjective/Other Information RD consult for dietary supplementation assessment. No reports available on Pt's PO intake of meals at the time , will assess at F/U. I will not prescribe dietary supplements, since they don't seem necessary at this time, will reassess at F/U. I will prescribe modification of diet from Cardiac to Cardiac/Consistent Carbohydrates Diet to support Pt's T2DM condition, along with cardiac needs. Pt is on Nasal Cannula, O2 saturation @ 96%, according to Physical Assessment History notes. Pt has missing teeth, according to Physical Assessment History notes. Pt presents bilateral-LE swelling, according to [facility] & Physical notes. Percent of energy/protein needs met: Prescribed Cardiac/Consistent Carbohydrates Diet provides for energy/protein needs (1, 977 Kcal/86 g) during LOS. Burn Absent Trauma Absent GI Symptoms None Food Allergy No Skin Integrity/Comment Assessment WNL. Minimum of two criteria No Fluid Accumulation Moderate to Severe (severe) Reduced Cafeteria Aide Strength N/A (non-severe) Protein-Calorie Malnutrition N\A #1 Nutrition Diagnosis Altered nutrition-related laboratory values Etiology T2DM. As Evidenced by Signs and Symptoms 08/21: Glu 122. Is patient on ventilator? No Is Patient Ambulatory and/or Out of Bed Yes REE-([place]-St. Jeor-ambulatory/OOB) [ 1462.539 NUTR.[id number]] Kcal/Kg value to use for calculation 32 Approximate Energy Requirements Using 1829 kcal/Kg Calculation Used for Recommendations Kcal/kg Additional Notes Protein: 0.8-1.2 g/Kg IBW; 51- 77 g/day. Fluids: 1 ml/Kcal, or as per MD. Nutrition Intervention Change Diet Order: Modify to Cardiac/Consistent Carbohydrates Diet. Goal #1 Adjust the dietary intervention to better serve Pt's needs and clinical conditions during LOS. Follow-Up By: 08/28/21 Additional Comments Continue monitoring food tolerance, %PO intake of meals , and BM.
[2021-08-23 05:33] LABS: Calcium 9.2 mg/dL (8.4-10.2)
[2021-08-23] MEDS: FUROSEMIDE 40 MG/4 ML INJ IV SCH (05:45)
[2021-08-23] MEDS: NIFEdipine XL 90 MG TAB PO SCH (05:45)
[2021-08-23 08:47] VITALS: BP 156/61
[2021-08-23] MEDS: IPRATROPIUM/ALBUTEROL SULFATE 3 ML AMPUL.NEB IH SCH (09:04)
[2021-08-23] MEDS: FAMOTIDINE 10 MG TAB PO SCH (09:35)
[2021-08-23] MEDS: ASPIRIN EC 81 MG TAB PO SCH (09:35)
[2021-08-23] MEDS: hydrALAZINE 100 MG TAB PO SCH (09:35)
[2021-08-23] MEDS: predniSONE 20 MG TAB PO SCH (09:35)
[2021-08-23] MEDS: FERROUS SULFATE 325 MG TAB PO SCH (09:35)
[2021-08-23] MEDS: SACUBITRIL/VALSARTAN 49-51 MG TAB PO SCH (09:35)
[2021-08-23] MEDS: PARoxetine 20 MG TAB PO SCH (09:35)
[2021-08-23] MEDS: SPIRONOLACTONE 50 MG TAB PO SCH (09:36)
[2021-08-23] MEDS: carvediloL 25 MG TAB PO SCH (09:36)
[2021-08-23] MEDS: HEPARIN 5,000 UNIT/1 ML VIAL SUB-Q SCH (09:36)
[2021-08-23] MEDS: cloNIDine 0.1 MG TAB PO SCH (09:39)
--- NOTE | 2021-08-23 09:48 | Discharge Summary ---
Providers - Providers Date of Admission: 08/20/21 12:12 Date of discharge: 08/23/21 Attending physician: PATEL SANTILLAN MD 08/21/21 00:34 Consult to Physician [CONS] Routine Comment: Consulting Provider: SAMUEL STEIN Physician Instructions: Reason For Exam: CHF exacerbation Primary care physician: GOKUL KAPADIA Hospitalization Reason for admission: Acute on chronic systolic heart failure, COPD exacerbation Condition: Stable Pertinent studies: Reviewed. Procedures: None. Hospital course: Patient is a 71-year-old female past medical history of chronic systolic heart failure, COPD, hypertension, hyperlipidemia, CAD (class IV NYHA), noninsulin- dependent type 2 diabetes mellitus, history of DVT, history of CKD who presented with worsening shortness of breath of the previous 2 weeks associated with minimal exertion. Patient also endorsed having a productive cough with whiteyellowish phlegm. Patient endorsed orthopnea and peripheral edema. In the ED the patient was found to be hemodynamically stable with an elevated blood pressure. Patient had labs are remarkable for a proBNP of 68,992 and a troponin of 0.247 with a creatinine of 2.1. Patient was admitted for 4 heart failure management and COPD exacerbation management. Patient was evaluated by cardiology who agreed with IV diuresing and medical management. Patient was also started on Levaquin and oral steroids. The patient has been transitioned to room air. She has been counseled about the importance of fluid restriction, salt restriction, and medication compliance. She expresses understanding. The patient will follow-up with outpatient zig zag spring machine operator Dr. Brewer on 09/09/2021 at 2:45 PM. Patient is medically clear for discharge. Disposition: 01 HOME / SELF CARE / HOMELESS Final Discharge Diagnosis (Prints w/discharge instructions): Acute on chronic systolic heart failure, acute hypoxic respiratory failure, COPD exacerbation, DELISA, leukocytosis, NSTEMI type II, nonischemic cardiomyopathy, CAD, PAD, hyperlipidemia, hypertension, anxiety, iron deficiency anemia, mild protein caloric malnutrition Time spent for discharge: 45 min Core Measure Documentation - Palliative Care Palliative Care/ Comfort Measures: Not Applicable - Core Measures Any of the following diagnoses?: heart failure - Heart Failure Discharge Requirements HUMAIRA/ARB for LVSD if EF <40%: Yes Beta anisa at discharge: Yes Exam - Constitutional Vitals: Temp Pulse Resp BP Pulse Ox 97.8 F 72 16 156/61 100 06/18/22 08:43 08/23/21 09:04 08/23/21 09:04 08/23/21 08:43 08/23/21 09:06 General appearance: Present: no acute distress, well-nourished - EENT Eyes: Present: PERRL, EOM intact ENT: hearing intact, clear oral mucosa, dentition normal - Neck Neck: Present: supple, normal ROM - Respiratory Respiratory effort: normal Respiratory: bilateral: diminished - Cardiovascular Rhythm: regular Heart Sounds: Present: S1 & S2 - Extremities Extremities: no ischemia, pulses intact, pulses symmetrical, No edema, normal temperature, normal color Peripheral Pulses: within normal limits - Abdominal General gastrointestinal: Present: soft, non-tender, non-distended, normal bowel sounds Female genitourinary: Present: deferred - Rectal Rectal Exam: deferred - Integumentary Integumentary: Present: clear, warm, dry - Musculoskeletal Musculoskeletal: generalized weakness - Psychiatric Psychiatric: appropriate mood/affect, intact judgment & insight, memory intact, cooperative - Neurologic Neurologic: CNII-XII intact, moves all extremities - Allied Health Allied health notes reviewed: nursing Plan Activity: no restrictions Diet: low salt, diabetic Special Instructions: restrict fluid intake to (2 L/day.), other (Resume home taking furosemide (Lasix) on 08/24/2021.) Additional Instructions: Patient is a 71-year-old female past medical history of chronic systolic heart failure, COPD, hypertension, hyperlipidemia, CAD (class IV NYHA), noninsulin-dependent type 2 diabetes mellitus, history of DVT, history of CKD who presented with worsening shortness of breath of the previous 2 weeks associated with minimal exertion. Patient also endorsed having a productive cough with whiteyellowish phlegm. Patient endorsed orthopnea and peripheral edema. In the ED the patient was found to be hemodynamically stable with an elevated blood pressure. Patient had labs are remarkable for a proBNP of 68,992 and a troponin of 0.247 with a creatinine of 2.1. Patient was admitted for 4 heart failure management and COPD exacerbation management. Patient was evaluated by cardiology who agreed with IV diuresing and medical management. Patient was also started on Levaquin and oral steroids. The patient has been transitioned to room air. She has been counseled about the importance of fluid restriction, salt restriction, and medication compliance. She expresses understanding. The patient will follow-up with outpatient zig zag spring machine operator Dr. Brewer on 09/09/2021 at 2:45 PM. Patient is medically clear for discharge. Care Plan Goals: She is medically clear for discharge. Assessment: Patient is a 71-year-old female past medical history of chronic systolic heart failure, COPD, hypertension, hyperlipidemia, CAD (class IV NYHA), noninsulin- dependent type 2 diabetes mellitus, history of DVT, history of CKD who presented with worsening shortness of breath of the previous 2 weeks associated with minimal exertion. Patient also endorsed having a productive cough with whiteyellowish phlegm. Patient endorsed orthopnea and peripheral edema. In the ED the patient was found to be hemodynamically stable with an elevated blood pressure. Patient had labs are remarkable for a proBNP of 68,992 and a troponin of 0.247 with a creatinine of 2.1. Patient was admitted for 4 heart failure management and COPD exacerbation management. Patient was evaluated by cardiology who agreed with IV diuresing and medical management. Patient was also started on Levaquin and oral steroids. The patient has been transitioned to room air. She has been counseled about the importance of fluid restriction, salt restriction, and medication compliance. She expresses understanding. The patient will follow-up with outpatient zig zag spring machine operator Dr. Brewer on 09/09/2021 at 2:45 PM. Patient is medically clear for discharge. Follow up with: GOKUL KAPADIA MD [Primary Care Provider] - 7 Days ZENAIDA BREWER MD [Staff Physician] - 09/09/21 2:45 pm Prescriptions: Spironolactone [Aldactone] 50 mg PO QDAY #30 tablet predniSONE [Deltasone] 40 mg PO QDAY #4 tablet levoFLOXacin [Levaquin TAB] 500 mg PO Q24HR #4 tablet
[2021-08-23] MEDS ORDERED: levoFLOXacin 500 MG TAB PO ONE (10:00)
[2021-08-23 12:25] LABS: Basophils # (Auto) 0.1 K/mm3 (0.0-0.1); Basophils % (Auto) 0.4 % (0.0-1.8); Hematocrit 37.3 % (30.3-42.9); Hemoglobin 12.7 gm/dl (10.1-14.3); Lymphocytes # (Auto) 1.4 K/mm3 (1.2-5.4); Lymphocytes % (Auto) 9.7 % (13.4-35.0); Mean Corpuscular HGB Conc 34 % (30-34); Mean Corpuscular Volume 97 fl (79-97); Monocytes % (Auto) 6.9 % (0.0-7.3); Red Blood Count 3.85 M/mm3 (3.65-5.03); Red Cell Distribution Width 15.4 % (13.2-15.2)
[2021-08-23 12:46] LABS: Platelet Count 323 K/mm3 (140-440)
[2021-08-23] MEDS ORDERED: levoFLOXacin 750 MG TAB PO SCH (22:00)
[2021-08-24] MEDS ORDERED: levoFLOXacin 250 MG TAB PO SCH (10:00)
== END 2021-08-23 12:27 | disposition home health service (06) | DRG 280 ==
LOC: ED 05:07 → 4A 12:12
PROVIDERS: ADMIT Internal Medicine; ATTEND Student in an Organized Health Care Education/Training Program
DX: I11.0 Hypertensive heart disease with heart failure (principal); I50.23 Acute on chronic systolic (congestive) heart failure; I21.A1 Myocardial infarction type 2; J96.01 Acute respiratory failure with hypoxia; N17.0 Acute kidney failure with tubular necrosis; J44.1 Chronic obstructive pulmonary disease with (acute) exacerbation; E44.1 Mild protein-calorie malnutrition; Z68.1 Body mass index [BMI] 19.9 or less, adult; D50.9 Iron deficiency anemia, unspecified; F41.9 Anxiety disorder, unspecified; E78.00 Pure hypercholesterolemia, unspecified; E78.5 Hyperlipidemia, unspecified; I25.10 Atherosclerotic heart disease of native coronary artery without angina pectoris; I42.8 Other cardiomyopathies; Z86.718 Personal history of other venous thrombosis and embolism; Z87.891 Personal history of nicotine dependence; E11.51 Type 2 diabetes mellitus with diabetic peripheral angiopathy without gangrene
CPT/HCPCS: 36415; 71045; 78580; 80048; 80053; 80061; 83880; 84484; 85025; 85379; 85610; 85730; 93005; 93306; 94640; 94644; 94760; 99406; G0378; A9540; C8929; J1644; J1940; J1956; J2405; J2765; J2930